=== PATIENT | male | born 1980 | race Caucasian/White ===

== ENCOUNTER 2019-11-15 13:58 | Emergency (ER) | payer BC ==
[2019-11-15] MEDS ORDERED: ROCURONIUM 50 MG/5 ML VIAL IV ONE (13:59)
[2019-11-15] MEDS ORDERED: ETOMIDATE 20 MG/10 ML VIAL IV ONE (13:59)
[2019-11-15] MEDS ORDERED: NA CHLORIDE 0.9% 2,000 ML ONE (14:03)
[2019-11-15] MEDS ORDERED: RSI MEDICATION KIT IV ONE ×2 (14:04→14:09)
[2019-11-15 14:21] LABS: Absolute Lymphocytes (CBC) 3.8 K/uL (0.7-4.9); Basophils % 0.6 % (0-1.3); Hematocrit 46.2 % (39.6-49.0); Lymphocytes % 41.3 % (15.3-44.8); MPV 8.3 fL (7.6-11.3); RBC Red Blood Cell Count 5.12 M/uL (4.33-5.43)
[2019-11-15 14:29] LABS: Protime INR 0.92
[2019-11-15] MEDS ORDERED: CEFAZOLIN/SWI 1gm 1 GM/10 ML SYR ONE (14:38)
[2019-11-15] MEDS ORDERED: TETANUS & DIPHTHERIA TOX,ADULT 0.5 ML VIAL ONE (14:38)
[2019-11-15 14:39] LABS: Potassium 3.7 mmol/L (3.5-5.1)
[2019-11-15] MEDS ORDERED: MIDAZOLAM HCL 2 MG/2 ML INJ ONE (14:41)
[2019-11-15] MEDS ORDERED: VECURONIUM 10 MG/VIAL IV ONE (14:42)
[2019-11-15] MEDS ORDERED: WATER FOR INJ,STERILE 10 ML ONE ×2 (14:42→15:01)
[2019-11-15] MEDS ORDERED: propofoL 1,000 MG/100 ML VIAL IV ONE (14:50)
[2019-11-15] MEDS ORDERED: CEFAZOLIN SODIUM 1 GM/VIAL ONE (15:01)
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
[2019-11-15 15:22] VITALS: TEMP 97.8
--- NOTE | 2019-11-15 15:27 | P.BOP ---
Preoperative diagnosis: RIGHT traumatic hemopneumothroax Postoperative diagnosis: RIGHT traumatic hemopneumothroax Primary procedure: [place] of a 20Fr Thal RIGHT thoracostomy tube Estimated blood loss: 30cc Specimen: none Findings: 30cc of dark blood returned with air Anesthesia: Local Complications: None Drain(s): Other (CHEST tube) Transferred to: Other ([facility]) Condition: Serious
[2019-11-15 15:41] VITALS: BP 163/102; O2SAT 95
[2019-11-15] MEDS ORDERED: KETAMINE HCL 500 MG/5 ML VIAL ONE (19:29)
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
== END 2019-11-15 15:14 | disposition short-term general hospital (02) ==
LOC: ER 13:58
PROC: 0W9930Z Drainage of Right Pleural Cavity with Drainage Device, Percutaneous Approach (ICD-10-PCS; principal; 2019-11-15)
PROC: 0BH17EZ Insertion of Endotracheal Airway into Trachea, Via Natural or Artificial Opening (ICD-10-PCS; 2019-11-15)
PROC: 5A1935Z Respiratory Ventilation, Less than 24 Consecutive Hours (ICD-10-PCS; 2019-11-15)
PROC: 06HM33Z Insertion of Infusion Device into Right Femoral Vein, Percutaneous Approach (ICD-10-PCS; 2019-11-15)
PROC: 30233K1 Transfusion of Nonautologous Frozen Plasma into Peripheral Vein, Percutaneous Approach (ICD-10-PCS; 2019-11-15)
PROC: 30233N1 Transfusion of Nonautologous Red Blood Cells into Peripheral Vein, Percutaneous Approach (ICD-10-PCS; 2019-11-15)
DX: S27.2XXA Traumatic hemopneumothorax, initial encounter (principal); S22.5XXA Flail chest, initial encounter for closed fracture; S01.01XA Laceration without foreign body of scalp, initial encounter; V29.40XA Motorcycle driver injured in collision with unspecified motor vehicles in traffic accident, initial encounter; Z23 Encounter for immunization; I10 Essential (primary) hypertension
CPT/HCPCS: 32551; 31500 ×2; 94002 ×2; 36556; 85025; 80048; 36415; 86900; 86850; 85610; 86901; 70450; 72125; 71260; 74177; 71045; 90471; 90714; 51702; 96375; 96374; 99291; 36430; Q9967; J2704; J2250; J0690 ×2; P9016; J7030

== ENCOUNTER 2020-03-27 16:05 | Emergency (ER) | payer OTHER, SELFPAY ==
--- OUTSIDE RECORDS SUMMARY | 2020-03-27 16:17 | XMS REPORT | Continuity of Care Document ---
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 grapefruit and grapefruit juice". Do not crush Coumadin Notes: Nurse to No Longer TI RR ensure Active 2020 documentation of patient education per anticoagulation policy. Avoid large intake of vitamin-K containing foods diet. WASTE: F/P - P Waste Black; E - P Waste Black (Same As: Coumadin) Hazardous Drug Group 3:Reproductive risk Hazardous Drug -- Refer to safe handling procedure PPE Matrix Lisinopril Notes: (Same as: Inactive [facility] Prinivil, 2019 Zestril) gabapentin 50 Notes: Same as No Longer H [facility] MG/ML Oral Neurontin Active 2019 Solution Silver Nitrate Notes: WASTE: No Longer H [facility] F/P - Black; E - Active 2019 [facility] Trash [facility] Diclofenac Sodium Notes: Same as: No Longer 12/13 [facility] 0.01 MG/MG Topical Voltaren Gel Active 2020 Gel [Voltaren] Methylphenidate Notes: (Same No Longer H [facility] as:Ritalin) Active 2020 Clonidine Notes: (Same As: No Longer [facility] Hydrochloride 0.1 Catapres) Active 2020 MG Oral Tablet Clonidine Notes: (Same As: No Longer [facility] Hydrochloride 0.2 Catapres) Active 2020 MG Oral Tablet Trazodone Notes: (Same As: No Longer [facility] Hydrochloride 50 Desyrel) Active 2020 MG Oral Tablet Acetaminophen Notes: Do not No Longer [facility] exceed 4 gm/day. Active 2020 (Same as: Tylenol) Melatonin 3 MG Notes: (Same as: No Longer [facility] Extended Release Melatonin) Active 2020 Tablet Clonidine Notes: (Same As: No Longer [facility] Hydrochloride 0.2 Catapres) Active 2020 MG Oral Tablet Acetaminophen Notes: Do not No Longer [facility] exceed 4 gm/day. Active 2020 (Same as: Tylenol) Keflex Notes: Take on No Longer [facility] empty stomach. Active 2020 (Same As: Keflex) Sulfamethoxazole 1 tab, Route: Inactive [facility] 800 MG / PO, Drug Form: 2019 Trimethoprim 160 TAB, Dosing MG Oral Tablet Weight 90.909, [Bactrim] kg, [id number], Start date: 12/24/19 10:00:00 PORT TRAFFIC MANAGER, Duration: 7 day, Stop date: 12/30/19 22:00:00 PORT TRAFFIC MANAGER Methocarbamol Notes: (Same No Longer [facility] as:Robaxin) Active 2020 Oxycodone Notes: (Same as: No Longer [facility] Hydrochloride 5 MG Roxicodone) Active 2019 Oral Tablet sennosides, GROUP HOME 2 tab, Route: Inactive H [facility] 8.6 MG Oral Tablet PO, Drug Form: 2020 TAB, Dosing Weight 90.909, kg, Bedtime, Start date: 12/22/19 21:00:00 PORT TRAFFIC MANAGER, Duration: 30 day, Stop date: 01/20/20 21:00:00 CDT Warfarin Notes: Nurse to No Longer TI RR ensure Active 2019 documentation of patient education per anticoagulation policy. Avoid large intake of vitamin-K containing foods diet. (Same As: Coumadin) WASTE: F/P - P Waste Black; E - P Waste Black Hazardous Drug Group 3:Reproductive risk Hazardous Drug -- Refer to safe handling procedure PPE Matrix Methocarbamol Notes: (Same No Longer [facility] as:Robaxin) Active 2020 Docusate Sodium Notes: (Same as: No Longer 12/22 [facility] 100 MG Oral Colace) (Do Not Active 2020 Capsule [Colace] Crush) Bacitracin 1 appl, Route: No Longer [facility] TOP, Q12H, Drug Active 2020 form: OINT, Start date: 12/20/19 21:00:00 PORT TRAFFIC MANAGER, Duration: 30 day, Stop date: 01/19/20 9:00:00 CDT, 0 Warfarin Notes: Nurse to No Longer TI RR ensure Active 2020 documentation of patient education per anticoagulation policy. Avoid large intake of vitamin-K containing foods diet. WASTE: F/P - P Waste Black; E - P Waste Black (Same As: Coumadin) Hazardous Drug Group 3:Reproductive risk Hazardous Drug -- Refer to safe handling procedure PPE Matrix Amlodipine Notes: (Same as: No Longer [facility] Norvasc) Active 2020 POLYETHYLENE Notes: Dissolve No Longer H [facility] GLYCOL 3350 in 8 oz of water Active 2020 or juice. (Same as: Miralax) remove patch Notes: Remove No Longer [facility] patch 12 hours Active 2019 after application each day. gabapentin 50 Notes: (Same as: No Longer [facility] MG/ML Oral Neurontin) Active 2020 Solution atorvastatin Notes: (Same as: No Longer [facility] Lipitor) Active 2019 Bacitracin 0.5 Notes: (Same As: Inactive [facility] UNT/MG / Polymyxin Polysporin) 2020 B 10 UNT/MG Topical Ointment Clonidine Notes: (Same As: No Longer [facility] Hydrochloride 0.2 Catapres) Active 2020 MG Oral Tablet Docusate Sodium 50 Notes: (Same as No Longer [facility] MG / sennosides, Senokot-S) Active 2020 GROUP HOME 8.6 MG Oral Equiv. to Tablet Viktoria-Colace. Famotidine 20 MG Notes: (Same as: No Longer 8/ [facility] Oral Tablet Pepcid) Active 2020 [Pepcid] Lidocaine 1 patch, Route: Inactive TI RR Hydrochloride 0.05 TOP, Q24H, Drug 2020 MG/MG Transdermal form: FILM, Patch [Lidoderm] Start date: 12/19/19 21:00:00 PORT TRAFFIC MANAGER, Duration: 30 day, Stop date: 01/17/20 21:00:00 PORT TRAFFIC MANAGER Methocarbamol Notes: (Same No Longer [facility] as:Robaxin) Active 2020 lidocaine topical Notes: Apply No Longer [facility] only once for Active 2019 up to 12 hours in a 24-hour period (12 hours on and 12 hours off). (Same as: Aspercreme Lidocaine Patch) "Remove old patch before application of new patch" Oxycodone Notes: (Same as: No Longer [facility] Hydrochloride 5 MG Roxicodone) Active 2020 Oral Tablet Albuterol 0.833 Notes: (Same as: No Longer 12/20 [facility] MG/ML / Duoneb) Active 2020 Ipratropium [place] 0.167 MG/ML Inhalant Solution [DuoNeb] Simethicone Notes: (Same as: No Longer H [facility] Mylicon) Active 2020 tramadol Notes: Not to No Longer [facility] hydrochloride 50 exceed Active 2020 MG Oral Tablet 400mg/day. (Same As: Ultram) Acetaminophen Notes: Do not No Longer [facility] exceed 4 gm/day. Active 2020 (Same as: Tylenol) Milk of Magnesia Notes: (Same as: No Longer [facility] Milk of Active 2020 Magnesia, MOM) Bisacodyl Notes: (Same As: No Longer [facility] Dulcolax, Active 2020 Bisco-Lax) warfarin 5 mg oral 5 mg = 1 tab, On Hold [place] tablet PO, Daily, INR 2020 Medical goal 2-3, # 30 Center tab, 0 Refill(s) Acetaminophen 500 1,000 mg = 2 On Hold H [place] MG Oral Tablet tab, PO, Q6H, 0 2020 M edical Refill(s) Center Albuterol 0.833 3 mL, NEB, RTID, On Hold [place] MG/ML / PRN Respiratory 2020 Medical Ipratropium Pathway, 0 Center [place] 0.167 Refill(s) MG/ML Inhalant Solution [DuoNeb] Albuterol 0.83 NEB, RQ4H, PRN On Hold [facility] MG/ML Inhalant Wheezing, 0 2019 Medic al Solution Refill(s) [place] amLODIPine 10 mg 10 mg = 1 tab, On Hold [facility] oral tablet PO, Daily, 0 2019 Medical Refill(s) [place] atorvastatin 80 mg 80 mg = 1 tab, On Hold [facility] oral tablet NG, Bedtime, 0 2019 Medic al Refill(s) [place] Bacitracin 0.5 1 appl, TOP, [place] UNT/MG / Polymyxin TID, 0 Refill(s) 2019 Medical B 10 UNT/MG [place] Topical Ointment Clonidine 0.2 mg = 1 tab, On Hold Riky as Hydrochloride 0.2 GT, Q4H, 0 2019 Med ical MG Oral Tablet Refill(s) [place] dextromethorphan-g 10 mL, PO, Q4H, On Hold 12/19 [facility] uaiFENesin 20 0 Refill(s) 2019 Medica l mg-200 mg/10 mL [place] oral liquid Docusate Sodium 50 2 tab, PO, BID, On Hold 12/19 [facility] MG / sennosides, 0 Refill(s) 2019 Med ical GROUP HOME 8.6 MG Oral [place] Tablet Famotidine 20 MG 20 mg = 1 tab, On Hold [facility] Oral Tablet PO, Q12H, 0 2019 Medical [Pepcid] Refill(s) [place] gabapentin 50 900 mg = 18 mL, On Hold [facility] MG/ML Oral GT, Q8H, 0 2019 Medical Solution Refill(s) [place] haloperidol 5 mg 5 mg = 1 tab, On Hold [facility] oral tablet PEG, Q6H, PRN 2019 Medica l Agitation, 0 Center Refill(s) lactobacillus PO, Daily, 0 [place] rhamnosus GG Refill(s) 2019 [facility] Lidocaine 1 patch, TOP, On Hold [place] Hydrochloride 0.05 Q24H, 0 2019 Medic al MG/MG Transdermal Refill(s) Cent er Patch [Lidoderm] methocarbamol 500 500 mg = 1 tab, On Hold [facility] mg oral tablet PO, QID, 0 2019 Medica l Refill(s) Center Nystatin 212260 200,000 unit = 2 On Hold [facility] UNT/ML Oral mL, Swab Mouth, 2019 Medi connor Suspension Q8H, 0 Refill(s) Cent er polyethylene PO, Daily, 0 On Hold [place] as glycol 3350 oral Refill(s) 2019 Medic al powder for Center reconstitution Psyllium PO, TID, 0 On Hold [facility] Refill(s) 2019 Medical Center simethicone 80 mg 80 mg = 1 tab, On Hold [facility] oral tablet, PEG, Q8H, PRN as 2020 Me dical chewable needed for gas, Center 0 Refill(s) tramadol 50 mg = 1 tab, On Hold [facility] hydrochloride 50 PO, Q6H, PRN 2020 Me dical MG Oral Tablet Pain Score 7-10, Center 0 Refill(s) Warfarin Notes: Nurse to Inactive [place] as ensure 2019 Medical documentation of Center patient education per anticoagulation policy. Avoid large intake of vitamin-K containing foods diet. WASTE: F/P - P Waste Black; E - P Waste Black (Same As: Coumadin) Hazardous Drug Group 3:Reproductive risk Hazardous Drug -- Refer to safe handling procedure PPE Matrix Miralax Notes: Dissolve [place] in 8 oz of water 2020 Medical or juice. (Same Center as: Miralax) Warfarin Notes: Nurse to Inactive [place] as ensure 2019 Medical documentation of Center patient education per anticoagulation policy. Avoid large intake of vitamin-K containing foods diet. WASTE: F/P - P Waste Black; E - P Waste Black (Same As: Coumadin) Hazardous Drug Group 3: Reproductive risk Hazardous Drug -- Refer to safe handling procedure PPE Matrix Docusate Sodium 50 Notes: (Same as No Longer [facility] MG / sennosides, Senokot-S) Active 2020 Medi connor GROUP HOME 8.6 MG Oral Equiv. to Center Tablet Viktoria-Colace. Warfarin Notes: Nurse to Inactive [place] as ensure 2019 Medical documentation of Center patient education per anticoagulation policy. Avoid large intake of vitamin-K containing foods diet. WASTE: F/P - P Waste Black; E - P Waste Black (Same As: Coumadin) Hazardous Drug Group 3: Reproductive risk Hazardous Drug -- Refer to safe handling procedure PPE Matrix Ketorolac 4 days. Give No Longer [place] Tromethamine 10 MG with food. (Same Active 2019 Medical Oral Tablet as:Toradol) Center Mucinex 600 mg, Route: Inactive [place] PO, Drug form: 2019 Medical ERTAB, Q12H, Center Dosing Weight 112.005, kg, Start date: 12/16/19 21:00:00 PORT TRAFFIC MANAGER, Duration: 30 day, Stop date: 01/15/20 9:00:00 PORT TRAFFIC MANAGER Mucinex DM Notes: (Same as: Inactive [place] Guaifenex DM) 2019 [facility] "Do Not Crush" Center Warfarin Notes: Nurse to Inactive [place] as ensure 2019 Medical documentation of Center patient education per anticoagulation policy. Avoid large intake of vitamin-K containing foods diet. WASTE: F/P - P Waste Black; E - P Waste Black (Same As: Coumadin) Hazardous Drug Group 3: Reproductive risk Hazardous Drug -- Refer to safe handling procedure PPE Matrix Robitussin-DM Notes: No Longer [place] (dextromethorpha Active 2019 [facility] n-guaifenesin Center 10-100mg/5ml 10 ml oral SOLN ud) (Same as: Robitussin DM) ketOROLAC 30 mg/mL 4 days No Longer 12/16 [facility] injectable MEDICATION WASTE Active 2019 Medi connor solution Product Center Size: 30 mg Product Wasted: ___ mg Albuterol 0.833 Notes: (Same as: No Longer 12/16 [place] MG/ML / Duoneb) Active 2019 [facility] Ipratropium Center [place] 0.167 MG/ML Inhalant Solution [DuoNeb] Warfarin Notes: Nurse to Inactive [place] as ensure 2019 Medical documentation of Center patient education per anticoagulation policy. Avoid large intake of vitamin-K containing foods diet. WASTE: F/P - P Waste Black; E - P Waste Black (Same As: Coumadin) Robaxin Notes: (Same No Longer [place] as:Robaxin) Active 2020 [facility] Center Warfarin Notes: Nurse to Inactive [place] as ensure 2020 Medical documentation of Center patient education per anticoagulation policy. Avoid large intake of vitamin-K containing foods diet. WASTE: F/P - P Waste Black; E - P Waste Black (Same As: Coumadin) Famotidine 20 MG Notes: (Same as: No Longer [place] Oral Tablet Pepcid) Active 2019 Medical [Pepcid] Center Warfarin Notes: Nurse to Inactive [place] as ensure 2019 Medical documentation of Center patient education per anticoagulation policy. Avoid large intake of vitamin-K containing foods diet. WASTE: F/P - P Waste Black; E - P Waste Black (Same As: Coumadin) Tums Notes: (Same As: No Longer [place] Tums) Calcium Active 2019 Medical Carbonate 500 mg Center = 200 mg elemental calcium Dose = mg calcium carbonate ( mg elemental calcium) Warfarin Notes: Nurse to Inactive [place] as ensure 2019 Medical documentation of Center patient education per anticoagulation policy. Avoid large intake of vitamin-K containing foods diet. WASTE: F/P - P Waste Black; E - P Waste Black (Same As: Coumadin) Warfarin Notes: Nurse to Inactive [place] as ensure 2019 Medical documentation of Center patient education per anticoagulation policy. Avoid large intake of vitamin-K containing foods diet. WASTE: F/P - P Waste Black; E - P Waste Black (Same As: Coumadin) Haldol Notes: (Same as: No Longer [place] Haldol) Active 2019 [facility] Haldol 5 mg, Route: IM, Inactive [place] as Q6H, Dosing 2019 Medical Weight 112.005, Center kg, PRN Ag[place], Start date: 12/11/19 10:46:00 PORT TRAFFIC MANAGER, Duration: 30 day, Stop date: 01/10/20 10:45:00 PORT TRAFFIC MANAGER Oxycodone Notes: (Same as: No Longer [place] Hydrochloride 5 MG Roxicodone) Active 2019 M edical Oral Tablet Center tramadol Notes: Not to No Longer [place] hydrochloride 50 exceed Active 2019 Medical MG Oral Tablet 400mg/day. (Same Center As: [facility]) Cefazolin Notes: (Same as Inactive [place] Ancef) [address] [place] [address] Center sugammadex Notes: (Same as: No Longer [place] Bridion) Active [facility] SEROquel Notes: (Same as: No Longer Kate booth SEROquel) Active [address] [place] [address] hydromorphone Route: IV, Drug Inactive [facility] (ANES) form: INJ, ONCE, 2019 Medical Stop date: [place] 12/09/19 18:47:00 PORT TRAFFIC MANAGER calcium chloride Route: IV, Drug Inactive [facility] (ANES) form: INJ, ONCE, 2019 Medical Stop date: [place] 12/09/19 18:47:00 PORT TRAFFIC MANAGER ondansetron (ANES) Route: IV, Drug Inactive 11/13 [facility] form: INJ, ONCE, 2019 Medical Stop date: [place] 12/09/19 18:32:00 PORT TRAFFIC MANAGER sugammadex ([facility]) Route: IV, Drug Inactive 12/10 [facility] form: SOLN, 2019 Medical ONCE, Stop date: [place] 12/09/19 18:32:00 PORT TRAFFIC MANAGER Hydralazine Notes: (Same as: Inactive [facility] Apresoline) Push 2020 Medical over 5 minutes Center Metoprolol Notes: (Same as: Inactive [facility] Lopressor) Push [facility] Medical over 2 minutes Center Oxycodone Notes: (Same as: Inactive Kate booth 'Roxicodone) [address] [place] [address] Center Fentanyl Notes: (Same as: Inactive [place] xakaur Sublimaze) [facility] Medical Preservative Center free. Hydromorphone Notes: Same as Inactive [facility] Dilaudid [address] [place] [address] Center Flumazenil Notes: (Same as: Inactive [facility] Romazicon) [facility] Naloxone Notes: Same as Inactive [place] Narcan [address] [place] [address] Center Ondansetron Notes: (Same as: Inactive [facility] Zofran) [facility] Medical MEDICATION WASTE Center Product Size: 4 mg Product Wasted: ___ mg Promethazine Notes: Do not Inactive Kate booth give IV push. 2020 Medical (Same as: Center Phenergan) phenylephrine Route: IV, Drug Inactive [facility] [place] (ANES) form: INJ, ONCE, 2019 Medical Stop date: [place] 12/09/19 17:41:00 PORT TRAFFIC MANAGER rocuronium (ANES) Route: IV, Drug Inactive 12/09 [facility] form: INJ, ONCE, 2019 Medical Stop date: [place] 12/09/19 17:36:00 PORT TRAFFIC MANAGER Fiberall Notes: (Same as: No Longer [place] Metamucil) Mix Active [address] [place] [address] in 8 oz liquid Center with meal. Valproic Acid 50 Notes: (Same as: No Longer 11/13 [place] MG/ML Oral Depekene) Active [address] [place] [address] Solution [place] hydromorphone Route: IV, Drug Inactive [facility] (ANES) form: INJ, ONCE, 2019 Medical Stop date: [place] 12/09/19 14:58:00 PORT TRAFFIC MANAGER phenylephrine Route: IV, Drug Inactive [facility] (ANES) form: INJ, ONCE, 2019 Medical Stop date: [place] 12/09/19 13:36:00 PORT TRAFFIC MANAGER midazolam (ANES) Route: IV, Drug Inactive [facility] form: SOLN, 2019 Medical ONCE, Stop date: [place] 12/09/19 13:26:00 PORT TRAFFIC MANAGER rocuronium (ANES) Route: IV, Drug Inactive 12/09 [facility] form: INJ, ONCE, 2019 Medical Stop date: [place] 12/09/19 13:26:00 PORT TRAFFIC MANAGER fentaNYL (ANES) Route: IV, Drug Inactive [facility] form: INJ, ONCE, 2019 Medical Stop date: [place] 12/09/19 13:26:00 PORT TRAFFIC MANAGER ceFAZolin (ANES) Route: IV, Drug Inactive [facility] form: INJ, ONCE, 2019 Medical Stop date: [place] 12/09/19 13:21:00 PORT TRAFFIC MANAGER Lactated Ringers Route: IV, Total Inactive 12/09 [facility] Injection IV Volume: 1,000, 2019 Medi connor (ANES) 1000 mL Start date: Cente r 12/09/19 12:25:00 PORT TRAFFIC MANAGER, Stop date: 12/09/19 13:25:00 PORT TRAFFIC MANAGER SEROquel Notes: (Same as: No Longer [place] SEROquel) Active [address] [place] [address] Seroquel 50 mg, Route: Inactive [place] PO, Q12H, Dosing 2019 Medical Weight 112.005, Center kg, Start date: 12/08/19 9:00:00 PORT TRAFFIC MANAGER, Duration: 30 day, Stop date: 01/06/20 21:00:00 PORT TRAFFIC MANAGER Amlodipine Notes: (Same as: No Longer [place] Norvasc) Active 2019 Medical Center Seroquel Notes: (Same as: In[place] SEROquel) 2020 Medical Center Seroquel Notes: (Same as: No Longer [place] SEROquel) Active 2020 Medical Center Furosemide 20 MG Notes: (Same as: No Longer 11/13 [facility] Oral Tablet Lasix) Active 2019 Medical [Lasix] Center Versed Notes: (Same as: Inactive [place] as Versed) 2020 Medical MEDICATION WASTE Center Product Size: 2 mg Product Wasted: ___ mg Haldol Notes: (Same as: Inactive [place] as Haldol) 2020 Medical Center Furosemide 20 MG 20 mg, 1 tab, Inactive [facility] Oral Tablet Route: IV, Q8H, [address] [facility] connor [Lasix] Dosing Weight Center 112.005, kg, Start date: 12/07/19 10:00:00 PORT TRAFFIC MANAGER, Duration: 1 day, Stop date: 12/08/19 8:00:00 PORT TRAFFIC MANAGER Amlodipine 5 mg, Route: PO, Inactive [facility] Drug form: TAB, 2019 Medical Daily, Dosing Center Weight 112.005, kg, Start date: 12/07/19 9:00:00 PORT TRAFFIC MANAGER, Duration: 30 day, Stop date: 01/05/20 9:00:00 PORT TRAFFIC MANAGER Labetalol 10 mg, 2 mL, Inactive [facility] Route: IVP, Drug 2019 Medical form: INJ, Center Q15Min, Dosing Weight 112.005, kg, PRN Hypertension, Start date: 12/07/19 3:24:00 PORT TRAFFIC MANAGER, Duration: 3 doses or times, Stop date: Limited # of times, 0 Seroquel Notes: (Same as: No Longer [place] SEROquel) Active 2019 Medical Center Enoxaparin 1 mg/kg, Route: Inactive [facility] exas SUB-Q, Q12H, 2019 Medical Dosing Weight Center 100, kg, Start date: 12/05/19 9:00:00 PORT TRAFFIC MANAGER, Duration: 30 day, Stop date: 01/03/20 21:00:00 PORT TRAFFIC MANAGER Enoxaparin Route: SUB-Q, Inactive [place] as Q12H, Dosing 2019 Medical Weight 112.005, Center kg, Priority: STAT, Start date: 12/05/19 8:37:00 PORT TRAFFIC MANAGER, Duration: 30 day, Stop date: 01/03/20 21:00:00 PORT TRAFFIC MANAGER Iohexol 100 mL, Route: Inactive [place] IVP, Drug Form: 2019 Medical SOLN, Dosing Center Weight 112.005, kg, ONCALL, STAT, Start date: 12/04/19 10:32:00 PORT TRAFFIC MANAGER, Duration: 1 doses or times, Dose = 2.2ml/kg, Max dose = 100ml -- "To be infused by Radiology Staff ONLY" Iohexol Notes: (Same No Longer [place] as:Omnipaque Active [address] [place] [address]). WASTE: Center F/P - Black; E - Municipal Trash Bin Seroquel Notes: (Same as: No Longer [place] SEROquel) Active [facility] Versed Notes: (Same as: Inactive [place] as Versed) [facility] Medical MEDICATION WASTE Center Product Size: 2 mg Product Wasted: ___ mg Sodium Chloride 250 mL, Rate: To No Longer 12/04 [place] 0.9% (titrate) 250 prime line and Active 2019 Medical mL flush remaining Center blood products., Dosing Weight 112.005, kg, Route: IV, Total Volume: 250, Priority: Routine, Start Date: 12/04/19 4:20:00 PORT TRAFFIC MANAGER, Duration: 1 day, Stop date: 12/05/19 4:19:00 PORT TRAFFIC MANAGER, Replace Every: 24 hr, 0 Sodium Chloride 250 mL, Rate: To No Longer 12/04 [place] 0.9% (titrate) 250 prime line and Active 2019 Medical mL flush remaining Center blood products., Dosing Weight 112.005, kg, Route: IV, Total Volume: 250, Priority: Routine, Start Date: 12/04/19 3:46:00 PORT TRAFFIC MANAGER, Duration: 1 day, Stop date: 12/05/19 3:45:00 PORT TRAFFIC MANAGER, Replace Every: 24 hr, 0 Isolyte S PH-7.4 Route: IV, ONCE, Inactive 12/03 [place] (Bolus) IV Dosing Weight 2019 [facility] 112.005 kg, Center Start date: 12/03/19 7:47:00 PORT TRAFFIC MANAGER, Stop date: 12/03/19 7:47:00 PORT TRAFFIC MANAGER Vancomycin 2000 mg: infuse No Longer [facility] over 2.5 hours Active 2019 Medical For adult Center patients only: Round to nearest 250 mg per Medical Staff approval MEDICATION WASTE Product Size: 1000 mg Product Wasted: ___ mg Isolyte S PH 7.4 Notes: (Same as: No Longer 11/13 [place] 1,000 mL Isolyte S PH7.4, Active 2019 Medica l Normosol-R PH Center 7.4, Plasma-Lyte A ) cefepime Notes: (Same As: No Longer [place] Maxipime) Active 2019 Medical MEDICATION WASTE Center Product Size: 1000 mg Product Wasted: ___ mg Vancomycin 2000 mg: infuse Inactive [place] over 2.5 hours 2019 [facility] Center Versed 2 mg, Route: Inactive [place] IVP, ONCE, 2019 Medical Dosing Weight [place] 112.005, kg, Start date: 12/01/19 13:17:00 PORT TRAFFIC MANAGER, Stop date: 12/01/19 13:17:00 PORT TRAFFIC MANAGER Labetalol 10 mg, 2 mL, No Longer Александр dietrich Route: IVP, Drug Active 2019 Medical form: INJ, Center Q15Min, Dosing Weight 112.005, kg, PRN Hypertension, Start date: 12/01/19 12:14:00 PORT TRAFFIC MANAGER, Duration: 3 doses or times, Stop date: Limited # of times, 0 Labetalol 10 mg, Route: Inactive Александр dietrich IVP, Drug form: 2019 Medical INJ, [id number], Center Dosing Weight 112.005, kg, PRN Hypertension, Start date: 12/01/19 12:12:00 PORT TRAFFIC MANAGER, Duration: 30 day, Stop date: 12/31/19 12:11:00 PORT TRAFFIC MANAGER Lovenox Notes: Nurse to No Longer [place] as ensure Active 2019 Medical documentation of Center patient education per anticoagulation policy. (Same as: Lovenox) Labetalol 10 mg, 2 mL, Inactive [place] Route: IVP, Drug 2020 Medical form: INJ, Center Q15Min, Dosing Weight 112.005, kg, PRN Hypertension, Start date: 12/01/19 9:32:00 PORT TRAFFIC MANAGER, Duration: 3 doses or times, Stop date: Limited # of times, 0 Phenergan Notes: Do not No Longer [place] as give IV push. Active 2020 Medical (Same as: [place] Phenergan) Tramadol Notes: Not to [place] Longer [place] exceed Active 2020 Medical 400mg/day. (Same Center As: [facility]) Reglan Notes: (Same as: No Longer [place] Reglan) Active 2020 Medical Center Hydralazine Notes: (Same as: Inactive [place] Apresoline) Push 2020 Medical over 5 minutes Center Zofran Notes: (Same as: No Longer [place] Zofran) Active 2019 Medical MEDICATION WASTE Center Product Size: 4 mg Product Wasted: ___ mg Zofran Notes: (Same as: Inactive [place] as Zofran) 2020 Medical MEDICATION WASTE Center Product Size: 4 mg Product Wasted: ___ mg Simethicone Notes: (Same as: No Longer [facility] Mylicbrianna) Active 2020 [facility] Simethicone Notes: (Same as: Inactive [facility] Mylicon) 2020 Medical [place] lactobacillus 1 tab, Route: No Longer [place] acidophilus PO, Drug Form: Active 2020 Medic al TAB, Dosing Center Weight 112.005, kg, Daily, Start date: 11/30/19 9:00:00 PORT TRAFFIC MANAGER, Duration: 30 day, Stop date: 12/29/19 9:00:00 PORT TRAFFIC MANAGER Ondansetron 2 Notes: (Same as: Inactive [place] MG/ML Injectable Zofran) 2019 edical Solution [Zofran] MEDICATION WASTE Center Product Size: 4 mg Product Wasted: ___ mg Nystatin Notes: (Same No Longer [place] as:Mycostatin) Active 2019 [facility]. [place] metoprolol (ANES) Route: IV, Drug Inactive 11/29 [facility] form: INJ, ONCE, 2019 Medical Stop date: [place] 11/29/19 15:22:00 PORT TRAFFIC MANAGER neostigmine (ANES) Route: IV, Drug Inactive 11/12 [facility] form: INJ, ONCE, 2019 Medical Stop date: [place] 11/29/19 15:22:00 PORT TRAFFIC MANAGER glycopyrrolate Route: IV, Drug Inactive [place] (ANES) form: INJ, ONCE, 2019 Medical Stop date: [place] 11/29/19 15:22:00 PORT TRAFFIC MANAGER ceFAZolin ([facility]) Route: IV, Drug Inactive [facility] form: INJ, ONCE, 2019 Medical Stop date: [place] 11/29/19 14:02:00 PORT TRAFFIC MANAGER ketAMINE (ANES) Route: IV, Drug Inactive [facility] form: INJ, ONCE, 2019 Medical Stop date: [place] 11/29/19 12:56:00 PORT TRAFFIC MANAGER rocuronium (ANES) Route: IV, Drug Inactive 11/29 [facility] form: INJ, ONCE, 2019 Medical Stop date: [place] 11/29/19 12:30:00 PORT TRAFFIC MANAGER nafcillin (ANES) Route: IV, Drug Inactive [facility] form: INJ, ONCE, 2019 Medical Stop date: [place] 11/29/19 12:25:00 PORT TRAFFIC MANAGER propofol (ANES) Route: IV, Drug Inactive [facility] form: INJ, ONCE, 2019 Medical Stop date: [place] 11/29/19 12:15:00 PORT TRAFFIC MANAGER fentaNYL (ANES) Route: IV, Drug Inactive [facility] form: INJ, ONCE, 2019 Medical Stop date: [place] 11/29/19 11:59:00 PORT TRAFFIC MANAGER Isolyte S PH 7.4 Route: IV, Total Inactive 11/29 [place] (ANES) 1000 mL Volume: 1,000, 2019 Me dical Start date: [place] 11/29/19 10:58:00 PORT TRAFFIC MANAGER, Stop date: 11/29/19 11:58:00 PORT TRAFFIC MANAGER propofol (ANES) 10 Route: IV, Drug Inactive 11/12 [place] mg form: INJ, Start 2019 Medical date: 11/29/19 Center 10:58:00 PORT TRAFFIC MANAGER, Stop date: 11/29/19 11:58:00 PORT TRAFFIC MANAGER lactobacillus Notes: Same as No Longer [facility] rhamnosus GG Culturelle Active [address] [place] [address] Lipitor Notes: Same as [facility] Long[facility] Lipitor Active [address] [place] [address] Clonidine Notes: (Same As: No Longer [place] Catapres) [address] Famotidine 20 MG Notes: (Same as: No Longer 11/12 [facility] Oral Tablet Pepcid) [address] Naproxen Notes: (Same as: No Longer [place] Naprosyn) Take [address] with food. Center Docusate Sodium 50 Notes: (Same as No Longer [place] MG / sennosides, Senokot-S) Active [address] [place] [address] [facility] 8.6 MG Oral Equiv. to Center Tablet Viktoria-Colace. propofol 10 mg/mL Notes: If No Longer [place] (Titrate.) IV Diprivan - [address] [place] [address] 1,000 mg change bottle & Center tubing every 12 hr Per state nursing law propofol can only be given by a nurse if patient is intubated or being intubated (unless the nurse is a MATERIALS AND CORROSION ENGINEER). Same as: Diprivan Tylenol Notes: Max No Longer [place] acetaminophen [facility] Medical 4000 mg/day (4 Center gm/day). (Same as: Tylenol Extra Strength) Tramadol Notes: Not to No Longer [facility] exceed Active [facility] Medical 400mg/day. (Same Center As: Ultram) Nafcillin 2 gm, Route: No Longer Rikya s IVPB, Drug form: Active 2019 Medical PDR/INJ, ABXQ4H, Center Dosing Weight 112.005, kg, Start date: 11/27/19 17:00:00 PORT TRAFFIC MANAGER, Duration: 6 day, Stop date: 12/03/19 13:00:00 PORT TRAFFIC MANAGER, 0 Versed Notes: Same as: Inactive Александр s Versed ( 2019 [facility] Preservative Center Free) MEDICATION WASTE Product Size: 5 mg Product Wasted: ___ mg Lasix Notes: (Same as: Inactive [place] as Lasix) [address] [place] [address] Seroquel Notes: (Same as: Inactive [place] SEROquel) [address] [place] [address] gabapentin Notes: (Same as: Inactive [place] Neurontin) [address] [place] [address] Water 1000 MG/ML 457.25 mL, Rate: Inactive 11/27 [place] Injectable 999 ml/hr, 2020 Medical Solution Infuse over: 0.5 Center hr, Route: IV, Dosing Weight 112.005 kg, Total Volume: 500, Start date: 11/27/19 7:31:00 PORT TRAFFIC MANAGER, Duration: 2 hr, Stop date: 11/27/19 9:30:00 PORT TRAFFIC MANAGER, For IMU and ICU use only. See Order Comments!!, 2.35, m2, 0 Sodium Chloride 4 gm, 4 tab, Inactive [place] 1000 MG Oral Route: GT, Drug [facility] Med ical Tablet form: TAB, Center Q6H-02, Dosing Weight 112.005, kg, Priority: NOW, Start date: 11/27/19 7:30:00 PORT TRAFFIC MANAGER, Duration: 30 day, Stop date: 12/27/19 2:00:00 PORT TRAFFIC MANAGER, 0 Vancomycin 2000 mg: infuse No Longer [place] over 2.[address] [place] [address] Lasix Notes: (Same as: Inactive [place] as Lasix) [facility] Medical MEDICATION WASTE Center Product Size: 40 mg Product Wasted: ___ mg Zosyn Notes: (Same as: [place] Longer [place] Zosyn) Dosing Active [facility] Medical based on Center Piperacillin component MEDICATION WASTE Product Size: 3375 mg Product Wasted: ___ mg Vancomycin 2000 mg: infuse Inactive [place] over 2.[address] [place] [address] Lasix Notes: (Same as: Inactive [place] as Lasix) [address] [place] [address] Valproic Acid 50 Notes: (Same As: No Longer 11/12 [place] MG/ML Oral Depakene) Active [facility] Medical Solution Center Gentamicin Sulfate Notes: (Same as: No Longer [place] (GROUP HOME) 0.001 MG/MG Garamycin) Active 2020 Med ical Topical Ointment Center Unasyn Notes: Dosing No Longer [place] based on Active 2019 Medical Ampicillin Center component (Same as: Unasyn) gabapentin 300 MG Notes: (Same as: Inactive 11/12 [place] Oral Capsule Neurontin) 2019 [facility] Lasix Notes: (Same as: Inactive [place] as Lasix) 2019 Medical MEDICATION WASTE Center Product Size: 40 mg Product Wasted: ___ mg Prevacid Notes: Take 1 [place] Longer [place] hour before or 2 2019 Medical hours after [place] meal; Expires in 14 days. Shake well before use. (Same as:Prevacid) Compounded Product - formulation not commercially available heparin additive Notes: Total No Longer [place] 25,000 unit [14 Concentration = 2019 Medical unit/kg/hr] + 50 unit/ ml Center Premix Diluent Total volume = Sodium Chloride 500 ml Send Med 0.45% 500 mL Request 2 hours prior to next bag Lidocaine Notes: No Longer administered via 2019 [facility] nebulization Center during bronchoscopies Acetylcysteine 200 400 mg, 2 mL, No Longer 11/24 [place] MG/ML Inhalant Route: NEB, Drug 2019 Medical Solution Form: SOLN, [place] Dosing Weight 112.005, kg, RQ4H, Start date: 11/24/19 11:00:00 PORT TRAFFIC MANAGER, Duration: 30 day, Stop date: 12/24/19 7:00:00 PORT TRAFFIC MANAGER, 0 Furosemide 20 MG 20 mg, Route: No Longer [place] Oral Tablet [place], Drug form: 2019 Medic al [Lasix] TAB, Daily, Center Dosing Weight 112.005, kg, Start date: 11/24/19 9:00:00 PORT TRAFFIC MANAGER, Duration: 30 day, Stop date: 12/23/19 9:00:00 PORT TRAFFIC MANAGER Lasix 40 mg, Route: Inactive [place] IVP, Drug form: 2019 Medical INJ, ONCE, Center Dosing Weight 112.005, kg, Start date: 11/23/19 16:41:00 PORT TRAFFIC MANAGER, Stop date: 11/23/19 16:41:00 PORT TRAFFIC MANAGER Unasyn Notes: Dosing No Longer [place] based on 2019 [facility] Ampicillin Center component (Same as: Unasyn) Furosemide 20 MG Notes: (Same as: Inactive 11/23 [place] Oral Tablet Lasix) March 2020 Medical [Lasix] cause GI upset. Center Give with food or milk. Protonix Notes: For IV [place] Longer [place] push Active [address] [place], [place] [address]ute Center with 10 ml 0.9% sodium chloride and push over 2 minutes. (Same as: Protonix) Protonix 40 mg, Route: Inactive [place] IVP, BID, Dosing 2019 Medical Weight 112.005, Center kg, Priority: NOW, Start date: 11/23/19 6:53:00 PORT TRAFFIC MANAGER, Duration: 30 day, Stop date: 12/22/19 17:00:00 PORT TRAFFIC MANAGER Labetalol 10 mg, 2 mL, [place] Longer [place] Route: IV, Drug Active 2019 Medical form: INJ, Q1H, Center Dosing Weight 112.005, kg, PRN Other -See Comment, Start date: 11/23/19 4:42:00 PORT TRAFFIC MANAGER, Duration: 30 day, Stop date: 12/23/19 4:41:00 PORT TRAFFIC MANAGER, 0 Seroquel Notes: (Same as: No Longer [facility] exas SEROquel) [address] gabapentin Notes: (Same as: No Longer [place] Neurontin) Active [address] [place] [address] Buspirone Notes: (Same As: No Longer [facility] BuSpar) [address] Buspirone Notes: (Same As: No Longer [facility] BuSpar) [address] Bromocriptine Notes: (Same As: No Longer [facility] Parlodel) [address] Captopril Notes: Give on No Longer [place] empty stomach. 1 Active [facility] Medical hour before Center meal. (Same As: Capoten) docusate Notes: (Same as: No Longer [place] Colace) Active [address] [place] [address] senna Notes: (Same as: [place] Long[place] Senokot) [address] docusate Notes: (Same as: Inactive [place] Colace) [address] [place] [address] senna Notes: (Same as: Inactive [place] as Senokot) [address] [place] [address] Labetalol 200 mg, Route: Inactive [place] as PO, Drug form: 2019 Medical TAB, Q12H, Center Dosing Weight 112.005, kg, Start date: 11/19/19 21:00:00 PORT TRAFFIC MANAGER, Duration: 30 day, Stop date: 12/19/19 9:00:00 PORT TRAFFIC MANAGER heparin additive Notes: Total No Longer [place] 25,000 unit [14 Concentration = Active [facility] Medical unit/kg/hr] + 50 unit/ ml Center Premix Diluent Total volume = Sodium Chloride 500 ml Send Med 0.45% 500 mL Request 2 hours prior to next bag Iohexol 65 mL, Route: Inactive [place] IVP, Drug Form: [address] [place] [address] SOLN, Dosing Center Weight 112.005, kg, ONCALL, STAT, Start date: 11/19/19 18:59:00 PORT TRAFFIC MANAGER, Duration: 1 doses or times, Dose = 2.2ml/kg, Max dose = 100ml -- "To be infused by Radiology Staff ONLY" Labetalol Notes: With Inactive [place] food. (Same [facility] Medical as:Trandate, [place] Normodyne) Clonidine Notes: (Same As: No Longer [place] Catapres) Active [address] [place] [address] Seroquel Notes: (Same as: No Longer [facility] [place] SEROquel) Active [address] [place] [address] Nicardipine 40 mg, 200 mL, No Longer [place] Rate: Titrate, Active [address] [place] [address] Start Dose: 5 Center mg/hr, Titration: Titrate to goal, Goal(s): SBP <180, Max Dose: 15 mg/hr, Route: IV, Dosing Weight 112.005 kg, Total Volume: 200, Start date: 11/19/19 15:00:00 PORT TRAFFIC MANAGER, Duration: 30 day, Stop date: 12/19/19 14:5... Albuterol 0.83 Notes: SEE RT No Longer H [place] MG/ML Inhalant DOCUMENTATION Active [facility] Med ical Solution (Same as: [place] Proventil) magnesium citrate Notes: (Same as: Inactive [place] 58.2 MG/ML Oral Citrate of [facility] Medic al Solution Magnesia) Center Concentration: 1.745 gm / 30 mL Sodium Chloride 3% Notes: SEE RT No Longer 11/19 [place] inhalation DOCUMENTATION Active [facility] Medical solution (Same as: [place] Hypertonic Saline 3%, Inhalation) Aspirin Notes: Do not No Longer [place] crush or chew. Active 2020 Medical (Same As: [place] Ecotrin) heparin Notes: porcine No Longer [facility] heparin Active [address] [place] [address] Aspirin 81 MG Notes: Do not No Longer [place] Enteric Coated crush or chew. Active 2020 Me dical Tablet (Same As: [place] [facility] Nicardipine Notes: Same as: No Longer [place] Cardene Active [facility] Medical Concentration: Center (0.1 mg/ 1 ml) Iohexol Notes: (Same No Longer [place] as:Omnipaque [address] 300). WASTE: Center F/P - Black; E - Municipal Trash Bin Midazolam Notes: (Same as: No Longer [place] Versed) Active [facility] Medical MEDICATION WASTE Center Product Size: 2 mg Product Wasted: ___ mg Fentanyl 1,000 microgram, No Longer [place] 20 mL, Rate: Active 2019 Medical Titrate, Start Center Dose: 50 microgram/hr, Titration: 25 microgram/hour every 15 minutes, Goal(s): 0, Max Dose: 300 microgram/hr, Route: IV, Dosing Weight 100 kg, Total Volume: 20, Start date: 11/17/19 11:46:00 PORT TRAFFIC MANAGER, Duration:... Hydralazine Notes: (Same as: No Longer [facility] Apresoline) Push Active [facility] Medical over 5 minutes Center Potassium Chloride Notes: (Same as: No Longer [facility] KCL) Infuse no 2019 Medical faster than 10 Center mEq/hr if given peripherally. sodium phosphate Notes: Infuse No Longer [facility] over 4 hour. Do Active 2020 Medical not infuse Center phosphorous concurrently in the same line as TPN or IVF that contains calcium. For double lumen central lines, phosphorous may be infused in a separate lumen from TPN. potassium Notes: (Same as: No Longer [place] phosphate K Phosphate.) Active 2020 Medical Do not infuse Center phosphorous concurrently in the same line as TPN or IVF that contains calcium. For double lumen central lines, phosphorous may be infused in a separate lumen from TPN. 1 mMol phoshate has 1.47 mEq potassium Infuse over 4 hours potassium Notes: (Same as: No Longer [place] phosphate-sodium Phos-NaK) Each Active 2019 Medical phosphate 250 1.5 [address] pkt has [address] mg-280 mg-160 mg 250mg oral powder for phosphorous. Mix reconstitution w/2.5oz water and stir. Magnesium Sulfate Notes: WASTE: No Longer [place] F/P - Sink; E - Active [facility] [place] Bin Magnesium Oxide Notes: (Same as: No Longer 11/17 [place] Mag-Ox 400) Active 2019 [facility] Magnesium oxide Center [id number] elemental magnesium Dose=____mg magnesium oxide (___mg elemental magnesium) Calcium Gluconate Notes: WASTE: No Longer [place] F/P - Sink; E - Active 2019 [facility] Bin Calcium Carbonate Notes: (Same As: No Longer [place] 500 MG Chewable Tums) Calcium Active 2019 Mi dical Tablet Carbonate 500 mg Center = 200 mg elemental calcium Dose = mg calcium carbonate ( mg elemental calcium) Ancef Notes: (Same as Inactive [place] Ancef) 2020 [facility] NS 1,000 mL 1,000 mL, Rate: No Longer [place] 100 ml/hr, 2019 Medical Infuse over: 10 Center hr, Route: IV, Dosing Weight 100 kg, Total Volume: 1,000, Start date: 11/16/19 21:56:00 PORT TRAFFIC MANAGER, Duration: 30 day, Stop date: 12/16/19 21:55:00 PORT TRAFFIC MANAGER, 2.22, m2, 0 Levetiracetam 500 Notes: (Same No Longer [facility] MG Oral Tablet as:Keppra) Active 2019 Medica l [Keppra] [place] hydromorphone Route: IV, Drug Inactive [place] (ANES) + sodium form: INJ, ONCE, 2019 Medical chloride (ANES) 9 Stop date: [address] ter mL 11/16/19 19:22:00 PORT TRAFFIC MANAGER propofol (ANES) Route: IV, Drug Inactive [place] form: INJ, ONCE, 2019 Medical Stop date: Center 11/16/19 19:12:00 PORT TRAFFIC MANAGER rocuronium (ANES) Route: IV, Drug Inactive 11/17 [facility] form: INJ, ONCE2019 Medical Stop date: [place] 11/16/19 19:12:00 PORT TRAFFIC MANAGER dexamethasone Route: IV, Drug Inactive H [place] (ANES) form: INJ, ONCE2019 Medical Stop date: [place] 11/16/19 19:07:00 PORT TRAFFIC MANAGER fentaNYL (ANES) Route: IV, Drug Inactive [place] form: INJ, ONCE, 2019 Medical Stop date: [place] 11/16/19 18:57:00 PORT TRAFFIC MANAGER ceFAZolin (ANES) Route: IV, Drug Inactive [place] form: INJ, ONCE, 2019 Medical Stop date: [place] 11/16/19 18:46:00 PORT TRAFFIC MANAGER protamine (ANES) Route: IV, Drug Inactive [place] form: INJ, ONCE, 2019 Medical Stop date: [place] 11/16/19 18:46:00 PORT TRAFFIC MANAGER niCARdipine (ANES) Route: IV, Drug Inactive [place] 2500 microgram form: INJ, Start 2019 Medical date: 11/16/19 [place] 18:39:00 PORT TRAFFIC MANAGER, Stop date: 11/16/19 19:39:00 PORT TRAFFIC MANAGER Isolyte S PH 7.4 Route: IV, Total Inactive 11/17 [place] (ANES) 1000 mL Volume: 1,000, 2020 Me dical Start date: [place] 11/16/19 18:16:00 PORT TRAFFIC MANAGER, Stop date: 11/16/19 19:16:00 PORT TRAFFIC MANAGER Sodium Chloride Route: IV, Drug Inactive [place] 0.9% IV (ANES) 90 form: INJ, 2019 mL + levETIRAcetam date: 11/16/19 [place] (ANES) 1000 mg 18:14:00 PORT TRAFFIC MANAGER, Stop date: 11/16/19 19:14:00 PORT TRAFFIC MANAGER propofol (ANES) 10 Route: IV, Drug Inactive [place] mg form: INJ, Start 2019 Medical date: 11/16/19 [place] 18:06:00 PORT TRAFFIC MANAGER, Stop date: 11/16/19 19:06:00 PORT TRAFFIC MANAGER protamine 50 mg, 5 mL, Inactive [place] Route: IVP, Drug 2019 Medical form: INJ, ONCE, [place] Dosing Weight 100, kg, Start date: 11/16/19 17:36:00 PORT TRAFFIC MANAGER, Stop date: 11/16/19 17:36:00 PORT TRAFFIC MANAGER, 0 protamine 100 mg, Route: Inactive Riky as IVP, Drug form: 2019 Medical INJ, ONCE, Center Dosing Weight 100, kg, Start date: 11/16/19 17:32:00 PORT TRAFFIC MANAGER, Stop date: 11/16/19 17:32:00 PORT TRAFFIC MANAGER sodium chloride 240 mEq, 60 mL, Inactive [place] 23.4% (BOLUS) 60 ml/hr, Infuse 2019 edical Over: 60 Center minutes, Route: IV, 60, Drug form: INJ, ONCE, Dosing Weight 100 kg, Start date: 11/16/19 17:17:00 PORT TRAFFIC MANAGER, Stop date: 11/16/19 17:17:00 PORT TRAFFIC MANAGER, 0 Mannitol Notes: (Same as: No Longer [place] Osmitrol) Infuse Active 2019 Medical through 5 micron Center or smaller filter WASTE: F/P - Sink; E - Municipal Trash Bin Mannitol Notes: (Same as: Inactive [place] Osmitrol) Infuse 2019 Medical through 5 micron Center or smaller filter WASTE: F/P - Sink; E - Municipal Trash Bin Docusate Sodium 50 Notes: (Same as No Longer [place] MG / sennosides, Senokot-S) Active [address] [facility] connor [facility] 8.6 MG Oral Equiv. to Center Tablet Viktoria-Colace. Bacitracin 0.5 Notes: (Same As: No Longer [place] UNT/MG / Polymyxin Polysporin) Active 2019 edical B 10 UNT/MG [place] Topical Ointment Aspirin 325 MG Notes: Take with Inactive [place] Oral Tablet food. 2019 [facility] Insulin regular Notes: (Same as: No Longer 11/16 [place] Humulin R) Roll Active 2019 [facility] in palms of [place] hands gently; Do not shake vigorously. WASTE: F/P - Black; E - Municipal Trash Bin Stable for 31 days at room temperature Expires in days from Da te Dextrose 50% 12.5 gm, 25 mL, No Longer H [place] Syringe (D50W) Route: IVP, Drug Active 2019 Medical Form: INJ, Center Dosing Weight 100, kg, PRN, PRN Abnormal Lab Result, Start date: 11/16/19 8:08:00 PORT TRAFFIC MANAGER, Duration: 30 day, Stop date: 01/15/20 8:07:00 PORT TRAFFIC MANAGER, For FSBG 40 mg/dL - 60 mg/dL, 0 remove patch Notes: Remove No Longer [facility] patch 12 hours Active [address] [place] [address] after [place] application each day. Calcium Gluconate Notes: WASTE: Inactive [place] F/P - Sink; E - [address] [place] [address] Trash Center Bin Enoxaparin Notes: (Same as: Inactive [facility] Lovenox) [address] [place] [address] heparin additive Notes: Total Inactive [facility] 25,000 unit [14 Concentration = 2019 Medical unit/kg/hr] + 50 unit/ ml Center Premix Diluent Total volume = Sodium Chloride 500 ml Send Med 0.45% 500 mL Request 2 hours prior to next bag Iohexol 100 mL, Route: Inactive [facility] IVP, Drug Form: 2019 Medical SOLN, Dosing Center Weight 100, kg, ONCALL, STAT, Start date: 11/16/19 0:50:00 PORT TRAFFIC MANAGER, Duration: 1 doses or times, Dose = 2.2ml/kg, Max dose = 100ml -- "To be infused by Radiology Staff ONLY" Aspirin 300 MG Notes: Inactive [facility] Rectal Suppository Refrigerate. [address] [place] [address] esmolol Notes: (Same as: Inactive [place]y as [place] IV) [address] [place] [address] ocular lubricant Notes: (Same as: No Longer [facility] Lacri-Lube, Active [address] [place] [address] [facility] Naturale, Artificial Tears, and Tears Again ) Isolyte S PH-7.4 Notes: (Same as: No Longer [facility] (Bolus) IV Isolyte S PH7.4, Active [address] [place] [address] Normosol-R PH Center 7.4, Plasma-Lyte A ) Enoxaparin Notes: (Same as: No Longer [place] Lovenox) Active [address] [place] [address] Isolyte S PH-7.4 Notes: (Same as: Inactive 11/16 [facility] (Bolus) IV Isolyte S PH7.4, 2020 Medi con[place] Normosol-R PH Center 7.4, Plasma-Lyte A ) Ketamine Notes: Total No Longer [place] Concentration = Active 2019 Medical 1mg/ml Total Center Volume = 100ml Infusion Rate= Begin Infusion at an initial rate of 0.1mg/kg/hr to a Maximum Rate of 0.25mg/kg/hr Please place a Med Request 2 hours before the next dose is needed. Isolyte S PH-7.4 Notes: (Same as: Inactive 11/16 [place] (Bolus) IV Isolyte S PH7.4, 2019 Medi connor Normosol-R PH Center 7.4, Plasma-Lyte A ) Famotidine Notes: (Same as: No Longer [place] Pepcid) Can be Active 2019 Medical dilute in 5-10cc Center NS IVP: Slow IV push over at least 2 minutes. chlorhexidine Notes: (Same As: No Longer [place] gluconate 1.2 Peridex) Active 2019 Medical MG/ML Mouthwash Center Naproxen Notes: (Same as: No Longer [place] Naprosyn) Take Active 2019 Medical with food. Center Lidocaine Notes: Apply [facility] Longer [facility] Hydrochloride 0.05 only once for up Active 2019 Medical MG/MG Transdermal to 12 hours in a Center Patch [Lidoderm] 24-hour period (12 hours on and 12 hours off). (Same as: Lidoderm) "Remove old patch before application of new patch" Tramadol Notes: Not to [place] Longer [place] exceed Active 2019 Medical 400mg/day. (Same Center As: Ultram) Oxycodone Notes: (Same as: No Longer [place] Hydrochloride 5 MG Roxicodone) Active 2019 M edical Oral Tablet Center Isolyte S PH 7.4 Notes: (Same as: No Longer [place] 1,000 mL Isolyte S PH7.4, Active 2019 Medica l Normosol-R PH Center 7.4, Plasma-Lyte A ) Albuterol 0.83 Notes: SEE RT No Longer H [place] MG/ML Inhalant DOCUMENTATION Active 2019 Med ical Solution (Same as: Center Proventil) chlorhexidine Notes: (Same As: No Longer [place] gluconate 1.2 Peridex) Active 2019 Medical MG/ML Mouthwash Center Acetaminophen 100.4 F, No Longer [place]y as Priority: NOW, 2019 Medical Start date: Center 11/15/19 18:45:00 PORT TRAFFIC MANAGER, Duration: 30 day, Stop date: 12/15/19 18:00:00 PORT TRAFFIC MANAGER, 0 gabapentin Notes: (Same as: No Longer [place] Neurontin) Active 2019 [facility] propofol 10 mg/mL Notes: If No Longer [place] (Titrate.) IV Diprivan - 2019 Medical 1,000 mg change bottle & Center tubing every 12 hr Per state nursing law propofol can only be given by a nurse if patient is intubated or being intubated (unless the nurse is a MATERIALS AND CORROSION ENGINEER). Same as: Diprivan Fentanyl 1,000 microgram, No Longer [place] 20 mL, Rate: Active 2019 Medical Titrate, Start Center Dose: 50 microgram/hr, Titration: 25 microgram/hour every 15 minutes, Goal(s): RASS -1, Max Dose: 300 microgram/hr, Route: IV, Dosing Weight 100 kg, Total Volume: 20, Start date: 11/15/19 16:16:00 PORT TRAFFIC MANAGER, Dura... Versed Notes: (Same as: Inactive Riky as Versed) 2019 Medical MEDICATION WASTE Center Product Size: 2 mg Product Wasted: ___ mg Fentanyl Notes: (Same as: Inactive [place] Sublimaze) 2019 Medical Preservative Center free. Saline Flush 0.9% Notes: Same as: No Longer [place] BD Posiflush Active [address] [place] [address] Sterile Center Allergies, Adverse Reactions, Alerts Substance Category Reaction Severity Reaction Status Date Comments S ource type Reported Ritalin Assertion Drug Active [facility] Immunizations No Data Provided for This Section Results Order Name Results Value Reference Date Interpretation Comments Sade rce Range HEMATOLOGY Sed Rate 89 0 - 15 02/11 [facility] /[address] [place] [address] HEMATOLOGY PT 23.3 12.0 - 02/11 [facility] 14.7 [facility] HEMATOLOGY INR 2.03 0.85 - 02/11 [facility] 1.17 [facility] IMMUNOLOGY C-REACTIVE 26.8 <=2.9 mg/L 02/11 [facility] PROTEIN [facility] CHEM PANEL Glucose Lvl 96 70 - 99 02/11 [facility] CHEM PANEL BUN 10 7 - 22 02/11 [facility]2019 [facility] CHEM PANEL Creatinine 0.70 0.50 - 04 [facility] Lvl 1.40 [facility] CHEM PANEL Sodium Lvl 136 135 - 145 02/11 [facility]2019 [facility] CHEM PANEL Potassium Lvl 4.4 3.5 - 5.1 02/11 [place] [facility] CHEM PANEL Chloride Lvl 105 95 - 109 02/11 [facility] CHEM PANEL CO2 23 24 - 32 02/11 [facility]2019 [facility] CHEM PANEL Calcium Lvl 9.0 8.5 - 10.5 02/11 [facility] as [facility] CHEM PANEL AGAP 12.4 10.0 - 02/11 [place] 20.0 [facility] CHEM PANEL eGFR 117 02/11 [facility] Comment: The Medical eGFR is Center calculated using the CKD-EPI formula. In most young, healthy individuals the eGFR will be >90 mL/min/1.73m2 . The eGFR declines with age. An eGFR of 60-89 may be normal in some populations, particularly the elderly, for whom the CKD-EPI formula has not been extensively validated. Use of the eGFR is not recommended in the following populations:< br/>
Parris viduals with unstable creatinine concentration s, including patients and those with serious co-morbid conditions.<b r/>
Patie nts with extremes in muscle mass or diet.

The data above are obtained from the National Kidney Disease Education Program (NKDEP) which additionally recommends that when the eGFR is used in patients with extremes of body mass index for purposes of drug dosing, the eGFR should be multiplied by the estimated BMI. HEMATOLOGY Segs 58.6 45.0 - 02/11 [facility] 75.0 [facility] HEMATOLOGY Lymphocytes 31.9 20.0 - 02/11 [place] 40.0 [facility] HEMATOLOGY Monocytes 6.8 2.0 - 12.0 02/11 [facility]2019 [facility] HEMATOLOGY Eosinophils 2.2 0.0 - 4.0 02/11 [place]2020 [facility] HEMATOLOGY Basophils 0.5 0.0 - 1.0 04/ [address] HEMATOLOGY Neutrophils # 2.5 1.5 - 8.1 04/ [facility] [address] HEMATOLOGY Lymphocytes # 1.4 1.0 - 5.5 04/ [address] HEMATOLOGY Monocytes # 0.3 0.0 - 0.8 04/ [place] HEMATOLOGY Eosinophils # 0.1 0.0 - 0.5 04/ [address] HEMATOLOGY WBC 4.3 3.7 - 10.4 02/[address] HEMATOLOGY RBC 3.96 4.70 - 02/11 [facility] 6.10 /2020 [facility] HEMATOLOGY Hgb 11.0 14.0 - 02/11 [facility] 18.0 /2020 [facility] HEMATOLOGY Hct 33.1 42.0 - 02/11 [facility] 54.0 /[address] [place] [address] HEMATOLOGY MCV 83.6 80.0 - 02/11 [facility] 94.0 /2020 [facility] HEMATOLOGY MCH 27.9 27.0 - 02/11 [facility] 31.0 /2020 [facility] HEMATOLOGY MCHC 33.4 32.0 - 02/11 [facility] 36.0 /2020 [facility] HEMATOLOGY RDW 15.1 11.5 - 02/11 [facility] 14.5 /2020 [facility] HEMATOLOGY Platelet 302 133 - [address] HEMATOLOGY MPV 6.9 7.4 - 10.4 02/[address] HEMATOLOGY PT 27.3 12.0 - 02/10 [facility] 14.7 2020 [facility] HEMATOLOGY INR 2.48 0.85 - 02/10 [facility] 1.17 /2020 [facility] HEMATOLOGY PT 28.5 12.0 - 02/09 [facility] 14.7 2020 [facility] HEMATOLOGY INR 2.62 0.85 - 02/09 [facility] 1.17 2020 [facility] TOXICOLOGY Vanco Lvl 17.0 02/[address] Culture: No 02/08 [facility] Anaerobic Anaerobes [address] After 5 Days Gram Stain Few Wbc'S; 02/08 [facility] Report No Organisms Seen /2019 [facility] Culture: No Growth 02/08 [facility] Wound/Abscess /[facility] Medical w/Gram Stain Center Culture: No 02/08 [facility] Anaerobic Anaerobes /2020 [facility] Isolated Center After 5 Days Gram Stain Few Wbc'S; 02/08 [facility] Report No Organisms [facility]en [facility] Culture: Rare Pseudomonas aeruginosa 02/08 [facility] Wound/Abscess Refer To Culture # [facility] w/Gram Stain [id number] [phone] [id number] collected 02/06/20 [facility] Results Culture: No 02/08 [facility] Anaerobic Anaerobes /2019 [facility] Isolated Center After 5 Days Gram Stain Few Wbc'S; 02/08 [facility] Report No Organisms Seen [facility] Culture: Rare Pseudomonas aeruginosa 02/08 [facility] Wound/Abscess Refer To Culture # [facility] w/Gram Stain [phone] [id number] collected 02/06/20 [facility] Results BLOOD BANK ABO/Rh A POS 02/08 [facility] RESULTS [facility] BLOOD BANK Antibody Scrn Negative 02/08 [facility] as RESULTS (02/09/20 3:25 AM) [facility] CHEM PANEL Glucose Lvl 96 70 - 99 02/07 2019 [facility] CHEM PANEL BUN 11 7 - 22 02/[address] CHEM PANEL Creatinine 0.76 0.50 - 02/07 [facility] Lvl 1.40 [facility] CHEM PANEL Sodium Lvl 134 135 - 145 02/[address] CHEM PANEL Potassium Lvl 3.7 3.5 - 5.1 02/07 [place] [facility] CHEM PANEL Chloride Lvl 99 95 - 109 02/07 [facility] CHEM PANEL CO2 28 24 - 32 02/[address] CHEM PANEL Calcium Lvl 9.4 8.5 - 10.5 02/07 [facility] /2019 [facility] CHEM PANEL AGAP 10.7 10.0 - 02/07 [place] 20.0 [facility] CHEM PANEL eGFR 113 02/07 Result Comment: The Medical eGFR is Center calculated using the CKD-EPI formula. In most young, healthy individuals the eGFR will be >90 mL/min/1.73m2 . The eGFR declines with age. An eGFR of 60-89 may be normal in some populations, particularly the elderly, for whom the CKD-EPI formula has not been extensively validated. Use of the eGFR is not recommended in the following populations:< br/>
Parris viduals with unstable creatinine concentration s, including patients and those with serious co-morbid conditions.<b r/>
Patie nts with extremes in muscle mass or diet.

The data above are obtained from the National Kidney Disease Education Program (NKDEP) which additionally recommends that when the eGFR is used in patients with extremes of body mass index for purposes of drug dosing, the eGFR should be multiplied by the estimated BMI. HEMATOLOGY Segs 58.1 45.0 - 02/07 [place] 75.0 [facility] HEMATOLOGY Lymphocytes 31.2 20.0 - 02/07 [place] 40.0 [facility] HEMATOLOGY Monocytes 6.8 2.0 - 12.0 02/[address] HEMATOLOGY Eosinophils 3.1 0.0 - 4.0 02/[address] HEMATOLOGY Basophils 0.8 0.0 - 1.0 02/[address] HEMATOLOGY Neutrophils # 2.3 1.5 - 8.1 02/[address] HEMATOLOGY Lymphocytes # 1.2 1.0 - 5.5 02/[address] HEMATOLOGY Monocytes # 0.3 0.0 - 0.8 02/[address] HEMATOLOGY Eosinophils # 0.1 0.0 - 0.5 02/[address] HEMATOLOGY WBC 4.0 3.7 - 10.4 02/[address] HEMATOLOGY RBC 4.27 4.70 - 02/07 [place] 6.10 [facility] HEMATOLOGY Hgb 11.9 14.0 - 02/07 [facility] 18.0 [facility] HEMATOLOGY Hct 34.8 42.0 - 02/07 [place] 54.0 [facility] HEMATOLOGY MCV 81.5 80.0 - 02/07 [facility] 94.0 [facility] HEMATOLOGY MCH 28.0 27.0 - 02/07 [facility] 31.0 2019 [facility] HEMATOLOGY MCHC 34.3 32.0 - 02/07 [facility] 36.0 2019 [facility] HEMATOLOGY RDW 14.9 11.5 - 02/07 [facility] 14.5 [facility] HEMATOLOGY Platelet 291 133 - 450 02/[address] HEMATOLOGY MPV 6.8 7.4 - 10.4 02/[address] TOXICOLOGY Vanco Tr 16.1 02/06 [facility]2019 [facility] TOXICOLOGY Vanco Tr TND 1130 02/06 [facility]2019 [facility] CHEM PANEL Glucose Lvl 97 70 - 99 02/[address] CHEM PANEL BUN 12 7 - 22 02/[address] CHEM PANEL Creatinine 0.76 0.50 - 02/06 [place] Lvl 1.40 [facility] CHEM PANEL Sodium Lvl 132 135 - 145 02/[address] CHEM PANEL Potassium Lvl 4.0 3.5 - 5.1 02/06 [place] [facility] CHEM PANEL Chloride Lvl 97 95 - 109 02/06 [facility] CHEM PANEL CO2 25 24 - 32 02/[address] CHEM PANEL Calcium Lvl 9.3 8.5 - 10.5 02/06 [facility] as [facility] CHEM PANEL AGAP 14.0 10.0 - 02/06 [facility] 20.0 [facility] CHEM PANEL eGFR 113 02/06 Result Comment: The Medical eGFR is Center calculated using the CKD-EPI formula. In most young, healthy individuals the eGFR will be >90 mL/min/1.73m2 . The eGFR declines with age. An eGFR of 60-89 may be normal in some populations, particularly the elderly, for whom the CKD-EPI formula has not been extensively validated. Use of the eGFR is not recommended in the following populations:< br/>
Parris viduals with unstable creatinine concentration s, including patients and those with serious co-morbid conditions.<b r/>
Patie nts with extremes in muscle mass or diet.

The data above are obtained from the National Kidney Disease Education Program (NKDEP) which additionally recommends that when the eGFR is used in patients with extremes of body mass index for purposes of drug dosing, the eGFR should be multiplied by the estimated BMI. HEMATOLOGY Segs 70.6 45.0 - 02/06 [place] 75.0 [facility] HEMATOLOGY Lymphocytes 21.3 20.0 - 02/06 [place] 40.0 [facility] HEMATOLOGY Monocytes 4.9 2.0 - 12.0 02/06 [facility]2019 [facility] HEMATOLOGY Eosinophils 2.7 0.0 - 4.0 02/[address] HEMATOLOGY Basophils 0.5 0.0 - 1.0 02/[address] HEMATOLOGY Neutrophils # 3.3 1.5 - 8.1 02/[address] HEMATOLOGY Lymphocytes # 1.0 1.0 - 5.5 02/[address] HEMATOLOGY Monocytes # 0.2 0.0 - 0.8 02/[address] HEMATOLOGY Eosinophils # 0.1 0.0 - 0.5 02/[address] HEMATOLOGY WBC 4.6 3.7 - 10.4 02/[address] HEMATOLOGY RBC 4.83 4.70 - 02/06 [facility] 6.10 2019 [facility] HEMATOLOGY Hgb 13.3 14.0 - 02/06 [facility] 18.[address] HEMATOLOGY Hct 39.8 42.0 - 02/06 [facility] 54.[address] HEMATOLOGY MCV 82.4 80.0 - 02/06 [facility] 94.0 2019 [facility] HEMATOLOGY MCH 27.6 27.0 - 02/06 [facility] 31.[address] HEMATOLOGY MCHC 33.5 32.0 - 02/06 [facility] 36.0 2019 [facility] HEMATOLOGY RDW 14.9 11.5 - 02/06 [facility] 14.5 2019 [facility] HEMATOLOGY Platelet 328 133 - 450 02/[address] HEMATOLOGY MPV 6.8 7.4 - 10.4 02/[address] GENTAMICIN: Gram Stain Few Wbc'S; No Squamous Epithelial Cells; 02/05 [facility] SUSC:PT:ISO Report No Organisms Seen /2019 Mi dical LATE:ORDQN: Center JERRICA GENTAMICIN: Culture: Few 02/05 [facility] SUSC:PT:ISO Wound/Abscess Pseudomona /2019 Med ical LATE:ORDQN: w/Gram Stain s Center JERRICA aeruginosa GENTAMICIN: Pseudomonas Pseudomona 02/05 [facility] SUSC:PT:ISO aeruginosa s /2019 Medical LATE:ORDQN: aeruginosa Center JERRICA Culture: No 02/05 [facility] Anaerobic Anaerobes /2019 [facility] Center After 5 Days Gram Stain Many Wbc'S; No Squamous Epithelial Cells; [facility] Report No Organisms Seen /2019 Medica l Center Culture: Few Pseudomonas aeruginosa 02/05 [facility] Wound/Abscess Refer To Culture # /2019 Medical w/Gram Stain [id number] collected 02/06/20 [facility] Results Culture: No 02/05 [facility] Anaerobic Anaerobes /[address] [facility] After 5 Days CHEM PANEL Total Protein 7.9 6.4 - 8.4 02/[address] CHEM PANEL Albumin Lvl 2.8 3.5 - 5.0 02/05 [facility] [address] CHEM PANEL Globulin 5.1 2.7 - 4.2 02/[address] CHEM PANEL A/G Ratio 0.5 0.7 - 1.6 02/[address] CHEM PANEL ALT 19 0 - 65 02/[address] CHEM PANEL AST 16 0 - 37 02/[address] CHEM PANEL Alk Phos 101 39 - 136 02/[address] CHEM PANEL Bili Total 0.1 0.2 - 1.3 02/[address] CHEM PANEL Bili Direct <0.1 0.0 - 0.3 02/05 [facility] [address] CHEM PANEL Bili Indirect Unable to 0.0 - 1.0 02/05 [facility] Calculate [address] HEMATOLOGY PTT 66.5 22.9 - 02/05 [facility] 35.8 /2019 [facility] IMMUNOLOGY CDC HIV 4th Negative Negative 02/05 [place] *NA* /2019 Medical (02/06/20 5:57 AM) Center IMMUNOLOGY C-REACTIVE 54.8 <=2.9 mg/L 02/05 [place] PROTEIN /2020 [facility] BLOOD BANK ABO/Rh A POS 02/04 [facility] RESULTS /2019 [facility] BLOOD BANK Antibody Scrn Negative 02/04 [facility] RESULTS (02/05/20 2:35 PM) /2019 [facility] CHEM PANEL Total Protein 9.2 6.4 - 8.4 02/[place] [address] CHEM PANEL Albumin Lvl 3.1 3.5 - 5.0 02/04 [place] [address] CHEM PANEL ALANINE 25 0 - 65 02/04 [facility] AMINOTRANSFER /[address] [place] [address] CHEM PANEL ASPARTATE 10 0 - 37 02/04 [facility] TRANSAMINASE /[address] [place] [address] CHEM PANEL Alk Phos 112 39 - 136 02/[address] CHEM PANEL Bili Total 0.1 0.2 - 1.3 02/[address] CHEM PANEL B/C Ratio 19 6 - 25 02/[address] CHEM PANEL Globulin 6.1 2.7 - 4.2 02/[address] CHEM PANEL A/G Ratio 0.5 0.7 - 1.6 02/[address] CHEM PANEL Lactic Acid 1.1 0.5 - 2.2 02/04 [facility] Lvl /[address] [place] [address] HEMATOLOGY PTT 53.9 22.9 - 02/04 [place] 35.8 /2019 [facility] HEMATOLOGY Sed Rate 68 0 - 15 02/[address] HEMATOLOGY Basophils # 0.1 0.0 - 0.2 02/04 [place] /[address] [place] [address] IMMUNOLOGY C-REACTIVE 65.0 <=2.9 mg/L 02/04 [facility] PROTEIN /2019 [facility] MOLECULAR S. aureus Not Detected Not 02/04 [place] DI[place]IC (02/05/20 2:35 PM) [facility] Not 02/04 [facility] DIAGNOSTIC epidermidis *ABN* Detected /2019 [facility] (02/05/20 2:35 PM) [place] MOLECULAR S. Not Detected Not 02/04 [facility] DIAGNOSTIC lugdunensis (02/05/20 2:35 PM) Detected /2019 [facility] MOLECULAR S. anginosus Not Detected Not 02/04 [place] DIAGNOSTIC grp (02/05/20 2:35 PM) Detected /2019 [facility] MOLECULAR S. agalactiae Not Detected Not 02/04 [place] DIAGNOSTIC (02/05/20 2:35 PM) Detected /2019 [facility] Center MOLECULAR S. pneumoniae Not Detected Not 02/04 [place] DIAGNOSTIC (02/05/20 2:35 PM) Detected /2019 [facility] Center MOLECULAR S. pyogenes Not Detected Not 02/04 [place] DIAGNOSTIC (02/05/20 2:35 PM) Detected /2019 Mi dical Center MOLECULAR E. faecalis Not Detected Not 02/04 [place] DIAGNOSTIC (02/05/20 2:35 PM) Detected /2019 [facility] Center MOLECULAR E. faecium Not Detected Not 02/04 [facility] DIAGNOSTIC (02/05/20 2:35 PM) [facility] Staphylococcu Detected Not 02/04 [facility] DIAGNOSTIC s spp. *ABN* Detected /2019 Medical (02/05/20 2:35 PM) Center MOLECULAR Streptococcus Not Detected Not 02/04 [place] DIAGNOSTIC spp. (02/05/20 2:35 PM) [facility] Listeria spp. Not Detected Not 02/04 [facility] DIAGNOSTIC (02/05/20 2:35 PM) Detected /2019 [facility] MOLECULAR mecA Detected Not 02/04 [facility] DIAGNOSTIC Methicillin *ABN* Detected /2019 [facility] Resistance (02/05/20 2:35 PM) [address] MOLECULAR Doe Not Detected Not 02/04 [facility] DIAGNOSTIC Vancomycin (02/05/20 2:35 PM) Detected /2019 [facility] [place] MOLECULAR vanB Not Detected Not 02/04 [facility] DIAGNOSTIC Vancomycin (02/05/20 2:35 PM) Detected /2019 [facility] [place] HEMATOLOGY PT 24.5 12.0 - 01/09 [facility] 14.7 /2019 HEMATOLOGY INR 2.17 0.85 - 01/09 [facility] 1.17 HEMATOLOGY PT 22.7 12.0 - 01/07 [facility] 14.7 /2019 HEMATOLOGY INR 1.97 0.85 - 01/07 [facility] 1.17 CARDIAC Troponin-I <0.02 0.00 - 01/05 [facility] ENZYMES 0.40 /2019 CHEM PANEL ALT 33 0 - 65 01/05 [facility] /2020 CHEM PANEL Albumin Lvl 2.9 3.5 - 5.0 01/05 [facility] /2020 CHEM PANEL Alk Phos 159 39 - 136 01/05 [facility] /2020 CHEM PANEL Glucose Lvl 77 70 - 99 02 [facility] /2020 CHEM PANEL BUN 10 7 - 22 01/05 [facility] /2020 CHEM PANEL Creatinine 0.79 0.50 - 02 [facility] Lvl 1.40 /2019 CHEM PANEL Sodium Lvl 137 135 - 145 02 [facility] /2020 CHEM PANEL Potassium Lvl 4.2 3.5 - 5.1 01/05 [facility] /2019 CHEM PANEL Chloride Lvl 102 95 - 109 01/05 [facility] /2020 CHEM PANEL CO2 23 24 - 32 02 [facility] /2020 CHEM PANEL Calcium Lvl 9.6 8.5 - 10.5 02/24 [facility] /2020 CHEM PANEL Bili Total 0.3 0.2 - 1.3 02/24 [facility] /2020 CHEM PANEL Total Protein 7.6 6.4 - 8.4 02/24 [facility] RR /2019 CHEM PANEL AST 23 0 - 37 02/24 [facility] /2020 CHEM PANEL AGAP 16.2 10.0 - 02/ [facility] 20.0 /2020 CHEM PANEL B/C Ratio 13 6 - 25 02/24 [facility] /2020 CHEM PANEL Globulin 4.7 2.7 - 4.2 02/24 [facility] /2020 CHEM PANEL A/G Ratio 0.6 0.7 - 1.6 02/24 [facility] /2020 CHEM PANEL eGFR 112 01/05 Result [facility] /2019 Comment: The eGFR is calculated using the CKD-EPI formula. In most young, healthy individuals the eGFR will be >90 mL/min/1.73m2 . The eGFR declines with age. An eGFR of 60-89 may be normal in some populations, particularly the elderly, for whom the CKD-EPI formula has not been extensively validated. Use of the eGFR is not recommended in the following populations:< br/>
Parris viduals with unstable creatinine concentration s, including patients and those with serious co-morbid conditions.<b r/>
Patie nts with extremes in muscle mass or diet.

The data above are obtained from the National Kidney Disease Education Program (NKDEP) which additionally recommends that when the eGFR is used in patients with extremes of body mass index for purposes of drug dosing, the eGFR should be multiplied by the estimated BMI. HEMATOLOGY Segs 45.7 45.0 - 01/05 Result [facility] 75.0 2020 Comment: rechecked HEMATOLOGY Lymphocytes 36.2 20.0 - 02 [facility] 40.0 /2020 HEMATOLOGY Monocytes 8.7 2.0 - 12.0 02/24 [facility] /2020 HEMATOLOGY Eosinophils 8.4 0.0 - 4.0 02/24 [facility] /2020 HEMATOLOGY Basophils 1.0 0.0 - 1.0 02/24 [facility] /2020 HEMATOLOGY Neutrophils # 2.0 1.5 - 8.1 02/24 [facility] RR HEMATOLOGY Lymphocytes # 1.6 1.0 - 5.5 02/ [facility] /2019 HEMATOLOGY Monocytes # 0.4 0.0 - 0.8 02/ [facility] /2020 HEMATOLOGY Eosinophils # 0.4 0.0 - 0.5 / TI RR /2019 HEMATOLOGY WBC 4.3 3.7 - 10.4 02/ [facility] /2020 HEMATOLOGY RBC 4.08 4.70 - 01/05 [facility] 6.10 /2019 HEMATOLOGY Hgb 12.1 14.0 - 01/05 [facility] 18.0 /2019 HEMATOLOGY Hct 35.4 42.0 - 02 [facility] 54.0 /2019 HEMATOLOGY MCV 86.7 80.0 - 01/05 [facility] 94.0 /2019 HEMATOLOGY MCH 29.6 27.0 - 01/05 [facility] 31.0 /2019 HEMATOLOGY MCHC 34.2 32.0 - 01/05 [facility] 36.0 /2019 HEMATOLOGY RDW 15.6 11.5 - 01/05 [facility] 14.5 /2019 HEMATOLOGY Platelet 225 133 - 450 01/05 [facility] /2019 HEMATOLOGY MPV 7.7 7.4 - 10.4 01/05 [facility] /2020 HEMATOLOGY PT 25.2 12.0 - 01/05 [facility] 14.7 /2019 HEMATOLOGY INR 2.24 0.85 - 01/05 [facility] 1.17 CHEM PANEL Glucose Lvl 90 70 - 99 01/04 [facility] /2020 CHEM PANEL BUN 10 7 - 22 01/04 [facility] /2020 CHEM PANEL Creatinine 0.82 0.50 - 01/04 [facility] Lvl 1.40 CHEM PANEL Sodium Lvl 136 135 - 145 01/04 [facility] /2020 CHEM PANEL Potassium Lvl 3.8 3.5 - 5.1 01/04 [facility] CHEM PANEL Chloride Lvl 100 95 - 109 01/04 [facility] /2020 CHEM PANEL CO2 26 24 - 32 01/04 [facility] /2020 CHEM PANEL Calcium Lvl 9.4 8.5 - 10.5 01/04 [facility] /2019 CHEM PANEL AGAP 13.8 10.0 - 01/04 [facility] 20.0 /2019 CHEM PANEL eGFR 110 02 Result [facility] /2020 Comment: The eGFR is calculated using the CKD-EPI formula. In most young, healthy individuals the eGFR will be >90 mL/min/1.73m2 . The eGFR declines with age. An eGFR of 60-89 may be normal in some populations, particularly the elderly, for whom the CKD-EPI formula has not been extensively validated. Use of the eGFR is not recommended in the following populations:< br/>
Parris viduals with unstable creatinine concentration s, including patients and those with serious co-morbid conditions.<b r/>
Patie nts with extremes in muscle mass or diet.

The data above are obtained from the National Kidney Disease Education Program (NKDEP) which additionally recommends that when the eGFR is used in patients with extremes of body mass index for purposes of drug dosing, the eGFR should be multiplied by the estimated BMI. HEMATOLOGY Segs 62.0 45.0 - 01/04 [facility] 75.0 HEMATOLOGY Lymphocytes 24.9 20.0 - 01/04 [facility] 40.0 HEMATOLOGY Monocytes 7.1 2.0 - 12.0 01/04 [facility] /2019 HEMATOLOGY Eosinophils 5.1 0.0 - 4.0 01/04 [facility] /2019 HEMATOLOGY Basophils 0.9 0.0 - 1.0 01/04 [facility] /2019 HEMATOLOGY Neutrophils # 3.5 1.5 - 8.1 01/04 [facility] HEMATOLOGY Lymphocytes # 1.4 1.0 - 5.5 01/04 [facility] HEMATOLOGY Monocytes # 0.4 0.0 - 0.8 01/04 [facility] /2019 HEMATOLOGY Eosinophils # 0.3 0.0 - 0.5 01/04 MH [facility] HEMATOLOGY Basophils # 0.1 0.0 - 0.2 01/04 [facility] /2020 HEMATOLOGY WBC 5.6 3.7 - 10.4 01/04 [facility] /2020 HEMATOLOGY RBC 4.60 4.70 - 01/04 [facility] 6.10 HEMATOLOGY Hgb 13.4 14.0 - 01/04 [facility] 18.0 HEMATOLOGY Hct 40.8 42.0 - 01/04 [facility] 54.0 HEMATOLOGY MCV 88.8 80.0 - 01/04 [facility] 94.0 HEMATOLOGY MCH 29.2 27.0 - 01/04 [facility] 31.0 HEMATOLOGY MCHC 32.9 32.0 - 02/23 [facility] 36.0 /2020 HEMATOLOGY RDW 16.3 11.5 - 01/04 [facility] 14.5 /2020 HEMATOLOGY Platelet 252 133 - 450 01/04 [facility] /2020 HEMATOLOGY MPV 8.3 7.4 - 10.4 01/04 [facility] /2020 CHEM PANEL ALT 28 0 - 65 12/29 [facility] /2020 CHEM PANEL Albumin Lvl 2.9 3.5 - 5.0 12/29 [facility] /2020 CHEM PANEL Alk Phos 204 39 - 136 12/29 [facility] /2020 CHEM PANEL Glucose Lvl 81 70 - 99 12/29 [facility] /2020 CHEM PANEL BUN 12 7 - 22 12/29 [facility] /2020 CHEM PANEL Creatinine 0.77 0.50 - 12/29 [facility] Lvl 1.40 /2019 CHEM PANEL Sodium Lvl 138 135 - 145 12/29 [facility] /2020 CHEM PANEL Potassium Lvl 4.1 3.5 - 5.1 12/29 [facility] CHEM PANEL Chloride Lvl 104 95 - 109 12/29 [facility] /2020 CHEM PANEL CO2 24 24 - 32 12/29 [facility] /2020 CHEM PANEL Calcium Lvl 9.9 8.5 - 10.5 12/29 [facility] /2020 CHEM PANEL Bili Total 0.4 0.2 - 1.3 12/29 [facility] /2020 CHEM PANEL Total Protein 7.6 6.4 - 8.4 12/29 [facility] /2019 CHEM PANEL AST 19 0 - 37 12/29 [facility] /2020 CHEM PANEL AGAP 14.1 10.0 - 12/29 [facility] 20.0 /2020 CHEM PANEL B/C Ratio 16 6 - 25 12/29 [facility] /2020 CHEM PANEL Globulin 4.7 2.7 - 4.2 12/29 [facility] /2020 CHEM PANEL A/G Ratio 0.6 0.7 - 1.6 12/29 [facility] /2020 CHEM PANEL eGFR 113 12/29 Result [facility] /2019 Comment: The eGFR is calculated using the CKD-EPI formula. In most young, healthy individuals the eGFR will be >90 mL/min/1.73m2 . The eGFR declines with age. An eGFR of 60-89 may be normal in some populations, particularly the elderly, for whom the CKD-EPI formula has not been extensively validated. Use of the eGFR is not recommended in the following populations:< br/>
Parris viduals with unstable creatinine concentration s, including patients and those with serious co-morbid conditions.<b r/>
Patie nts with extremes in muscle mass or diet.

The data above are obtained from the National Kidney Disease Education Program (NKDEP) which additionally recommends that when the eGFR is used in patients with extremes of body mass index for purposes of drug dosing, the eGFR should be multiplied by the estimated BMI. HEMATOLOGY Segs 50.7 45.0 - 12/29 [facility] 75.0 HEMATOLOGY Lymphocytes 34.1 20.0 - 12/29 [facility] 40.0 HEMATOLOGY Monocytes 7.3 2.0 - 12.0 12/29 [facility] /2019 HEMATOLOGY Eosinophils 7.0 0.0 - 4.0 12/29 [facility] /2019 HEMATOLOGY Basophils 0.9 0.0 - 1.0 12/29 [facility] /2019 HEMATOLOGY Neutrophils # 1.9 1.5 - 8.1 12/29 [facility] HEMATOLOGY Lymphocytes # 1.3 1.0 - 5.5 12/29 [facility] RR HEMATOLOGY Monocytes # 0.3 0.0 - 0.8 12/29 [facility] /2019 HEMATOLOGY Eosinophils # 0.3 0.0 - 0.5 12/29 [facility] RR /2019 HEMATOLOGY WBC 3.8 3.7 - 10.4 12/29 [facility] /2019 HEMATOLOGY RBC 4.15 4.70 - 12/29 [facility] 6.10 HEMATOLOGY Hgb 12.2 14.0 - 12/29 [facility] 18.0 HEMATOLOGY Hct 36.9 42.0 - 12/29 [facility] 54.0 HEMATOLOGY MCV 88.9 80.0 - 12/29 [facility] 94.0 HEMATOLOGY MCH 29.4 27.0 - 12/29 [facility] 31.0 HEMATOLOGY MCHC 33.0 32.0 - 12/29 [facility] 36.0 HEMATOLOGY RDW 16.7 11.5 - 12/29 [facility] 14.5 HEMATOLOGY Platelet 259 133 - 450 12/29 [facility] /2019 HEMATOLOGY MPV 7.6 7.4 - 10.4 12/29 [facility] URINE AND UA Color Yellow Yellow 12/26 [facility] STOOL *NA* /2019 (12/26/19 5:33 AM) URINE AND UA Turbidity Clear Clear 12/26 [facility] STOOL (12/26/19 5:33 AM) URINE AND UA Spec Grav 1.015 <=1.030 12/26 [facility] STOOL /2019 URINE AND UA pH 5.5 5.0 - 8.0 12/26 [facility] STOOL /2019 URINE AND UA Protein Negative Negative 12/26 [facility] STOOL mg/dL mg/dL /2019 URINE AND UA Glucose Negative Negative 12/26 [facility] STOOL mg/dL mg/dL /2019 URINE AND UA Ketones Negative Negative 12/26 [facility] STOOL mg/dL mg/dL URINE AND UA Bili Negative Negative 12/26 [facility] STOOL *NA* /2019 (12/26/19 5:33 AM) URINE AND UA Blood Negative Negative 12/26 [facility] STOOL (12/26/19 5:33 AM) URINE AND UA 0.2 0.1 - 1.0 12/26 [facility] STOOL Urobilinogen /2019 URINE AND UA Nitrite Negative Negative 12/26 [facility] STOOL (12/26/19 5:33 AM) URINE AND UA Leuk Est Negative Negative 12/26 [facility] STOOL (12/26/19 5:33 AM) URINE AND UA Sq Epi None Seen Few 12/26 [facility] STOOL (12/26/19 5:33 AM) URINE AND UA Bacteria Rare 12/26 [facility] STOOL CHEM PANEL ALT 27 0 - 65 12/22 [facility] CHEM PANEL Albumin Lvl 2.2 3.5 - 5.0 12/22 [facility] /2020 CHEM PANEL Alk Phos 235 39 - 136 12/22 [facility] /2019 CHEM PANEL Bili Total 0.3 0.2 - 1.3 12/22 [facility] /2019 CHEM PANEL Total Protein 7.3 6.4 - 8.4 12/22 [facility] CHEM PANEL AST 24 0 - 37 12/22 [facility] /2019 CHEM PANEL B/C Ratio 18 6 - 25 12/22 [facility] /2020 CHEM PANEL Globulin 5.1 2.7 - 4.2 12/22 [facility] /2020 CHEM PANEL A/G Ratio 0.4 0.7 - 1.6 12/22 [facility] /2019 HEMATOLOGY Basophils # 0.1 0.0 - 0.2 12/22 [facility] CHEM PANEL Magnesium Lvl 2.2 1.8 - 2.4 12/20 [facility] CHEM PANEL Phosphorus 4.4 2.5 - 4.5 12/20 [facility] /2019 HEMATOLOGY Basophils # 0.1 0.0 - 0.2 12/20 [facility] CHEM PANEL Glucose Lvl 110 70 - 99 12/[address] CHEM PANEL BUN 15 7 - 22 12/[address] CHEM PANEL Creatinine 0.88 0.50 - 12/19 [facility] Lvl 1.40 [facility] CHEM PANEL Sodium Lvl 133 135 - 145 12/[address] CHEM PANEL Potassium Lvl 4.6 3.5 - 5.1 12/19 [place] [facility] CHEM PANEL Chloride Lvl 101 95 - 109 12/19 [facility] CHEM PANEL CO2 26 24 - 32 12/[address] CHEM PANEL Calcium Lvl 8.6 8.5 - 10.5 12/19 [facility] as /2019 [facility] CHEM PANEL AGAP 10.6 10.0 - 12/19 [facility] 20.0 [facility] CHEM PANEL eGFR 107 12/19 [facility] Comment: The Medical eGFR is Center calculated using the CKD-EPI formula. In most young, healthy individuals the eGFR will be >90 mL/min/1.73m2 . The eGFR declines with age. An eGFR of 60-89 may be normal in some populations, particularly the elderly, for whom the CKD-EPI formula has not been extensively validated. Use of the eGFR is not recommended in the following populations:< br/>
Parris viduals with unstable creatinine concentration s, including patients and those with serious co-morbid conditions.<b r/>
Patie nts with extremes in muscle mass or diet.

The data above are obtained from the National Kidney Disease Education Program (NKDEP) which additionally recommends that when the eGFR is used in patients with extremes of body mass index for purposes of drug dosing, the eGFR should be multiplied by the estimated BMI. HEMATOLOGY PT 28.5 12.0 - 02/ [facility] 14.7 [facility] HEMATOLOGY INR 2.62 0.85 - 02 [facility] 1.17 [facility] CHEM PANEL Glucose Lvl 104 70 - [address] CHEM PANEL BUN 15 7 - [address] CHEM PANEL Creatinine 0.90 0.50 - 02 [facility] Lvl 1.40 [facility] CHEM PANEL Sodium Lvl 135 135 - [address] CHEM PANEL Potassium Lvl 4.8 3.5 - 5.1 02 [place] [facility] CHEM PANEL Chloride Lvl 103 95 - 109 02 [facility] 2019 [facility] CHEM PANEL CO2 26 24 - 32 12/[address] CHEM PANEL Calcium Lvl 8.5 8.5 - 10.5 12/18 [facility] as [facility] CHEM PANEL AGAP 10.8 10.0 - 12/18 [facility] 20.0 [facility] CHEM PANEL eGFR 106 12/18 Result [facility] Comment: The Medical eGFR is Center calculated using the CKD-EPI formula. In most young, healthy individuals the eGFR will be >90 mL/min/1.73m2 . The eGFR declines with age. An eGFR of 60-89 may be normal in some populations, particularly the elderly, for whom the CKD-EPI formula has not been extensively validated. Use of the eGFR is not recommended in the following populations:< br/>
Parris viduals with unstable creatinine concentration s, including patients and those with serious co-morbid conditions.<b r/>
Patie nts with extremes in muscle mass or diet.

The data above are obtained from the National Kidney Disease Education Program (NKDEP) which additionally recommends that when the eGFR is used in patients with extremes of body mass index for purposes of drug dosing, the eGFR should be multiplied by the estimated BMI. HEMATOLOGY Segs 60.1 45.0 - 02/ [place] 75.0 2020 [facility] HEMATOLOGY Lymphocytes 25.5 20.0 - 02 [facility] 40.0 [facility] HEMATOLOGY Monocytes 10.3 2.0 - 12.0 12/[address] HEMATOLOGY Eosinophils 3.3 0.0 - 4.0 02/[address] HEMATOLOGY Basophils 0.8 0.0 - 1.0 02/[address] HEMATOLOGY Neutrophils # 4.0 1.5 - 8.1 02/ [address] HEMATOLOGY Lymphocytes # 1.7 1.0 - 5.5 02/ [address] HEMATOLOGY Monocytes # 0.7 0.0 - 0.8 02/ [address] HEMATOLOGY Eosinophils # 0.2 0.0 - 0.5 02/ [address] HEMATOLOGY Basophils # 0.1 0.0 - 0.2 02/ [address] HEMATOLOGY PT 25.8 12.0 - 02/ [facility] 14.[address] HEMATOLOGY INR 2.31 0.85 - 02/ [facility] 1.17 /[address] [place] [address] HEMATOLOGY WBC 6.6 3.7 - 10.4 02/ [address] HEMATOLOGY RBC 3.36 4.70 - 02/06 [facility] 6.10 /2020 [facility] HEMATOLOGY Hgb 10.2 14.0 - 02/06 [facility] 18.[address] HEMATOLOGY Hct 30.8 42.0 - 02/06 [facility] 54.0 /2020 [facility] HEMATOLOGY MCV 91.5 80.0 - 02/06 [facility] 94.0 /[address] [place] [address] HEMATOLOGY MCH 30.3 27.0 - 02/06 [facility] 31.0 /2020 [facility] HEMATOLOGY MCHC 33.1 32.0 - 02/06 [facility] 36.0 /2020 [facility] HEMATOLOGY RDW 18.1 11.5 - 02/06 [facility] 14.[address] HEMATOLOGY Platelet 456 133 - 450 02/ [address] HEMATOLOGY MPV 7.2 7.4 - 10.4 02/[address] CHEM PANEL Glucose Lvl 137 70 - 99 02/[address] CHEM PANEL BUN 21 7 - 22 02/[address] CHEM PANEL Creatinine 0.83 0.50 - 02/05 [facility] Lvl 1.40 /[address] [place] [address] CHEM PANEL Sodium Lvl 132 135 - 145 02/[address] CHEM PANEL Potassium Lvl 4.2 3.5 - 5.1 12/17 [place] [facility] CHEM PANEL Chloride Lvl 100 95 - 109 12/[place] [facility] CHEM PANEL CO2 25 24 - 32 12/17 [facility]2019 [facility] CHEM PANEL Calcium Lvl 8.5 8.5 - 10.5 12/17 [place] [facility] CHEM PANEL AGAP 11.2 10.0 - 02 [place] 20.0 [facility] CHEM PANEL eGFR 110 12/17 [facility] Comment: The Medical eGFR is Center calculated using the CKD-EPI formula. In most young, healthy individuals the eGFR will be >90 mL/min/1.73m2 . The eGFR declines with age. An eGFR of 60-89 may be normal in some populations, particularly the elderly, for whom the CKD-EPI formula has not been extensively validated. Use of the eGFR is not recommended in the following populations:< br/>
Parris viduals with unstable creatinine concentration s, including patients and those with serious co-morbid conditions.<b r/>
Patie nts with extremes in muscle mass or diet.

The data above are obtained from the National Kidney Disease Education Program (NKDEP) which additionally recommends that when the eGFR is used in patients with extremes of body mass index for purposes of drug dosing, the eGFR should be multiplied by the estimated BMI. HEMATOLOGY WBC 7.0 3.7 - 10.4 12/17 [facility] HEMATOLOGY RBC 2.95 4.70 - 0205 [place] 6.10 [facility] HEMATOLOGY Hgb 8.9 14.0 - 12/17 [place] 18.0 [facility] HEMATOLOGY Hct 26.9 42.0 - 02 [place] 54.0 [facility] HEMATOLOGY MCV 91.3 80.0 - 12/17 [facility] 94.0 [facility] HEMATOLOGY MCH 30.3 27.0 - 02 [place] 31.0 [facility] HEMATOLOGY MCHC 33.2 32.0 - 02/ [place] 36.0 [facility] HEMATOLOGY RDW 17.5 11.5 - 02 [place] 14.5 [facility] HEMATOLOGY Platelet 429 133 - 450 12/17 [facility]2019 [facility] HEMATOLOGY MPV 7.2 7.4 - 10.4 02/[address] HEMATOLOGY PT 26.9 12.0 - 02/05 [place] 14.7 /2020 [facility] HEMATOLOGY INR 2.43 0.85 - 02/05 [place] 1.17 /2020 [facility] HEMATOLOGY Segs 64.4 45.0 - 02/05 [place] 75.0 /2020 [facility] HEMATOLOGY Lymphocytes 22.1 20.0 - 02/05 [place] 40.0 /2020 [facility] HEMATOLOGY Monocytes 9.2 2.0 - 12.0 02/[address] HEMATOLOGY Eosinophils 3.5 0.0 - 4.0 02/[address] HEMATOLOGY Basophils 0.8 0.0 - 1.0 02/[address] HEMATOLOGY Neutrophils # 4.5 1.5 - 8.1 02/[address] HEMATOLOGY Lymphocytes # 1.5 1.0 - 5.5 02/[address] HEMATOLOGY Monocytes # 0.6 0.0 - 0.8 02/[address] HEMATOLOGY Eosinophils # 0.2 0.0 - 0.5 02/[address] HEMATOLOGY Basophils # 0.1 0.0 - 0.2 02/[address] HEMATOLOGY WBC 5.4 3.7 - 10.4 02/[address] HEMATOLOGY RBC 2.79 4.70 - 02/04 [place] 6.10 /2020 [facility] HEMATOLOGY Hgb 8.6 14.0 - 02/04 [facility] 18.0 /2020 [facility] HEMATOLOGY Hct 25.3 42.0 - 02/04 [place] 54.0 /2020 [facility] HEMATOLOGY MCV 90.5 80.0 - 02/04 [facility] 94.0 /2020 [facility] HEMATOLOGY MCH 30.7 27.0 - 02/04 [place] 31.0 /2020 [facility] HEMATOLOGY MCHC 34.0 32.0 - 02/04 [place] 36.0 /2020 [facility] HEMATOLOGY RDW 16.6 11.5 - 02/04 [facility] 14.5 /2020 [facility] HEMATOLOGY Platelet 461 133 - 450 02/[address] HEMATOLOGY MPV 7.4 7.4 - 10.4 02/[address] HEMATOLOGY Segs 64.7 45.0 - 02/ [place] 75.0 /2020 [facility] HEMATOLOGY Lymphocytes 22.6 20.0 - 02/ [place] 40.0 /2020 [facility] HEMATOLOGY Monocytes 8.6 2.0 - 12.0 02/ [facility]2020 [facility] HEMATOLOGY Eosinophils 3.5 0.0 - 4.0 02/ [place] [facility] HEMATOLOGY Basophils 0.6 0.0 - 1.0 02/ [address] HEMATOLOGY Neutrophils # 3.5 1.5 - 8.1 [place] [facility] HEMATOLOGY Lymphocytes # 1.2 1.0 - 5.5 02 [facility] [place] /2020 [facility] HEMATOLOGY Monocytes # 0.5 0.0 - 0.8 12/[place] [facility] HEMATOLOGY Eosinophils # 0.2 0.0 - 0.5 12/16 [facility] [place] 2020 [facility] HEMATOLOGY Basophils # 0.1 0.0 - 0.2 12/15 [facility] 2019 [facility] CHEM PANEL Magnesium Lvl 2.1 1.8 - 2.4 12/12 [facility] [place] /2020 [facility] HEMATOLOGY ACT (TEG) 97 86 - 118 12/10 [facility] Rapid 2020 [facility] HEMATOLOGY [place] 0.4 12/10 [facility] Rapid 2020 [facility] HEMATOLOGY R-time Rapid 0.5 0.4 - 0.7 12/10 [facility] [place] /2019 [facility] HEMATOLOGY K-time Rapid 0.8 0.6 - 2.3 12/10 [facility] /2020 [facility] HEMATOLOGY Angle Rapid 83 64 - 80 12/[address] HEMATOLOGY Max Amplitude 83 52 - 71 12/10 [place] /2020 [facility] HEMATOLOGY G-value Rapid 24.9 5.0 - 11.6 12/10 [place] /2019 [facility] HEMATOLOGY Estimated % 0.4 0.0 - 7.5 12/10 [place] /2020 [facility] CHEM PANEL Lactic Acid 0.6 0.5 - 2.2 12/10 [place] L[place] /2020 [facility] BLOOD BANK Antibody Scrn Negative 12/09 [facility] [place] RESULTS (12/09/19 12:57 AM) /2019 [facility] BLOOD BANK ABO/Rh A POS 12/09 [place] RESULTS /2019 [facility] BLOOD BANK RBC product Product available 12/04 [facility] [place] RESULTS (12/04/19 8:49 AM) /2019 [facility] BLOOD BANK FFP product Product available 12/04 [facility] RESULTS (12/04/19 8:49 AM) /2019 [facility] BLOOD BANK RBC product Product available 12/04 [place] RESULTS (12/04/19 4:20 AM) /2019 [facility] BLOOD BANK RBC product Product available 12/04 [facility] RESULTS (12/04/19 3:46 AM) /2019 [facility] HEMATOLOGY PTT 49.9 22.9 - 12/04 [place] 35.8 /2019 [facility] CHEM PANEL Magnesium Lvl 3.3 1.8 - 2.4 12/03 [place] [facility] CHEM PANEL Phosphorus 3.3 2.5 - 4.5 12/[address] PARATHYROID Ca Ion WB 1.02 1.05 - 12/03 [place] PROFILE 1. [facility] PARATHYROID Ca Norm WB 1.07 1.05 - 12/03 [facility] PROFILE . [facility] TOXICOLOGY V[place] Lvl 18.9 12/[address] BLOOD BANK ABO/Rh A POS 12/02 [facility] RESULTS /2019 [facility] BLOOD BANK Antibody Scrn Negative 12/02 [place] RESULTS (12/02/19 3:36 PM) /2019 [facility] HEMATOLOGY ACT (TEG) 105 86 - 118 12/[address] HEMATOLOGY [place] 0.4 12/[address] HEMATOLOGY R-time Rapid 0.6 0.4 - 0.7 12/02 [facility] as /2019 [facility] HEMATOLOGY K-time Rapid 0.8 0.6 - 2.3 12/02 [place] /2020 [facility] HEMATOLOGY Angle Rapid 82 64 - 80 12/[address] HEMATOLOGY Max Amplitude 83 52 - 71 12/[place] [address] HEMATOLOGY G-value Rapid 23.6 5.0 - 11.6 12/02 [place] /2019 [facility] HEMATOLOGY Estimated % 0.1 0.0 - 7.5 12/02 [place] L[place] [facility] /[address] [place] [address] CEFTAZIDIME Gram Stain Gram Stain 12/01 [place] :SUSC:PT:IS Report Performed Medical OLATE:ORDQN By: Center :[facility] [place] [facility] CEFTAZIDIME Culture: BAL >10,000 CFU/mL Pseudomonas aeruginosa 0 12/01 [place] :SUSC:PT:IS Quantitative <10,000 CFU/mL Normal Respiratory Gayatri I sol Medical OLATE:ORDQN w/Gram Stain Center :[facility] CEFTAZIDIME Pseudomonas Pseudomona 12/01 [place] :SUSC:PT:IS aeruginosa s Medical OLATE:ORDQN aeruginosa Center :[facility] URINE AND UA Color Karen Yellow 12/01 [facility] STOOL *ABN* /2019 [facility] (12/01/19 4:56 PM) [place] URINE AND UA Turbidity Slight Clear 12/01 [place] [facility] *ABN* /2019 [facility] (12/01/19 4:56 PM) [place] URINE AND UA Spec Grav 1.029 <=1.030 12/01 [place] [facility] /[address] [place] [address] URINE AND UA pH 6.0 5.0 - 8.0 12/[address] URINE AND UA Protein 100 mg/dL Negative 12/01 [place] [facility] mg/dL [address] [place] [address] URINE AND UA Glucose Negative Negative 12/01 [facility] mg/dL mg/dL [address] [place] [address] URINE AND UA Ketones Trace Negative 12/01 [place] [facility] mg/dL mg/dL [address] [place] [address] URINE AND UA Bili Negative Negative 12/01 [facility] *NA* /2019 [facility] (12/01/19 4:56 PM) [place] URINE AND UA Blood Negative Negative 12/01 [place] [facility] (12/01/19 4:56 PM) [facility] URINE AND UA <1.0 0.1 - 1.0 12/01 [place] [facility] Urobilinogen /[address] [place] [address] URINE AND UA Nitrite Negative Negative 12/01 [place] [facility] (12/01/19 4:56 PM) [facility] URINE AND UA Leuk Est Negative Negative 12/01 [place] [facility] (12/01/19 4:56 PM) [facility] URINE AND UA Sq Epi Occasional Few /LPF 12/01 [facility] STOOL /LPF [address] [place] [address] URINE AND UA WBC 2 0 - 5 12/01 [place] [facility] /[address] [place] [address] URINE AND UA RBC 1 0 - 2 12/01 [place] [facility] /[address] [place] [address] URINE AND UA Mucus Few /LPF None Seen 12/01 [facility] STOOL /LPF /[address] [place] [address] HEMATOLOGY PTT 57.4 22.9 - 12/01 [place] 35.8 /2019 [facility] HEMATOLOGY PTT 81.3 22.9 - 12/01 [facility] 35.8 [facility] MOLECULAR C difficile Negative Negative 12/01 [facility] DIAGNOSTIC DNA (12/01/19 12:39 AM) [facility] Lactic Acid 1.2 0.5 - 2.2 11/29 [place] /2019 [facility] HEMATOLOGY ACT (TEG) 82 86 - 118 11/29 [facility] Rapid 2020 [facility] HEMATOLOGY [place] 0.2 11/29 [facility] Rapid 2020 [facility] HEMATOLOGY R-time Rapid 0.3 0.4 - 0.7 11/29 [facility] as /2019 [facility] HEMATOLOGY K-time Rapid 0.8 0.6 - 2.3 11/29 [facility] as /2019 [facility] HEMATOLOGY Angle Rapid 82 64 - 80 11/[address] HEMATOLOGY Max Amplitude 76 52 - 71 11/29 [place] /[address] [place] [address] HEMATOLOGY G-value Rapid 15.8 5.0 - 11.6 11/29 [place] [facility] HEMATOLOGY Estimated % 0.0 0.0 - 7.5 11/29 [facility] [place] [facility] Culture: No 11/29 [facility] Anaerobic Anaerobes /2019 [facility] Center After 5 Days Gram Stain Few Wbc'S; 11/29 [facility] Report No Organisms [facility]en [facility] Culture: No Growth 11/29 [facility] Aspirate/Body /2019 [facility] BLOOD BANK ABO/Rh A POS 11/29 [facility] RESULTS /2019 [facility] BLOOD BANK Antibody Scrn Negative 11/29 [place] RESULTS (11/29/19 3:49 AM) /2019 [facility] CHEM PANEL Phosphorus 3.3 2.5 - 4.5 11/27 [place] 2019 [facility] CHEM PANEL Magnesium Lvl 2.5 1.8 - 2.4 11/27 [place] [facility] PARATHYROID Ca Ion WB 1.01 1.05 - 11/27 [place] PROFILE 1. [facility] PARATHYROID Ca Norm WB 1.04 1.05 - 11/27 [facility] PROFILE . [facility] URINE AND UA Color Yellow Yellow 11/26 [facility] STOOL *NA* /2019 Medical (11/26/19 10:45 AM) Cente r URINE AND UA Turbidity Marked Clear 11/26 [facility] STOOL *ABN* Medical (11/26/19 10:45 AM) Cente r URINE AND UA Spec Grav 1.027 <=1.030 11/26 [facility] STOOL /[address] [place] [address] URINE AND UA pH 5.0 5.0 - 8.0 11/26 [facility] STOOL /[address] [place] [address] URINE AND UA Protein Negative Negative 11/26 [facility] STOOL mg/dL mg/dL [facility] URINE AND UA Glucose 500 mg/dL Negative 11/26 [facility] STOOL mg/dL [facility] URINE AND UA Ketones Negative Negative 11/26 [facility] STOOL mg/dL mg/dL [facility] URINE AND UA Bili Negative Negative 11/26 [facility] STOOL *NA* [facility] (11/26/19 10:45 AM) Cente r URINE AND UA Blood Negative Negative 11/26 [place] [facility] (11/26/19 10:45 AM) [facility] URINE AND UA <1.0 0.1 - 1.0 11/26 [place] [facility] Urobilinogen /2019 [facility] URINE AND UA Nitrite Negative Negative 11/26 [facility] STOOL (11/26/19 10:45 AM) [facility] URINE AND UA Leuk Est Negative Negative 11/26 [place] [facility] (11/26/19 10:45 AM) [facility] URINE AND UA Sq Epi Occasional Few /LPF 11/26 [facility] STOOL /LPF [address] [place] [address] URINE AND UA RBC 5 0 - 2 11/26 [facility] STOOL [address] [place] [address] URINE AND UA Mucus Few /LPF None Seen 11/26 [facility] STOOL /LPF [address] [place] [address] URINE AND UA Amorph Occasional None Seen 11/[place] [place]helia /HPF /HPF [facility] CHEM PANEL Procalcitonin 0.50 0.00 - 11/26 [place] 0.10 [facility] CHEM PANEL Phosphorus 3.7 2.5 - 4.5 11/[address] PARATHYROID Ca Ion WB 1.07 1.05 - 11/26 [facility] PROFILE 1.[address] [place] [address] PARATHYROID Ca Norm WB 1.11 1.05 - 11/26 [facility] PROFILE 1.25 [facility] HEMATOLOGY RBC Morph Normal Normal 11/24 [facility] (11/24/19 12:15 AM) [facility] HEMATOLOGY Plt Morph Normal Normal 11/24 [facility] (11/24/19 12:15 AM) [facility] SPECIAL Hgb A1C <3.5 % <=5.6 % 11/24 [facility] CHEMISTRY /2019 [facility] AMPICILLIN+ Gram Stain Testing 11/23 [facility] SULBACTAM:S Report Performed Medical USC:PT:ISOL At: Center ATE:ORDQN:M [facility] AMPICILLIN+ Culture: Few Staphylococcus aureus 11/23 [facility] SULBACTAM:S Respiratory Normal Respiratory Gayatri Isolated /2019 Medical USC:PT:ISOL w/Gram Stain Center ATE:ORDQN:M AMPICILLIN+ Staphylococcu Staphyloco 11/23 [facility] SULBACTAM:S s aureus ccus /2019 Medical USC:PT:ISOL aureus Center ATE:ORDQN:M HEMATOLOGY RBC Morph Normal Normal 11/22 [facility] (11/22/19 12:00 AM) [facility] HEMATOLOGY Plt Morph Normal Normal 11/22 [facility] (11/22/19 12:00 AM) [facility] CHEM PANEL Procalcitonin 1.38 0.00 - 11/21 [facility] s Lvl 0.10 [facility] Center Gram Stain Gram Stain 11/20 [facility] Report Performed Medical By: Center [facility] Culture: Normal 11/20 [facility] Respiratory Respirator Medical w/Gram Stain y [facility] Center Isolated IMMUNOLOGY Homocyst Tot 7.7 0.0 - 15.0 11/20 [place] Comment: Medical Center Effective December 01, 2019 Homocyst(e)in e
reference interval will be changing to:
Age Male Female
0 - 6 months 0.0 - 11.5 0.0 - 11.5
7 months - 1 year 0.0 - 10.0 0.0 - 10.0
2 years - 10 years 0.0 - 9.0 0.0 - 9.0
13 years - 15 years 0.0 - 11.0 0.0 - 11.0
18 years - 60 years 0.0 - 14.5 0.0 - 14.5
61 years - 70 years 0.0 - 17.2 0.0 - 17.2
71 years - 80 years 0.0 - 19.2 0.0 - 19.2
>80 years 0.0 - 21.3 0.0 - 21.3 IMMUNOLOGY MMA Qnt 172 0 - 378 11/[address] CHEM PANEL Procalcitonin 2.37 0.00 - 11/20 Result [facility] s Lvl 0.10 Comment: [facility] Result(s) called to [employer] at 11/20/2019 00:37 by ROSA MARIA. Read back OK. CHEM PANEL Lactic Acid 1.1 0.5 - 2.2 11/20 [facility] /2019 [facility] HEMATOLOGY Sed Rate 43 0 - 15 11/[address] HEMATOLOGY AT III Func 88 77 - 140 11/[address] IMMUNOLOGY C-REACTIVE 124.0 <=2.9 mg/L 11/17 [facility] PROTEIN /[address] [place] [address] IMMUNOLOGY DNA Ab (DS) Negative Negative 11/17 [facility] (11/17/19 12:41 PM) /2019 [facility] IMMUNOLOGY C3 Complement 92 88 - 201 11/17 [facility] /[address] [place] [address] IMMUNOLOGY SS-A (Ro) Ab <0.2 <=0.9 AI 11/17 [facility] /[address] [place] [address] IMMUNOLOGY SS-B (La) Ab <0.2 <=0.9 AI 11/17 [facility] s /[address] [place] [address] IMMUNOLOGY C-ANCA Negative Negative 11/17 [facility] (11/17/19 12:41 PM) /2019 [facility] IMMUNOLOGY P-ANCA Negative Negative 11/17 [facility] (11/17/19 12:41 PM) /2019 [facility] IMMUNOLOGY Cryoglob Negative Negative 11/17 [facility] (11/17/19 12:41 PM) /2019 [facility] IMMUNOLOGY SYLVIA Negative Negative 11/17 [facility] (11/17/19 12:41 PM) /2019 [facility] CHEM PANEL B/C Ratio 20 6 - 25 11/[address] CHEM PANEL Globulin 3.0 2.7 - 4.2 11/[address] CHEM PANEL A/G Ratio 0.9 0.7 - 1.6 11/[address] CHEM PANEL Total Protein 5.6 6.4 - 8.4 11/[address] CHEM PANEL Albumin Lvl 2.6 3.5 - 5.0 11/[address] CHEM PANEL ALT 83 0 - 65 11/[address] CHEM PANEL AST 82 0 - 37 11/[address] CHEM PANEL Alk Phos 40 39 - 136 11/[address] CHEM PANEL Bili Total 0.5 0.2 - 1.3 11/[address] CHEM PANEL Total Protein 5.7 6.4 - 8.4 11/[address] CHEM PANEL Albumin Lvl 2.5 3.5 - 5.0 11/[address] CHEM PANEL ALT 88 0 - 65 11/[address] CHEM PANEL AST 84 0 - 37 11/[address] CHEM PANEL Alk Phos 37 39 - 136 11/[address] CHEM PANEL Bili Total 0.5 0.2 - 1.3 11/[address] CHEM PANEL Bili Direct 0.1 0.0 - 0.3 11/[address] CHEM PANEL Bili Indirect 0.4 0.0 - 1.0 11/[address] CHEM PANEL Globulin 3.2 2.7 - 4.2 11/[address] CHEM PANEL A/G Ratio 0.8 0.7 - 1.6 11/[address] HEMATOLOGY Anti-Xa Low 0.00 11/[address] IMMUNOLOGY [facility] HIV 4th Negative Negative [place]16 [place] *NA* /2019 Medical (11/15/19 6:39 PM) Center DRUG SCREEN U Amph Scr Negative Negative 11/15 [place] *[place]* Medical (11/15/19 4:34 PM) Center DRUG SCREEN U Ameena Scr Negative Negative 11/15 [place] *NA* /[facility] Medical (11/15/19 4:34 PM) Center DRUG SCREEN U Benzodiaz Positive Negative 11/15 [place] *ABN* Medical (11/15/19 4:34 PM) Center DRUG SCREEN U Cocaine Scr Negative Negative 11/15 [place] *NA* Medical (11/15/19 4:34 PM) Center DRUG SCREEN U Cannab [place] Negative Negative 11/15 [place] * Medical (11/15/19 4:34 PM) Center DRUG SCREEN U Opiate Scr Negative Negative 11/15 [place] *NA* Medical (11/15/19 4:34 PM) Center DRUG SCREEN U Negative Negative 11/15 [facility] Phencyclidine *NA [facility] Scr (11/15/19 4:34 PM) Center DRUG SCREEN UDS Note See Note 11/15 [facility] (11/15/19 4:34 PM) /2019 [facility] URINE AND UA Color Yellow Yellow 11/15 [facility] STOOL *NA* [facility] (11/15/19 4:34 PM) [place] URINE AND UA Turbidity Slight Clear 11/15 [facility] STOOL *ABN* [facility] (11/15/19 4:34 PM) Center URINE AND UA Spec Grav 1.047 <=1.030 11/15 [facility] STOOL /[address] [place] [address] URINE AND UA pH 5.0 5.0 - 8.0 11/15 [facility] STOOL /2019 [facility] URINE AND UA Protein Negative Negative 11/15 [facility] (11/15/19 4:34 PM) /2019 [facility] URINE AND UA Glucose Negative Negative 11/15 [facility] *NA* [facility] (11/15/19 4:34 PM) Center URINE AND UA Ketones Negative Negative 11/15 [facility] STOOL *NA* [facility] (11/15/19 4:34 PM) Center URINE AND UA Bili Negative Negative 11/15 [facility] STOOL *NA* [facility] (11/15/19 4:34 PM) Center URINE AND UA Blood Moderate Negative 11/15 [facility] STOOL *ABN* [facility] (11/15/19 4:34 PM) Center URINE AND UA <1.0 0.1 - 1.0 11/15 [facility] Urobilinogen /2019 [facility] URINE AND UA Nitrite Negative Negative 11/15 [facility] (11/15/19 4:34 PM) /2019 Medical [place] URINE AND UA Leuk Est Negative Negative 11/15 [facility] (11/15/19 4:34 PM) /2020 [facility] URINE AND UA Sq Epi None Seen Few 11/15 [facility] STOOL (11/15/19 4:34 PM) 2019 [facility] URINE AND UA WBC 6 0 - 5 11/[address] URINE AND UA RBC 8 0 - 2 11/[address] URINE AND UA Bacteria Occasional None Seen 11/15 [place] /HPF /HPF [facility] TOXICOLOGY Ethanol Lvl <3.0 mg/dL 11/15 [place] [facility] TOXICOLOGY Etoh (%) <0.003 % 11/[address] Pathology Reports No Data Provided for This Section Diagnostic Reports Report Value Date Source Shoulder wo contrast EXAM: MR LEFT SHOULDER WITHOUT CONTRAST [facility] MRI DATE: 02/08/2020 9:14 CDT Center INDICATION: - eval infection, s/p ORIF COMPARISON: CT left shoulder 02/08/2020 TECHNIQUE: Axial, oblique co kriss, and oblique sagittal MR images of the shoulder. IV contrast: None. FINDINGS: LONG BICIPITAL TENDON The biceps tendon is intact, and within the bici pital groove. GLENOHUMERAL JOINT Alignment: Posterior s ubluxation of the humeral head with reference to the glenoid. Labrum: Chronic displaced posterior labral tear. Cartilage: Chondral thinning of steamfitter glenoid c artilage. Ligaments: Inferior glenohumeral ligament is thi ckened. Joint fluid: There is a small glenohumeral joint effusion. ROTATOR CUFF AND ASSOCIATED STRUCTURES Rotator cuff: Supraspinatus: Intact. Infraspinatus: Intact. Teres minor: Intact. Subscapularis: Intact. Musculature: Edema of the ro tator cuff and deltoid muscles. No intramuscular fluid collection. Fatty atrophy of the teres minor. Bursa: Heart large fluid dis tention of the subacromial/subdeltoid bursa with synovitis. Focus of susceptibility artifact noted in the bursa. Acromioclavicular joint: Dec reased T1 signal and or edema of the acromion indicates the presence of acute osteomyelitis. Fluid and edema present at the AC joint, suggestive of septic arthritis at this site. There are no significant deg enerative changes of the acromioclavicular joint. A type 2 acromion configuration is noted. There is no anterior or lateral acromial downsloping. OSSEOUS STRUCTURES Susceptibility artifact from scapular fracture fixation hardware. No fracture. Other visualized bone marrow signal is normal without evidence of osteomyelitis. OTHER FINDINGS: Reactive axillary lymph nodes. IMPRESSION: 1. Signal changes consistent with osteomyelitis throughout the acromion. 2. Large effusion with surr ounding soft tissue edema of the subdeltoid bursa, suspicious for septic bursitis. 3. Small glenohumeral joint effusion. 4. Soft tissue swelling abo ut the shoulder is presumed to represent cellulitis. No soft tissue abscess is seen. 5. Rotator cuff and deltoid muscle edema, likel y myositis. 6. Glenohumeral instability with posterior subluxation of the humeral head, chronic posterior labral tear and posterior glenoid cartilage thinning. Findings reported to Dr. Angela lloyd via telephone by Dr. Rhodes at 1537 hours on 02/09/2020. Shoulder wo contrast EXAM: CT RIGHT SHOULDER WITHOUT CONTRAST [facility] CT DATE: 02/08/2020 at 1309 hours Ce nter INDICATION: Shoulder fracture - post-op COMPARISON: CT of 11/25/2019, scapular radiograp hs of 02/05/2020. TECHNIQUE: Volumetric CT of the right shoulder is acquired without contrast. Axial, sagittal and coronal images are provided. 3D reconstructions are created at the acquisition workstation. IV contrast: None. DLP: 292 mGy-cm FINDINGS: Scapula: Multiple new areas of cortical erosive change are present along the lateral aspect of the acromion, extending from the anterior aspect near the acromioclavicular joint to the posterior aspect o misha an approximately 5 cm re gion. No acromioclavicular joint effusion is identified. Humerus: The humerus is pepe edly posteriorly subluxed without overt dislocation. No fracture is identified at the proximal humerus. Disuse osteopenia at the humeral head limits evaluation for small erosions without definite erosions identified. Clavicle: Small amounts of i mmature heterotopic ossification are present at the coracoclavicular interval related to subacute ligamentous injury. Right hemithorax: Multiple h ealing rib fractures are present on the right. Platelike atelectasis is present dependently at the right lung base. Soft tissues: An approximate ly 5.6 x 1.9 x 4.8 cm heterogeneous fluid collection is present at the anterior aspect of the shoulder joint with multiple foci of subcutaneous emphysema, likely communicatin g with the shoulder joint al luis its posterior aspect. This collection extends anteriorly and laterally to the level of the acromion. Linear hyperdensity extending to the skin posteriorly likely represen ts granulation tissue and a surgical access site, without fluid collection identified in this region on this noncontrast examination. Findings suspicious for acut e osteomyelitis of the acromion laterally, with heterogeneous fluid collection extending from the acromion along the anterolateral aspect of the shoulder representing hemorrh age or abscess, and likely c ommunicating with the glenohumeral joint discussed with Dr. Dubon via telephone at 1659 hours 02/08/2020. He reports recent washout of the collection 2 days ago, therefore subcutaneous emphysema is expected in that setting. IMPRESSION: 1. Multiple foci of new ero sive change along the lateral margin of the acromion at the deltoid insertion, highly suspicious for acute osteomyelitis. This area does not abut the scapular hardware or the adjacent fracture sites. 2. Heterogeneous fluid doris ection extending from the acromion inferiorly along the anterolateral aspect of the humeral head measuring 5.6 x 1.9 x 4.8 cm, suspicious for hematoma or abscess. Multiple fo ci of subcutaneous emphysema within the collection are not unexpected given recent intervention. This collection minimally communicates with the shoulder joint along its posterior margin, and septic glenohumeral joint cannot be excluded. 3. Posterior subluxation of the glenohumeral joint consistent with ligamentous and/or tendinous instability. Scapula 2 views DX EXAM: XR RIGHT SCAPULA 2 VIEWS 02/05/2020 [facility] DATE: 02/05/2020 15:10 CDT Center INDICATION: - pain COMPARISON: Radiograph right scapula series on J [id number]. TECHNIQUE: AP and lateral views of the scapula FINDINGS: Scapular hardware comprising of multiple plates and screws is intact without signs of loosening. Interval development of cloudy calcification projecting over the scapular neck and body may rep resent callus versus heterot opic ossification. There is progressive healing of the scapular fracture. Healing multiple right-sided rib fractures are noted. Alignment of the glenohumeral and acromioclavi cular joints is normal. Mild soft tissue swellin g of the shoulder is noted. IMPRESSION: 1. Intact right scapular hardware without signs of loosening 2. Interval development of cloudy calcification projecting over the scapular neck and body may represent callus versus heterotopic ossification 3. Progressive healing of scapular and right-si ded rib fractures [place] SECTION: ER Chest 1view DX EXAM: XR CHEST 1 VIEW 02/05/2020 [facility] edical DATE: 02/05/2020 15:08 CDT Center INDICATION: - pain COMPARISON: Chest x-ray on December 20, 2019. TECHNIQUE: AP chest. FINDINGS: Lines, tubes and hardware: I nterval removal of tracheostomy tube. Extensive right scapula hardware is again seen. Lungs and pleura: Low lung v olumes with mild bibasilar atelectasis. No focal consolidation. No pleural effusions or pneumothorax. Heart and mediastinum: The h eart size is normal for technique. The mediastinal contours are normal. Bones, soft tissues: No acut e abnormality. Multiple healing bilateral rib fractures are again noted. Postsurgical changes of the right scapula are partially visualized. IMPRESSION: 1. No acute radiographic. 2. Interval removal of tracheostomy tube. 3. Healing bilateral rib fr actures. Partially visualized right scapular hardware. [place] SECTION: ER Abdomen RUQ US PROCEDURE INFORMATION: 01/08/2020 [facility] Exam: US Abdomen Limited, Right Upper Quadrant Exam date and time: 01/08/2020 6:26 PM Age: 39 years old Clinical indication: Pain; Additional info: /ruq pain, concern for gb TECHNIQUE: Imaging protocol: Real-time ultrasound of the abdomen with image documentation. Examination was focused on the right upper quadr ant. COMPARISON: ABDOMEN/PELVIS W IV CONTRAST CT 12/04/2019 10:15 AM FINDINGS: The study is somewhat limited seconda ry to patient positioning and inability to fully cooperate with the study. Liver: Normal parenchymal echotexture. N o masses. The main portal vein appears patent and demonstrates hepatopetal flow. Gallbladder: Normal. No gallstones. There is no gallbladder wall thickening. Common bile duct: The common bile duct measures 3 mm. No stones. Pancreas: The visualized pancreas is unremarkabl e. Right kidney: The right kidney measures 11.9 cm. No mass. No hydronephrosis. IMPRESSION: Unremarkable right upper quadrant ultrasound. Art Serna MD On 01/08/2020 20:57:36; VR- [id number] Hip 2/3 views uni w PROCEDURE INFORMATION: 01/01/2020 TI RR pelvis DX Exam: XR Left Hip with Pelvis when Performed Exam date and time: 01/01/2020 3:59 PM Age: 39 years old Clinical indication: /left hip pain TECHNIQUE: Imaging protocol: XR Left hip with pelvis when p erformed. Views: 2 or 3 views. AP 1 view pelvis with 2 vie ws hip COMPARISON: ABDOMEN/PELVIS W IV CONTRAST CT 12/04/2019 10:15 AM FINDINGS: Bones/joints: There is normal alignment of the h ip without fractures or dislocations. The acetabulum is unremarkable. Th e visualized sacroiliac joint and symphysis pubis are unremarkable. Soft tissues: There are no radio-opaque foreign bodies. IMPRESSION: No acute findings. Temo Naqvi MD On 01/01/2020 16:49:40; [id number] Abdomen AP DX PROCEDURE INFORMATION: 12/31/2019 [facility] Exam: XR Abdomen, 1 View Exam date and time: 12/31/2019 1:35 PM Age: 39 years old Clinical indication: /diarrhea TECHNIQUE: Imaging protocol: XR of the abdomen. Views: Frontal supine view of the abdomen. 1 Vie w. COMPARISON: ABDOMEN AP DX 12/20/2019 8:52 AM FINDINGS: Tubes, catheters and devices: Peg tube in place. Lungs: Lung bases are clear. Gastrointestinal tract: Mild to moderate impacti on of the colon with stool. Amount of retained feces improved from 0. No bowel obstruction. Bones/joints: Unremarkable. Soft tissues: No abnormal radiopaque densities. IMPRESSION: Xhac-fy-[id number] stool impaction of colon Temo Naqvi MD On 12/31/2019 16:45:10; [id number] Brain wo contrast CT Radiation Dose CTDIVOL = 41. 56 (mGy): DLP = 743.02 (mGy-cm) 12/31/2019 [facility] PROCEDURE INFORMATION: Exam: CT Head Without Contrast Exam date and time: 12/31/2019 1:34 PM Age: 39 years old Clinical indication: /increased craniectomy robert a TECHNIQUE: Imaging protocol: Computed tomography of the hea d without contrast. CTDI volume: 41.56 mGy Total DLP: 743.02 mGy-cm Radiation optimization: All CT scans at this facility use at least one of these dose optimization techniques: automated exposure control; mA and/or kV adjustment per patient size (includes targeted e xams where dose is matched to clinical indication); or iterative reconstructio n. COMPARISON: BRAIN WO CONTRAST CT 12/22/2019 4:49 PM FINDINGS: Brain: - Mild herniation of brain parenchyma across the craniectomy defect. - CSF-attenuation subdural fluid noted along the inferior margin of the craniectomy, depth ranging up to 1.4 cm, not sig nificantly changed. - Encephalomalacic changes, consistent with old trauma and/or infarct, primarily involve the right temporal lobe and to a lesser extent the right frontal lobe. - No retained radiopaque intracranial foreig n body. No new parenchymal infarct. No new intracranial hemorrhage. No intr acranial mass. No significant effacement of the basal cisterns or foramen magn um. Midline shift: Bbwz-lr-bxocw subfalcine shift of the midline, approximately 0.6 cm, measured at the level of the septum pellucid um, not significantly changed when measured in a similar fashion. Ventricles: Interval resolution previously seen intraventricular hemorrhage. Ex-vacuo dilatation of the right lateral ventric le. No obstructive hydrocephalus. No significant change in size or configuration of the ventricles. Bones/joints: Right pwhwnzp-gdhptywf-ktbeqntk he micraniectomy. No significant abnormality of the calvarium or skull base. No s ignificant change. Soft tissues: No significant scalp edema or flui d collection. Other findings: Please refer to the prior exam r eport for discussion of additional findings that have otherwise not sign ificantly changed. IMPRESSION: 1. Evolution of posttraumatic/postsurgical perkins es as described above. 2. No significant unexpected or detrimental fields ges. Ruddy Yeboah MD On 12/31/2019 16:42:31; VR-SN [id number] Brain wo contrast CT Radiation Dose CTDIVOL = 52. 36 (mGy): DLP = 1003.08 (mGy-cm) 12/22/2019 [facility] PROCEDURE INFORMATION: Exam: CT Head Without Contrast Exam date and time: 12/22/2019 4:49 PM Age: 39 years old Clinical indication: increased craniotomy site s welling TECHNIQUE: Imaging protocol: Computed tomography of the hea d without contrast. CTDI volume: 52.36 mGy Total DLP: 1003.08 mGy-cm Radiation optimization: All CT scans at this facility use at least one of these dose optimization techniques: automated exposure control; mA and/or kV adjustment per patient size (includes targeted e xams where dose is matched to clinical indication); or iterative reconstructio n. COMPARISON: BRAIN CT 12/20/2019 and 11/20/2019 FINDINGS: Brain: No acute parenchymal hemorrhage or large subacute infarction. Redemonstration of encephalo malacia in the right cerebral hemisphere with areas of chronic density indicating prior/chronic pare nchymal hemorrhage, with a small subarachnoid component suspected. No new o r acute subdural or subarachnoid hemorrhage. No mass effect or midli ne shift. Ventricles: Widened, consistent with ex vacuo di latation. Small volume of dependent hemorrhage in the right occipital horn , decreased since 12/20/2019. No acute hydrocephalus. Bones/soft tissues: Right hemicraniectomy withou t swelling of the adjacent scalp. Sinuses: Visualized sinuses are unremarkable. Mastoid air cells: Trace fluid in the ri ght mastoid air cells. No left mastoid effusion. IMPRESSION: No new intracranial abnormality compared to the brain CT performed on 12/20/2019. Naun Jean-Baptiste MD On 12/23/2019 08:30:32; -MS [id number] Brain wo contrast CT Radiation Dose CTDIVOL = 52. 54 (mGy): DLP = 1003.08 (mGy-cm) 12/20/2019 [facility] PROCEDURE INFORMATION: Exam: CT Head Without Contrast Exam date and time: 12/20/2019 2:30 PM Age: 39 years old Clinical indication: /stroke/tbi, follow up stud y TECHNIQUE: Imaging protocol: Computed tomography of the hea d without contrast. CTDI volume: 52.54 mGy Total DLP: 1003.08 mGy-cm Radiation optimization: All CT scans at this facility use at least one of these dose optimization techniques: automated exposure control; mA and/or kV adjustment per patient size (includes targeted e xams where dose is matched to clinical indication); or iterative reconstructio n. 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 There is involvement of the lat eral basal ganglia with progressive ex vacuo change of the right temporal horn, atria and frontal horn of the lateral ventricle. There is minimal intraventricular hem orrhage with blood in the dependent right occipital horn. There is no inte rval acute infarct. Minimal gyriform petechial hemorrhage is present.There a re no extra-axial fluid collections. Sellar and parasellar structures ar e normal. There is no cerebellar tonsillar ectopia.. Ventricles: See Brain Finding. Bones/joints: Similar previous exam patient is s tatus post a right squamosal temporal/frontal/parietal craniectomy. T here is a 5 mm in see lateral shift of the septum pellucidum with extension of dura lat eral to the craniectomy with adequate decompression. Sinuses: Visualized sinuses are unremarkable. No fluid levels. Mastoid air cells: Visualized middle ear cavity, antrum and mastoid air cells are normally aerated. Soft tissues: Unremarkable. IMPRESSION: Encephalomalacia/infarction of the r ight temporal frontal lobe is present. There is involvement of the lat eral basal ganglia with progressive ex vacuo change of the right temporal horn, atria and frontal horn of the lateral ventricle. There is minimal intraventricular hem orrhage with blood in the dependent right occipital horn. There is no inte rval acute infarct. Minimal gyriform petechial hemorrhage is present. Armando Kidd MD On 12/20/2019 15:13:09; WEST[facility]-B [id number] Abdomen AP DX PROCEDURE INFORMATION: 12/20/2019 [facility] Exam: XR Abdomen, 1 View Exam date and time: 12/20/2019 8:52 AM Age: 39 years old Clinical indication: /constipation TECHNIQUE: Imaging protocol: XR of the abdomen. Views: Frontal supine view of the abdomen. 1 Vie w. COMPARISON: CR ABDOMEN AP DX 12/03/2019 7:58 AM FINDINGS: AP image. No gastrostomy tube balloon projects over the g astric air bubble in the left upper quadrant. Normal bowel gas pattern. Moderate colonic fecal material. No abnormal soft tissue mass or calcification. Skeleton normal. IMPRESSION: Moderate colonic fecal material. Michael Almeida MD On 12/20/2019 11:43:42; VR- [id number] Chest 1view DX PROCEDURE INFORMATION: 12/20/2019 [facility] Exam: XR Chest, 1 View Exam date and time: 12/20/2019 8:52 AM Age: 39 years old Clinical indication: /shortness of breath TECHNIQUE: Imaging protocol: XR of the chest Views: 1 view. COMPARISON: CR CHEST 1VIEW DX 12/16/2019 1:31 AM FINDINGS: AP image. Tracheostomy tube in satisfactory position. Slightly enlarged cardiac silhouette. Slightly ectatic aorta. Incompletely inflated lungs. Linear stranding right lung base consistent wit h atelectasis. Pleural thickening right lateral chest wall and lower lateral left hemithorax adjacent to the fractures. Multiple bilateral rib fractures, more numerous on the right. No pneumothorax. Extensive right shoulder hardware. IMPRESSION: See above. Michael Almeida MD On 12/20/2019 11:45:50; VR- [id number] Chest 1view DX EXAM: XR CHEST 1 VIEW 12/16/2019 [facility] edical DATE: 12/16/2019 3:00 AM PORT TRAFFIC MANAGER [facility] INDICATION: - ptx COMPARISON: December 15, 2019 TECHNIQUE: AP chest FINDINGS: Lines and tubes: Tracheostom y tube in place. Hardware along the right scapula appear unchanged in position. Lungs and pleura: Loculated right pleural effusion is unchanged the right infrahilar cavitary lesion appears unchanged compared to the most recent x-ray however gradually improving compared to the x-ray s dated December 09 and . [address] mall left pleural effusion is relatively unchanged. Heart and mediastinum: The h eart size is unchanged. The mediastinal contours are normal. Bones: No acute bony abnormality is identified. IMPRESSION: 1. No significant change com pared to the most recent radiograph. However, the cavitary lesion in the right lung is gradually improving compared to the radiographs dated between December 04 and December 10. Chest 1view DX EXAM: XR CHEST 1 VIEW 12/15/2019 [facility] edical DATE: 12/15/2019 3:00 PORT TRAFFIC MANAGER Center INDICATION: ptx - ptx COMPARISON: 12/14/2019 TECHNIQUE: AP chest IMPRESSION: 1. Tracheostomy appliance is stable in position . 2. Diminished lung volumes laterally with promi nent lung vasculature. 3. Patchy peripherally plac ed airspace opacities are seen in both lungs possibly in the lower lung zone associated please multiple bilaterally fractures suggestive of pulmonary contusions. 4. Trace bilateral pleural effusions. 5. Cardiomediastinal silhouette is normal for t echnique. 6. Osseous structures are s table including multiple bilaterally fractures and internal fixated right scapular fractures. Chest 1view DX EXAM: XR CHEST 1 VIEW 12/14/2019 [facility] edical DATE: 12/14/2019 3:00 PORT TRAFFIC MANAGER Center INDICATION: ptx - ptx COMPARISON: 12/12/2019 TECHNIQUE: AP chest IMPRESSION: Stable tracheos dolores tube. Stable cardiomediastinal silhouette. Again seen is the right infrahilar cavitary lesion. There are patchy opacities in the right lung that could be due to any com bination of hemorrhage, pneu monia and/or atelectasis. There is left lower lobe subsegmental atelectasis. Residual amount of right pleural fluid, likely loculated. Trace amount of left pleural fluid. No obvious residual pneumothora x in this portable radiograph. Plates and screws transfix the right scapula. There are multiple bilateral rib fractures with displacement. CONCLUSION: No significant change compared to [facility] most recent radiograph. Chest 1view DX EXAM: XR CHEST 1 VIEW 12/12/2019 [facility] edical DATE: 12/12/2019 3:00 PORT TRAFFIC MANAGER Center INDICATION: - f/u b/l pleural effusions COMPARISON: 12/11/2019 TECHNIQUE: AP chest IMPRESSION: Stable tracheost prince tube. Stable cardiomediastinal silhouette. Again seen is the right infrahilar cavitary lesion. There are patchy opacities in the right lung that could be due to any comb ination of hemorrhage, pneum onia and/or atelectasis. There is left lower lobe subsegmental atelectasis. Residual bilateral pleural effusions, likely loculated. Plates and screws transfix the right scapu la. There are multiple bilateral rib fractures w ith displacement. CONCLUSION: No significant change compared to [facility] most recent radiograph. Chest 1view DX EXAM: XR CHEST 1 VIEW 12/11/2019 [facility] edical DATE: 12/11/2019 5:37 PORT TRAFFIC MANAGER Center INDICATION: - Tracheostomy collar COMPARISON: Chest x-ray 12/10/2019 TECHNIQUE: AP chest FINDINGS: Lines, tubes and hardware: F ixation hardware is in the right scapula. Tracheostomy tube in place. Overlying electrocardiogram leads. Lungs and pleura: Bilateral pleural effusions, right greater than left, likely loculated. Bilateral patchy airspace opacities, predominantly in the right middle and lower lung. Cavitary lesion in the right infrahilar region is less conspicuous. Heart and mediastinum: Stable prominent cardiome diastinal silhouette. Bones: Bilateral rib fractures again seen IMPRESSION: 1. Persistent bilateral pat kristina airspace opacities, predominantly in the right middle and lower lung, may represent combination of infection, aspiration and/or hemorrhage. 2. Cavitary lesion in the right infrahilar van on is less conspicuous. 3. Stable bilateral pleural effusions (moderate on the right and small on the left), likely loculated. 4. Bilateral rib fractures. Chest 1view DX EXAM: XR CHEST 1 VIEW 12/10/2019 [facility] DATE: 12/10/2019 3:00 PORT TRAFFIC MANAGER Center INDICATION: - Tracheostomy collar. TECHNIQUE: Chest 1 view FINDINGS: Comparison is made to December 09. Cardiomediastinal silhouette is unchanged. There is a tracheostomy tube in place. Plates and screws now transf ix the right scapula. There are multiple bilateral rib fractures with displacement. Bilateral pleural effusions extend from apices to bases laterally, greater on the right. They are probably loculated. Again seen is the right infr ahilar cavitary lesion. There are patchy opacities in the right lung that could be due to any combination of hemorrhage, pneumonia and/or atelectasis. There is left lower lobe subsegmental atelectasis. IMPRESSION: 1. Bilateral rib fractures. Plates and screws no w transfix the right scapula. 2. Loculated bilateral pleur al effusions extending laterally from apices to bases, greater on the right, unchanged. 3. Right infrahilar cavitary lesion. 4. Alveolar opacities in the right lung could be due to an examination of hemorrhage, infection and/or atelectasis. Left lower lobe subsegmental atelectasis. Scapula 2 views DX EXAM: XR RIGHT SCAPULA 2 VIEWS 12/09/2019 [facility] DATE: 12/09/2019 12:45 PORT TRAFFIC MANAGER Center INDICATION: Fracture - POST-OP COMPARISON: Right scapular radiograph dated 2019. TECHNIQUE: AP and lateral views of the scapula FINDINGS: Postsurgical changes related to open reduction and internal fixation of the right scapular fracture with plate and screws which demonstrates satisfactory alignment. The glenohumeral joint remains aligned. A surgical drain is in place. Interval removal of the right-sided chest tube. Interval significant improve ment of subcutaneous emphysema of the right chest wall, shoulder and neck. Partially visualized right-sided pleural effusio n. IMPRESSION: 1. Satisfactory alignment o f plate and screw fixation of the right scapular fracture. 2. Interval significant imp rovement of subcutaneous emphysema of the right chest wall, shoulder and neck. 3. Partially visualized right-sided pleural eff usion. Chest 1view DX EXAM: XR CHEST 1 VIEW 12/09/2019 [facility] edical DATE: 12/09/2019 3:00 PORT TRAFFIC MANAGER Center INDICATION: - Attempting to transition to tracheostomy collar completely and off mechanical ventilation COMPARISON: 12/08/2019 TECHNIQUE: AP chest. IMPRESSION: Well-positioned tracheostomy tube above the cristine. Stable prominent cardiomediastinal silhouette. Stable bilateral pleural effusions, right greater than left. The right pleural effusion appears to be l oculated. Bilateral rib frac tures noted again. Patchy opacities bilaterally with right lower lung predominance may represent any combination of infection, aspiration and/or hemorrhage. Cavitary changes in the right infrahilar region are better seen o n prior CT. CONCLUSION: Stable findings since prior chest radiograph. Chest 1view DX EXAM: XR CHEST 1 VIEW 12/08/2019 [facility] edical DATE: 12/08/2019 3:00 PORT TRAFFIC MANAGER Center INDICATION: - f/u. TECHNIQUE: Chest 1 view FINDINGS: Comparison is made to yesterday. Cardiomediastinal silhouette is unchanged. There is a tracheostomy tube in place. Bilateral rib fractures with displacement. A right pleural effusion obs cures the right base and layers posteriorly with fluid extending laterally, moderately sized. A left pleural effusion extends peripherally from apex to base, small. This has not significantly changed and these pleural effu sions could be loculated. There are patchy alveolar op acities throughout most of the right lung with coalescence in the right middle and lower lobes where there are heterogeneity and lucent changes. This may be due to hemorrhage , aspiration or infection in the right lung with cavitary right infrahilar changes. There is abundant left basilar subsegmental atelectasis. The left upper lobe is clear. IMPRESSION: 1. Bilateral rib fractures. 2. Persistent bilateral pleu ral effusions, moderate on the right and small on the left. They are probably loculated. 3. Patchy alveolar opacities in the right lung with coalescence in the right middle and lower lobes. This could be due to any combination of infection, aspiration and/or hemorrhage. There is are cavitary changes in the right infrahilar region. 4. Abundant left lower lobe subsegmental atelect asis. Chest CTA Chest CTA 12/01/2019 at 11:33 AM 12/07/2019 [facility] Medical HISTORY: 39-year-old man wit h clinical concern for TI fistula. -- According to the electronic medical record, he is status post multiple traumatic injuries and stroke, fever, respiratory failure. Center TECHNIQUE: Continuous 2 mm t hin axial CT images were obtained through the chest following the intravenous administration of contrast with coronal, sagittal and axial MIP reformatted images created at the workstation. IV dose contrast: 200 mL Omnipaque contrast Total exam DLP: 2336 mGy-- cm Comparison is made with the prior chest CT dated 12/04/2019. FINDINGS: Numerous healing bilateral r ib fractures, some of which are segmental on the right. Comminuted fracture of the right scapula with callus formation about the fracture sites. Mild edema in the chest wall. There is a tracheostomy tube in place. Trachea a nd central bronchi are clear. Heart is not enlarged. The a scending aorta and pulmonary trunk do not measure enlarged. No significant pericardial effusion. There is a small to moderate right pleural effusion which has increased since December 04 and is multiloculated. Some of the margins are slightly enhancing caudally, for example on axial image 147. Also, the pleural fluid appears h eterogeneous in some regions. There is a small left pleural effusion. There is abundant segmental/ subsegmental atelectasis in the right middle lobe. There is heterogeneous consolidation in the right lower lobe associated with an infrahilar cavitary lesion containing air-f luid level, for example on a xial image 111. Dependent atelectasis in the bilateral lung bases.. Subcentimeter lymph nodes in the mediastinum. IMPRESSION: 1. A moderate right pleural effusion has increased since December 04. It is heterogeneous and multiloculated with mild peripheral enhancement inferiorly, suggesting superimposed infection. 2. Small left pleural effusion. 3. Cavitary consolidation in the right lower lobe with air-fluid level. This may be due to infection, aspiration and/or hemorrhage in the right lower lobe with superimposed cavitation or laceration related to the recent trauma. 4. Abundant subsegmental ate lectasis in the right middle lobe. Dependent atelectasis in both lung bases. 5. Numerous healing bilateral rib and right scap ular fractures. Neck CTA ADDENDUM: 12/07/2019 [facility] The last paragraph in the body of the report piper carvalho read as follows: Center A tracheostomy tube is in pl ml. The tip of the tube is projected above the cristine, level of the superior endplate of T3. No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 Bones and Soft Tissues: Inte rval decrease in the previously seen bilateral chest wall soft tissue emphysema seen anteriorly and laterally. Again seen are multiple bilateral rib fractures as well as righ t scapular fracture. Sternum cannot be well evaluated due to motion degradation. IMPRESSION: 1. Interval placement of ri ght pleural pigtail catheter with interval almost complete resolution of the right pneumothorax and better inflation of the right lung. Interval development of small right basilar loculated hydropneumothorax. 2. Interval decrease in the amount of the left pneumothorax, currently small compared. 3. Interval decrease in the amount of the anterior chest wall soft tissue emphysema. 4. Other chest CT findings are stable compared to previous study. Chest 1view DX EXAM: XR CHEST 1 VIEW 11/28/2019 [facility] edical DATE: 11/28/2019 8:45 PORT TRAFFIC MANAGER Center INDICATION: - intubated COMPARISON: Same day at 1:35 AM TECHNIQUE: AP chest IMPRESSION: Stable life supp ort lines and tubes. Stable cardiomediastinal silhouette. Evolving bilateral hydro-hem o-pneumothoraces with exvacuo/loculated features in the right basilar region. Other scattered bilateral airspace opacities are again seen. Numerous displaced bilateral rib fr actures and right scapular f racture are reidentified. Right pleural/extrapleural hematomas. CONCLUSION: No significant c hange compared 2 radiograph performed on the same day at 1:35 AM. Chest 1view DX EXAM: XR CHEST 1 VIEW 11/28/2019 [facility] edical DATE: 11/28/2019 3:00 PORT TRAFFIC MANAGER Center INDICATION: - f/u up chest tubes for hemopneumo thorax COMPARISON: Yesterday TECHNIQUE: AP chest IMPRESSION: 1. Stable life support lines and tubes. 2. Stable cardiomediastinal silhouette. 3. Evolving bilateral gsoxx-shfx-mnuyzoxqlpjnvb . 4. Other scattered bilateral airspace opacities are again seen. 5. Numerous displaced bilat eral rib fractures and right scapular fracture are reidentified. 6. Right pleural/extrapleural hematomas. Chest 1view DX EXAM: XR CHEST AP 1 VIEW 11/27/2019 [facility] DATE: 11/27/2019 1714 hours PORT TRAFFIC MANAGER Center INDICATION: - postR chest tube placement COMPARISON: Chest radiographs 11/27/2019 0331 ho urs TECHNIQUE: Chest AP -- 1 View FINDINGS: Feeding tube tip below level of imaging in the u pper abdomen. ET tube tip 7.8 cm above cristine. Right chest tube tip at third intercostal space, unchanged. Interval placement of a seco nd right-sided pigtail chest tube with the distal end coiled in the periphery of the right chest. Stable left-sided chest tube with tip at apex. Cardiac silhouette size is normal. Mild prominence of the central pulmonary vascula ture is identified. Mediastinal and hilar contours are stable. Stable atelectasis/consolidation present in the right mid to lower lung zones. Stable small right-sided pleural effusion/hemoth orax noted. Suspected trace right-sided pneumothorax at the right lung base noted. Stable atelectasis/consolidation in the left low er lung zone noted. Stable small left-sided pleural effusion/hemotho rax noted. No left-sided pneumothorax visible allowing for supine positioning. Unchanged multiple bilateral rib fractures noted . Unchanged right scapular body fracture noted. IMPRESSION: No detrimental change in cardiopulmonary status since the prior exam. Interval placement of a seco nd right-sided pigtail chest tube with the distal end coiled in the periphery of the right chest. Stable atelectasis/consolida tion with small pleural effusions/hemothoraces in the mid to lower lung zones greater on the right. Stable suspected trace right basilar pneumothora x. Unchanged multiple bilateral rib fractures and r ight scapular body fracture. Chest 1view DX EXAM: XR CHEST 1 VIEW 11/27/2019 [facility] DATE: 11/27/2019 3:00 PORT TRAFFIC MANAGER Center INDICATION: - intubated. TECHNIQUE: Chest 1 view FINDINGS: Comparison is made to November 26. Again seen are numerous disp laced bilateral rib fractures, more so on the right. There is a fracture of the right scapula. Life support lines and tubes remain in place. Cardiomediastinal silhouette is not significantl y changed. There is a layering right pl eural effusion which also extends laterally from apex to base and could be partially loculated. There is a tiny amount of residual air in the right pleural space laterally an d at the costophrenic sulcus. Tiny residual left hydropneumothorax. Alveolar opacities in the ri ght lung and left lower lobe. This could be due to pulmonary contusion/hemorrhage with or without superimposed aspiration, pneumonia or atelectasis. The lungs remain low in volume. IMPRESSION: No significant change compared to morning. Chest 1view DX EXAM: XR CHEST 1 VIEW 11/26/2019 [facility] edical DATE: 11/26/2019 3:00 PORT TRAFFIC MANAGER Center INDICATION: - intubated. TECHNIQUE: Chest 1 view FINDINGS: Comparison is made to November 25. Again seen are numerous disp laced bilateral rib fractures, more so on the right. There is a fracture of the right scapula. Cardiomediastinal silhouette is not significantly changed. Life support lines and tubes remain in place. There is a layering right pl eural effusion which also extends laterally from apex to base, slightly increased. There is also a small right pneumothorax. Small left hydropneumothorax has not significant changed. Alveolar opacities throughou t the right lung and left lower lobe could be due to any combination of hemorrhage from the recent trauma with or without superimposed aspiration or pneumonia. The left upper lobe is relatively clear. IMPRESSION: 1. Bilateral rib and right scapular fractures. 2. A layering right pleural effusion has increased. There is also a small right pneumothorax. 3. Small left hydropneumothorax. 4. Asymmetric bilateral airs pace opacities bilaterally throughout the right lung and left lower lobe. Scapula wo contrast EXAM: CT RIGHT SCAPULA WITHOUT CONTRAST 11/12 [facility] CT DATE: 11/24/2019 11:15 PORT TRAFFIC MANAGER Center INDICATION: - Known R scapula fx, advanced imag ing for operative planning. COMPARISON: Scapula radiograph dated 11/16/2019. TECHNIQUE: Volumetric CT of the right scapula is acquired without contrast. Axial, sagittal and coronal images are provided. IV contrast: None. DLP: 1254 mGy-cm FINDINGS: Comminuted displaced fractur e of the body extending to the spine of the scapula noted. The fracture exits the superolateral and superior border of the scapula at 2 points. AO.14B1 Displaced fractures are note d in the posterior right 1st, 2nd, 3rd, 4th, and 5th ribs and anterior right 2nd, lateral right 5th and 6th ribs. Nondisplaced fractures are n oted in the posterior right 6th rib, anterior right 3rd rib and lateral right 4th rib. Soft tissues: Soft tissue sw elling is noted adjacent to the fractures. Right moderate pneumothorax noted with collapse consolidation of the right lung. Right chest tube in situ. Subcutaneous and soft ti ssue emphysema is noted in t he right anterior chest wall. No radiopaque foreign body. No pneumarthrosis. IMPRESSION: 1. Comminuted displaced fra cture of the body extending to the spine of the scapula noted. The fracture exits the superolateral and superior border of the scapula at 2 points. Features are consistent wi th scapular body fracture exiting the body at 2 points : AO.14B1. 2. Displaced fractures are noted in the posterior right 1st, 2nd, 3rd, 4th, and 5th ribs and anterior right 2nd, lateral right 5th and 6th ribs. 3. Nondisplaced fractures a re noted in the posterior right 6th rib, anterior right 3rd rib and lateral right 4th rib. 4. Right moderate pneumotho rax noted with collapse consolidation of the right lung. Right chest tube in situ. Subcutaneous and soft tissue emphysema is noted in the right anterior chest wall Chest wo contrast CT EXAM: CT CHEST WITHOUT CONTRAST 11/25/2019 [facility] DATE: 11/25/2019 9:43 PORT TRAFFIC MANAGER Center INDICATION: - lung opacities TECHNIQUE: Volumetric CT acq uisition of the chest without contrast. Axial, sagittal and coronal reconstructions. Axial MIP reconstructions are created at the acquisition workstation. IV contrast: None. DLP: 814 mGy-cm COMPARISON: 11/18/2019 FINDINGS: Lines and Tubes: Endotrachea l tube is noted with stable above the cristine. Feeding tube is adequate in positioning. Bilateral thoracostomy tubes are noted. Lower Neck: Heterogenous te xture of the visualized portion of the thyroid gland. Anterior lower neck soft tissue emphysema is noted. Heart and Great Vessels: No cardiomegaly. No pericardial effusion. Normal size of the ascending aorta with no aortic atherosclerotic disease. No coronary calcifications. Normal size of the main pulmonary artery. Lymph Nodes: No hilar, media stinal, axillary or internal mammary lymphadenopathy. Lungs: Mild to moderate com pression collapse of the right lung and mild compression collapse of the left lung are noted. Consolidative changes are seen in both lower lobes that may represent combinatio n of atelectasis, contusions , aspiration with or without infection. Patchy groundglass opacities seen anteriorly in both lungs likely represent lung contusions. Pleura: Small bilateral pleu ral fluid likely hemothorax. Moderate right and small left pneumothoraces. Upper abdomen: Unremarkable. Bones and Soft Tissues: Bila teral chest wall soft tissue emphysema seen anteriorly and laterally. Again seen are multiple bilateral rib fractures as well as right scapular fracture. Sternum cannot be well evaluated due to motion degradation. IMPRESSION: 1. Moderate right and small left hemopneumothorax with interval increase compared to the previous study. 2. Moderate right and mild left compression col lapse of the lungs. 3. Patchy groundglass opaci ties seen anteriorly in both lungs likely represent lung contusions. 4. Consolidative changes ar e seen in both lower lobes that may represent combination of atelectasis, contusions, aspiration with or without infection. 5. Multiple bilateral rib fractures and right s capular fractures again seen. 6. Lines and tubes as detailed above. 7. Again seen is lower neck and anterior chest wall soft tissue emphysema with interval decrease compared to previous study. Chest 1view DX EXAM: XR CHEST 1 VIEW 11/25/2019 [facility] edical DATE: 11/25/2019 8:44 [employer] Center INDICATION: - b/l chest tubes COMPARISON: 11/25/2019 at 1:26 AM TECHNIQUE: AP chest IMPRESSION: 1. Endotracheal tube and fe eding tube are stable in position. Again seen are bilateral thoracostomy tubes. 2. Small amount of right ba roseann pneumothorax noted which is better visualized in the current study. 3. Small bilateral pleural effusions. 4. Again seen is right parahilar lobulated mass . 5. Cardiomediastinal silhouette is normal for t echnique. 6. Osseous structures are stable. Chest 1view DX EXAM: XR CHEST 1 VIEW 11/24/2019 [facility] edical DATE: 11/24/2019 16:45 [employer] Center INDICATION: - right CT placed to water seal COMPARISON: Earlier today TECHNIQUE: AP chest. FINDINGS: Well-positioned ET tube abov e the cristine. Other support lines and tubes are stable. Demonstration of subcutaneous emphysema bilaterally. Stable cardiomediastinal silhouette. Redemonstration of right inf rahilar masslike opacity. Lo w lung volumes with bronchovascular crowding. Patchy opacities with bibasilar predominance may represent any combination of contusions, atelectasis, aspiration or pneumonia. Stable osseous structures. No pneumothorax is se en. IMPRESSION: Well-positioned ET tube abov e the cristine. No significant interval change and no pneumothorax identified. Chest 1view DX EXAM: XR CHEST 1 VIEW 11/24/2019 [facility] edical DATE: 11/24/2019 7:25 [employer] Center INDICATION: - b/l chest tubes COMPARISON: 11/23/2019 TECHNIQUE: AP chest. IMPRESSION: Well-positioned ET tube abov e the cristine. Other life support lines and tubes are stable. Demonstration of subcutaneous emphysema bilaterally. Stable cardiomediastinal silhouette. Redemonstration of righ t infrahilar masslike opacit y. Low lung volumes with bronchovascular crowding. Patchy opacities with bibasilar predominance may represent any combination of contusions, atelectasis, aspiration or pneumo ness. Stable osseous structures. No pneumothorax is seen. CONCLUSION: 1. Well-positioned ET tube above the cristine. Other findings as described above. Chest 1view DX EXAM: XR CHEST 1 VIEW 11/24/2019 [facility] edical DATE: 11/25/2019 3:00 [employer] Center INDICATION: - b/l chest tubes COMPARISON: November 24, 2019 TECHNIQUE: AP chest IMPRESSION: 1. Endotracheal tube and fe eding tube are stable in position. Again seen are bilateral thoracostomy tubes. 2. While evaluation is limi jose given semi-erect positioning, no distinct pneumothorax is identified. 3. Small bilateral pleural effusions. 4. Again seen is right parahilar lobulated mass . 5. Cardiomediastinal silhouette is normal for [facility]. 6. Osseous structures are stable. Chest 1 View Employee EXAM: XR CHEST 1 VIEW 11/23/2019 [facility] [address] [employer] DX DATE: 11/23/2019 14:26 [employer] Center INDICATION: - chest tube; crepitus COMPARISON: 11/23/2019 TECHNIQUE: AP chest. IMPRESSION: Tip of ET tube projects 7 cm above the cristine. Other life support lines and tubes are stable. Stable cardiomediastinal silhouette. Redemonstration of small bilateral pleural effusions. No pneumothorax i s seen, given limitation of a semiupright study. Again seen right perihilar lobulated mass. Interval improvement of scattered contusions throughout the left lung associated with pleural reaction. Left r etrocardiac opacities may re present atelectasis, aspiration or pneumonia. Redemonstration of diffuse subcutaneous emphysema, improved from prior. Stable osseous structures. CONCLUSION: 1. Tip of ET tube should be advanced 2 cm. 2. Again noted right perihilar lobulated mass. 3. Interval improvement of scattered contusions throughout the left lung. 4. Left retrocardiac opacit ies may represent atelectasis, aspiration or pneumonia. 5. Diffuse subcutaneous emphysema has improved from prior. Chest 1view DX EXAM: XR CHEST 1 VIEW 11/23/2019 [facility] edical DATE: 11/23/2019 3:00 AM PORT TRAFFIC MANAGER [facility] er INDICATION: - PNA COMPARISON: November 22, 2019 TECHNIQUE: AP chest IMPRESSION: 1. Endotracheal tube and fe eding tube are stable in position. Again seen are bilateral thoracostomy tubes. 2. While evaluation is limi jose given semi-erect positioning, no distinct pneumothorax is identified. 3. Small bilateral pleural effusions. 4. Again seen is right parahilar lobulated mass . 5. Moderate to large amount of chest wall soft tissue emphysema. 6. Cardiomediastinal silhouette is normal for t echnique. 7. Osseous structures are stable. Chest 1view DX EXAM: XR CHEST 1 VIEW 11/22/2019 [facility] edical DATE: 11/22/2019 3:00 AM PORT TRAFFIC MANAGER [facility] er INDICATION: - intubated COMPARISON: November 21, 2019 TECHNIQUE: AP chest IMPRESSION: 1. Endotracheal tube and fe eding tube are stable in position. Again seen is the right thoracostomy tube with interval decrease in the amount of the right pneumothorax. Again seen is left thoracostomy tube. 2. Small bilateral pleural effusions. 3. Again seen is right parahilar lobulated mass . 4. Moderate to large amount of chest wall soft tissue emphysema. 5. Cardiomediastinal silhouette is normal for t echnique. 6. Osseous structures are stable. Chest 1view DX EXAM: XR CHEST 1 VIEW 11/21/2019 [facility] edical DATE: 11/21/2019 3:00 [employer]NA[employer] Center INDICATION: intubated - intubated COMPARISON: 11/20/2019 TECHNIQUE: AP chest. IMPRESSION: Tip of ET tube projects 7 cm above the cristine. Other life support lines and tubes are stable. Stable cardiomediastinal silhouette. Interval increase in volume of small/moderate right pneumothorax seen in the apical and lateral regions. Tiny left apical pneumothorax also noted. Redemonstration of diffuse subcutaneous emphysema and s cattered contusions througho ut the left lung associated with pleural/extrapleural hematomas and right-sided rib fractures. Sable bilateral infrahilar opacities with right lower lung predominance may rep resent any combination of pn eumonia, aspiration, pneumonia and/atelectasis. Stable osseous structures. CONCLUSION: 1. ET tube should be advanced 2 cm. 2. Interval increase in volume of small/moderat e right pneumothorax. 3. Stable tiny left apical pneumothorax. Other findings are stable since prior chest repair. Findings were conveyed to Courtney Finch on 11/21/2019 at 1019 hours. Chest 1view DX EXAM: XR CHEST 1 VIEW 11/20/2019 [facility] DATE: 11/20/2019 14:58 PORT TRAFFIC MANAGER Center INDICATION: - Right CT to waterseal COMPARISON: 11/20/2019 TECHNIQUE: AP chest. IMPRESSION: Tip of ET tube projects 9.3 cm above the cristine. Other life support lines and tubes are stable. Stable cardiomediastinal silhouette. Redemonstration of tiny left apical pneumothorax, unchanged. Stable s mall right pneumothorax is s een at the apex and basilar region. Diffuse subcutaneous emphysema, unchanged. Scattered contusions throughout the left lung and pleural/extrapleural hematoma associated with right rib fractures are not ed again. Stable bilateral infrahilar opacities with right lower lung predominance may represent a combination of hemorrhage, aspiration, pneumonia and/atelectasis. CONCLUSION: 1. Tip of ET tube should be advanced 4 cm. 2. Stable small right pneum othorax and tiny left apical pneumothorax. Other findings as above. Brain wo contrast CT EXAM: CT BRAIN WITHOUT CONTRAST 11/20/2019 [facility] DATE: 11/20/2019 13:16 PORT TRA[employer]IC [employer]NAGER Center INDICATION: -Therapeutic on PTT, status post de compressive craniectomy. COMPARISON: CT brain 11/19/2019 at 1845 hours, 0 11/18/2019 at 1220 hours TECHNIQUE: Axial CT images o f the brain were obtained. Sagittal and coronal reformats. IV contrast: None. DLP: 948.93 mGy-cm FINDINGS: Postoperative changes of rig ht decompressive hemicraniectomy with evolving large right MCA territory infarct with unchanged appearance of the cytotoxic edema. Brain parenchyma continues to herniate thro ugh the right craniectomy de fect. Tiny focus of hyperdense hemorrhage is unchanged within the cytotoxic edema on image 26, series 1. No significant midline shift or herniation. No new parenchymal densit y or hemorrhage identified. The ventricles are unchanged in size and configuration. IMPRESSION: Stable exam. Chest 1view DX EXAM: XR CHEST 1 VIEW 11/20/2019 [facility] edical DATE: 11/20/2019 8:00 PORT TRAFFIC MANAGER Center INDICATION: - PTX. TECHNIQUE: Chest 1 view FINDINGS: Comparison is made to yesterday. Pneumomediastinum and diffus e subcutaneous emphysema. There are bilateral rib fractures. Fracture of the right scapular body. Small right pneumothorax is seen at the apex, at the base and laterally. There are also pleural/extrapleural hematomas on the right subjacent to the rib fractures. There is a tiny left apical pneumothorax. Biapical chest tubes remain in place. Intubated. A Dobbhoff feeding tube is present. There are alveolar opacities predominantly in the bilateral infrahilar regions, greater on the right. This could represent any combination of hemorrhage, aspiration or pneumonia. There are pulmonary contusions scattered in the right lung. IMPRESSION: No significant change since yesterda y afternoon. Brain/Neck CTA EXAM: CT ANGIOGRAM OF THE BRAIN 11/19/2019 [facility] EXAM: CT ANGIOGRAM OF THE NECK C enter DATE: 11/19/2019 INDICATION: ' - new onset [place] pleg[place]' ADDITIONAL INFORMATION: None COMPARISON: CTA head and neck 11/15/2019 TECHNIQUE: -Rapid acquisition spiral im ages of the brain and neck were obtained between the aortic arch and the cranial vertex during intravenous infusion of iodinated contrast for the purposes of CT angiography. 3-D CT angiographic images a re created using maximum intensity projection technique at the acquisition workstation. The source images are also presented for interpretation. FINDINGS: NECK CTA: Extremely suboptimal evaluat ion of the neck. The contrast bolus is so faint within the mid neck, lower neck, and included chest that the study in these regions is nondiagnostic. The previous descending thoracic aortic, brachioceph alic artery, and right common carotid artery origin clot cannot be assessed. There is also an area of den marisabel artifact that obscures the right cervical internal carotid artery higher up (series 13 image 158). The nonobscured areas of the upper cervical internal carotid arteries a re unremarkable with no irregularity, narrowing, or occlusion. There again is extensive emp hysema throughout the neck. An endotracheal tube terminates in the mid trachea. An enteric tube reaches at least the midesophagus. Right-sided chest tube. Multiple right-side d rib fractures, and comminu jose right clavicular fracture, left 1st rib fracture. BRAIN CTA: Improvement in the previous right MCA distal cut off, now with asymmetric attenuation and improved distal right MCA opacification. There are persistent distal areas of narrowing and possible occlusion (series 15a image 42). Suboptimal evaluation of the left MCA, which was small in caliber on the prior exam but may have areas of further decrease in caliber (series 16 a image 66). No saccular aneurysm or AV malformation is ident ified. The major dural venous sinuses are patent. The brain parenchyma is bett er demonstrated on the concurrent noncontrast head CT. IMPRESSION: 1. Suboptimal evaluation of the left MCA, with questionable areas of further decrease in caliber (series 16a image 66) which could represent vasospasm but without definite abrupt cut off. 2. Improvement in the previ ous MCA occlusion, now with new but attenuated flow of the distal M1 segment and new distal MCA opacification. New areas of more distal MCA stenosis and occlusion (series 15 image 42) may represent showering of emboli. 3. Nondiagnostic CTA of the neck, with extremely suboptimal contrast bolus in the included chest, lower neck, and midneck that precludes evaluation of the previous areas of intraluminal clot. Streak ar tifact obscures portions of the right distal cervical internal carotid artery. Previous areas of internal carotid artery irregularity are no longer seen in the nonobscured portions of the distal cervical internal carotid arteries. (All qualitative and quantit ative assessments of carotid bifurcation and proximal internal carotid artery stenosis are made referencing the distal internal carotid artery {NASCET criteria}.) Brain wo contrast CT EXAM: CT BRAIN WITHOUT CONTRAST 11/19/2019 [facility] DATE: 11/19/2019 Center INDICATION: ' - mental status change' ADDITIONAL INFORMATION: New right upper extremit y weakness COMPARISON: Concurrent CTA h ead and neck, previous CTA head and neck 11/15/2019; noncontrast head CTs 11/18/2019 and 11/16/2019 TECHNIQUE: Noncontrast axial CT images were acquired through the brain. 5 mm axial, sagittal, and coronal images were reviewed. IV contrast: None. FINDINGS: The medial boundary of the c ytotoxic edema extends further medially in the perirolandic region to include hand knob region (series 6 image 31). Continued evolution of the large confluent right MCA emilee tory ischemic infarction whi ch again appears to spare the basal ganglia and internal capsule. The cytotoxic edema continues to develop with protrusion of the parenchyma through the large right craniecto my defect. The sulci and the right lateral ventricle remains effaced. There is no midline shift or downward herniation. No parenchymal hematoma. No new parenchymal dens ity abnormality. The ventricles are unchanged in caliber and conf iguration. IMPRESSION: 1. Further extension of the medial boundary of the large right MCA territory ischemic infarct in the perirolandic region to include the hand knob region (series 6 image 31). 2. Continued evolution of t he large right MCA territory ischemic infarction without parenchymal hematoma or herniation. The brain parenchyma continues to protrude to the large right craniectomy defect. Chest 1view DX EXAM: XR CHEST 1 VIEW 11/19/2019 [facility] edical DATE: 11/19/2019 3:00 PM [employer]IC [employer]NAGER Cente r INDICATION: - s/p L chest tube to waterseal. R chest tube to suction COMPARISON: 1215 hours today TECHNIQUE: AP chest FINDINGS: Lines and tubes: Tubes and lines are unchanged i n position. Lungs and pleura: A small ri ght pneumothorax is again demonstrated, not significantly changed from the previous examination. Heart and mediastinum: Unremarkable for acute ab normality. Chest wall: Unremarkable. Bones: No acute bony abnormality is identified. IMPRESSION: Small persistent right pneumothorax , without significant change. Chest 1view DX EXAM: XR CHEST 1 VIEW 11/19/2019 [facility] edical DATE: 11/19/2019 12:04 PORT TRAFFIC MANAGER Center INDICATION: - ETT placement COMPARISON: Chest radiograph on 11/19/2019 0050 hours. TECHNIQUE: AP chest. FINDINGS: Lines, tubes and hardware: E ndotracheal tube tip projects over the midthoracic trachea 5.9 cm above the cristine. Enteric tube tip is outside the [id number]. Bilateral chest tubes are unchanged in position. Lungs and pleura: Significan t interval improvement in bilateral retrocardiac opacities previously obscuring the hemidiaphragm. The costophrenic sulci are sharp without effusion. No pneumothorax is identified on this semiupright radiograph. Heart and mediastinum: The h eart size is normal for technique. The mediastinal contours are normal. Bones, soft tissues: Redemon strated right scapular and bilateral rib fractures. Interval increase in right chest wall subcutaneous emphysema. IMPRESSION: 1. Endotracheal tube tip pr ojects over the midthoracic trachea 5.9 cm above the cristine. 2. Significant interval imp rovement in bilateral retrocardiac opacities previously obscuring the hemidiaphragms may represent resolving layering pleural effusions with or without superimposed infection/atelectasis. 3. No definite pneumothorax on this semiupright view. 4. Interval increase in right chest wall subcut aneous emphysema. Chest 1view DX EXAM: XR CHEST 1 VIEW 11/19/2019 [facility] edical DATE: 11/19/2019 3:00 PORT TRAFFIC MANAGER Center INDICATION: - intubated COMPARISON: Chest radiograph on 11/18/2019 1515 hours. TECHNIQUE: AP chest. FINDINGS: Lines, tubes and hardware: T he endotracheal tube, enteric tube, and right chest tube stable in position. Lungs and pleura: Low lung v olumes are present, with bibasilar subsegmental atelectasis. Mild interval increase in bilateral retrocardiac opacities obscuring the hemidiaphragms. No pneumothorax is identified on this semiupright radiograph. Heart and mediastinum: The h eart size is partially obscured by adjacent opacities but not significantly changed. The mediastinal contours are normal. Bones, soft tissues: Interva l decrease in subcutaneous emphysema seen along the right chest wall and lower neck. IMPRESSION: 1. Previously seen tiny rig ht apical pneumothorax is not definitively identified on this semiupright radiograph. 2. Small bilateral effusions, increased on the right. 3. Mild interval increase i n bilateral lower lobe and right middle lobe opacities obscuring the hemidiaphragms may represent atelectasis, infection, aspiration or hemorrhage. 4. Unchanged cardiomegaly. 5. Interval decrease in sub cutaneous emphysema seen along the right chest wall and lower neck. 6. Right scapular fracture. Bilateral rib fract ures, more so on the right. Chest 1view DX EXAM: XR CHEST 1 VIEW 11/18/2019 [facility] edical DATE: 11/18/2019 14:24 PORT TRAFFIC MANAGER Center INDICATION: - pneumothorax COMPARISON: 11/18/2019 TECHNIQUE: AP chest. IMPRESSION: Stable life support lines, t ubes and cardiomediastinal silhouette. Tiny right apical pneumothorax is less conspicuous. Evaluation for pneumothorax is limited on today's chest radiograph. Redemo nstration of low lung volume s and bibasilar opacities which may represent any combination of atelectasis, aspiration and/or pneumonia. Small left pleural effusion. Stable osseous structures including mu ltiple rib fractures bilaterally. Diffuse subcut aneous emphysema. CONCLUSION: 1. Tiny right apical pneumo thorax is less conspicuous. Evaluation for pneumothorax is limited due to the patient's chest are clear. 2. Small dependent left ple ural effusion is seen. Other findings are unchanged. Chest 1 v for EXAM: XR CHEST 1 VIEW 11/18/2019 [facility] edical Placement DX DATE: 11/18/2019 13:33 PORT TRAFFIC MANAGER Center INDICATION: Line Placement - Chest 1 view for li ne placement COMPARISON: 11/18/2019 TECHNIQUE: AP chest. IMPRESSION: Interval placement of well-p ositioned ET tube above the cristine and right chest tube with its tip projecting over the right apical region. Other life support lines and tubes are stable. Tiny left apical pneumothorax is seen. No def initive pleural effusions. Stable cardiomediastinal silhouette. Diffuse subcutaneous emphysema noted again. Low lung volumes with bronchovascular crowding. Bibasilar opacitie s may represent any combinat ion of atelectasis, aspiration and/or pneumonia. Stable osseous structures including multiple rib fractures bilaterally. CONCLUSION: 1. Well-positioned ET tube above the cristine. 2. Right chest tube with its tip projecting ove r the right apical region. 3. Tiny left apical pneumothorax is seen. 4. Low lung volumes and bib asilar opacities which may represent any combination of atelectasis, aspiration and/or pneumonia. 5. Diffuse subcutaneous emphysema. Brain wo contrast CT EXAM: CT HEAD WITHOUT CONTRAST 11/18/2019 [facility] DATE: 11/18/2019 12:21 PM PORT TRAFFIC MANAGER Cent er INDICATION: 39 years old Mal e patient with history of s/p ischemic stroke, postop. TECHNIQUE: Multiple axial im ages were obtained through the head from vertex to the skull base. Axial bone algorithm reconstruction images are provided. COMPARISON: Prior CT scan of the head dated 03/2020 FINDINGS: Again identified are changes of right-sided deco mpressive hemicraniectomy. Again identified are evolvin g ischemic changes within the right MCA territory infarction. Few scattered foci of increased attenuation outlining the cerebral sulci/kwan matter within the infarcted region is likely secondary to the considerable persistent hypodensity of the adjacent subcortical white matter +/- petechial hemorrhage. No definite focal intraparenchymal hematoma formation is seen. Stable m ass effect over the right lateral ventricle with out midline shift. No definite new parenchymal abnormality or new h emorrhage is identified. Overall ventricles are stable in size and config uration. Basal cisterns are grossly p reserved. There is no evidence of downward herniation at the level of foramen magnum. No interval significant adve rse changes in visualized paranasal sinuses, orbits, mastoid cavities and calvarium. IMPRESSION: 1. Overall no interval signi ficant adverse change from prior CT dated 11/16/2019. 2. Stable changes of decompressive right-sided h emicraniectomy. 3. Evolving right MCA territ ory infarction. Stable few scattered foci of increased attenuation outlining the cerebral sulci/kwan matter within the infarcted region is likely secondary to the considerabl e persistent hypodensity of the adjacent subcortical white matter +/- petechial hemorrhage. No definite focal intraparenchymal hematoma formation is seen. 4. Stable mass effect over t he right lateral ventricle without midline shift or obstructive hydrocephalus. Chest/Abd/Pelvis CTA EXAM: CTA CHEST WITH CONTRAST 11/18/2019 [facility] EXAM: CTA ABDOMEN AND PELVIS WITH CONTRAST Center DATE: 11/18/2019 9:20 PORT TRAFFIC MANAGER INDICATION: Evaluation of th e descending aorta near the diaphragm where there was thrombus/injury in the past on a scan on 11/15/2019 COMPARISON: Computed tomography scan chest abdom en pelvis on 11/15/2019 TECHNIQUE: Volumetric CT of the chest, abdomen and pelvis is acquired in arterial phase following intravenous administration of contrast. Axial, coronal and sagittal reconstructions, along with MIP kimberli nstructions, are created at the acquisition work station. IV contrast: 100 mL of Omnipaque 350 Oral contrast: None. DLP: 2926 mGy-cm FINDINGS: AORTA: The aorta measures: 3.5 cm at the ascending aorta at the level of th e pulmonary artery, 2.5 cm at the mid arch, 2.2 cm at the descending aorta at the level of t he main pulmonary artery, 2.0 cm at the level of the aortic hiatus, 1.8 cm just proximal to the iliac bifurcation. No significant atherosclerot ic plaque. The branching pattern is unremarkable. There is thrombus in the distal thoracic aorta as a similar site as it was seen on 11/15/2019. However the amount of intramu ral luminal filling is less this is probably from a traumatic injury with intimal injury of the aorta. The right subclavian artery is not adequately visualized for comment because of bolus and artifact Venous line right groin pres ent. Nasogastric tube present. Almodovar catheter present. Endotracheal tube in adequate position Lungs and pleura: The lungs have dense infiltrates both lower lobes with some loss of volume. There is a pneumothorax still present on the left with a chest tube in place. Amount of infiltrate is clearl y greater than it was on 02/2020. If there are pleural effusions there are tiny. No pulmonary emboli seen Heart and mediastinum: Heart size is normal mediastinal air is present No lymphadenopathy. Abdomen: Hepatobiliary: Unremarkable. The air in the biliary tree appears to been resolved. Gallbladder: Contrast in the gallbladder from pr ior contrast injections. Spleen: Unremarkable. Pancreas: Unremarkable. Adrenals: Unremarkable. Kidneys: Unremarkable. Bowel and mesentery: Unremarkable. Bones and soft tissues: The amount of subcutaneous and mediastinal air is definitely decreased but still present. Multiple rib fractures bilaterally not changed. IMPRESSION: 1. Definite improvement in the thrombus in the descending thoracic aorta at the diaphragm. This is likely from a traumatic injury to the interim. 2. Right subclavian artery which had thrombus seen in the past cannot be evaluated because of artifact and bolus at this time Chest 1view DX EXAM: XR CHEST 1 VIEW 11/18/2019 [facility] edical DATE: 11/18/2019 6:15 PORT TRAFFIC MANAGER Center INDICATION: - eval for right sided ptx COMPARISON: Chest radiograph on 11/18/2019 0458 hours. TECHNIQUE: AP chest. FINDINGS: Lines, tubes and hardware: Stable life support l jaswinder/tubes. Lungs and pleura: Low lung v olumes result in bibasilar vascular crowding. There are diffuse bilateral alveolar airspace opacities, similar to prior. The costophrenic sulci are sharp without effusion. There is a tiny right apical pneumothorax. Heart and mediastinum: The c ardiomediastinal silhouette is stable. There is a persistent pneumomediastinum. Bones, soft tissues: Stable osseous structures in diffuse subcutaneous emphysema. IMPRESSION: 1. Interval development of a tiny right apical pneumothorax. 2. Persistent pneumomediastinum. 3. Diffuse bilateral alveol ar airspace opacities, similar to prior, favor pulmonary contusions with or without superimposed infection/atelectasis. Critical finding of pneumoth orax was communicated to and acknowledged by Dr. Gatica at 11/18/2019 9:14 PORT TRAFFIC MANAGER by Janelle Morales RES, MD Chest 1view DX EXAM: XR CHEST 1 VIEW 11/18/2019 [facility] edical DATE: 11/18/2019 4:40 PORT TRAFFIC MANAGER Center INDICATION: evaluate chest tube - evaluate chest tube COMPARISON: Chest radiograph 11/17/2019 TECHNIQUE: AP chest. FINDINGS: Lines, tubes and hardware: I nterval removal of a right-sided chest tube. Endotracheal tube and gastric tube remain in position. Lungs and pleura: Low lung v olumes. Diffuse contusions/lacerations are seen in the bilateral lower lungs with or without associated aspiration/pneumonia. There is progression of patchy opacities in the right infrahilar region. Suspected small bilater al pleural effusions. Heart and mediastinum: The c ardiomediastinal silhouette is unchanged. Persistent pneumomediastinum. Bones, soft tissues: Diffuse subcutaneous emphysema involving the chest wall and lower neck again noted. IMPRESSION: 1. Progression of opacities in the right infrahilar region status post right chest tube removal, which may represent contusion/lacerations, infection or hemorrhage. 2. Diffuse subcutaneous emp hysema. Persistent pneumomediastinum. Evaluation for pneumothorax is suboptimal due to superimposing emphysema. Chest 1view DX EXAM: XR CHEST 1 VIEW 11/17/2019 [facility] edical DATE: 11/17/2019 3:00 PORT TRAFFIC MANAGER Center INDICATION: ETT placemement - ETT placement COMPARISON: 11/16/2019 TECHNIQUE: AP chest. IMPRESSION: Gastric tube has been remove d. Interval placement of feeding tube with distal tip below the diaphragm and outside of view of chest graft. Well-positioned ET tube above the cristine. Bilateral chest tubes remain in position. Redemonstration of diffuse s ubcutaneous emphysema. Stable cardiomediastinal silhouette. Persistent pneumomediastinum . Evaluation for pneumothorax is suboptimal due to superimposed emphysema. Diffuse contusions/lacerations are seen in the bilateral lower lungs with or without associated asp iration/pneumonia. There is progression of patchy opacities in the right infrahilar region. Stable osseous structures. CONCLUSION: 1. Life support lines and tubes as described ab ove. 2. Diffuse subcutaneous emp hysema. Persistent pneumomediastinum. Evaluation for pneumothorax is suboptimal due to superimposing emphysema. 3. Progression of opacities in the right infrahilar region. Other findings are unchanged. Abdomen 1 v for EXAM: XR ABDOMEN 1 VIEW 11/16/2019 [facility] Placement DX DATE: 11/16/2019 21:57 PORT TRAFFIC MANAGER Center INDICATION: feeding tube placement - feeding tub e placement ADDITIONAL INFORMATION: None. COMPARISON: None. TECHNIQUE: Limited AP view of the abdomen for tube placement assessment. Number of images: 2 FINDINGS: Transesophageal feeding tube : Tip overlies the gastric antrum on the final image. Transesophageal suction tube: None Other tubes, lines and hardware: None. Extensive subcutaneous emphysema identified in t he body wall. IMPRESSION: 1. Feeding tube tip overlie s the gastric antrum on the final image. Further advancement is recommended. Brain wo contrast CT EXAM: CT BRAIN WITHOUT CONTRAST 11/16/2019 [facility] DATE: 11/16/[address] INDICATION: Right hemicraniectomy, postoperative follow-up COMPARISON: Brain CT of the same date at 1450 ho urs TECHNIQUE: Routine axial images of the brain wer e obtained. IV contrast: None DISCUSSION: There are now postsurgical c hanges, status post decompressive right hemicraniectomy. There is continuing evolution of the large right MCA infarct. No hemorrhagic conversion is identified. A drain remain s in place along the craniec dolores. Midline shift has improved, measuring 3 mm (versus at least 9 mm previously). The right lateral ventricle remains effaced. Accounting for differences in slice selection , the right lateral ventricl e is similar to minimally increased in size. Basal cisterns are now better delineated, compared to previous. IMPRESSION: 1. Uneventful postoperative appearance, status post decompressive right hemicraniectomy 2. Continuing evolution of the large right MCA infarct without hemorrhagic transformation Brain wo contrast CT EXAM: CT BRAIN WITHOUT CONTRAST 11/16/2019 [facility] DATE: 11/16/2019 12:57 PM PORT TRAFFIC MANAGER [facility] er INDICATION: - R MCA stroke. Evaluation for evol ution of stroke COMPARISON: CT brain without and 11/15/2019 at 202 8. TECHNIQUE: Routine axial images of the brain wer e obtained without contrast. IV contrast: None. FINDINGS: Exam is significantly limite d by artifact and portable technique. Continued evolution of the right MCA territory infarct with loss of kwan-white differentiation and increased areas of hypodensity. Invol vement of a majority of the right MCA territory with possible relative sparing of the right basal ganglia. No definite hemorrhagic transformation. Progressive associated edema resulting in increased eff acement of the right lateral ventricle with development of midline shift to the left by 9 mm and subfalcine herniation. Increasing effacement of the basal cisterns. IMPRESSION: Evolving large right MCA ter ritory infarct with worsening edema and midline shift to the left by 9 mm. Leftward subfalcine herniation. Interval effacement of the crural cisterns concerning for impending downward herniation. Reji owens discussed with Dr. Clements in the STICU on 11/16/19 at 1610. Scapula 2 views DX EXAM: XR SCAPULA 2 VIEWS 11/16/2019 [facility] DATE: 11/16/2019 9:16 PORT TRAFFIC MANAGER Center INDICATION: Right scapula fracture. COMPARISON: Chest, abdomen, and pelvis CT 11/15/19 20 TECHNIQUE: AP and lateral views of the scapula Laterality: Right FINDINGS: Increased displac ement of the mildly displaced comminuted fracture of the scapula body extending into the acromion. Medial displacement of the glenoid. Satisfactory alignment of the glenohumeral joint. Multiple right rib fractures and extensive right soft tissue gas noted. IMPRESSION: Increased displ acement of mildly displaced scapula body fracture with medial displacement of the glenoid. Chest 1view DX EXAM: XR CHEST 1 VIEW 11/16/2019 [facility] DATE: 11/16/2019 8:05 PORT TRAFFIC MANAGER Center INDICATION: - please, take the CXR after ET tub e advancement COMPARISON: Same day at 00:55 TECHNIQUE: AP chest IMPRESSION: Interval advance ment of endotracheal tube now 5 cm above the cristine. Other stable life support lines and tubes. Stable cardiomediastinal silhouette. Persistent pneumomediastinum. Diffuse con tusions and lacerations thro ughout the RML and RLL. LLL atelectasis with or without superimposed hemorrhage/contusions. Persistent moderate left greater than right pneumothoraces and possible small hemo thoraces. Biapical pleural c apping. Persistent diffuse lower neck and chest wall subcutaneous emphysema. Multiple skeletal fractures as better characterized on admission CT chest. CONCLUSION: Interval advanc ement of the endotracheal tube now 5 cm above the cristine. Otherwise, no significant change in diffuse posttraumatic thoracic findings as described above in detail. Chest 1view DX EXAM: XR CHEST 1 VIEW 11/16/2019 [facility] edical DATE: 11/16/2019 at 00:55 PORT TRAFFIC MANAGER Cent er INDICATION: - requiring extensive respiratory s upport COMPARISON: Yesterday TECHNIQUE: AP chest IMPRESSION: Stable life supp ort lines and tubes. Consider advancing the endotracheal tube at least 2 cm for beneficial position. Stable cardiomediastinal silhouette. Persistent pneumomediastinum. Diffus e contusions and lacerations throughout the RML and RLL. LLL atelectasis with or without superimposed hemorrhage/contusions. Persistent moderate right greater than left pneumothoraces and small hemothor aces. Biapical pleural cappi ng. Persistent diffuse lower neck and chest wall subcutaneous emphysema. Multiple skeletal fractures as better characterized on admission CT chest. CONCLUSION: 1. No significant change co mpared to findings seen on CTA chest performed 2 hours prior. I refer you to that report for detailed explanation of findings and recommendations. 2. Consider advancing the endotracheal tube 2 c m for beneficial position. Chest CTA EXAM: VIR CT angiogram thorax and abdomen. TAVR protocol 11/15/2019 [facility] INDICATION: 39 years old Mal e with traumatic injury with suspicion of dissection. Center TECHNIQUE: Following the adm inistration of intravenous contrast, 3 mm slices from the thoracic inlet through the kidneys were obtained in arterial phase. Images are reviewed on 3D workstation. COMPARISON: None FINDINGS: Vascular: Nonocclusive throm bus is visualized within the right innominate artery extending to the right subclavian artery. Another nonocclusive thrombus seen within the proximal descending aorta and dis marisabel descending aorta. No roger dence of aneurysm, dissection, or contrast extravasation. Soft tissues: Significant nickerson bcutaneous emphysema, which has progressed from the prior study. Lower Neck: The thyroid demo nstrates a small 7 mm nodule within the right lobe.. No significant lymphadenopathy Airway: ET tube with the tip within the mid trac hea. Lungs: Bilateral chest tubes in place with bilateral pneumothoraces. Extensive right lung laceration and contusion as seen on the prior. Progression of left lobe atelectasis. Mediastinum: Pneumomediastinum, unchanged. Pulmonary Artery: No evidenc e of pulmonary embolism within the central, lobar, or segmental branches. There is also seen within the main pulmonary artery, likely iatrogenic. Liver: The liver demonstrate s air seen within the left-sided portal triads. This is uncertain to be within the biliary tree or portal vein. Given extent of the patient's injuries, and ischemic bowel injury cannot be excluded. Biliary tree: Please see above. Gallbladder: Normal. No CT evidence of gallstone s. Pancreas: Normal. Spleen: Nonspecific subcenti meter hypodensity seen within the superior pole of the spleen. Adrenals: Hyperenhancement o f the bilateral adrenal glands, which may represent hypotension. Kidneys and ureters: Wedge-s haped hypodensity seen within the right kidney, nonspecific, but may represent infarct . Bladder: Normal. Gastrointestinal tract: No e vidence of obstruction or pneumatosis in the partially visualized bowel. NG tube in place. Peritoneum, mesentery and re troperitoneum: No free air, ascites or loculated fluid. Lymph nodes: Normal. Bones: Multiple rib fractures bilaterally. IMPRESSION: 1. Nonocclusive intralumina l thrombus seen within the right anomaly artery, proximal and distal descending aorta without evidence of dissection flap or pseudoaneurysm. This was not seen on the prior CT and may represents aortic injury versus embolic phenomenon. 2. Moderate to large bilate ral pneumothoraces and pulmonary lacerations with bilateral chest tubes in place. Progressing subcutaneous emphysema. 3. Wedge-shaped hypodense l esion seen within the right kidney, which may represent an infarct 4. Portal triad air is visu alized within the left lobe of liver, nonspecific. It is very difficult to ascertain whether the areas within the portal vein or biliary tree. Given the extent of the patient 's injuries, and ischemic bowel injury cannot en tirely be excluded. 5. Please see the body of t he report for the incidental findings or findings are unchanged from the prior CT. I have reviewed these images and agree with the above findings. The findings relayed to Dr. Gatica via telephone at 11/17/2019 @ 11:34am. THIS IS A PRELIMINARY REPO RT BY THE ON-CALL RESIDENT. CHANGES TO THIS PRELIMINARY REPORT MAY OCCUR IN AN ADDITIONAL PRELIMINARY OR FINALIZED VERSION. IMPRESSION: 1. Nonocclusive intralumina l thrombus within the proximal descending aorta and near the aortic hiatus without dissection flap, pseudoaneurysm, or other high- grade injury. This was not definitely seen o n the prior trauma CT and ma y represent minimal aortic injury. Alternatively, the differential includes embolic phenomenon, from an unknown location. 2. Intraluminal thrombus wi thin the right brachiocephalic trunk extending slightly into the common carotid and right subclavian arteries. This may represent a grade 2 injury or be a result of embolic phenomenon. 3. Moderate to large bilate ral pneumothoraces and pulmonary lacerations. Superimposed pulmonary contusions and atelectasis are noted. 4. Right renal laceration m easuring 1.1 cm in depth and not involving the collecting system consistent with a grade III injury. 5. Extensive soft tissue gas throughout the ant erior chest wall and neck. 6. Multiple rib fractures. 7. Pneumomediastinum. Findings of possible vascula r injury and renal injury were communicated to Dr. Kraft by Dr. Myron Winkler via telephone at 11/16/2019 0:39 PORT TRAFFIC MANAGER and again at approximately 4:00 AM IN SECTION: VIR Brain/Neck CTA EXAM: CT ANGIOGRAM OF THE BRAIN 11/15/2019 [facility] EXAM: CT ANGIOGRAM OF THE NECK C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 Impression: Impairments: Stroke/TBI Cognitive communication deficits Neurogenic bladder Neurogenic bowel Pain Activity limitations: Decreased mobility Decreased transfers Decreased endurance Decreased strength Decreased speech Decreased ADLs Decreased independence Decreased functional capacity Participation restrictions: Driving Return to work/school Taking care of the home Recreation and leisure activities [employer] activities Community reintegration Plan: 39/M whopresented as transfer from [facility] with multiple traumatic injuries and stroke. He was initially admitted to the NICU after R decompressive hemicraniectomyon 5but was transferred to STICU on 11/27 f or management of persistent R PTX and high output L chest tube output. Patient underwent tracheostomy, PEG, and R VATS on 11/29 and R scapula ORIF on 12/09. Rehabilitation: -The patient will require oversight and coordination of an interdisciplinary team, 24 hour rehabilitation nursing for management of bowel, bladder, skin integrity, medication management, safety measures and preventing risk factors and complic ations. Patient will require a minimum of 3 hours of therapy a day for 5-7 days a week throughout the hospitalization, including at least the followin.5-2 logan rs of physical therapy and 1.5-2 hours o f occupational therapy in order to improve the patient's impairments in mobility, transfers, and activities of daily living, and cognition, as well as to coni luate need for durable medical equipment at discharge. Social work and case management will be consult to assist with discharge planning and family coping strategies. Physician will manage the following medical issues: R MCA CVA -Continue statin for secondary stroke prophylaxis. -Neurologically stable at this time. TBI 2/2 [facility] - emergent DHC (with bone flap frozen an d stored) by Dr. Manuel on 11/16/19, will need to be reassess when came be re-implanted - helmet whenever out of bed Cognitive communication deficits: -Patient with significant cognitive deficits due to R MCA CV A -COMPUTER FORENSIC SPECIALIST to evaluate and treat cognitive def icits. Neuropsych will follow on performed testing if/when appropriate. -Monitor sleep/wake cycles to ensure opt imal arousal and participation with therapies. Hemiparesis: -The patient with left hemiparesis -This is a significant functional limitation. -Continue aggressive therapies with PT a nd OT to strengthen and optimize function and train for DME as appropriate. R Scapular fracture s/p ORIF (12/09) - activity restrictions: NWB RUE, gentle passive shoulder ROM (forward elevation/external rotation) - patient is to follow up with Dr. Singh two weeks after discharge from acute hospital - continue anticoagulation as stated below Rip fractures - multimodal pain control while monitoring respiratory statu s Bilateral Carotid Artery and Inominate Artery Injury - bilatral carotid grade 1 injuries - currently on warfarin, will consult pharmacy to manage HTN - continue amlodipine and clonidine - will consult [facility] hospitalist group to manage Nutrition: -Patient has been cleared for regular diet while on acute si de. -Dietitian consult in for optimization of diet. Constipation: -Continue docusate, senna, and miralax a s patient currently with regular bowel movements Neurogenic bladder: - At this time patient has been able to void on his own with concerns of retention -Continue timed voids, monitor PVRs, and cath for PVR greate r than 250 mL. Respiratory - placed 11/29 and capping trial started 12/17 - initial plan was to leave cap in place until 12/30 - Duonebs TID and mucinex for secretions Skin: - small areas of excoriation and scabbing, can apply neospor in as needed -Monitor for skin breakdown. Turn at least q2hr. -Thorough skin check pending. Pain: - Nociceptive control with Tylenol, Tramadol, and Oxycodone - Neuropathic control with Gabapentin 900 TID - also with Lidocaine patch - patient also on Robaxin QID, will attempt to wean during h ospital stay Prophylaxis: -DVT: warfarin -GI: famotidine q12hr Advanced Directive: -Full Code Disposition: -Discharge disposition to be determined. We will discuss at interdisciplinary team rounds. -Prognosis is fair to good. ELOS: 2-4 weeks Renaldo Javier MD Physical Medicine and Rehabilitation, PGY-2 [facility] Addendum by Jacqueline Varma MD on 12/20/2019 12:46 PM&R FACULTY ADDENDUM: I performed a history and physical e xamination the patient. I discussed the assessment and plan with the resident/fellow, and agree except the corrections/additions noted below and/or edited above. The patient is stable medically and the re have been no significant changes in status since preadmission screening. The patients current condition allows and supports the medical necessity of acute inpatient rehabilitation. He is noted to have trach, PEG, but over all improving after expereincing major trauma from [facility]. Admission labs an imaging reivewed, larg maría elena unremarkable except moderate stool on KUB (will f/u if having adequate bowel output). The pt notes pain in head/shoulders/arms but meds are helping. Plan: The patient will require 24 hour r ehabilitation nursing for management of bowel, bladder, skin integrity, medication management, safety measures and preventing risk factors and complications. Glenys ent will require a minimum of 3 hours of therapy a day for 5-7 days a week throughout the hospitalization, including at least the following 1-2 hours of Physical Therapy, 1-2 hours of Occupational Thera py and possibly 1 hour of Speech-Languag e Pathology, Neuropsychology, Exercise and Multidisciplinary groups. These disciplines will be needed in order to improve the patients impairments in mobil ity, transfers, activities of daily sd ng, swallowing and cognition, and evaluation of durable medical equipment if needed at discharge. In addition, the patient may also receive Music Therapy and Ther apeutic Recreation for community reinteg ration and community resources as appropriate. Social Work and Case Management will be consulted to assist with discharge planning and family coping strategies. A data assistant will follow for nutritional needs. Prognosis: fair to good Estimated Length of Stay: 4-5 weeks Discharge disposition: to be further est ablished after initial evals and interdisciplinary team discussion, most likely home with family if feasible Jacqueline Varma MD PM&R Attending Physician Addendum by Jacqueline Varma MD on 12/20/2019 12:57 I also reviewed his most recent head aura ging (1 mo ago), which still had a lot of edema and postop changes. Will repeat now for follow up eval, to assess the current status. Extracted from:Title: ORS Progress Note 12/20/2019 [facility] Author: Tariq Wang [facility] Date: 12/18/19 Impression and Plan 39 yo male POD 9 s/p ORIF of Right Scapula fracture. - NWB to Kam MONTIEL for gentle PROM to shou lder for forward elevation and external rotation - Keep dressings c/d/i - Pain and DVT ppx per primary team. - No further procedures planned for ortho. - OK for dispo home. F/U with Francisco in outpatient clinic at 2 weeks post op Extracted from:Title: ORL HNS Consult Note Author: Huy Pang MD Date: 12/08/19 39 year old male who initially presented after a [facility], now s/p trach/peg on 11/29/2019. ENT consultedto evaluate fortrach bleeding. -FFL and tracheoscopy show blood tinged secretions in L main-stem bronchus. However, no evidence of suction trauma or source of bleeding was visualize. -Recommend gentle suctioning via red rubber catheter -Recommend nystatin powder and duoderm to the tracheostoma -Can consider bronchoscopy if bleeding worsens -Will discuss w/ staff -Continue care per ISIDRA Rodriguez MD Otorhinolaryngology Head and Neck Surgery PGY-2 ENT Pager: [phone] 1.Fever(R50.9) 2.Dysphagia(R13.10) 3.Stroke(I63.9) 4.Decreased mobility(R26.89) 5.Acute hypoxemic respiratory failure(J96.01) 6.Carotid artery injury(S15.009A) 7.Bilateral pneumothorax(J93.9) 8.Hemothorax(J94.2) 9.Scapula fracture(S42.109A) 10.Rib fractures(S22.39XA) 11.Innominate artery injury(S25.109A) 12.Acute pain due to trauma(G89.11) Agitation(R45.1) Benign hypertension(I10) Pneumonia due to Pseudomonas(J15.1) Extracted from:Title: [facility] History and Physical Author: Yo Clements MD Date: 11/16/19 39 y/o male presented as transfer from [facility] s/p [facility] with multiple traumatic injuries and stroke 1.Altered mental status(R41.82) - GCS 7T, not opening eyes but will follow commands - Continue to monitor Neurological exam 2.Hypercoagulable state(D68.59) -On heparin gtt and aspirin for stroke and multiple arterial injuries 3.Decreased mobility(R26.89) -PT/OT ordered 4.Scalp laceration(S01.01XA) -Repaired by trauma with absorbable suture and janice 5.Stroke(I63.9) -Neurology following - No TPA intervention due to time frame and trauma -Heparin gtt 6.Acute pain due to trauma(G89.11) -MMPC 7.Aortic thrombus(I74.10) -Vascular following -Heparing gtt, aspirin 8.Acute hypoxemic respiratory failure(J96.01) -On BiLevel for extensive lung laceration and contusions 9.Renal injury(S37.009A) -Grade 3 renal injury -nothing to do 10.Carotid stenosis(I65.29) -bilateral internal carotid artery Grade I injuries -f/u neurovascular consult -on aspirin and heparin gtt 11.Brachiocephalic artery injury(S25.109A),Innominate arter y injury(S25.109A) - Vascular following -Likely to OR for thrombectomy Hemothorax(J94.2) -Bilateral CT to suction Multiple closed fractures of ribs of both sides with routine healing(S22.43XD) -F/u 3D recon -Likely non-operative heparin gtt, aspirin [facility] Trauma and Surgical Critical Care Faculty Addendum I have seen and examined the patient wit h the provider and agree with the assessment and plan. Total critical care time (excluding procedures) = 51 minutes Acute trauma pain multimodal pain regimen, change fentanyl to ketamine drip Acute traumatic encephalopathy, secondary to stroke GCS 7T , stroke following Acute ischemic stroke, right MCA strok e, vascular, and neurovascular following --continue heparin drip and repeat imag ing tomorrow, no surgical interventions planned secondary to severe stroke and low risk of improvement with high risk of worsening clinical condition, spoke with Dr. Jacobson --left hemiparesis, stroke consulted, ASA + heparin drip Blunt cerebrovascular injury (BCVI) grade 1 bilateral ICA continue ASA Acute hypoxic respiratory failure RT following, wean vent as tolerated --BiLevel 28/3 45%, air leak on right, CXR with no PTX, persistent pulmonary contusion Bilateral rib fractures and pneumothorax bilateral chest t ubes placed Acute kidney injury secondary to ATN Cr 2.12 to 1.65 with good urine output Family discussion for goals of care. Poo r prognosis for meaningful recovery from MCA stroke. Plan of Care No Data Provided for This Section Social History Social History Date Source Social History TypeResponse 02/05/2020 [facility] Smoking Status Former smoker; Type: Cigarettes; Exposur e to Tobacco Smoke Unable to obtain; Cigarette Smoking Last 365 Days Unable to obtain; Reg Smoking Cessation Counseling No entered on: 02/05/20 Social History TypeResponse 12/20/2019 [facility] Smoking Status Heavy tobacco smoker; Type: Cigarettes; Exposure to Tobacco Smoke Unable to obtain; Cigarette Smoking Last 365 Days Unable to obtain; Reg Smoking Cessation Counseling No entered on: 12/19/19 Family History No Data Provided for This Section Advance Directives No Data Provided for This Section Functional Status No Data Provided for This Section
--- OUTSIDE RECORDS SUMMARY | 2020-03-27 16:17 | XMS REPORT | Summary of Care ---
:1980 Author Organization [facility] Address [address] [place] [id number] Encounter HQ Encntr_alias(FIN) [id number] Date(s): 02/05/20 - 02/12/[address] Professional Services provided by [facility] [place] [address]- Discharge Disposition: Home or Self Care Attending Physician: Tyler Hwang MD Admitting Physician: Steve Torres MD Vital Signs Most recent to oldest 1 2 3 [Reference Range]: Height 185.42 cm 185.42 cm (02/06/20 12:32 PM) (02/05/20 6:00 PM) Temperature Oral [96.4-99.1 97.9 DegF 97.6 DegF 97.9 DegF DegF] (02/12/20 11:34 AM) (02/12/20 9:09 AM) (02/12/20 4:05 AM) Blood Pressure [90-140/60-90 134/87 mmHg 144/86 mmHg 143 /89 mmHg mmHg] (02/12/20 11:34 AM) *HI* *HI* (02/12/20 9:09 AM) (02/12/20 4:05 AM ) Respiratory Rate [14-20 BRMIN] 17 BRMIN 18 BRMIN 1 8 BRMIN (02/12/20 11:34 AM) (02/12/20 9:09 AM) (02/12/20 4:05 AM) Peripheral Pulse Rate [60-100 84 bpm 65 bpm 61 bpm bpm] (02/12/20 11:34 AM) (02/12/20 9:09 AM) (02/12/20 4:05 AM) Weight 83.63 kg 83.63 kg 83.636 kg (02/06/20 12:32 PM) (02/05/20 6:00 PM) (02/05/20 1: 13 PM) Body Mass Index 24.32 m2 (02/05/20 6:00 PM) Problem List Condition Effective Dates Status Health Status Informant Chronic right arterial ischemic Active stroke, MCA (middle cerebral artery)(Confirmed) Hypertension(Confirmed) Active Allergies, Adverse Reactions, Alerts Substance Reaction Severity Status Ritalin Active Medications acetaminophen 1,000 mg, 2 tab, Route: PO, Drug form: TAB, Q8H, Dosing Weight 83.636, kg, Start date: 02/06/20 0:00:00 CDT, Duration: 30 day, Stop date: 03/06/20 16:00:00 CDT, 0 Notes: Max acetaminophen 4000 mg/day (4 gm/day). (Same as: Tylenol Extra Strength) Start Date: 02/06/20 Stop Date: 02/12/20 Status: Discontinuedalbuterol 0.083% inhalation solution 2.49 mg, 3 mL, Route: NEB, Drug form: SOLN, RQ4H, Dosing Weight 83.636, kg, PRN Wheezing, Start date: 02/05/20 17:40:00 CDT, Duration: 30 day, Stop date: 03/06/20 17:39:00 CDT, Pediatric Dosing, 0 Notes: SEE RT DOCUMENTATION (Same as: Proventil) Start Date: 02/05/20 Stop Date: 02/12/20 Status: DiscontinuedANES acetaminophen 1,000 mg, Route: PO, Drug form: TAB, ONCE, Dosing Weight 83.63, kg, PRN Pain Score 1-3, Start date: 02/09/20 16:47:00 CDT Start Date: 02/09/20 Stop Date: 02/09/20 Status: CompletedANES flumazenil 0.2 mg, 2 mL, Route: IVP, Drug form: INJ, PRN, Dosing Weight 83.63, kg, PRN Benzodiazepine Reversal,Initial dose, Start date: 02/06/20 11:09:00 CDT, Stop date: 02/07/20 0:00:00 CDT, 0 Notes: (Same as: Romazicon) Start Date: 02/06/20 Stop Date: 02/06/20 Status: DiscontinuedANES flumazenil 0.2 mg, Route: IVP, PRN, Dosing Weight 83.63, kg, PRN Benzodiazepine Reversal, Initial dose, Start date: 02/09/20 16:47:00 CDT, Duration: 30 day, Stop date: 03/10/20 16:46:00 CDT Start Date: 02/09/20 Stop Date: 02/09/20 Status: DiscontinuedANES hydrALAZINE 10 mg, 0.5 mL, Route: IVP, Drug form: INJ, Q20Min, Dosing Weight 83.63, kg, PRN Elevated BP, Start date: 02/06/20 11:09:00 CDT, Duration: 2 doses or times, Stop date: 02/07/20 0:00:00 CDT, 0 Notes: (Same as: Apresoline)Push over 5 minutes Start Date: 02/06/20 Stop Date: 02/06/20 Status: DiscontinuedANES hydrALAZINE 10 mg, Route: IVP, Q20Min, Dosing Weight 83.63, kg, PRN Elevated BP, Start date: 02/09/20 16:47:00 CDT, Duration: 2 doses or times, Stop date: Limited # of times Start Date: 02/09/20 Stop Date: 02/09/20 Status: DiscontinuedANES HYDROmorphone 0.5 mg, 0.25 mL, Route: IVP, Drug form: INJ, Q5Min, Dosing Weight 83.63, kg, PRN Pain Score 7-10, Start date: 02/06/20 11:09:00 CDT, Duration: 4 doses or times, Stop date: 02/07/20 0:00:00 CDT, 0 Notes: Same as Dilaudid Start Date: 02/06/20 Stop Date: 02/06/20 Status: CompletedANES HYDROmorphone 0.5 mg, Route: IVP, Q5Min, Dosing Weight 83.63, kg, PRN Pain Score 7-10, Start date: 02/09/20 16:47:00 CDT, Duration: 4 doses or times, Stop date: Limited # of times Start Date: 02/09/20 Stop Date: 02/09/20 Status: CompletedANES labetalol 10 mg, 2 mL, Route: IVP, Drug form: INJ, Q5Min, Dosing Weight 83.63, kg, PRN Elevated BP, Start date: 02/06/20 11:09:00 CDT, Duration: 5 doses or times, Stop date: 02/07/20 0:00:00 CDT, 0 Start Date: 02/06/20 Stop Date: 02/06/20 Status: DiscontinuedANES labetalol 10 mg, Route: IVP, Q5Min, Dosing Weight 83.63, kg, PRN Elevated BP, Start date: 02/09/20 16:47:00 CDT, Duration: 5 doses or times, Stop date: Limited # of times Start Date: 02/09/20 Stop Date: 02/09/20 Status: DiscontinuedANES naloxone 0.4 mg, 1 mL, Route: IVP, Drug form: INJ, Q2MIN, Dosing Weight 83.63, kg, PRN Narcotic Reversal, Start date: 02/06/20 11:09:00 CDT, Duration: 8 doses or times, Stop date: 02/07/20 0:00:00 CDT, 0 Notes: Same as Narcan Start Date: 02/06/20 Stop Date: 02/06/20 Status: DiscontinuedANES naloxone 0.4 mg, Route: IVP, Q2MIN, Dosing Weight 83.63, kg, PRN Narcotic Reversal, Start date: 02/09/20 16:47:00 CDT, Duration: 8 doses or times, Stop date: Limited # of times Start Date: 02/09/20 Stop Date: 02/09/20 Status: DiscontinuedANES ondansetron 4 mg, 2 mL, Route: IVP, Drug form: INJ, ONCE, Dosing Weight 83.63, kg, PRN Nausea & Vomiting, Start date: 02/06/20 11:09:00 CDT, 0 Notes: (Same as: Gerardo) MEDICATION WASTE Product Size: 4 mgProduct Wasted: ___ mg Start Date: 02/06/20 Stop Date: 02/06/20 Status: DiscontinuedANES ondansetron 4 mg, Route: IVP, ONCE, Dosing Weight 83.63, kg, PRN Nausea & Vomiting, Start date: 02/09/20 16:47:00 CDT Start Date: 02/09/20 Stop Date: 02/09/20 Status: DiscontinuedANES oxyCODONE 5 mg immediate release tablet 5 mg, 1 tab, Route: PO, Drug form: TAB, Q4H, Dosing Weight 83.63, kg, PRN Pain Score 4-6, Start date: 02/06/20 11:09:00 CDT, Stop date: 02/07/20 0:00:00 CDT, 0 Notes: (Same as: Roxicodone) Start Date: 02/06/20 Stop Date: 02/06/20 Status: DiscontinuedANES oxyCODONE 5 mg immediate release tablet 10 mg, 2 tab, Route: PO, Drug form: TAB, Q4H, Dosing Weight 83.63, kg, PRN Pain Score 7-10, Start date: 02/06/20 11:09:00 CDT, Stop date: 02/07/20 0:00:00 CDT, 0 Notes: (Same as: Roxicodone) Start Date: 02/06/20 Stop Date: 02/06/20 Status: DiscontinuedANES oxyCODONE 5 mg immediate release tablet 5 mg, Route: PO, Drug form: TAB, Q4H, Dosing Weight 83.63, kg, PRN Pain Score 4- 6, Start date: 02/09/20 16:47:00 CDT, Duration: 30 day, Stop date: 03/10/20 16:46:00 CDT Start Date: 02/09/20 Stop Date: 02/09/20 Status: DiscontinuedANES promethazine 6.25 mg, Route: IVPB, ONCE, Dosing Weight 83.63, kg, PRN Nausea & Vomiting, Start date: 02/09/2016:47:00 CDT Start Date: 02/09/20 Stop Date: 02/09/20 Status: DiscontinuedAquaphor 1 appl, Route: TOP, Q4H, Drug form: OINT, PRN as needed for dry skin, Start date: 02/05/20 17:40:00 CDT, Duration: 30 day, Stop date: 03/06/20 17:39:00 CDT, 0 Start Date: 02/05/20 Stop Date: 02/12/20 Status: DiscontinuedBenadryl Maximum Strength 2% topical cream 1 appl, Route: TOP, QID, Drug form: CRM, PRN as needed for itching, Start date: 02/05/20 17:40:00 CDT, Duration: 30 day, Stop date: 03/06/20 17:39:00 CDT, 0 Start Date: 02/05/20 Stop Date: 02/12/20 Status: Discontinuedbisacodyl 10 mg, 1 supp, Route: PA, Drug form: SUPP, Daily, Dosing Weight 83.636, kg, PRN Constipation, Start date: 02/05/20 17:40:00 CDT, Duration: 30 day, Stop date: 03/06/20 17:39:00 CDT, 0 Notes: (Same As: Dulcolax, Bisco-Lax) Start Date: 02/05/20 Stop Date: 02/12/20 Status: DiscontinuedBlistex topical ointment 1 appl, Route: TOP, Q1H, Drug form: BALM, PRN Dry Lips, Start date: 02/05/20 17:40:00 CDT, Duration:30 day, Stop date: 03/06/20 17:39:00 CDT, 0 Notes: Same as: Blistex Start Date: 02/05/20 Stop Date: 02/12/20 Status: DiscontinuedCalmoseptine topical ointment 1 appl, Route: TOP, 5X Day, Drug form: OINT, PRN Wound Care, Start date: 02/05/20 17:40:00 CDT, Duration: 30 day, Stop date: 03/06/20 17:39:00 CDT, 0 Notes: (Same as: Calmoseptine) Start Date: 02/05/20 Stop Date: 02/12/20 Status: Discontinuedcefepime 1 gm, Route: IVP, Drug form: INJ, ABXQ8H, Dosing Weight 83.63, kg, Start date: 02/06/20 13:00:00 CDT, Duration: 7 day, Stop date: 02/13/20 12:00:00 CDT, ABX Indication: Other (specify in Comments), 0 Notes: MEDICATION WASTE Product Size: 1000 mgProduct Wasted: ___ mg Start Date: 02/06/20 Stop Date: 02/10/20 Status: Discontinuedcefepime (ANES) Route: IV, Drug form: INJ, ONCE, Stop date: 02/06/20 11:59:00 CDT Start Date: 02/06/20 Stop Date: 02/06/20 Status: Completedcefepime + sterile water 10 mL 1 gm, Route: IVP, ABXQ6H, Dosing Weight 83.63, kg, Start date: 02/10/20 20:00:00 CDT, Duration: 7 day, Stop date: 02/17/20 14:00:00 CDT, ABX Indication: Other (specify in Comments), 0 Notes: (Same As: Maxipime) MEDICATION WASTE Product Size: 1000 mgProduct Wasted: ___ mg Start Date: 02/10/20 Stop Date: 02/12/20 Status: DiscontinuedCepacol Sore Throat 15 mg-3.6 mg mucous membrane lozenge 1 lozenge, Route: MUCOUS MEM, Drug Form: FREDDY, Dosing Weight 83.636, kg, Q2H, PRN Sore Throat, Start date: 02/05/20 17:40:00 CDT, Duration: 30 day, Stop date: 03/06/20 17:39:00 CDT, 0 Notes: Cepacol lozengesDispense 1 box = 16 lozenges (Same As: Cepacol Lozenges) Start Date: 02/05/20 Stop Date: 02/12/20 Status: Discontinuedcetirizine 10 mg, 1 tab, Route: PO, Drug form: TAB, Daily, Dosing Weight 83.636, kg, PRN as needed for allergy symptoms, Start date: 02/05/20 17:40:00 CDT, Duration: 30 day, Stop date: 03/06/20 17:39:00 CDT, 0 Notes: (Same As: Zyrtec) Start Date: 02/05/20 Stop Date: 02/12/20 Status: Discontinuedciprofloxacin 750 mg oral tablet 750 mg = 1 tab, PO, Q12H, X 6 week, # 84 tab, 0 Refill(s), Pharmacy: [facility] [id number] Start Date: 02/12/20 Stop Date: 03/25/20 Status: OrderedCompazine 10 mg, 2 mL, Route: IV, Drug form: INJ, Q6H, Dosing Weight 83.636, kg, PRN Nausea & Vomiting, Start date: 02/05/20 17:40:00 CDT, Duration: 30 day, Stop date: 03/06/20 17:39:00 CDT, 0 Notes: (Same as: Compazine) Start Date: 02/05/20 Stop Date: 02/12/20 Status: DiscontinuedCoumadin 7.5 mg, 1 tab, Route: PO, Drug form: TAB, Q5PM, Dosing Weight 83.63, kg, Start date: 02/12/20 17:00:00 CDT, Duration: 1 doses or times, Stop date: 02/12/20 17:00:00 CDT, 0 Notes: Nurse to ensure documentation of patient education per anticoagulation policy.Avoid large intake of vitamin-K containing foods diet.WASTE: F/P - P Waste Black; E - P Waste Black(Same As: Coumadin) Hazardous Drug Group 3:Reproductive risk Hazardous Drug -- Refer to safe handling procedure PPE Ma trix Start Date: 02/12/20 Stop Date: 02/12/20 Status: CanceledCymbalta PO, 0 Refill(s) Start Date: 02/05/20 Stop Date: 02/12/20 Status: Discontinueddexamethasone (ANES) Route: IV, Drug form: INJ, ONCE, Stop date: 02/06/20 11:39:00 CDT Start Date: 02/06/20 Stop Date: 02/06/20 Status: Completeddexamethasone (ANES) Route: IV, Drug form: INJ, ONCE, Stop date: 02/09/20 17:16:00 CDT Start Date: 02/09/20 Stop Date: 02/09/20 Status: CompletedDextrose 50% Syringe (D50W) 12.5 gm, 25 mL, Route: IVP, Drug Form: INJ, Dosing Weight 83.636, kg, PRN, PRN Blood Glucose Results, Start date: 02/05/20 17:40:00 CDT, Duration: 30 day, Stop date: 03/06/20 17:39:00 CDT, 0 Start Date: 02/05/20 Stop Date: 02/12/20 Status: DiscontinuedDextrose 50% Syringe (D50W) 25 gm, 50 mL, Route: IVP, Drug Form: INJ, Dosing Weight 83.636, kg, PRN, PRN Blood Glucose Results, Start date: 02/05/20 17:40:00 CDT, Duration: 30 day, Stop date: 03/06/20 17:39:00 CDT, 0 Start Date: 02/05/20 Stop Date: 02/12/20 Status: DiscontinuedDilaudid 0.5 mg, 0.25 mL, Route: IVP, Drug form: INJ, Q3H, Dosing Weight 83.636, kg, PRN Pain Score 7-10, Start date: 02/05/20 17:40:00 CDT, Duration: 30 day, Stop date: 03/06/20 17:39:00 CDT, 0 Notes: Same as Dilaudid Start Date: 02/05/20 Stop Date: 02/12/20 Status: DiscontinuedDilaudid 1 mg, 0.5 mL, Route: IVP, Drug form: INJ, ONCE, Dosing Weight 83.636, kg, Priority: STAT, Start date: 02/05/20 17:39:00 CDT, Stop date: 02/05/20 17:39:00 CDT, 0 Notes: Same as Dilaudid Start Date: 02/05/20 Stop Date: 02/05/20 Status: Completeddocusate 200 mg, 2 cap, Route: PO, Drug form: CAP, BID, Dosing Weight 83.636, kg, PRN as needed for constipation, Start date: 02/05/20 17:40:00 CDT, Duration: 30 day, Stop date: 03/06/20 17:39:00 CDT, 0 Notes: (Same as: Colace) (Do Not Crush) Start Date: 02/05/20 Stop Date: 02/12/20 Status: DiscontinuedfentaNYL (ANES) Route: IV, Drug form: INJ, ONCE, Stop date: 02/06/20 11:39:00 CDT Start Date: 02/06/20 Stop Date: 02/06/20 Status: CompletedfentaNYL (ANES) Route: IV, Drug form: INJ, ONCE, Stop date: 02/09/20 17:16:00 CDT Start Date: 02/09/20 Stop Date: 02/09/20 Status: CompletedFlexeril 5 mg, 1 tab, Route: PO, Drug form: TAB, ONCE, Dosing Weight 83.63, kg, Start date: 02/09/20 18:25:00CDT, Stop date: 02/09/20 18:25:00 CDT, 0 Start Date: 02/09/20 Stop Date: 02/09/20 Status: CompletedFlonase 0.05 mg/inh nasal spray 2 spray, Route: NASAL, Drug Form: SPRY, Dosing Weight 83.636, kg, Daily, PRN Allergies, Start date: 02/05/20 17:40:00 CDT, Duration: 30 day, Stop date: 03/06/20 17:39:00 CDT, 0 Notes: (Same as: Flonase) Start Date: 02/05/20 Stop Date: 02/12/20 Status: Discontinuedgabapentin 300 mg oral capsule 300 mg, 1 cap, Route: PO, Drug form: CAP, ONCE, Dosing Weight 83.63, kg, Start date: 02/09/20 18:25:00 CDT, Stop date: 02/09/20 18:25:00 CDT, 0 Start Date: 02/09/20 Stop Date: 02/09/20 Status: Completedglucagon 1 mg, Route: IM, Drug form: PDR/INJ, PRN, Dosing Weight 83.636, kg, PRN Blood Glucose Results, Startdate: 02/05/20 17:40:00 CDT, Duration: 30 day, Stop date: 03/06/20 17:39:00 CDT, 0 Start Date: 02/05/20 Stop Date: 02/12/20 Status: Discontinuedglycopyrrolate (ANES) Route: IV, Drug form: INJ, ONCE, Stop date: 02/09/20 17:43:00 CDT Start Date: 02/09/20 Stop Date: 02/09/20 Status: Completedhydromorphone 0.5 mg, 0.25 mL, Route: IV, Drug form: INJ, Q5Min, Dosing Weight 83.63, kg, Start date: 02/09/20 18:30:00 CDT, Duration: 4 doses or times, Stop date: 02/09/20 18:45:00 CDT, 0 Notes: Same as Dilaudid Start Date: 02/09/20 Stop Date: 02/09/20 Status: CompletedIsolyte S PH-7.4 (Bolus) IV 1,000 mL, 1,000 ml/hr, Infuse Over: 1 hr, Route: IV, 1,000, Drug form: SOLN, ONCE, Dosing Weight 83.636 kg, Start date: 02/05/20 14:40:00 CDT, Stop date: 02/05/20 14:40:00 CDT, 0 Notes: (Same as: Isolyte S PH7.4, Normosol-R PH 7.4, Plasma-Lyte A ) Start Date: 02/05/20 Stop Date: 02/05/20 Status: CompletedLactated Ringers Injection IV (ANES) 1000 mL Route: IV, Total Volume: 1,000, Start date: 02/06/20 10:30:00 CDT, Stop date: 02/06/20 11:30:00 CDT Start Date: 02/06/20 Stop Date: 02/06/20 Status: CompletedLactated Ringers Injection IV (ANES) 1000 mL Route: IV, Total Volume: 1,000, Start date: 02/09/20 15:54:00 CDT, Stop date: 02/09/20 16:54:00 CDT Start Date: 02/09/20 Stop Date: 02/09/20 Status: CompletedLactated Ringers Injection IV 1,000 mL 1,000 mL, Rate: 125 ml/hr, Infuse over: 8 hr, Route: IV, Dosing Weight 83.63 kg, Total Volume: 1,000, Start date: 02/06/20 11:09:00 CDT, Duration: 30 day, Stop date: 03/07/20 11:08:00 CDT, 2.08, m2, 0 Start Date: 02/06/20 Stop Date: 02/06/20 Status: Discontinuedlidocaine (ANES) Route: IV, Drug form: INJ, ONCE, Stop date: 02/09/20 17:16:00 CDT Start Date: 02/09/20 Stop Date: 02/09/20 Status: Completedlidocaine (ANES) Route: IV, Drug form: INJ, ONCE, Stop date: 02/06/20 11:39:00 CDT Start Date: 02/06/20 Stop Date: 02/06/20 Status: Completedlidocaine topical patch (5% film) 1 patch, Route: TOP, Daily, Drug form: FILM, Start date: 02/06/20 9:00:00 CDT, Duration: 30 day, Stop date: 03/06/20 9:00:00 CDT, 0 Notes: Apply only once for up to 12 hours in [id number]-[id number] period (12 hours on and 12 hours off).(Same as: Lidoderm)"Remove old patch before application of new patch" Start Date: 02/06/20 Stop Date: 02/12/20 Status: DiscontinuedLovenox 80 mg, Route: SUB-Q, Drug form: INJ, [id number], Dosing Weight 83.63, kg, Start date: 02/06/20 18:00:00 CDT, Duration: 30 day, Stop date: 03/07/20 6:00:00 CDT Start Date: 02/06/20 Stop Date: 02/06/20 Status: CanceledLubricant Eye Drops ophthalmic solution 1 drp, Route: Each Affected Eye, Q1H, Drug form: SOLN, PRN Dry Eyes, Start date: 02/05/20 17:40:00 CDT, Duration: 30 day, Stop date: 03/06/20 17:39:00 CDT, 0 Notes: (Same as: Aquasite) Start Date: 02/05/20 Stop Date: 02/12/20 Status: Discontinuedmelatonin 3 mg, 1 tab, Route: PO, Drug form: TAB, Bedtime, Dosing Weight 83.636, kg, PRN Insomnia, Start date:02/05/20 17:40:00 CDT, Duration: 30 day, Stop date: 03/06/20 17:39:00 CDT, 0 Notes: (Same as: Melatonin) Start Date: 02/05/20 Stop Date: 02/12/20 Status: Discontinuedmidazolam (ANES) Route: IV, Drug form: SOLN, ONCE, Stop date: 02/09/20 17:11:00 CDT Start Date: 02/09/20 Stop Date: 02/09/20 Status: Completedmidazolam (ANES) Route: IV, Drug form: SOLN, ONCE, Stop date: 02/06/20 11:14:00 CDT Start Date: 02/06/20 Stop Date: 02/06/20 Status: Completedmorphine Sulfate 4 mg, 1 mL, Route: IVP, Drug form: SOLN, ONCE, Dosing Weight 83.636, kg, Priority: STAT, Start date:02/05/20 14:12:00 CDT, Stop date: 02/05/20 14:12:00 CDT, 0 Notes: (Same as:MORPhine Sulfate) Start Date: 02/05/20 Stop Date: 02/05/20 Status: Discontinuednaproxen 375 mg, 1 tab, Route: PO, Drug form: TAB, BID, Dosing Weight 83.636, kg, Start date: 02/06/20 9:00:00 CDT, Duration: 30 day, Stop date: 03/06/20 17:00:00 CDT, 0 Notes: (Same as: Naprosyn) Take with food. Start Date: 02/06/20 Stop Date: 02/12/20 Status: DiscontinuedNasal Saline 0.65% solution 2 spray, Route: NASAL, Q2H, Drug form: SOLN, PRN, Start date: 02/05/20 17:40:00 CDT, Duration: 30 day, Stop date: 03/06/20 17:39:00 CDT, 0 Notes: (Same as: [place], Deep Sea Nasal [place]). Start Date: 02/05/20 Stop Date: 02/12/20 Status: Discontinuedneostigmine (ANES) Route: IV, Drug form: INJ, ONCE, Stop date: 02/09/20 17:44:00 CDT Start Date: 02/09/20 Stop Date: 02/09/20 Status: CompletedNorco 10/325 oral tablet 1 tab, PO, Q6H, PRN for pain, X 7 day, # 28 tab, 0 Refill(s), Pharmacy: [facility] [id number] Start Date: 02/12/20 Stop Date: 02/19/20 Status: Orderednortriptyline 25 mg, 1 cap, Route: PO, Drug form: CAP, Bedtime, Dosing Weight 83.636, kg, Start date: 02/05/20 21:00:00 CDT, Duration: 30 day, Stop date: 03/05/20 21:00:00 CDT, 0 Notes: (Same as:Carlos Reyes) Start Date: 02/05/20 Stop Date: 02/12/20 Status: Discontinuednortriptyline 25 mg oral capsule 25 mg = 1 cap, PO, Bedtime, # 30 cap, 1 Refill(s), Pharmacy: [facility] [id number] Start Date: 02/12/20 Stop Date: 04/12/20 Status: Orderedondansetron 4 mg, 2 mL, Route: IVP, Drug form: INJ, ONCE, Dosing Weight 83.636, kg, Priority: STAT, Start date: 02/05/20 14:12:00 CDT, Stop date: 02/05/20 14:12:00 CDT, 0 Notes: (Same as: Gerardo) MEDICATION WASTE Product Size: 4 mgProduct Wasted: ___ mg Start Date: 02/05/20 Stop Date: 02/06/20 Status: Completedondansetron 4 mg, 2 mL, Route: IVP, Drug form: INJ, Q4H, Dosing Weight 83.636, kg, PRN Nausea & Vomiting, Start date: 02/05/20 17:40:00 CDT, Duration: 30 day, Stop date: 03/06/20 17:39:00 CDT, 0 Notes: (Same as: Gerardo) MEDICATION WASTE Product Size: 4 mgProduct Wasted: ___ mg Start Date: 02/05/20 Stop Date: 02/12/20 Status: Discontinuedondansetron (ANES) Route: IV, Drug form: INJ, ONCE, Stop date: 02/06/20 12:09:00 CDT Start Date: 02/06/20 Stop Date: 02/06/20 Status: Completedondansetron (ANES) Route: IV, Drug form: INJ, ONCE, Stop date: 02/09/20 17:43:00 CDT Start Date: 02/09/20 Stop Date: 02/09/20 Status: CompletedoxyCODONE 5 mg oral tablet, immediate release 5 mg, 1 tab, Route: PO, Drug form: TAB, Q4H, Dosing Weight 83.636, kg, PRN Pain Score 4-6, Start date: 02/05/20 17:40:00 CDT, Duration: 30 day, Stop date: 03/06/20 17:39:00 CDT, 0 Notes: (Same as: Roxicodone) Start Date: 02/05/20 Stop Date: 02/08/20 Status: DiscontinuedoxyCODONE 5 mg oral tablet, immediate release 10 mg, 2 tab, Route: PO, Drug form: TAB, Q4H, Dosing Weight 83.636, kg, PRN Pain Score 7-10, Start date: 02/05/20 17:40:00 CDT, Duration: 30 day, Stop date: 03/06/20 17:39:00 CDT, 0 Notes: (Same as: Roxicodone) Start Date: 02/05/20 Stop Date: 02/12/20 Status: Discontinuedpolyethylene glycol 3350 17 gm, 1 pkt, Route: PO, Drug form: PWDR, BID, Dosing Weight 83.636, kg, PRN Constipation, Start date: 02/05/20 17:40:00 CDT, Duration: 30 day, Stop date: 03/06/20 17:39:00 CDT, 0 Notes: Dissolve in 8 oz of water or juice.(Same as: Miralax) Start Date: 02/05/20 Stop Date: 02/12/20 Status: Discontinuedpropofol (ANES) Route: IV, Drug form: INJ, ONCE, Stop date: 02/09/20 17:05:00 CDT Start Date: 02/09/20 Stop Date: 02/09/20 Status: Completedpropofol (ANES) Route: IV, Drug form: INJ, ONCE, Stop date: 02/06/20 11:39:00 CDT Start Date: 02/06/20 Stop Date: 02/06/20 Status: Completedremove patch 1 patch, Route: TOP, Bedtime, Drug form: ERFILM, Start date: 02/06/20 21:00:00 CDT, Duration: 30 day, Stop date: 03/06/20 21:00:00 CDT, 0 Notes: Remove patch 12 hours after application each day. Start Date: 02/06/20 Stop Date: 02/12/20 Status: DiscontinuedRobitussin-DM 10 ml, Route: PO, Drug Form: SYRP, Dosing Weight 83.636, kg, Q8H, PRN as needed for cough, Start date: 02/05/20 17:40:00 CDT, Duration: 30 day, Stop date: 03/06/20 17:39:00 CDT, 0 Notes: (dextromethorphan-guaifenesin 10-100mg/5ml 10 ml oral SOLN ud) (Same as: Robitussin DM) Start Date: 02/05/20 Stop Date: 02/12/20 Status: Discontinuedrocuronium (ANES) Route: IV, Drug form: INJ, ONCE, Stop date: 02/09/20 17:11:00 CDT Start Date: 02/09/20 Stop Date: 02/09/20 Status: Completedrocuronium (ANES) Route: IV, Drug form: INJ, ONCE, Stop date: 02/06/20 11:39:00 CDT Start Date: 02/06/20 Stop Date: 02/06/20 Status: Completedsenna 17.2 mg, 2 tab, Route: PO, Drug Form: TAB, Dosing Weight 83.636, kg, BID, PRN as needed for constipation, Start date: 02/05/20 17:40:00 CDT, Duration: 30 day, Stop date: 03/06/20 17:39:00 CDT, 0 Notes: (Same as: Senokot) Start Date: 02/05/20 Stop Date: 02/12/20 Status: Discontinuedsimethicone 80 mg, 1.2 mL, Route: PO, Drug form: DROP, Q6H, Dosing Weight 83.636, kg, PRN Gas, Start date: 02/05/20 17:40:00 CDT, Duration: 30 day, Stop date: 03/06/20 17:39:00 CDT, 0 Notes: (Same as: Mylicon, Phazyme, Genasyme) Start Date: 02/05/20 Stop Date: 02/12/20 Status: Discontinuedsuccinylcholine (ANES) Route: IV, Drug form: INJ, ONCE, Stop date: 02/09/20 17:16:00 CDT Start Date: 02/09/20 Stop Date: 02/09/20 Status: Completedsugammadex 200 mg, 2 mL, Route: IV, Drug form: SOLN, ONCALL, Priority: NOW, Start date: 02/06/20 11:34:00 CDT, Duration: 1 doses or times, Stop date: 02/06/20 11:39:00 CDT, 0 Notes: (Same as: Bridion) Start Date: 02/06/20 Stop Date: 02/12/20 Status: Discontinuedsugammadex (ANES) Route: IV, Drug form: SOLN, ONCE, Stop date: 02/06/20 12:09:00 CDT Start Date: 02/06/20 Stop Date: 02/06/20 Status: Completedtizanidine 2 mg, 1 tab, Route: PO, Drug form: TAB, TID, Dosing Weight 83.636, kg, PRN Spasm, Start date: 02/05/20 17:40:00 CDT, Duration: 30 day, Stop date: 03/06/20 17:39:00 CDT, 0 Notes: (Same As: Zanaflex) Start Date: 02/05/20 Stop Date: 02/12/20 Status: DiscontinuedTums 500 mg, 1 tab, Route: CHEW, Drug form: CHEWTAB, TID, Dosing Weight 83.636, kg, PRN Indigestion, Start date: 02/05/20 17:40:00 CDT, Duration: 30 day, Stop date: 03/06/20 17:39:00 CDT, 0 Notes: (Same As: Tums)Calcium Carbonate 500 mg = 200 mg elemental calcium Dose = mg calcium carbonate ( mg elemental calcium) Start Date: 02/05/20 Stop Date: 02/12/20 Status: Discontinuedvancomycin 1,000 mg, Route: IVPB, Drug form: INJ, ABXQ8H, Dosing Weight 83.63, kg, Start date: 02/09/20 8:00:00CDT, Duration: 42 day, Stop date: 03/22/20 6:00:00 CDT, ABX Indication: Bacteremia, 0 Notes: TIME CRITICAL MEDICATION(Same As: Vancocin)Infusion rate< 1000 mg: infuse over 1 [id number] - 1500 mg: infuse over 1.5 [id number] - 2000 mg: infuse over 2 hours> 2001 mg: infuse over 2.5 hoursFor adult patients only: Round to nearest 250 mg per Medical Staff approval MEDICATION WASTE Product Size: 1000 mgProduct Wasted: ___ mg Start Date: 02/09/20 Stop Date: 02/12/20 Status: Discontinuedvancomycin 1 gm, Route: IV, Drug form: INJ, ABXQ8H, Dosing Weight 83.63, kg, Start date: 02/06/20 20:00:00 CDT,Duration: 30 day, Stop date: 03/07/20 12:00:00 CDT, ABX Indication: Other (specify in Comments), 0 Notes: TIME CRITICAL MEDICATION(Same As: Vancocin)Infusion rate< 1000 mg: infuse over 1 [id number] - 1500 mg: infuse over 1.5 [id number] - 2000 mg: infuse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
--- OUTSIDE RECORDS SUMMARY | 2020-03-27 16:19 | XMS REPORT | Summary of Care ---
:1980 Author Organization [facility] Address [address] [place] [id number] Encounter HQ Rejintr_norah(FIN) [id number] Date(s): 11/15/19 - 12/19/[address] Professional Services provided by [facility] [place] [address]- Discharge Disposition: [facility] Facility Attending Physician: Ge Potter MD Admitting Physician: Dena Lawson MD Referring Physician: Chapincito Richey MD Vital Signs Most recent to oldest 1 2 3 [Reference Range]: Height 172.72 cm 172.72 cm 172.72 cm (12/07/19 3:25 PM) (12/07/19 12:30 PM) (12/07/19 3: 10 AM) Current Weight 97.037 kg 101.5 kg 112 kg (12/10/19 4:16 AM) (12/05/19 6:37 AM) (11/30/19 5:4 0 AM) Temperature Oral [96.4-99.1 98.2 DegF 97.8 DegF 98.8 DegF DegF] (12/19/19 12:04 PM) (12/19/19 9:03 AM) (12/17/19 7:20 PM) Blood Pressure [90-140/60-90 136/90 mmHg 115/77 mmHg 124 /79 mmHg mmHg] (12/19/19 12:04 PM) (12/19/19 9:03 AM) (12/19/19 4:31 AM) Respiratory Rate [14-20 BRMIN] 18 BRMIN 18 BRMIN 1 8 BRMIN (12/19/19 12:04 PM) (12/19/19 9:03 AM) (12/19/19 4:31 AM) Peripheral Pulse Rate [60-100 81 bpm 56 bpm 73 bpm bpm] (12/19/19 12:04 PM) *LOW* (12/19/19 4:31 A M) (12/19/19 9:03 AM) Weight 112.005 kg 100 kg 100 kg (11/18/19 9:57 AM) (11/15/19 6:16 PM) (11/15/19 3:36 P M) Body Mass Index 33.52 m2 (11/15/19 6:16 PM) Problem List Condition Effective Dates Status Health Status Informant CVA (cerebral vascular Active accident)(Confirmed) Encephalopathy(Confirmed) Active Brachiocephalic artery Active injury(Confirmed) Allergies, Adverse Reactions, Alerts No Known Allergies Medications acetaminophen 1 gm, 31.23 mL, Route: GT, Drug form: LIQ, Q6H, Dosing Weight 100, kg, PRN Pain 1-3/Temp > 100.4 F, Priority: NOW, Start date: 11/15/19 18:45:00 INFORMATICS PHARMACIST, Duration: 30 day, Stop date: 12/15/19 18:00:00 INFORMATICS PHARMACIST, 0 Start Date: 11/15/19 Stop Date: 11/27/19 Status: Discontinuedacetaminophen 500 mg oral tablet 1,000 mg = 2 tab, PO, Q6H, 0 Refill(s) Start Date: 12/19/19 Status: Suspendedacetylcysteine 20% inhalation solution 400 mg, 2 mL, Route: NEB, Drug Form: SOLN, Dosing Weight 112.005, kg, RQ4H, Start date: 11/24/19 11:00:00 INFORMATICS PHARMACIST, Duration: 30 day, Stop date: 12/24/19 7:00:00 INFORMATICS PHARMACIST, 0 Start Date: 11/24/19 Stop Date: 11/27/19 Status: Discontinuedalbuterol 0.083% inhalation solution NEB, RQ4H, PRN Wheezing, 0 Refill(s) Start Date: 12/19/19 Status: Suspendedalbuterol 0.083% inhalation solution 2.49 mg, 3 mL, Route: NEB, Drug form: SOLN, RQ4H, Dosing Weight 100, kg, PRN Wheezing, Start date: 11/15/19 18:46:00 INFORMATICS PHARMACIST, Duration: 30 day, Stop date: 01/14/20 18:45:00 INFORMATICS PHARMACIST, 0 Notes: SEE RT DOCUMENTATION (Same as: Henrytil) Start Date: 11/15/19 Stop Date: 12/19/19 Status: Discontinuedalbuterol 0.083% inhalation solution 2.5 mg, 3.01 mL, Route: NEB, Drug form: SOLN, Q4H, Dosing Weight 112.005, kg, Start date: 11/19/19 12:00:00 INFORMATICS PHARMACIST, Duration: 30 day, Stop date: 12/19/19 8:00:00 INFORMATICS PHARMACIST, 0 Notes: SEE RT DOCUMENTATION (Same as: Proventil) Start Date: 11/19/19 Stop Date: 11/27/19 Status: DiscontinuedamLODIPine 5 mg, Route: PO, Drug form: TAB, Daily, Dosing Weight 112.005, kg, Start date: 12/07/19 9:00:00 INFORMATICS PHARMACIST,Duration: 30 day, Stop date: 01/05/20 9:00:00 INFORMATICS PHARMACIST Start Date: 12/07/19 Stop Date: 12/07/19 Status: CanceledamLODIPine 2.5 mg, 1 tab, Route: PO, Drug form: TAB, Daily, Dosing Weight 112.005, kg, Start date: 12/07/19 9:00:00 INFORMATICS PHARMACIST, Duration: 30 day, Stop date: 01/05/20 9:00:00 INFORMATICS PHARMACIST, 0 Notes: (Same as: Ne) Start Date: 12/07/19 Stop Date: 12/07/19 Status: CanceledamLODIPine 5 mg, 1 tab, Route: PO, Drug form: TAB, Daily, Dosing Weight 112.005, kg, Start date: 12/07/19 9:00:00 INFORMATICS PHARMACIST, Duration: 30 day, Stop date: 01/05/20 9:00:00 INFORMATICS PHARMACIST, 0 Notes: (Same as: Ne) Start Date: 12/07/19 Stop Date: 12/07/19 Status: DiscontinuedamLODIPine 10 mg, 1 tab, Route: PO, Drug form: TAB, Daily, Dosing Weight 112.005, kg, Start date: 12/08/19 9:00:00 INFORMATICS PHARMACIST, Duration: 30 day, Stop date: 01/06/20 9:00:00 INFORMATICS PHARMACIST, 0 Notes: (Same as: Renatac) Start Date: 12/08/19 Stop Date: 12/19/19 Status: DiscontinuedamLODIPine 10 mg oral tablet 10 mg = 1 tab, PO, Daily, 0 Refill(s) Start Date: 12/19/19 Status: SuspendedAncef 2 gm, 20 mL, Route: IVPB, Drug form: SOLN, Q8H, Dosing Weight 100, kg, Start date: 11/17/19 0:00:00 INFORMATICS PHARMACIST, Duration: 1 day, Stop date: 11/17/19 16:00:00 INFORMATICS PHARMACIST, ABX Indication: Surgical Prophylaxis, 0 Notes: (Same as Ancef) Start Date: 11/17/19 Stop Date: 11/17/19 Status: CompletedANES fentaNYL 25 microgram, 0.5 mL, Route: IVP, Drug form: INJ, Q5Min, Dosing Weight 112.005, kg, PRN Pain Score 4-6, Priority: Routine, Start date: 12/09/19 18:06:00 INFORMATICS PHARMACIST, Duration: 4 doses or times, Stop date: 12/10/19 0:00:00 INFORMATICS PHARMACIST, 0 Notes: (Same as: Sublimaze) Preservative free. Start Date: 12/09/19 Stop Date: 12/09/19 Status: DiscontinuedANES flumazenil 0.2 mg, 2 mL, Route: IVP, Drug form: INJ, PRN, Dosing Weight 112.005, kg, PRN Benzodiazepine Reversal, Initial dose, Start date: 12/09/19 18:06:00 INFORMATICS PHARMACIST, Stop date: 12/10/19 0:00:00 INFORMATICS PHARMACIST, 0 Notes: (Same as: Romazicon) Start Date: 12/09/19 Stop Date: 12/09/19 Status: DiscontinuedANES hydrALAZINE 10 mg, 0.5 mL, Route: IVP, Drug form: INJ, Q20Min, Dosing Weight 112.005, kg, PRN Elevated BP, Startdate: 12/09/19 18:06:00 INFORMATICS PHARMACIST, Duration: 2 doses or times, Stop date: 12/10/19 0:00:00 INFORMATICS PHARMACIST, 0 Notes: (Same as: Apresoline)Push over 5 minutes Start Date: 12/09/19 Stop Date: 12/09/19 Status: DiscontinuedANES HYDROmorphone 0.5 mg, 0.25 mL, Route: IVP, Drug form: INJ, Q5Min, Dosing Weight 112.005, kg, PRN Pain Score 7-10, Start date: 12/09/19 18:06:00 INFORMATICS PHARMACIST, Duration: 4 doses or times, Stop date: 12/10/19 0:00:00 INFORMATICS PHARMACIST, 0 Notes: Same as Dilaudid Start Date: 12/09/19 Stop Date: 12/09/19 Status: DiscontinuedANES metoprolol 1 mg, 1 mL, Route: IVP, Drug form: INJ, Q5Min, Dosing Weight 112.005, kg, PRN Other -See Comment, Start date: 12/09/19 18:06:00 INFORMATICS PHARMACIST, Duration: 5 doses or times, Stop date: 12/10/19 0:00:00 INFORMATICS PHARMACIST, 0 Notes: (Same as: Lopressor)Push over 2 minutes Start Date: 12/09/19 Stop Date: 12/09/19 Status: DiscontinuedANES naloxone 0.4 mg, 1 mL, Route: IVP, Drug form: INJ, Q2MIN, Dosing Weight 112.005, kg, PRN Narcotic Reversal, Start date: 12/09/19 18:06:00 INFORMATICS PHARMACIST, Duration: 8 doses or times, Stop date: 12/10/19 0:00:00 INFORMATICS PHARMACIST, 0 Notes: Same as Narcan Start Date: 12/09/19 Stop Date: 12/09/19 Status: DiscontinuedANES ondansetron 4 mg, 2 mL, Route: IVP, Drug form: INJ, ONCE, Dosing Weight 112.005, kg, PRN Nausea & Vomiting, Start date: 12/09/19 18:06:00 INFORMATICS PHARMACIST, 0 Notes: (Same as: Gerardo) MEDICATION WASTE Product Size: 4 mgProduct Wasted: ___ mg Start Date: 12/09/19 Stop Date: 12/09/19 Status: DiscontinuedANES oxyCODONE 5 mg, 5 mL, Route: PEG, Drug form: LIQ, Q4H, Dosing Weight 112.005, kg, PRN Pain Score 4-6, Start date: 12/09/19 18:06:00 INFORMATICS PHARMACIST, Stop date: 12/10/19 0:00:00 INFORMATICS PHARMACIST, 0 Notes: (Same as: 'Roxicodone) Start Date: 12/09/19 Stop Date: 12/09/19 Status: DiscontinuedANES oxyCODONE 10 mg, 10 mL, Route: PEG, Drug form: LIQ, Q4H, Dosing Weight 112.005, kg, PRN Pain Score 7-10, Startdate: 12/09/19 18:06:00 INFORMATICS PHARMACIST, Stop date: 12/10/19 0:00:00 INFORMATICS PHARMACIST, 0 Notes: (Same as: 'Roxicodone) Start Date: 12/09/19 Stop Date: 12/09/19 Status: DiscontinuedANES promethazine 6.25 mg, 0.25 mL, Route: IVPB, Drug form: INJ, ONCE, Dosing Weight 112.005, kg, PRN Nausea & Vomiting, Start date: 12/09/19 18:06:00 INFORMATICS PHARMACIST, 0 Notes: Do not give IV push. (Same as: Phenergan) Start Date: 12/09/19 Stop Date: 12/09/19 Status: Discontinuedaspirin 81 mg, 1 tab, Route: PO, Drug form: ECTAB, Daily, Dosing Weight 112.005, kg, Start date: 11/19/19 9:00:00 INFORMATICS PHARMACIST, Duration: 30 day, Stop date: 12/18/19 9:00:00 INFORMATICS PHARMACIST, 0 Notes: Do not crush or chew.(Same As: Ecotrin) Start Date: 11/19/19 Stop Date: 11/18/19 Status: Canceledaspirin 300 mg rectal suppository 300 mg, 1 supp, Route: VA, Drug form: SUPP, ONCE, Dosing Weight 100, kg, Start date: 11/16/19 0:37:00 INFORMATICS PHARMACIST, Stop date: 11/16/19 0:37:00 INFORMATICS PHARMACIST, 0 Notes: Refrigerate. Start Date: 11/16/19 Stop Date: 11/16/19 Status: Completedaspirin 325 mg tablet 325 mg, 1 tab, Route: PO, Drug form: TAB, Daily, Dosing Weight 100, kg, Start date: 11/16/19 9:00:00CST, Duration: 30 day, Stop date: 12/15/19 9:00:00 INFORMATICS PHARMACIST, 0 Notes: Take with food. Start Date: 11/16/19 Stop Date: 11/16/19 Status: Discontinuedaspirin 81 mg tablet, enteric coated 81 mg, 1 tab, Route: PO, Drug form: ECTAB, Daily, Dosing Weight 112.005, kg, Priority: NOW, Start date: 11/18/19 14:31:00 INFORMATICS PHARMACIST, Duration: 30 day, Stop date: 12/18/19 9:00:00 INFORMATICS PHARMACIST, 0 Notes: Do not crush or chew.(Same As: Ecotrin) Start Date: 11/18/19 Stop Date: 11/24/19 Status: Discontinuedatorvastatin 80 mg oral tablet 80 mg = 1 tab, NG, Bedtime, 0 Refill(s) Start Date: 12/19/19 Status: Suspendedbacitracin-polymyxin B topical ointment 1 appl, Route: TOP, TID, Drug form: OINT, Start date: 11/16/19 9:00:00 INFORMATICS PHARMACIST, Duration: 30 day, Stop date: 01/14/20 17:00:00 INFORMATICS PHARMACIST, 0 Notes: (Same As: Polysporin) Start Date: 11/16/19 Stop Date: 12/19/19 Status: Discontinuedbacitracin-polymyxin B topical ointment 1 appl, TOP, TID, 0 Refill(s) Start Date: 12/19/19 Status: Suspendedbromocriptine 5 mg, 1 cap, Route: PO, Drug form: CAP, BID, Dosing Weight 112.005, kg, Start date: 11/21/19 17:00:00 INFORMATICS PHARMACIST, Duration: 30 day, Stop date: 12/21/19 9:00:00 INFORMATICS PHARMACIST, 0 Notes: (Same As: Parlodel) Start Date: 11/21/19 Stop Date: 11/27/19 Status: DiscontinuedbusPIRone 5 mg, 1 tab, Route: PO, Drug form: TAB, Q8H, Dosing Weight 112.005, kg, Start date: 11/21/19 17:00:00 INFORMATICS PHARMACIST, Duration: 30 day, Stop date: 12/21/19 16:00:00 INFORMATICS PHARMACIST, 0 Notes: (Same As: BuSpar) Start Date: 11/21/19 Stop Date: 11/22/19 Status: DiscontinuedbusPIRone 5 mg, 1 tab, Route: GT, Drug form: TAB, Q8H, Dosing Weight 112.005, kg, PRN, Start date: 11/22/19 14:44:00 INFORMATICS PHARMACIST, Duration: 30 day, Stop date: 12/22/19 14:43:00 INFORMATICS PHARMACIST, shivering, 0 Notes: (Same As: BuSpar) Start Date: 11/22/19 Stop Date: 11/27/19 Status: Discontinuedcalcium carbonate 500 mg (200 mg elemental calcium) oral tablet 500 mg, 1 tab, Route: PO, Drug form: CHEWTAB, PRN, Dosing Weight 100, kg, PRN Abnormal Lab Result, FOR ICU USE ONLY, Start date: 11/17/19 1:19:00 INFORMATICS PHARMACIST, Duration: 30 day, Stop date: 12/17/19 1:18:00 INFORMATICS PHARMACIST,0 Notes: (Same As: Tums)Calcium Carbonate 500 mg = 200 mg elemental calcium Dose = mg calcium carbonate ( mg elemental calcium) Start Date: 11/17/19 Stop Date: 11/27/19 Status: Discontinuedcalcium carbonate 500 mg (200 mg elemental calcium) oral tablet 1,000 mg, 2 tab, Route: PO, Drug form: CHEWTAB, PRN, Dosing Weight 100, kg, PRN Abnormal Lab Result,FOR ICU USE ONLY, Start date: 11/17/19 1:19:00 INFORMATICS PHARMACIST, Duration: 30 day, Stop date: 12/17/19 1:18:00 INFORMATICS PHARMACIST, 0 Notes: (Same As: Tums)Calcium Carbonate 500 mg = 200 mg elemental calcium Dose = mg calcium carbonate ( mg elemental calcium) Start Date: 11/17/19 Stop Date: 11/27/19 Status: Discontinuedcalcium chloride (ANES) Route: IV, Drug form: INJ, ONCE, Stop date: 12/09/19 18:47:00 INFORMATICS PHARMACIST Start Date: 12/09/19 Stop Date: 12/09/19 Status: Completedcalcium gluconate + Sodium Chloride 0.9% IV 50 mL 1,000 mg, 10 mL, Route: IVPB, ONCE, Dosing Weight 100, kg, Start date: 11/16/19 6:07:00 INFORMATICS PHARMACIST, Stop date: 11/16/19 6:07:00 INFORMATICS PHARMACIST, 0 Notes: WASTE: F/P - Sink; E - Municipal Trash Bin Start Date: 11/16/19 Stop Date: 11/16/19 Status: Completedcalcium gluconate + Sodium Chloride 0.9% IV 50 mL 1 gm, 10 mL, Route: IVPB, PRN, Dosing Weight 100, kg, PRN Abnormal Lab Result, Start date: 11/17/19 1:19:00 INFORMATICS PHARMACIST, Duration: 30 day, Stop date: 12/17/19 1:18:00 INFORMATICS PHARMACIST, FOR ICU USE ONLY, 0 Notes: WASTE: F/P - Sink; E - Municipal Trash Bin Start Date: 11/17/19 Stop Date: 11/27/19 Status: Discontinuedcaptopril 25 mg, 1 tab, Route: GT, Drug form: TAB, Q8H, Dosing Weight 112.005, kg, Priority: NOW, Start date: 11/21/19 11:35:00 INFORMATICS PHARMACIST, Duration: 30 day, Stop date: 12/21/19 8:00:00 INFORMATICS PHARMACIST, 0 Notes: Give on empty stomach. 1 hour before meal. (Same As: Capoten) Start Date: 11/21/19 Stop Date: 11/23/19 Status: DiscontinuedCardene 20 mg in NS 200 mL (Titrate.) IV 20 mg 20 mg, 200 mL, Rate: Titrate, Start Dose: 5 mg/hr, Titration: 2.5 mg/hr every 15 minutes, Goal(s): Systolic <180, Max Dose: 15 mg/hr, Route: IV, Dosing Weight 112.005 kg, Total Volume: 200, Start date: 11/18/19 11:11:00 INFORMATICS PHARMACIST, Stop date: 11/19/19 15:30:... Notes: Same as: CardeneConcentration: (0.1 mg/ 1 ml) Start Date: 11/18/19 Stop Date: 11/19/19 Status: CompletedceFAZolin 2 gm, 20 mL, Route: IVP, Drug form: SOLN, ABXQ8H, Dosing Weight 112.005, kg, (for patients weighing 70kg or greater), Start date: 12/10/19 0:00:00 INFORMATICS PHARMACIST, Duration: 3 doses or times, Stop date: 12/10/19 16:00:00 INFORMATICS PHARMACIST, ABX Indication: Surgical Prophylaxis, 0 Notes: (Same as Ancef) Start Date: 12/10/19 Stop Date: 12/10/19 Status: CompletedceFAZolin (ANES) Route: IV, Drug form: INJ, ONCE, Stop date: 12/09/19 13:21:00 INFORMATICS PHARMACIST Start Date: 12/09/19 Stop Date: 12/09/19 Status: CompletedceFAZolin (ANES) Route: IV, Drug form: INJ, ONCE, Stop date: 11/16/19 18:46:00 INFORMATICS PHARMACIST Start Date: 11/16/19 Stop Date: 11/16/19 Status: CompletedceFAZolin (ANES) Route: IV, Drug form: INJ, ONCE, Stop date: 11/29/19 14:02:00 INFORMATICS PHARMACIST Start Date: 11/29/19 Stop Date: 11/29/19 Status: Completedcefepime + sterile water 10 mL 1 gm, Route: IVP, ABXQ6H, Dosing Weight 112.005, kg, (CrCl >/= 60 ml/min), Start date: 12/01/19 17:00:00 INFORMATICS PHARMACIST, Duration: 7 day, Stop date: 12/08/19 11:00:00 INFORMATICS PHARMACIST, ABX Indication: Pneumonia, 0 Notes: (Same As: Maxipime) MEDICATION WASTE Product Size: 1000 mgProduct Wasted: ___ mg Start Date: 12/01/19 Stop Date: 12/08/19 Status: Completedchlorhexidine topical 0.12% liquid 15 mL, Route: Swab Mouth, Q12H, Drug form: LIQ, Start date: 11/15/19 21:00:00 INFORMATICS PHARMACIST, Duration: 30 day,Stop date: 12/15/19 9:00:00 INFORMATICS PHARMACIST, 0 Notes: (Same As: Peridex) Start Date: 11/15/19 Stop Date: 12/09/19 Status: Discontinuedchlorhexidine topical 0.12% liquid 15 mL, Route: Swab Mouth, PRN, Drug form: LIQ, PRN Other -See Comment, Start date: 11/15/19 18:46:00CST, Duration: 30 day, Stop date: 12/15/19 18:45:00 INFORMATICS PHARMACIST, 0 Notes: (Same As: Peridex) Start Date: 11/15/19 Stop Date: 12/15/19 Status: CompletedcloNIDine 0.2 mg, 1 tab, Route: GT, Drug form: TAB, Q4H, Dosing Weight 112.005, kg, Start date: 11/28/19 12:00:00 INFORMATICS PHARMACIST, Duration: 30 day, Stop date: 12/28/19 8:00:00 INFORMATICS PHARMACIST, 0 Notes: (Same As: Catapres) Start Date: 11/28/19 Stop Date: 12/19/19 Status: DiscontinuedcloNIDine 0.3 mg, 1 tab, Route: GT, Drug form: TAB, Q8H, Dosing Weight 112.005, kg, Start date: 11/19/19 16:00:00 INFORMATICS PHARMACIST, Duration: 30 day, Stop date: 12/19/19 8:00:00 INFORMATICS PHARMACIST, 0 Notes: (Same As: Catapres) Start Date: 11/19/19 Stop Date: 11/28/19 Status: DiscontinuedcloNIDine 0.2 mg oral tablet 0.2 mg = 1 tab, GT, Q4H, 0 Refill(s) Start Date: 12/19/19 Status: Suspendeddexamethasone (ANES) Route: IV, Drug form: INJ, ONCE, Stop date: 11/16/19 19:07:00 INFORMATICS PHARMACIST Start Date: 11/16/19 Stop Date: 11/16/19 Status: Completeddextromethorphan-guaiFENesin 20 mg-200 mg/10 mL oral liquid 10 mL, PO, Q4H, 0 Refill(s) Start Date: 12/19/19 Status: SuspendedDextrose 50% Syringe (D50W) 12.5 gm, 25 mL, Route: IVP, Drug Form: INJ, Dosing Weight 100, kg, PRN, PRN Abnormal Lab Result, Start date: 11/16/19 8:08:00 INFORMATICS PHARMACIST, Duration: 30 day, Stop date: 01/15/20 8:07:00 INFORMATICS PHARMACIST, For FSBG 40 mg/dL -60 mg/dL, 0 Start Date: 11/16/19 Stop Date: 12/11/19 Status: DiscontinuedDextrose 50% Syringe (D50W) 25 gm, 50 mL, Route: IVP, Drug Form: INJ, Dosing Weight 100, kg, PRN, PRN Abnormal Lab Result, Startdate: 11/16/19 8:08:00 INFORMATICS PHARMACIST, Duration: 30 day, Stop date: 01/15/20 8:07:00 INFORMATICS PHARMACIST, For FSBG < 40 mg/dL, 0 Start Date: 11/16/19 Stop Date: 12/11/19 Status: Discontinueddocusate 100 mg, 10 mL, Route: GT, Drug form: LIQ, Q12H, Start date: 11/20/19 21:00:00 INFORMATICS PHARMACIST, Duration: 30 day,Stop date: 12/20/19 9:00:00 INFORMATICS PHARMACIST, 0 Notes: (Same as: Colace) Start Date: 11/20/19 Stop Date: 11/20/19 Status: Deleteddocusate 100 mg, 10 mL, Route: GT, Drug form: LIQ, Q12H, Start date: 11/20/19 23:59:00 INFORMATICS PHARMACIST, Duration: 30 day,Stop date: 12/20/19 21:00:00 INFORMATICS PHARMACIST, 0 Notes: (Same as: Colace) Start Date: 11/20/19 Stop Date: 11/27/19 Status: Discontinueddocusate-senna 50 mg-8.6 mg oral tablet 2 tab, Route: PO, Drug Form: TAB, Dosing Weight 100, kg, Q12H, Start date: 11/16/19 9:00:00 INFORMATICS PHARMACIST, Duration: 30 day, Stop date: 12/15/19 21:00:00 INFORMATICS PHARMACIST, 0 Notes: (Same as Senkamot-S) Equiv. to Viktoria-Colace. Start Date: 11/16/19 Stop Date: 11/20/19 Status: Discontinueddocusate-senna 50 mg-8.6 mg oral tablet 2 tab, PO, BID, 0 Refill(s) Start Date: 12/19/19 Status: Suspendeddocusate-senna 50 mg-8.6 mg oral tablet 2 tab, Route: PO, Drug Form: TAB, Dosing Weight 112.005, kg, BID, Start date: 12/18/19 17:00:00 INFORMATICS PHARMACIST,Duration: 30 day, Stop date: 01/17/20 9:00:00 INFORMATICS PHARMACIST, 0 Notes: (Same as Senokot-S) Equiv. to Viktoria-Colace. Start Date: 12/18/19 Stop Date: 12/19/19 Status: Discontinueddocusate-senna 50 mg-8.6 mg oral tablet 2 tab, Route: PO, Drug Form: TAB, Dosing Weight 112.005, kg, Q12H, Start date: 11/27/19 21:00:00 INFORMATICS PHARMACIST, Duration: 30 day, Stop date: 12/27/19 9:00:00 INFORMATICS PHARMACIST, 0 Notes: (Same as Sid-S) Equiv. to Viktoria-Colace. Start Date: 11/27/19 Stop Date: 11/29/19 Status: DiscontinuedDuoNeb inhalation solution 3 ml, Route: NEB, Drug Form: SOLN, Dosing Weight 112.005, kg, RTID, PRN Respiratory Pathway, Start date: 12/16/19 10:01:00 INFORMATICS PHARMACIST, Duration: 4 day, Stop date: 12/20/19 10:00:00 INFORMATICS PHARMACIST, 0 Notes: (Same as: Duoneb) Start Date: 12/16/19 Stop Date: 12/19/19 Status: DiscontinuedDuoNeb inhalation solution 3 mL, NEB, RTID, PRN Respiratory Pathway, 0 Refill(s) Start Date: 12/19/19 Status: Suspendedenoxaparin Route: SUB-Q, Q12H, Dosing Weight 112.005, kg, Priority: STAT, Start date: 12/05/19 8:37:00 INFORMATICS PHARMACIST, Duration: 30 day, Stop date: 01/03/20 21:00:00 INFORMATICS PHARMACIST Start Date: 12/05/19 Stop Date: 12/05/19 Status: Discontinuedenoxaparin 1 mg/kg, Route: SUB-Q, Q12H, Dosing Weight 100, kg, Start date: 12/05/19 9:00:00 INFORMATICS PHARMACIST, Duration: 30 day, Stop date: 01/03/20 21:00:00 INFORMATICS PHARMACIST Start Date: 12/05/19 Stop Date: 12/05/19 Status: Canceledenoxaparin 100 mg, 1 mL, Route: SUB-Q, Drug form: INJ, [id number], Dosing Weight 100, kg, Start date: 12/05/19 9:00:00 INFORMATICS PHARMACIST, Duration: 30 day, Stop date: 01/08/20 21:00:00 INFORMATICS PHARMACIST, 0 Notes: Nurse to ensure documentation of patient education per anticoagulation policy.(Same as: Lovenox) Start Date: 12/05/19 Stop Date: 12/17/19 Status: Discontinuedenoxaparin 40 mg, 0.4 mL, Route: SUB-Q, Drug form: INJ, ONCE, Dosing Weight 100, kg, Start date: 11/15/19 22:11:00 INFORMATICS PHARMACIST, Stop date: 11/15/19 22:11:00 INFORMATICS PHARMACIST, 0 Notes: (Same as: Lovenox) Start Date: 11/15/19 Stop Date: 11/16/19 Status: Completedenoxaparin 40 mg, 0.4 mL, Route: SUB-Q, Drug form: INJ, Q12H, Dosing Weight 100, kg, Start date: 11/16/19 4:00:00 INFORMATICS PHARMACIST, Duration: 30 day, Stop date: 12/15/19 21:00:00 INFORMATICS PHARMACIST, 0 Notes: (Same as: Lovenox) Start Date: 11/16/19 Stop Date: 11/16/19 Status: Canceledesmolol 2500 mg in NS 250 mL (Titrate.) IV 2,500 mg 2,500 mg, 250 mL, Rate: Titrate, Start Dose: 50 microgram/kg/min, Titration: 50 microgram/kg/min every 15 minutes, Goal(s): Maintain HR between 60 - 100, Max Dose: 300 microgram/kg/min, Route: IV, Dosing Weight 100 kg, Total Volume: 250, Start date: 0... Notes: (Same as: Traven IV) Start Date: 11/16/19 Stop Date: 11/16/19 Status: Discontinuedfamotidine 20 mg, 2 mL, Route: IVP, Drug form: INJ, Q12H, Dosing Weight 100, kg, Start date: 11/15/19 21:00:00 INFORMATICS PHARMACIST, Duration: 30 day, Stop date: 12/15/19 9:00:00 INFORMATICS PHARMACIST, 0 Notes: (Same as: Pepcid)Can be dilute in 5-10cc NS IVP: Slow IV push over at least 2 minutes. Start Date: 11/15/19 Stop Date: 11/23/19 Status: Discontinuedfamotidine 20 mg oral tablet 20 mg, 1 tab, Route: PO, Drug form: TAB, Q12H, Dosing Weight 112.005, kg, Start date: 11/27/19 21:00:00 INFORMATICS PHARMACIST, Duration: 30 day, Stop date: 12/27/19 9:00:00 INFORMATICS PHARMACIST, 0 Notes: (Same as: Pepcid) Start Date: 11/27/19 Stop Date: 12/09/19 Status: DiscontinuedfentaNYL 100 microgram, 2 mL, Route: IVP, Drug form: INJ, ONCE, Dosing Weight 100, kg, Priority: STAT, Start date: 11/15/19 16:15:00 INFORMATICS PHARMACIST, Stop date: 11/15/19 16:15:00 INFORMATICS PHARMACIST, 0 Notes: (Same as: Sublimaze) Preservative free. Start Date: 11/15/19 Stop Date: 11/15/19 Status: CompletedfentaNYL (ANES) Route: IV, Drug form: INJ, ONCE, Stop date: 12/09/19 13:26:00 INFORMATICS PHARMACIST Start Date: 12/09/19 Stop Date: 12/09/19 Status: CompletedfentaNYL (ANES) Route: IV, Drug form: INJ, ONCE, Stop date: 11/29/19 11:59:00 INFORMATICS PHARMACIST Start Date: 11/29/19 Stop Date: 11/29/19 Status: CompletedfentaNYL (ANES) Route: IV, Drug form: INJ, ONCE, Stop date: 11/16/19 18:57:00 INFORMATICS PHARMACIST Start Date: 11/16/19 Stop Date: 11/16/19 Status: CompletedfentaNYL 1000 microgram in 20 mL NS (Titrate.) IV 1,000 microgram 1,000 microgram, 20 mL, Rate: Titrate, Start Dose: 50 microgram/hr, Titration: 25 microgram/hour every 15 minutes, Goal(s): RASS -1, Max Dose: 300 microgram/hr, Route: IV, Dosing Weight 100 kg, Total Volume: 20, Start date: 11/15/19 16:16:00 INFORMATICS PHARMACIST, Dura... Start Date: 11/15/19 Stop Date: 11/16/19 Status: DiscontinuedfentaNYL 1000 microgram in 20 mL NS (Titrate.) IV 1,000 microgram 1,000 microgram, 20 mL, Rate: Titrate, Start Dose: 50 microgram/hr, Titration: 25 microgram/hour every 15 minutes, Goal(s): 0, Max Dose: 300 microgram/hr, Route: IV, Dosing Weight 100 kg, Total Volume:20, Start date: 11/17/19 11:46:00 INFORMATICS PHARMACIST, Duration:... Start Date: 11/17/19 Stop Date: 11/29/19 Status: DiscontinuedFiberall 3.4 gm, 1 pkt, Route: PO, Drug Form: PDR/REC, Dosing Weight 112.005, kg, TID, Start date: 12/09/19 17:00:00 INFORMATICS PHARMACIST, Duration: 30 day, Stop date: 01/08/20 13:00:00 INFORMATICS PHARMACIST, 0 Notes: (Same as: Metamucil) Mix in 8 oz liquid with meal. Start Date: 12/09/19 Stop Date: 12/19/19 Status: Discontinuedgabapentin 300 mg, 1 cap, Route: PO, Drug form: CAP, ONCE, Dosing Weight 112.005, kg, Start date: 11/27/19 9:24:00 INFORMATICS PHARMACIST, Stop date: 11/27/19 9:24:00 INFORMATICS PHARMACIST, 0 Notes: (Same as: Neurontin) Start Date: 11/27/19 Stop Date: 11/27/19 Status: Completedgabapentin 900 mg, 18 mL, Route: GT, Drug form: SOLN, Q8H, Dosing Weight 100, kg, Start date: 11/22/19 16:00:00CST, Duration: 30 day, Stop date: 01/21/20 8:00:00 CDT, 0 Notes: (Same as: Neurontin) Start Date: 11/22/19 Stop Date: 12/19/19 Status: Discontinuedgabapentin 400 mg, 8 mL, Route: GT, Drug form: SOLN, Q8H, Dosing Weight 100, kg, Priority: NOW, Start date: 11/15/19 18:45:00 INFORMATICS PHARMACIST, Duration: 30 day, Stop date: 12/15/19 16:00:00 INFORMATICS PHARMACIST, 0 Notes: (Same as: Neurontin) Start Date: 11/15/19 Stop Date: 11/22/19 Status: Discontinuedgabapentin 250 mg/5 mL oral solution 900 mg = 18 mL, GT, Q8H, 0 Refill(s) Start Date: 12/19/19 Status: Suspendedgabapentin 300 mg oral capsule 300 mg, 1 cap, Route: GT, Drug form: CAP, ONCE, Dosing Weight 112.005, kg, Priority: STAT, Start date: 11/25/19 9:39:00 INFORMATICS PHARMACIST, Stop date: 11/25/19 9:39:00 INFORMATICS PHARMACIST, 0 Notes: (Same as: Neurontin) Start Date: 11/25/19 Stop Date: 11/25/19 Status: Completedgentamicin topical 0.1% ointment 1 appl, Route: TOP, PRN, Drug form: OINT, PRN Wound Care, Start date: 11/25/19 16:21:00 INFORMATICS PHARMACIST, Duration: 30 day, Stop date: 12/25/19 16:20:00 INFORMATICS PHARMACIST, 0 Notes: (Same as: Garamycin) Start Date: 11/25/19 Stop Date: 12/19/19 Status: Discontinuedglycopyrrolate (ANES) Route: IV, Drug form: INJ, ONCE, Stop date: 11/29/19 15:22:00 INFORMATICS PHARMACIST Start Date: 11/29/19 Stop Date: 11/29/19 Status: CompletedHaldol 5 mg, Route: IM, Q6H, Dosing Weight 112.005, kg, PRN Agitation, Start date: 12/11/19 10:46:00 INFORMATICS PHARMACIST, Duration: 30 day, Stop date: 01/10/20 10:45:00 INFORMATICS PHARMACIST Start Date: 12/11/19 Stop Date: 12/11/19 Status: DiscontinuedHaldol 5 mg, 1 tab, Route: PEG, Drug form: TAB, Q6H, Dosing Weight 112.005, kg, PRN Agitation, Start date: 12/11/19 10:55:00 INFORMATICS PHARMACIST, Duration: 30 day, Stop date: 01/10/20 10:54:00 INFORMATICS PHARMACIST, 0 Notes: (Same as: Haldol) Start Date: 12/11/19 Stop Date: 12/19/19 Status: DiscontinuedHaldol 5 mg, 1 mL, Route: IV, Drug form: INJ, ONCE, Dosing Weight 112.005, kg, Start date: 12/07/19 12:03:00 INFORMATICS PHARMACIST, Stop date: 12/07/19 12:03:00 INFORMATICS PHARMACIST, 0 Notes: (Same as: Haldol) Start Date: 12/07/19 Stop Date: 12/07/19 Status: Completedhaloperidol 5 mg oral tablet 5 mg = 1 tab, PEG, Q6H, PRN Agitation, 0 Refill(s) Start Date: 12/19/19 Status: Suspendedheparin 5,000 unit, 1 mL, Route: SUB-Q, Drug form: INJ, Q8H, Dosing Weight 112.005, kg, Start date: 200:00:00 INFORMATICS PHARMACIST, Duration: 30 day, Stop date: 12/18/19 16:00:00 INFORMATICS PHARMACIST, 0 Notes: porcine heparin Start Date: 11/19/19 Stop Date: 11/20/19 Status: Discontinuedheparin additive 25,000 unit [14 unit/kg/hr] + Premix Diluent Sodium Chloride 0.45% 500 mL 500 mL, Rate: 24.04 ml/hr, Infuse over: 20.8 hr, Route: IV, Dosing Weight 85.84 kg, Total Volume: 500 mL, Start date: 11/19/19 19:51:00 INFORMATICS PHARMACIST, Duration: 30 day, Stop date: 12/19/19 19:50:00 INFORMATICS PHARMACIST, 2.05, m2, 0 Notes: Total Concentration = 50 unit/ ml Total volume = 500 mlSend Med Request 2 hours prior to next bag Start Date: 11/19/19 Stop Date: 11/24/19 Status: Discontinuedheparin additive 25,000 unit [14 unit/kg/hr] + Premix Diluent Sodium Chloride 0.45% 500 mL 500 mL, Rate: 22.69 ml/hr, Infuse over: 22 hr, Route: IV, Dosing Weight 81.04 kg, Total Volume: 500 mL, Start date: 11/16/19 1:35:00 INFORMATICS PHARMACIST, Duration: 30 day, Stop date: 12/16/19 1:34:00 INFORMATICS PHARMACIST, 1.99, m2, 0 Notes: Total Concentration = 50 unit/ ml Total volume = 500 mlSend Med Request 2 hours prior to next bag Start Date: 11/16/19 Stop Date: 11/16/19 Status: Discontinuedheparin additive 25,000 unit [14 unit/kg/hr] + Premix Diluent Sodium Chloride 0.45% 500 mL 500 mL, Rate: 24.04 ml/hr, Infuse over: 20.8 hr, Route: IV, Dosing Weight 85.84 kg, Total Volume: 500 mL, Start date: 11/24/19 16:29:00 INFORMATICS PHARMACIST, Duration: 30 day, Stop date: 12/24/19 16:28:00 INFORMATICS PHARMACIST, 2.05, m2, 0 Notes: Total Concentration = 50 unit/ ml Total volume = 500 mlSend Med Request 2 hours prior to next bag Start Date: 11/24/19 Stop Date: 12/01/19 Status: DiscontinuedhydrALAZINE 10 mg, 0.5 mL, Route: IV, Drug form: INJ, ONCE, Dosing Weight 112.005, kg, Start date: 12/01/19 4:42:00 INFORMATICS PHARMACIST, Stop date: 12/01/19 4:42:00 INFORMATICS PHARMACIST, 0 Notes: (Same as: Apresoline)Push over 5 minutes Start Date: 12/01/19 Stop Date: 12/01/19 Status: CompletedhydrALAZINE 20 mg, 1 mL, Route: IVP, Drug form: INJ, Q4H, Dosing Weight 100, kg, PRN Hypertension, Start date: 11/17/19 11:29:00 INFORMATICS PHARMACIST, Duration: 30 day, Stop date: 12/17/19 11:28:00 INFORMATICS PHARMACIST, 0 Notes: (Same as: Apresoline)Push over 5 minutes Start Date: 11/17/19 Stop Date: 11/27/19 Status: Discontinuedhydromorphone (ANES) Route: IV, Drug form: INJ, ONCE, Stop date: 12/09/19 14:58:00 INFORMATICS PHARMACIST Start Date: 12/09/19 Stop Date: 12/09/19 Status: Completedhydromorphone (ANES) Route: IV, Drug form: INJ, ONCE, Stop date: 12/09/19 18:47:00 INFORMATICS PHARMACIST Start Date: 12/09/19 Stop Date: 12/09/19 Status: Completedhydromorphone (ANES) + sodium chloride (ANES) 9 mL Route: IV, Drug form: INJ, ONCE, Stop date: 11/16/19 19:22:00 INFORMATICS PHARMACIST Start Date: 11/16/19 Stop Date: 11/16/19 Status: CompletedInsulin regular 5 unit, 0.05 mL, Route: SUB-Q, Drug form: SOLN, PRN, Dosing Weight 100, kg, PRN Abnormal Lab Result,Start date: 11/16/19 8:08:00 INFORMATICS PHARMACIST, Duration: 30 day, Stop date: 01/15/20 8:07:00 INFORMATICS PHARMACIST, For [facility] 150 mg/dL - 174 mg/dL, 0 Notes: (Same as: Humulin R) Roll in palms of hands gently; Do not shake vigorously. WASTE:F/P - Black; E - Municipal Trash BinStable for 31 days at room temperature Expires in days from Date Start Date: 11/16/19 Stop Date: 12/11/19 Status: DiscontinuedInsulin regular 8 unit, 0.08 mL, Route: SUB-Q, Drug form: SOLN, PRN, Dosing Weight 100, kg, PRN Abnormal Lab Result,Start date: 11/16/19 8:08:00 INFORMATICS PHARMACIST, Duration: 30 day, Stop date: 01/15/20 8:07:00 INFORMATICS PHARMACIST, For [facility]SB[facility] 175 mg/dL - 199 mg/dL, 0 Notes: (Same as: Humulin R) Roll in palms of hands gently; Do not shake vigorously. WASTE:F/P - Black; E - Municipal Trash BinStable for 31 days at room temperature Expires in days from Date Start Date: 11/16/19 Stop Date: 12/11/19 Status: DiscontinuedInsulin regular 12 unit, 0.12 mL, Route: SUB-Q, Drug form: SOLN, PRN, Dosing Weight 100, kg, PRN Abnormal Lab Result, Start date: 11/16/19 8:08:00 INFORMATICS PHARMACIST, Duration: 30 day, Stop date: 01/15/20 8:07:00 INFORMATICS PHARMACIST, For FSB[facility] >=200 mg/dL, 0 Notes: (Same as: Humulin R) Roll in palms of hands gently; Do not shake vigorously. WASTE:F/P - Black; E - Municipal Trash BinStable for 31 days at room temperature Expires in days from Date Start Date: 11/16/19 Stop Date: 12/11/19 Status: DiscontinuedIsolyte S PH 7.4 (ANES) 1000 mL Route: IV, Total Volume: 1,000, Start date: 11/16/19 18:16:00 INFORMATICS PHARMACIST, Stop date: 11/16/19 19:16:00 INFORMATICS PHARMACIST Start Date: 11/16/19 Stop Date: 11/16/19 Status: CompletedIsolyte S PH 7.4 (ANES) 1000 mL Route: IV, Total Volume: 1,000, Start date: 11/29/19 10:58:00 INFORMATICS PHARMACIST, Stop date: 11/29/19 11:58:00 INFORMATICS PHARMACIST Start Date: 11/29/19 Stop Date: 11/29/19 Status: CompletedIsolyte S PH 7.4 (ANES) 1000 mL Route: IV, Total Volume: 1,000, Start date: 11/16/19 18:16:00 INFORMATICS PHARMACIST, Stop date: 11/16/19 19:16:00 INFORMATICS PHARMACIST Start Date: 11/16/19 Stop Date: 11/16/19 Status: CompletedIsolyte S PH 7.4 1,000 mL 1,000 mL, Rate: 100 ml/hr, Infuse over: 10 hr, Route: IV, Dosing Weight 100 kg, Total Volume: 1,000,Start date: 11/15/19 18:46:00 INFORMATICS PHARMACIST, Duration: 30 day, Stop date: 12/15/19 18:45:00 INFORMATICS PHARMACIST, 2.22, m2, 0 Notes: (Same as: Isolyte S PH7.4, Normosol-R PH 7.4, Plasma-Lyte A ) Start Date: 11/15/19 Stop Date: 11/16/19 Status: DiscontinuedIsolyte S PH 7.4 1,000 mL 1,000 mL, Rate: 100 ml/hr, Infuse over: 10 hr, Route: IV, Dosing Weight 112.005 kg, Total Volume: 1,000, Start date: 12/01/19 21:23:00 INFORMATICS PHARMACIST, Duration: 30 day, Stop date: 12/31/19 21:22:00 INFORMATICS PHARMACIST, 2.35, m2,0 Notes: (Same as: Isolyte S PH7.4, Normosol-R PH 7.4, Plasma-Lyte A ) Start Date: 12/01/19 Stop Date: 12/07/19 Status: DiscontinuedIsolyte S PH-7.4 (Bolus) IV 500 mL, 500 ml/hr, Infuse Over: 1 hr, Route: IV, 500, Drug form: SOLN, ONCE, Dosing Weight 100 kg, Start date: 11/15/19 21:52:00 INFORMATICS PHARMACIST, Stop date: 11/15/19 21:52:00 INFORMATICS PHARMACIST, 0 Notes: (Same as: Isolyte S PH7.4, Normosol-R PH 7.4, Plasma-Lyte A ) Start Date: 11/15/19 Stop Date: 11/15/19 Status: CompletedIsolyte S PH-7.4 (Bolus) IV 500 mL, 500 ml/hr, Infuse Over: 1 hr, Route: IV, 500, Drug form: SOLN, ONCE, Dosing Weight 100 kg, Start date: 11/15/19 22:33:00 INFORMATICS PHARMACIST, Stop date: 11/15/19 22:33:00 INFORMATICS PHARMACIST, 0 Notes: (Same as: Isolyte S PH7.4, Normosol-R PH 7.4, Plasma-Lyte A ) Start Date: 11/15/19 Stop Date: 11/16/19 Status: CompletedIsolyte S PH-7.4 (Bolus) IV 1,000 mL, 1000 ml/hr, Infuse Over: 1 hr, Route: IV, 1,000, Drug form: SOLN, ONCE, Dosing Weight 100 kg, Start date: 11/15/19 21:22:00 INFORMATICS PHARMACIST, Stop date: 11/15/19 21:22:00 INFORMATICS PHARMACIST, 0 Notes: (Same as: Isolyte S PH7.4, Normosol-R PH 7.4, Plasma-Lyte A ) Start Date: 11/15/19 Stop Date: 11/15/19 Status: CompletedIsolyte S PH-7.4 (Bolus) IV Route: IV, ONCE, Dosing Weight 112.005 kg, Start date: 12/03/19 7:47:00 INFORMATICS PHARMACIST, Stop date: 12/03/19 7:47:00 INFORMATICS PHARMACIST Start Date: 12/03/19 Stop Date: 12/03/19 Status: CompletedKeppra 500 mg oral tablet 500 mg, 1 tab, Route: PO, Drug form: TAB, Q12H, Dosing Weight 100, kg, Start date: 11/16/19 21:00:00CST, Duration: 30 day, Stop date: 12/16/19 9:00:00 INFORMATICS PHARMACIST, 0 Notes: (Same as:Keppra) Start Date: 11/16/19 Stop Date: 11/20/19 Status: DiscontinuedketAMINE (ANES) Route: IV, Drug form: INJ, ONCE, Stop date: 11/29/19 12:56:00 INFORMATICS PHARMACIST Start Date: 11/29/19 Stop Date: 11/29/19 Status: CompletedketAMINE 100 mg in NS 100 mL IV 100 mg 100 mg, 100 mL, Rate: Titrate, Start Dose: 0.25 mg/kg/hr, Titration: DO NOT TITRATE, Goal(s): pain score <7, Max Dose: 0.25 mg/kg/hr, Route: IV, Dosing Weight 100 kg, Total Volume: 100 For Analgesia, Start date: 11/15/19 21:51:00 INFORMATICS PHARMACIST, Duration: 30 day... Notes: Total Concentration = 1mg/mlTotal Volume = 100mlInfusion Rate= Begin Infusion at an initial rate of 0.1mg/kg/hr to a Maximum Rate of 0.25mg/kg/hrPlease place a Med Request 2 hours before the next dose is needed. Start Date: 11/15/19 Stop Date: 11/16/19 Status: DiscontinuedketOROLAC 10 mg oral tablet 10 mg, 1 tab, Route: PO, Drug form: TAB, Q6H, Dosing Weight 112.005, kg, PRN Pain Score 1-3, Start date: 12/17/19 10:00:00 INFORMATICS PHARMACIST, Duration: 4 day, Stop date: 12/21/19 9:59:00 INFORMATICS PHARMACIST, 0 Notes: Not for use > 4 days. Give with food. (Same as:Toradol) Start Date: 12/17/19 Stop Date: 12/19/19 Status: DiscontinuedketOROLAC 30 mg/mL injectable solution 30 mg, 1 mL, Route: IVP, Drug form: INJ, Q6H, Dosing Weight 112.005, kg, Start date: 12/16/19 12:00:00 INFORMATICS PHARMACIST, Duration: 1 day, Stop date: 12/17/19 6:00:00 INFORMATICS PHARMACIST, 0 Notes: (Same as:Toradol) IV bolus must be given >15 seconds. Give IM administration slowly and deeply into the muscle.Not for use > 4 days MEDICATION WASTE Product Size: 30 mgProduct Wasted: ___ mg Start Date: 12/16/19 Stop Date: 12/17/19 Status: Completedlabetalol 200 mg, Route: PO, Drug form: TAB, Q12H, Dosing Weight 112.005, kg, Start date: 11/19/19 21:00:00 INFORMATICS PHARMACIST, Duration: 30 day, Stop date: 12/19/19 9:00:00 INFORMATICS PHARMACIST Start Date: 11/19/19 Stop Date: 11/19/19 Status: Canceledlabetalol 100 mg, 1 tab, Route: NG, Drug form: TAB, Q8H, Dosing Weight 112.005, kg, Start date: 11/19/19 16:00:00 INFORMATICS PHARMACIST, Duration: 30 day, Stop date: 12/19/19 8:00:00 INFORMATICS PHARMACIST, 0 Notes: With food. (Same as:Trandate, Normodyne) Start Date: 11/19/19 Stop Date: 11/19/19 Status: Canceledlabetalol 10 mg, 2 mL, Route: IV, Drug form: INJ, Q1H, Dosing Weight 112.005, kg, PRN Other -See Comment, Start date: 11/23/19 4:42:00 INFORMATICS PHARMACIST, Duration: 30 day, Stop date: 12/23/19 4:41:00 INFORMATICS PHARMACIST, 0 Start Date: 11/23/19 Stop Date: 11/27/19 Status: Discontinuedlabetalol 10 mg, 2 mL, Route: IVP, Drug form: INJ, Q15Min, Dosing Weight 112.005, kg, PRN Hypertension, Start date: 12/07/19 3:24:00 INFORMATICS PHARMACIST, Duration: 3 doses or times, Stop date: Limited # of times, 0 Start Date: 12/07/19 Stop Date: 12/07/19 Status: Completedlabetalol 10 mg, 2 mL, Route: IVP, Drug form: INJ, Q15Min, Dosing Weight 112.005, kg, PRN Hypertension, Start date: 12/01/19 9:32:00 INFORMATICS PHARMACIST, Duration: 3 doses or times, Stop date: Limited # of times, 0 Start Date: 12/01/19 Stop Date: 12/01/19 Status: Completedlabetalol 10 mg, Route: IVP, Drug form: INJ, [id number], Dosing Weight 112.005, kg, PRN Hypertension, Start date: 12/01/19 12:12:00 INFORMATICS PHARMACIST, Duration: 30 day, Stop date: 12/31/19 12:11:00 INFORMATICS PHARMACIST Start Date: 12/01/19 Stop Date: 12/01/19 Status: Discontinuedlabetalol 10 mg, Route: IVP, Drug form: INJ, [id number], Dosing Weight 112.005, kg, PRN Hypertension, Start date: 12/01/19 12:12:00 INFORMATICS PHARMACIST, Duration: 30 day, Stop date: 12/31/19 12:11:00 INFORMATICS PHARMACIST Start Date: 12/01/19 Stop Date: 12/01/19 Status: Discontinuedlabetalol 10 mg, 2 mL, Route: IVP, Drug form: INJ, Q15Min, Dosing Weight 112.005, kg, PRN Hypertension, Start date: 12/01/19 12:14:00 INFORMATICS PHARMACIST, Duration: 3 doses or times, Stop date: Limited # of times, 0 Start Date: 12/01/19 Stop Date: 12/06/19 Status: CompletedLactated Ringers Injection IV (ANES) 1000 mL Route: IV, Total Volume: 1,000, Start date: 12/09/19 12:25:00 INFORMATICS PHARMACIST, Stop date: 12/09/19 13:25:00 INFORMATICS PHARMACIST Start Date: 12/09/19 Stop Date: 12/09/19 Status: Completedlactobacillus acidophilus 1 tab, Route: PO, Drug Form: TAB, Dosing Weight 112.005, kg, Daily, Start date: 11/30/19 9:00:00 INFORMATICS PHARMACIST, Duration: 30 day, Stop date: 12/29/19 9:00:00 INFORMATICS PHARMACIST Start Date: 11/30/19 Stop Date: 11/29/19 Status: Discontinuedlactobacillus rhamnosus GG 1 cap, Route: PO, Drug Form: CAP, Daily, NOW, Start date: 11/29/19 9:20:00 INFORMATICS PHARMACIST, Duration: 30 day, Stop date: 12/29/19 9:00:00 INFORMATICS PHARMACIST, 0 Notes: Same as Culturelle Start Date: 11/29/19 Stop Date: 12/19/19 Status: Discontinuedlactobacillus rhamnosus GG PO, Daily, 0 Refill(s) Start Date: 12/19/19 Status: SuspendedLasix 40 mg, 4 mL, Route: IV, Drug form: INJ, ONCE, Dosing Weight 112.005, kg, Start date: 11/27/19 9:26:00 INFORMATICS PHARMACIST, Stop date: 11/27/19 9:26:00 INFORMATICS PHARMACIST, 0 Notes: (Same as: Lasix) Start Date: 11/27/19 Stop Date: 11/27/19 Status: CompletedLasix 40 mg, Route: IVP, Drug form: INJ, ONCE, Dosing Weight 112.005, kg, Start date: 11/23/19 16:41:00 INFORMATICS PHARMACIST, Stop date: 11/23/19 16:41:00 INFORMATICS PHARMACIST Start Date: 11/23/19 Stop Date: 11/23/19 Status: DiscontinuedLasix 40 mg, 4 mL, Route: IVP, Drug form: INJ, ONCE, Dosing Weight 112.005, kg, Start date: 11/25/19 7:42:00 INFORMATICS PHARMACIST, Stop date: 11/25/19 7:42:00 INFORMATICS PHARMACIST, 0 Notes: (Same as: Lasix) MEDICATION WASTE Product Size: 40 mgProduct Wasted: ___ mg Start Date: 11/25/19 Stop Date: 11/25/19 Status: CompletedLasix 40 mg, 4 mL, Route: IVP, Drug form: INJ, ONCE, Dosing Weight 112.005, kg, Priority: NOW, Start date:11/26/19 17:18:00 INFORMATICS PHARMACIST, Stop date: 11/26/19 17:18:00 INFORMATICS PHARMACIST, 0 Notes: (Same as: Lasix) MEDICATION WASTE Product Size: 40 mgProduct Wasted: ___ mg Start Date: 11/26/19 Stop Date: 11/26/19 Status: CompletedLasix 20 mg, 2 mL, Route: IVP, Drug form: INJ, ONCE, Dosing Weight 112.005, kg, Start date: 11/26/19 9:51:00 INFORMATICS PHARMACIST, Stop date: 11/26/19 9:51:00 INFORMATICS PHARMACIST, 0 Notes: (Same as: Lasix) Start Date: 11/26/19 Stop Date: 11/26/19 Status: CompletedLasix 20 mg oral tablet 20 mg, Route: NJ, Drug form: TAB, Daily, Dosing Weight 112.005, kg, Start date: 11/24/19 9:00:00 INFORMATICS PHARMACIST, Duration: 30 day, Stop date: 12/23/19 9:00:00 INFORMATICS PHARMACIST Start Date: 11/24/19 Stop Date: 11/23/19 Status: CanceledLasix 20 mg oral tablet 20 mg, 1 tab, Route: NJ, Drug form: TAB, ONCE, Dosing Weight 112.005, kg, Priority: STAT, Start date: 11/23/19 10:43:00 INFORMATICS PHARMACIST, Stop date: 11/23/19 10:43:00 INFORMATICS PHARMACIST, 0 Notes: (Same as: Lasix) May cause GI upset. Give with food or milk. Start Date: 11/23/19 Stop Date: 11/23/19 Status: CompletedLasix 20 mg oral tablet 20 mg, 1 tab, Route: IV, Q8H, Dosing Weight 112.005, kg, Start date: 12/07/19 10:00:00 INFORMATICS PHARMACIST, Duration: 1 day, Stop date: 12/08/19 8:00:00 INFORMATICS PHARMACIST Start Date: 12/07/19 Stop Date: 12/07/19 Status: CanceledLasix 20 mg oral tablet 20 mg, 2 mL, Route: IV, Drug form: INJ, Q8H, Dosing Weight 112.005, kg, Start date: 12/07/19 16:00:00 INFORMATICS PHARMACIST, Duration: 3 doses or times, Stop date: 12/08/19 8:00:00 INFORMATICS PHARMACIST, 0 Notes: (Same as: Lasix) Start Date: 12/07/19 Stop Date: 12/08/19 Status: Completedlidocaine 4% inhalation solution 5 mL, Route: NEB, Drug Form: SOLN, Dosing Weight 112.005, kg, RQ4H, PRN See Respiratory Notes, Startdate: 11/24/19 13:09:00 INFORMATICS PHARMACIST, Duration: 30 day, Stop date: 12/24/19 13:08:00 INFORMATICS PHARMACIST, 0 Notes: administered via nebulization during bronchoscopies Start Date: 11/24/19 Stop Date: 11/27/19 Status: DiscontinuedLidoderm 5% topical film (patch) 1 patch, TOP, Q24H, 0 Refill(s) Start Date: 12/19/19 Status: SuspendedLidoderm 5% topical film (patch) 1 patch, Route: TOP, Q24H, Drug form: FILM, Start date: 11/15/19 19:00:00 INFORMATICS PHARMACIST, Duration: 30 day, Stop date: 01/13/20 19:00:00 INFORMATICS PHARMACIST, 0 Notes: Apply only once for up to 12 hours in p31-ytgc period (12 hours on and 12 hours off).(Same as: Lidoderm)"Remove old patch before application of new patch" Start Date: 11/15/19 Stop Date: 12/19/19 Status: DiscontinuedLipitor 80 mg, 1 tab, Route: NG, Drug form: TAB, Bedtime, Dosing Weight 112.005, kg, Start date: 11/28/19 21:00:00 INFORMATICS PHARMACIST, Duration: 30 day, Stop date: 12/27/19 21:00:00 INFORMATICS PHARMACIST, 0 Notes: Same as Lipitor Start Date: 11/28/19 Stop Date: 12/19/19 Status: DiscontinuedLovenox 110 mg, 0.73 mL, Route: SUB-Q, Drug form: INJ, [id number], Dosing Weight 112.005, kg, Start date: 12/01/19 10:00:00 INFORMATICS PHARMACIST, Duration: 30 day, Stop date: 12/30/19 22:00:00 INFORMATICS PHARMACIST, 0 Notes: Nurse to ensure documentation of patient education per anticoagulation policy. (Same as: Lovenox) Start Date: 12/01/19 Stop Date: 12/06/19 Status: Discontinuedmagnesium citrate 1.745 g/30 mL oral liquid 300 ml, Route: PO, Drug Form: LIQ, Dosing Weight 112.005, kg, ONCE, Start date: 11/19/19 11:43:00 INFORMATICS PHARMACIST, Stop date: 11/19/19 11:43:00 INFORMATICS PHARMACIST, 0 Notes: (Same as: Citrate of Magnesia)Concentration: 1.745 gm / 30 mL Start Date: 11/19/19 Stop Date: 11/19/19 Status: Completedmagnesium oxide 800 mg, 2 tab, Route: PO, Drug form: TAB, PRN, Dosing Weight 100, kg, PRN Abnormal Lab Result, FOR ICU USE ONLY, Start date: 11/17/19 1:19:00 INFORMATICS PHARMACIST, Duration: 30 day, Stop date: 12/17/19 1:18:00 INFORMATICS PHARMACIST, 0 Notes: (Same as: Mag-Ox 400)Magnesium oxide [id number] elemental magnesiumDose=____mg magnesium oxide (___mg elemental magnesium) Start Date: 11/17/19 Stop Date: 11/27/19 Status: Discontinuedmagnesium sulfate 2 gm, 50 mL, Route: IVPB, Drug form: INJ, PRN, Dosing Weight 100, kg, PRN Abnormal Lab Result, Startdate: 11/17/19 1:19:00 INFORMATICS PHARMACIST, Duration: 30 day, Stop date: 12/17/19 1:18:00 INFORMATICS PHARMACIST, FOR ICU USE ONLY, 0 Notes: WASTE: F/P - Sink; E - Municipal Trash Bin Start Date: 11/17/19 Stop Date: 11/27/19 Status: Discontinuedmannitol 100 gm, 500 mL, Route: IVPB, Drug form: INJ, ONCE, Dosing Weight 100, kg, Start date: 11/16/19 16:41:00 INFORMATICS PHARMACIST, Stop date: 11/16/19 16:41:00 INFORMATICS PHARMACIST, 0 Notes: (Same as: Osmitrol)Infuse through 5 micron or smaller filter WASTE: F/P - Sink; E - Municipal Trash Bin Start Date: 11/16/19 Stop Date: 11/16/19 Status: Completedmannitol 25 gm, 125 mL, Route: IV, Drug form: INJ, Q6H, Dosing Weight 100, kg, Start date: 11/16/19 16:42:00 INFORMATICS PHARMACIST, Duration: 30 day, Stop date: 12/16/19 12:00:00 INFORMATICS PHARMACIST, 0 Notes: (Same as: Osmitrol)Infuse through 5 micron or smaller filter WASTE: F/P - Sink; E - Municipal Trash Bin Start Date: 11/16/19 Stop Date: 11/17/19 Status: Discontinuedmethocarbamol 500 mg oral tablet 500 mg = 1 tab, PO, QID, 0 Refill(s) Start Date: 12/19/19 Status: Suspendedmetoprolol (ANES) Route: IV, Drug form: INJ, ONCE, Stop date: 11/29/19 15:22:00 INFORMATICS PHARMACIST Start Date: 11/29/19 Stop Date: 11/29/19 Status: Completedmidazolam 2 mg, 2 mL, Route: IVP, Drug form: INJ, Q2H, Dosing Weight 100, kg, PRN Sedation, Start date: 11/17/19 14:20:00 INFORMATICS PHARMACIST, Duration: 30 day, Stop date: 12/17/19 14:19:00 INFORMATICS PHARMACIST, 0 Notes: (Same as: Versed) MEDICATION WASTE Product Size: 2 mgProduct Wasted: ___ mg Start Date: 11/17/19 Stop Date: 11/19/19 Status: Discontinuedmidazolam (ANES) Route: IV, Drug form: SOLN, ONCE, Stop date: 12/09/19 13:26:00 INFORMATICS PHARMACIST Start Date: 12/09/19 Stop Date: 12/09/19 Status: Completedmidazolam 50 mg in NS 50 mL (Titrate.) IV 50 mg 50 mg, 50 mL, Rate: Titrate, Start Dose: 1 mg/hr, Titration: Rebolus 1 mg IV and/or Titrate by 1 milligram/hour every 30 minutes, Goal(s): -0, Max Dose: 10 mg/hr, Route: IV, Dosing Weight 100 kg, TotalVolume: 50, Start date: 11/17/19 14:20:00 INFORMATICS PHARMACIST, Du... Notes: (Same as: Versed) Start Date: 11/17/19 Stop Date: 11/17/19 Status: DiscontinuedMiraLax 17 gm, 1 pkt, Route: PO, Drug form: PWDR, Daily, Dosing Weight 112.005, kg, Start date: 12/19/19 9:00:00 INFORMATICS PHARMACIST, Duration: 30 day, Stop date: 01/17/20 9:00:00 INFORMATICS PHARMACIST, 0 Notes: Dissolve in 8 oz of water or juice.(Same as: Miralax) Start Date: 12/19/19 Stop Date: 12/19/19 Status: DiscontinuedMucinex 600 mg, Route: PO, Drug form: ERTAB, Q12H, Dosing Weight 112.005, kg, Start date: 12/16/19 21:00:00 INFORMATICS PHARMACIST, Duration: 30 day, Stop date: 01/15/20 9:00:00 INFORMATICS PHARMACIST Start Date: 12/16/19 Stop Date: 12/16/19 Status: DeletedMucinex DM 1 tab, Route: PO, Drug Form: ERTAB, Dosing Weight 112.005, kg, Q12H, Start date: 12/16/19 21:00:00 INFORMATICS PHARMACIST, Duration: 7 day, Stop date: 12/23/19 9:00:00 INFORMATICS PHARMACIST, 0 Notes: (Same as: Guaifenex DM)"Do Not Crush" Start Date: 12/16/19 Stop Date: 12/16/19 Status: Discontinuednafcillin 2 gm, Route: IVPB, Drug form: PDR/INJ, ABXQ4H, Dosing Weight 112.005, kg, Start date: 11/27/19 17:00:00 INFORMATICS PHARMACIST, Duration: 6 day, Stop date: 12/03/19 13:00:00 INFORMATICS PHARMACIST, 0 Start Date: 11/27/19 Stop Date: 12/02/19 Status: Discontinuednafcillin (ANES) Route: IV, Drug form: INJ, ONCE, Stop date: 11/29/19 12:25:00 INFORMATICS PHARMACIST Start Date: 11/29/19 Stop Date: 11/29/19 Status: Completednaproxen 500 mg, 1 tab, Route: PO, Drug form: TAB, Q12H, Dosing Weight 100, kg, Start date: 11/15/19 21:00:00CST, Duration: 30 day, Stop date: 12/15/19 9:00:00 INFORMATICS PHARMACIST, 0 Notes: (Same as: Naprosyn) Take with food. Start Date: 11/15/19 Stop Date: 11/16/19 Status: Discontinuednaproxen 500 mg, 1 tab, Route: PO, Drug form: TAB, Q12H, Dosing Weight 112.005, kg, Start date: 11/27/19 21:00:00 INFORMATICS PHARMACIST, Duration: 30 day, Stop date: 12/27/19 9:00:00 INFORMATICS PHARMACIST, 0 Notes: (Same as: Naprosyn) Take with food. Start Date: 11/27/19 Stop Date: 12/12/19 Status: Discontinuedneostigmine (ANES) Route: IV, Drug form: INJ, ONCE, Stop date: 11/29/19 15:22:00 INFORMATICS PHARMACIST Start Date: 11/29/19 Stop Date: 11/29/19 Status: CompletedniCARdipine (ANES) 2500 microgram Route: IV, Drug form: INJ, Start date: 11/16/19 18:39:00 INFORMATICS PHARMACIST, Stop date: 11/16/19 19:39:00 INFORMATICS PHARMACIST Start Date: 11/16/19 Stop Date: 11/16/19 Status: CompletedniCARdipine (ANES) 2500 microgram Route: IV, Drug form: INJ, Start date: 11/16/19 18:39:00 INFORMATICS PHARMACIST, Stop date: 11/16/19 19:39:00 INFORMATICS PHARMACIST Start Date: 11/16/19 Stop Date: 11/16/19 Status: CompletedniCARdipine (ANES) 2500 microgram Route: IV, Drug form: INJ, Start date: 11/16/19 18:39:00 INFORMATICS PHARMACIST, Stop date: 11/16/19 19:39:00 INFORMATICS PHARMACIST Start Date: 11/16/19 Stop Date: 11/16/19 Status: CompletedniCARdipine 40 mg in NS 200 mL (Titrate.) IV 40 mg 40 mg, 200 mL, Rate: Titrate, Start Dose: 5 mg/hr, Titration: Titrate to goal, Goal(s): SBP <180,Max Dose: 15 mg/hr, Route: IV, Dosing Weight 112.005 kg, Total Volume: 200, Start date: 11/19/19 15:00:00 INFORMATICS PHARMACIST, Duration: 30 day, Stop date: 12/19/19 14:5... Start Date: 11/19/19 Stop Date: 11/22/19 Status: DiscontinuedNS 1,000 mL 1,000 mL, Rate: 100 ml/hr, Infuse over: 10 hr, Route: IV, Dosing Weight 100 kg, Total Volume: 1,000,Start date: 11/16/19 21:56:00 INFORMATICS PHARMACIST, Duration: 30 day, Stop date: 12/16/19 21:55:00 INFORMATICS PHARMACIST, 2.22, m2, 0 Start Date: 11/16/19 Stop Date: 11/19/19 Status: Discontinuednystatin 200,000 unit, 2 mL, Route: Swab Mouth, Drug form: SUSP, Q8H, Dosing Weight 112.005, kg, Start date: 11/29/19 16:00:00 INFORMATICS PHARMACIST, Duration: 30 day, Stop date: 12/29/19 8:00:00 INFORMATICS PHARMACIST, 0 Notes: (Same as:Mycostatin) Shake well. Start Date: 11/29/19 Stop Date: 12/19/19 Status: Discontinuednystatin 100,000 units/mL oral suspension 200,000 unit = 2 mL, Swab Mouth, Q8H, 0 Refill(s) Start Date: 12/19/19 Status: Suspendedocular lubricant 1 appl, Route: BOTH EYES, Q6H, Drug form: OINT, Start date: 11/16/19 0:00:00 INFORMATICS PHARMACIST, Duration: 30 day, Stop date: 12/15/19 18:00:00 INFORMATICS PHARMACIST, 0 Notes: (Same as: Lacri-Lube, Puralube, Duratears Naturale, Artificial Tears, and Tears Again ) Start Date: 11/16/19 Stop Date: 12/01/19 Status: DiscontinuedOmnipaque 350mg/ml 100 mL, Route: IVP, Drug Form: SOLN, Dosing Weight 100, kg, ONCALL, STAT, Start date: 11/16/19 0:50:00 INFORMATICS PHARMACIST, Duration: 1 doses or times, Dose = 2.2ml/kg, Max dose = 100ml -- "To be infused by RadiologyStaff ONLY" Start Date: 11/16/19 Stop Date: 11/16/19 Status: CompletedOmnipaque 350mg/ml 65 mL, Route: IVP, Drug Form: SOLN, Dosing Weight 112.005, kg, ONCALL, STAT, Start date: 11/19/19 18:59:00 INFORMATICS PHARMACIST, Duration: 1 doses or times, Dose = 2.2ml/kg, Max dose = 100ml -- "To be infused by Radiology Staff ONLY" Start Date: 11/19/19 Stop Date: 11/19/19 Status: CompletedOmnipaque 350mg/ml 150 mL, Route: IVP, Drug Form: SOLN, Dosing Weight 112.005, kg, ONCALL, STAT, Start date: 12/04/19 9:51:00 INFORMATICS PHARMACIST, Duration: 1 doses or times, Stop date: 12/05/19 0:00:00 INFORMATICS PHARMACIST, Dose = 2.2ml/kg, Max dose =150ml -- "To be infused by Radiology Staff ONLY", 0 Notes: (Same as:Omnipaque 350).WASTE: F/P - Black; E - Municipal Trash Bin Start Date: 12/04/19 Stop Date: 12/07/19 Status: CompletedOmnipaque 350mg/ml 100 mL, Route: IVP, Drug Form: SOLN, Dosing Weight 112.005, kg, ONCALL, STAT, Start date: 12/04/19 10:32:00 INFORMATICS PHARMACIST, Duration: 1 doses or times, Dose = 2.2ml/kg, Max dose = 100ml -- "To be infused by Radiology Staff ONLY" Start Date: 12/04/19 Stop Date: 12/04/19 Status: CompletedOmnipaque 350mg/ml 150 mL, Route: IVP, Drug Form: SOLN, Dosing Weight 100, kg, ONCALL, STAT, Start date: 11/17/19 23:40:00 INFORMATICS PHARMACIST, Duration: 1 doses or times, Dose = 2.2ml/kg, Max dose = 150ml -- "To be infused by Radiology Staff ONLY", 0 Notes: (Same as:Omnipaque 300).WASTE: F/P - Black; E - Municipal Trash Bin Start Date: 11/17/19 Stop Date: 11/18/19 Status: Completedondansetron (ANES) Route: IV, Drug form: INJ, ONCE, Stop date: 12/09/19 18:32:00 INFORMATICS PHARMACIST Start Date: 12/09/19 Stop Date: 12/09/19 Status: CompletedoxyCODONE 5 mg immediate release 5 mg, 1 tab, Route: PO, Drug form: TAB, Q4H, Dosing Weight 100, kg, PRN Pain Score 7-10, Start date:11/15/19 18:48:00 INFORMATICS PHARMACIST, Duration: 30 day, Stop date: 12/15/19 18:47:00 INFORMATICS PHARMACIST, 0 Notes: (Same as: Roxicodone) Start Date: 11/15/19 Stop Date: 12/01/19 Status: DiscontinuedoxyCODONE 5 mg oral tablet, immediate release 5 mg, 1 tab, Route: PO, Drug form: TAB, Q8H, Dosing Weight 112.005, kg, PRN Pain Score 7-10, Start date: 12/10/19 21:10:00 INFORMATICS PHARMACIST, Duration: 30 day, Stop date: 01/09/20 21:09:00 INFORMATICS PHARMACIST, 0 Notes: (Same as: Roxicodone) Start Date: 12/10/19 Stop Date: 12/19/19 Status: DiscontinuedPepcid 20 mg oral tablet 20 mg = 1 tab, PO, Q12H, 0 Refill(s) Start Date: 12/19/19 Status: SuspendedPepcid 20 mg oral tablet 20 mg, 1 tab, Route: PO, Drug form: TAB, Q12H, Dosing Weight 112.005, kg, Start date: 12/13/19 21:00:00 INFORMATICS PHARMACIST, Duration: 30 day, Stop date: 01/12/20 9:00:00 INFORMATICS PHARMACIST, 0 Notes: (Same as: Pepcid) Start Date: 12/13/19 Stop Date: 12/19/19 Status: DiscontinuedPhenergan 12.5 mg, 0.5 mL, Route: IVPB, Drug form: INJ, Q4H, Dosing Weight 112.005, kg, PRN Nausea & Vomiting, Start date: 12/01/19 9:32:00 INFORMATICS PHARMACIST, Duration: 30 day, Stop date: 12/31/19 9:31:00 INFORMATICS PHARMACIST, 0 Notes: Do not give IV push. (Same as: Phenergan) Start Date: 12/01/19 Stop Date: 12/03/19 Status: Discontinuedphenylephrine (ANES) Route: IV, Drug form: INJ, ONCE, Stop date: 12/09/19 13:36:00 INFORMATICS PHARMACIST Start Date: 12/09/19 Stop Date: 12/09/19 Status: Completedphenylephrine (ANES) Route: IV, Drug form: INJ, ONCE, Stop date: 12/09/19 17:41:00 INFORMATICS PHARMACIST Start Date: 12/09/19 Stop Date: 12/09/19 Status: Completedpolyethylene glycol 3350 oral powder for reconstitution PO, Daily, 0 Refill(s) Start Date: 12/19/19 Status: Suspendedpotassium chloride 20 mEq, 100 mL, Route: IVPB, Drug form: INJ, PRN, Dosing Weight 100, kg, PRN Abnormal Lab Result, Via central line, Start date: 11/17/19 1:19:00 INFORMATICS PHARMACIST, Duration: 30 day, Stop date: 12/17/19 1:18:00 INFORMATICS PHARMACIST, FOR ICU USE ONLY, 0 Notes: (Same as: KCL) Infuse no faster than 10 mEq/hr if given peripherally. Start Date: 11/17/19 Stop Date: 11/27/19 Status: Discontinuedpotassium chloride 10 mEq, 50 mL, Route: IVPB, Drug form: INJ, PRN, Dosing Weight 100, kg, PRN Abnormal Lab Result, Viaperipheral line, Start date: 11/17/19 1:19:00 INFORMATICS PHARMACIST, Duration: 30 day, Stop date: 12/17/19 1:18:00 INFORMATICS PHARMACIST, FOR ICU USE ONLY, 0 Notes: (Same as: KCL) Infuse over 2 hours. Start Date: 11/17/19 Stop Date: 11/27/19 Status: Discontinuedpotassium chloride 20 mEq, 1 tab, Route: PO, Drug form: ERTAB, PRN, Dosing Weight 100, kg, PRN Abnormal Lab Result, Start date: 11/17/19 1:19:00 INFORMATICS PHARMACIST, Duration: 30 day, Stop date: 12/17/19 1:18:00 INFORMATICS PHARMACIST, FOR ICU USE ONLY, 0 Notes: (Same as: K-Dur 20)"Do Not Crush" Give with food and full glass of waterFor patients unable to swallow tablet, dissolve in one half glass of water. Allow about 2 minutes for the tablets to disintegrate. Stir before giving to prepare slurry and administer.Please exclude Patients with feedingtube less than 14 Samoan (Dobhoff, J-tube etc) and pediatric and patients. Start Date: 11/17/19 Stop Date: 11/27/19 Status: Discontinuedpotassium chloride 20 mEq, 15 mL, Route: NJ, Drug form: LIQ, PRN, Dosing Weight 100, kg, PRN Abnormal Lab Result, Startdate: 11/17/19 1:19:00 INFORMATICS PHARMACIST, Duration: 30 day, Stop date: 12/17/19 1:18:00 INFORMATICS PHARMACIST, FOR ICU USE ONLY, 0 Notes: (Same as: Potassium Chloride) Start Date: 11/17/19 Stop Date: 11/27/19 Status: Discontinuedpotassium phosphate + Sodium Chloride 0.9% IV 250 mL 15 mmol, 5 mL, Route: IVPB, PRN, Dosing Weight 100, kg, PRN Abnormal Lab Result, Start date: 11/17/19 1:19:00 INFORMATICS PHARMACIST, Duration: 30 day, Stop date: 12/17/19 1:18:00 INFORMATICS PHARMACIST, FOR ICU USE ONLY, 0 Notes: (Same as: K Phosphate.)Do not infuse phosphorous concurrently in the same line as TPN or IVF that contains calcium. For double lumen central lines, phosphorous may be infused in a separate lumenfrom TPN. 1 mMol phoshate has 1.47 mEq potassium Infuse over 4 hours Start Date: 11/17/19 Stop Date: 11/27/19 Status: Discontinuedpotassium phosphate + Sodium Chloride 0.9% IV 250 mL 30 mmol, 10 mL, Route: IVPB, PRN, Dosing Weight 100, kg, PRN Abnormal Lab Result, Start date: 11/17/19 1:19:00 INFORMATICS PHARMACIST, Duration: 30 day, Stop date: 12/17/19 1:18:00 INFORMATICS PHARMACIST, FOR ICU USE ONLY, 0 Notes: (Same as: K Phosphate.)Do not infuse phosphorous concurrently in the same line as TPN or IVF that contains calcium. For double lumen central lines, phosphorous may be infused in a separate lumenfrom TPN. 1 mMol phoshate has 1.47 mEq potassium Infuse over 4 hours Start Date: 11/17/19 Stop Date: 11/27/19 Status: Discontinuedpotassium phosphate + Sodium Chloride 0.9% IV 250 mL 45 mmol, 15 mL, Route: IVPB, PRN, Dosing Weight 100, kg, PRN Abnormal Lab Result, Start date: 11/17/19 1:19:00 INFORMATICS PHARMACIST, Duration: 30 day, Stop date: 12/17/19 1:18:00 INFORMATICS PHARMACIST, FOR ICU USE ONLY, 0 Notes: (Same as: K Phosphate.)Do not infuse phosphorous concurrently in the same line as TPN or IVF that contains calcium. For double lumen central lines, phosphorous may be infused in a separate lumenfrom TPN. 1 mMol phoshate has 1.47 mEq potassium Infuse over 4 hours Start Date: 11/17/19 Stop Date: 11/27/19 Status: Discontinuedpotassium phosphate-sodium phosphate 250 mg-280 mg-160 mg oral powder for reconstitution 2 pkt, Route: PO, Drug Form: PDR/REC, Dosing Weight 100, kg, PRN, PRN Abnormal Lab Result, FOR ICU USE ONLY, Start date: 11/17/19 1:19:00 INFORMATICS PHARMACIST, Duration: 30 day, Stop date: 12/17/19 1:18:00 INFORMATICS PHARMACIST, 0 Notes: (Same as: Phos-NaK) Each 1.5 gm pkt has 250mg phosphorous. Mix w/2.5oz water and stir. Start Date: 11/17/19 Stop Date: 11/27/19 Status: DiscontinuedPrevacid 30 mg, 10 mL, Route: GT, Drug form: SUSP, Before Breakfast, Dosing Weight 112.005, kg, Start date: 11/25/19 7:30:00 INFORMATICS PHARMACIST, Duration: 30 day, Stop date: 12/24/19 7:30:00 INFORMATICS PHARMACIST, 0 Notes: Take 1 hour before or 2 hours after meal; Expires in 14 days. Shake well before use. (Same as:Prevacid) Compounded Product - formulation not commercially available Start Date: 11/25/19 Stop Date: 11/27/19 Status: Discontinuedpropofol (ANES) Route: IV, Drug form: INJ, ONCE, Stop date: 11/29/19 12:15:00 INFORMATICS PHARMACIST Start Date: 11/29/19 Stop Date: 11/29/19 Status: Completedpropofol (ANES) Route: IV, Drug form: INJ, ONCE, Stop date: 11/16/19 19:12:00 INFORMATICS PHARMACIST Start Date: 11/16/19 Stop Date: 11/16/19 Status: Completedpropofol (ANES) 10 mg Route: IV, Drug form: INJ, Start date: 11/16/19 18:06:00 INFORMATICS PHARMACIST, Stop date: 11/16/19 19:06:00 INFORMATICS PHARMACIST Start Date: 11/16/19 Stop Date: 11/16/19 Status: Completedpropofol (ANES) 10 mg Route: IV, Drug form: INJ, Start date: 11/29/19 10:58:00 INFORMATICS PHARMACIST, Stop date: 11/29/19 11:58:00 INFORMATICS PHARMACIST Start Date: 11/29/19 Stop Date: 11/29/19 Status: Completedpropofol (ANES) 10 mg Route: IV, Drug form: INJ, Start date: 11/16/19 18:06:00 INFORMATICS PHARMACIST, Stop date: 11/16/19 19:06:00 INFORMATICS PHARMACIST Start Date: 11/16/19 Stop Date: 11/16/19 Status: Completedpropofol 10 mg/mL (Titrate.) IV 1,000 mg 1,000 mg, 100 mL, Rate: Titrate, Start Dose: 5 microgram/kg/min, Titration: 5 microgram/kg/min every15 min, Goal(s): 0, Max Dose: 50 microgram/kg/min, Route: IV, Dosing Weight 112.005 kg, Total Volume: 100, Start date: 11/27/19 19:57:00 INFORMATICS PHARMACIST, Duration... Notes: If Diprivan - change bottle & tubing every 12 hrPer state nursing law propofol can only be given by a nurse if patient is intubated or being intubated (unless the nurse is a SPECIALTY FINISHING UTILITY PERSON). Same as:Diprivan Start Date: 11/27/19 Stop Date: 12/01/19 Status: Discontinuedpropofol 10 mg/mL (Titrate.) IV 1,000 mg 1,000 mg, 100 mL, Rate: Titrate, Start Dose: 5 microgram/kg/min, Titration: 5 microgram/kg/min every15 min, Goal(s): less [id number], Max Dose: 50 microgram/kg/min, Route: IV, Dosing Weight 100 kg, TotalVolume: 100, Start date: 11/15/19 18:16:00 INFORMATICS PHARMACIST, D... Notes: If Diprivan - change bottle & tubing every 12 hrPer state nursing law propofol can only be given by a nurse if patient is intubated or being intubated (unless the nurse is a SPECIALTY FINISHING UTILITY PERSON). Same as:Diprivan Start Date: 11/15/19 Stop Date: 11/23/19 Status: Discontinuedprotamine 100 mg, Route: IVP, Drug form: INJ, ONCE, Dosing Weight 100, kg, Start date: 11/16/19 17:32:00 INFORMATICS PHARMACIST, Stop date: 11/16/19 17:32:00 INFORMATICS PHARMACIST Start Date: 11/16/19 Stop Date: 11/16/19 Status: Discontinuedprotamine 50 mg, 5 mL, Route: IVP, Drug form: INJ, ONCE, Dosing Weight 100, kg, Start date: 11/16/19 17:36:00 INFORMATICS PHARMACIST, Stop date: 11/16/19 17:36:00 INFORMATICS PHARMACIST, 0 Start Date: 11/16/19 Stop Date: 11/16/19 Status: Completedprotamine (ANES) Route: IV, Drug form: INJ, ONCE, Stop date: 11/16/19 18:46:00 INFORMATICS PHARMACIST Start Date: 11/16/19 Stop Date: 11/16/19 Status: CompletedProtonix 40 mg, Route: IVP, Drug form: INJ, Q12H, Dosing Weight 112.005, kg, Patient is NPO, Start date: 11/23/19 9:00:00 INFORMATICS PHARMACIST, Duration: 30 day, Stop date: 12/22/19 21:00:00 INFORMATICS PHARMACIST, 0 Notes: For IV push reconstitute with 10 ml 0.9% sodium chloride and push over 2 minutes. (Same as: Protonix) Start Date: 11/23/19 Stop Date: 11/24/19 Status: DiscontinuedProtonix 40 mg, Route: IVP, BID, Dosing Weight 112.005, kg, Priority: NOW, Start date: 11/23/19 6:53:00 INFORMATICS PHARMACIST, Duration: 30 day, Stop date: 12/22/19 17:00:00 INFORMATICS PHARMACIST Start Date: 11/23/19 Stop Date: 11/23/19 Status: Deletedpsyllium PO, TID, 0 Refill(s) Start Date: 12/19/19 Status: SuspendedReglan 10 mg, 2 mL, Route: IVP, Drug form: INJ, Q6H, Dosing Weight 112.005, kg, Start date: 12/01/19 6:00:00 INFORMATICS PHARMACIST, Duration: 30 day, Stop date: 12/31/19 0:00:00 INFORMATICS PHARMACIST, 0 Notes: (Same as: Reglan) Start Date: 12/01/19 Stop Date: 12/06/19 Status: Discontinuedremove patch 1 patch, Route: TOP, Q24H, Drug form: ERFILM, Start date: 11/16/19 7:00:00 INFORMATICS PHARMACIST, Duration: 30 day, Stop date: 01/14/20 8:00:00 INFORMATICS PHARMACIST, 0 Notes: Remove patch 12 hours after application each day. Start Date: 11/16/19 Stop Date: 12/19/19 Status: DiscontinuedRobaxin 500 mg, 1 tab, Route: PO, Drug form: TAB, QID, Dosing Weight 112.005, kg, Start date: 12/15/19 13:00:00 INFORMATICS PHARMACIST, Duration: 30 day, Stop date: 01/14/20 9:00:00 INFORMATICS PHARMACIST, 0 Notes: (Same as:Robaxin) Start Date: 12/15/19 Stop Date: 12/19/19 Status: DiscontinuedRobitussin-DM 10 mL, Route: PO, Drug Form: SYRP, Q4H, Start date: 12/16/19 16:00:00 INFORMATICS PHARMACIST, Duration: 30 day, Stop date: 01/15/20 12:00:00 INFORMATICS PHARMACIST, 0 Notes: (dextromethorphan-guaifenesin 10-100mg/5ml 10 ml oral SOLN ud) (Same as: Robitussin DM) Start Date: 12/16/19 Stop Date: 12/19/19 Status: Discontinuedrocuronium (ANES) Route: IV, Drug form: INJ, ONCE, Stop date: 12/09/19 13:26:00 INFORMATICS PHARMACIST Start Date: 12/09/19 Stop Date: 12/09/19 Status: Completedrocuronium (ANES) Route: IV, Drug form: INJ, ONCE, Stop date: 11/29/19 12:30:00 INFORMATICS PHARMACIST Start Date: 11/29/19 Stop Date: 11/29/19 Status: Completedrocuronium (ANES) Route: IV, Drug form: INJ, ONCE, Stop date: 11/16/19 19:12:00 INFORMATICS PHARMACIST Start Date: 11/16/19 Stop Date: 11/16/19 Status: Completedrocuronium (ANES) Route: IV, Drug form: INJ, ONCE, Stop date: 12/09/19 17:36:00 INFORMATICS PHARMACIST Start Date: 12/09/19 Stop Date: 12/09/19 Status: CompletedSaline Flush 0.9% 10 mL, Route: IVP, Drug Form: INJ, Dosing Weight 100, kg, PRN, PRN Line Flush, Start date: 11/15/19 16:04:00 INFORMATICS PHARMACIST, Duration: 30 day, Stop date: 12/15/19 16:03:00 INFORMATICS PHARMACIST, 0 Notes: Same as: BD Posiflush Sterile Start Date: 11/15/19 Stop Date: 11/19/19 Status: Discontinuedsenna 17.6 mg, 10 mL, Route: GT, Drug form: SYRP, Q12H, Start date: 11/20/19 21:00:00 INFORMATICS PHARMACIST, Duration: 30 day, Stop date: 12/20/19 9:00:00 INFORMATICS PHARMACIST, 0 Notes: (Same as: Senokot) Start Date: 11/20/19 Stop Date: 11/20/19 Status: Deletedsenna 17.6 mg, 10 mL, Route: GT, Drug form: SYRP, Q12H, Start date: 11/20/19 23:59:00 INFORMATICS PHARMACIST, Duration: 30 day, Stop date: 12/20/19 21:00:00 INFORMATICS PHARMACIST, 0 Notes: (Same as: Senokot) Start Date: 11/20/19 Stop Date: 11/27/19 Status: DiscontinuedSEROquel 100 mg, 1 tab, Route: GT, Drug form: TAB, Q12H, Dosing Weight 112.005, kg, Start date: 12/05/19 9:00:00 INFORMATICS PHARMACIST, Duration: 30 day, Stop date: 01/03/20 21:00:00 INFORMATICS PHARMACIST, 0 Notes: (Same as: SEROquel) Start Date: 12/05/19 Stop Date: 12/07/19 Status: DiscontinuedSEROquel 50 mg, 1 tab, Route: PO, Drug form: TAB, ONCE, Dosing Weight 112.005, kg, Start date: 11/27/19 9:24:00 INFORMATICS PHARMACIST, Stop date: 11/27/19 9:24:00 INFORMATICS PHARMACIST, 0 Notes: (Same as: SEROquel) Start Date: 11/27/19 Stop Date: 11/27/19 Status: CompletedSEROquel 150 mg, 3 tab, Route: GT, Drug form: TAB, Q12H, Dosing Weight 112.005, kg, Start date: 12/04/19 9:00:00 INFORMATICS PHARMACIST, Duration: 30 day, Stop date: 01/02/20 21:00:00 INFORMATICS PHARMACIST, 0 Notes: (Same as: SEROquel) Start Date: 12/04/19 Stop Date: 12/05/19 Status: DiscontinuedSEROquel 50 mg, Route: PO, Q12H, Dosing Weight 112.005, kg, Start date: 12/08/19 9:00:00 INFORMATICS PHARMACIST, Duration: 30 day, Stop date: 01/06/20 21:00:00 INFORMATICS PHARMACIST Start Date: 12/08/19 Stop Date: 12/08/19 Status: DeletedSEROquel 50 mg, 2 tab, Route: NG, Drug form: TAB, Q12H, Start date: 12/08/19 21:00:00 INFORMATICS PHARMACIST, Duration: 30 day, Stop date: 01/07/20 9:00:00 INFORMATICS PHARMACIST, 0 Notes: (Same as: SEROquel) Start Date: 12/08/19 Stop Date: 12/09/19 Status: DiscontinuedSEROquel 150 mg, 3 tab, Route: GT, Drug form: TAB, Q8H, Dosing Weight 112.005, kg, Start date: 11/22/19 18:00:00 INFORMATICS PHARMACIST, Duration: 30 day, Stop date: 12/28/19 8:00:00 INFORMATICS PHARMACIST, 0 Notes: (Same as: SEROquel) Start Date: 11/22/19 Stop Date: 12/04/19 Status: DiscontinuedSEROquel 75 mg, 3 tab, Route: GT, Drug form: TAB, Q8H, Dosing Weight 112.005, kg, Start date: 11/19/19 16:00:00 INFORMATICS PHARMACIST, Duration: 30 day, Stop date: 12/19/19 8:00:00 INFORMATICS PHARMACIST, 0 Notes: (Same as: SEROquel) Start Date: 11/19/19 Stop Date: 11/22/19 Status: DiscontinuedSEROquel 100 mg, 1 tab, Route: GT, Drug form: TAB, Bedtime, Dosing Weight 112.005, kg, Start date: 12/07/19 21:00:00 INFORMATICS PHARMACIST, Duration: 30 day, Stop date: 01/05/20 21:00:00 INFORMATICS PHARMACIST, 0 Notes: (Same as: SEROquel) Start Date: 12/07/19 Stop Date: 12/08/19 Status: DiscontinuedSEROquel 50 mg, 1 tab, Route: PO, Drug form: TAB, After Breakfast, Dosing Weight 112.005, kg, Start date: 12/08/19 8:30:00 INFORMATICS PHARMACIST, Duration: 30 day, Stop date: 01/06/20 8:30:00 INFORMATICS PHARMACIST, 0 Notes: (Same as: SEROquel) Start Date: 12/08/19 Stop Date: 12/08/19 Status: DiscontinuedSEROquel 50 mg, 1 tab, Route: NG, Drug form: TAB, Bedtime, Start date: 12/09/19 21:00:00 INFORMATICS PHARMACIST, Duration: 30 day, Stop date: 01/07/20 21:00:00 INFORMATICS PHARMACIST, 0 Notes: (Same as: SEROquel) Start Date: 12/09/19 Stop Date: 12/10/19 Status: Discontinuedsimethicone 80 mg, 1 tab, Route: PEG, Drug form: CHEWTAB, TID-After Meals, Dosing Weight 112.005, kg, PRN as needed for gas, Start date: 11/30/19 10:36:00 INFORMATICS PHARMACIST, Duration: 30 day, Stop date: 12/30/19 10:35:00 INFORMATICS PHARMACIST, 0 Notes: (Same as: Mylicon) Start Date: 11/30/19 Stop Date: 11/30/19 Status: Discontinuedsimethicone 80 mg, 1 tab, Route: PEG, Drug form: CHEWTAB, Q8H, Dosing Weight 112.005, kg, PRN as needed for gas,Start date: 11/30/19 10:38:00 INFORMATICS PHARMACIST, Duration: 30 day, Stop date: 12/30/19 10:37:00 INFORMATICS PHARMACIST, 0 Notes: (Same as: Mylicon) Start Date: 11/30/19 Stop Date: 12/19/19 Status: Discontinuedsimethicone 80 mg oral tablet, chewable 80 mg = 1 tab, PEG, Q8H, PRN as needed for gas, 0 Refill(s) Start Date: 12/19/19 Status: SuspendedSodium Chloride 0.9% (titrate) 250 mL 250 mL, Rate: To prime line and flush remaining blood products., Dosing Weight 112.005, kg, Route: IV, Total Volume: 250, Priority: Routine, Start Date: 12/04/19 3:46:00 INFORMATICS PHARMACIST, Duration: 1 day, Stop date: 12/05/19 3:45:00 INFORMATICS PHARMACIST, Replace Every: 24 hr, 0 Start Date: 12/04/19 Stop Date: 12/05/19 Status: CompletedSodium Chloride 0.9% (titrate) 250 mL 250 mL, Rate: To prime line and flush remaining blood products., Dosing Weight 112.005, kg, Route: IV, Total Volume: 250, Priority: Routine, Start Date: 12/04/19 4:20:00 INFORMATICS PHARMACIST, Duration: 1 day, Stop date: 12/05/19 4:19:00 INFORMATICS PHARMACIST, Replace Every: 24 hr, 0 Start Date: 12/04/19 Stop Date: 12/05/19 Status: CompletedSodium Chloride 0.9% IV (ANES) 90 mL + levETIRAcetam (ANES) 1000 mg Route: IV, Drug form: INJ, Start date: 11/16/19 18:14:00 INFORMATICS PHARMACIST, Stop date: 11/16/19 19:14:00 INFORMATICS PHARMACIST Start Date: 11/16/19 Stop Date: 11/16/19 Status: CompletedSodium Chloride 0.9% IV (ANES) 90 mL + levETIRAcetam (ANES) 1000 mg Route: IV, Drug form: INJ, Start date: 11/16/19 18:14:00 INFORMATICS PHARMACIST, Stop date: 11/16/19 19:14:00 INFORMATICS PHARMACIST Start Date: 11/16/19 Stop Date: 11/16/19 Status: CompletedSodium Chloride 0.9% IV (ANES) 90 mL + levETIRAcetam (ANES) 1000 mg Route: IV, Drug form: INJ, Start date: 11/16/19 18:14:00 INFORMATICS PHARMACIST, Stop date: 11/16/19 19:14:00 INFORMATICS PHARMACIST Start Date: 11/16/19 Stop Date: 11/16/19 Status: Completedsodium chloride 1 gm oral tablet 4 gm, 4 tab, Route: GT, Drug form: TAB, Q6H-02, Dosing Weight 112.005, kg, Priority: NOW, Start date: 11/27/19 7:30:00 INFORMATICS PHARMACIST, Duration: 30 day, Stop date: 12/27/19 2:00:00 INFORMATICS PHARMACIST, 0 Start Date: 11/27/19 Stop Date: 11/27/19 Status: Discontinuedsodium chloride 23.4% (BOLUS) 240 mEq, 60 mL, 60 ml/hr, Infuse Over: 60 minutes, Route: IV, 60, Drug form: INJ, ONCE, Dosing Weight 100 kg, Start date: 11/16/19 17:17:00 INFORMATICS PHARMACIST, Stop date: 11/16/19 17:17:00 INFORMATICS PHARMACIST, 0 Start Date: 11/16/19 Stop Date: 11/16/19 Status: CompletedSodium Chloride 3% inhalation solution 4 mL, Route: NEB, Drug Form: SOLN, Dosing Weight 112.005, kg, RQ4H, Routine, Start date: 11/19/19 11:00:00 INFORMATICS PHARMACIST, Duration: 30 day, Stop date: 12/19/19 7:00:00 INFORMATICS PHARMACIST, 0 Notes: SEE RT DOCUMENTATION (Same as: Hypertonic Saline 3%, Inhalation) Start Date: 11/19/19 Stop Date: 11/24/19 Status: Discontinuedsodium phosphate + Sodium Chloride 0.9% IV 250 mL 15 mmol, 5 mL, Route: IVPB, PRN, Dosing Weight 100, kg, PRN Abnormal Lab Result, Start date: 11/17/19 1:19:00 INFORMATICS PHARMACIST, Duration: 30 day, Stop date: 12/17/19 1:18:00 INFORMATICS PHARMACIST, FOR ICU USE ONLY, 0 Notes: Infuse over 4 hour. Do not infuse phosphorous concurrently in the same line as TPN or IVF that contains calcium. For double lumen central lines, phosphorous may be infused in a separate lumen from TPN. Start Date: 11/17/19 Stop Date: 11/27/19 Status: Discontinuedsodium phosphate + Sodium Chloride 0.9% IV 250 mL 30 mmol, 10 mL, Route: IVPB, PRN, Dosing Weight 100, kg, PRN Abnormal Lab Result, Start date: 11/17/19 1:19:00 INFORMATICS PHARMACIST, Duration: 30 day, Stop date: 12/17/19 1:18:00 INFORMATICS PHARMACIST, FOR ICU USE ONLY, 0 Notes: Infuse over 4 hour. Do not infuse phosphorous concurrently in the same line as TPN or IVF that contains calcium. For double lumen central lines, phosphorous may be infused in a separate lumen from TPN. Start Date: 11/17/19 Stop Date: 11/27/19 Status: Discontinuedsodium phosphate + Sodium Chloride 0.9% IV 250 mL 45 mmol, 15 mL, Route: IVPB, PRN, Dosing Weight 100, kg, PRN Abnormal Lab Result, Start date: 11/17/19 1:19:00 INFORMATICS PHARMACIST, Duration: 30 day, Stop date: 12/17/19 1:18:00 INFORMATICS PHARMACIST, FOR ICU USE ONLY, 0 Notes: Infuse over 4 hour. Do not infuse phosphorous concurrently in the same line as TPN or IVF that contains calcium. For double lumen central lines, phosphorous may be infused in a separate lumen from TPN. Start Date: 11/17/19 Stop Date: 11/27/19 Status: Discontinuedsterile water INJ 1000 ml 457.25 mL + sodium chloride 23.4% IV 171 mEq 457.25 mL, Rate: 999 ml/hr, Infuse over: 0.5 hr, Route: IV, Dosing Weight 112.005 kg, Total Volume: 500, Start date: 11/27/19 7:31:00 INFORMATICS PHARMACIST, Duration: 2 hr, Stop date: 11/27/19 9:30:00 INFORMATICS PHARMACIST, For IMU and ICU use only. See Order Comments!!, 2.35, m2, 0 Start Date: 11/27/19 Stop Date: 11/27/19 Status: Completedsugammadex 500 mg, 5 mL, Route: IV, Drug form: SOLN, ONCALL, Start date: 12/09/19 23:00:00 INFORMATICS PHARMACIST, Duration: 1 day, Stop date: 12/12/19 10:30:00 INFORMATICS PHARMACIST, 0, OR 2 Satellite Notes: (Same as: Bridion) Start Date: 12/09/19 Stop Date: 12/19/19 Status: Discontinuedsugammadex (ANES) Route: IV, Drug form: SOLN, ONCE, Stop date: 12/09/19 18:32:00 INFORMATICS PHARMACIST Start Date: 12/09/19 Stop Date: 12/09/19 Status: Completedtramadol 50 mg, 1 tab, Route: PO, Drug form: TAB, Q6H, Dosing Weight 100, kg, PRN Pain Score 4-6, Do NOT use for patients with a past medical history of seizures, Start date: 11/15/19 18:48:00 INFORMATICS PHARMACIST, Duration: 30day, Stop date: 12/15/19 18:47:00 INFORMATICS PHARMACIST, 0 Notes: Not to exceed 400mg/day. (Same As: Ultram) Start Date: 11/15/19 Stop Date: 11/27/19 Status: Discontinuedtramadol 100 mg, 2 tab, Route: PO, Drug form: TAB, Q6H, Dosing Weight 112.005, kg, PRN Pain Score 7-10, Startdate: 12/01/19 9:30:00 INFORMATICS PHARMACIST, Duration: 30 day, Stop date: 12/31/19 9:29:00 INFORMATICS PHARMACIST, 0 Notes: Not to exceed 400mg/day. (Same As: Ultram) Start Date: 12/01/19 Stop Date: 12/10/19 Status: Discontinuedtramadol 100 mg, 2 tab, Route: PO, Drug form: TAB, Q6H, Dosing Weight 112.005, kg, Start date: 11/27/19 18:00:00 INFORMATICS PHARMACIST, Duration: 30 day, Stop date: 12/27/19 12:00:00 INFORMATICS PHARMACIST, 0 Notes: Not to exceed 400mg/day. (Same As: Ultram) Start Date: 11/27/19 Stop Date: 12/01/19 Status: Discontinuedtramadol 50 mg oral tablet 50 mg, 1 tab, Route: PO, Drug form: TAB, Q6H, Dosing Weight 112.005, kg, PRN Pain Score 7-10, Start date: 12/10/19 10:34:00 INFORMATICS PHARMACIST, Duration: 30 day, Stop date: 01/09/20 10:33:00 INFORMATICS PHARMACIST, 0 Notes: Not to exceed 400mg/day. (Same As: Ultram) Start Date: 12/10/19 Stop Date: 12/19/19 Status: Discontinuedtramadol 50 mg oral tablet 50 mg = 1 tab, PO, Q6H, PRN Pain Score 7-10, 0 Refill(s) Start Date: 12/19/19 Status: SuspendedTums 500 mg, 1 tab, Route: CHEW, Drug form: CHEWTAB, Daily, Dosing Weight 112.005, kg, PRN as needed for dyspepsia, Start date: 12/12/19 18:12:00 INFORMATICS PHARMACIST, Duration: 30 day, Stop date: 01/11/20 18:11:00 INFORMATICS PHARMACIST, 0 Notes: (Same As: Tums)Calcium Carbonate 500 mg = 200 mg elemental calcium Dose = mg calcium carbonate ( mg elemental calcium) Start Date: 12/12/19 Stop Date: 12/19/19 Status: DiscontinuedTylenol 1,000 mg, 2 tab, Route: PO, Drug form: TAB, Q6H, Dosing Weight 112.005, kg, Start date: 11/27/19 18:00:00 INFORMATICS PHARMACIST, Duration: 30 day, Stop date: 12/27/19 12:00:00 INFORMATICS PHARMACIST, 0 Notes: Max acetaminophen 4000 mg/day (4 gm/day). (Same as: Tylenol Extra Strength) Start Date: 11/27/19 Stop Date: 12/19/19 Status: DiscontinuedUnasyn 3 gm, Route: IVPB, Drug form: PDR/INJ, ABXQ6H, Dosing Weight 112.005, kg, Start date: 11/25/19 12:00:00 INFORMATICS PHARMACIST, Duration: 30 day, Stop date: 12/25/19 6:00:00 INFORMATICS PHARMACIST, 0 Notes: Dosing based on Ampicillin component (Same as: Unasyn) Start Date: 11/25/19 Stop Date: 11/26/19 Status: DiscontinuedUnasyn 3 gm, Route: IVPB, Drug form: PDR/INJ, Q8H, Dosing Weight 112.005, kg, Start date: 11/23/19 16:00:00CST, Duration: 30 day, Stop date: 12/23/19 8:00:00 INFORMATICS PHARMACIST, 0 Notes: Dosing based on Ampicillin component (Same as: Unasyn) Start Date: 11/23/19 Stop Date: 11/25/19 Status: Discontinuedvalproic acid 250 mg/5 mL oral syrup (Depakene) 500 mg, 10 mL, Route: GT, Drug form: SYRP, Q8H, Dosing Weight 112.005, kg, Start date: 12/09/19 16:00:00 INFORMATICS PHARMACIST, Duration: 30 day, Stop date: 01/08/20 8:00:00 INFORMATICS PHARMACIST, 0 Notes: (Same as: Depekene) Start Date: 12/09/19 Stop Date: 12/15/19 Status: Discontinuedvalproic acid 250 mg/5 mL oral syrup (Depakene) 750 mg, 15 mL, Route: GT, Drug form: SYRP, Q8H, Dosing Weight 112.005, kg, Priority: NOW, Start date: 11/26/19 9:47:00 INFORMATICS PHARMACIST, Duration: 30 day, Stop date: 12/26/19 8:00:00 INFORMATICS PHARMACIST, 0 Notes: (Same As: Depakene) Start Date: 11/26/19 Stop Date: 12/09/19 Status: Discontinuedvancomycin 2,000 mg, 500 mL, Route: IV, Drug form: SOLN, ONCE, Dosing Weight 112.005, kg, Start date: 12/01/19 16:22:00 INFORMATICS PHARMACIST, Stop date: 12/01/19 16:22:00 INFORMATICS PHARMACIST, Pediatric Dosing, ABX Indication: Pneumonia, 0 Notes: TIME CRITICAL MEDICATIONSame as: Vancocin Infusion rate< 1000 mg: infuse over 1 [id number] - 1500 mg: infuse over 1.5 [id number] - 2000 mg: infuse over 2 hours> 2001 mg: infuse over 2.5 hours Start Date: 12/01/19 Stop Date: 12/01/19 Status: Completedvancomycin 1.5 gm, 250 mL, Route: IV, Drug form: INJ, ABXQ8H, Dosing Weight 112.005, kg, Start date: 11/26/19 20:00:00 INFORMATICS PHARMACIST, Duration: 7 day, Stop date: 12/03/19 12:00:00 INFORMATICS PHARMACIST, ABX Indication: Pneumonia, 0 Notes: TIME CRITICAL MEDICATIONSame as: Vancocin-NS (premixed)Infusion rate< 1000 mg: infuse over1 [id number] - 1500 mg: infuse over 1.5 [id number] - 2000 mg: infuse over 2 hours> 2001 mg: infuse over 2.5 hours Start Date: 11/26/19 Stop Date: 11/27/19 Status: Discontinuedvancomycin 2 gm, 500 mL, Route: IV, Drug form: SOLN, ONCE, Dosing Weight 112.005, kg, Priority: STAT, Start date: 11/26/19 9:56:00 INFORMATICS PHARMACIST, Stop date: 11/26/19 9:56:00 INFORMATICS PHARMACIST, ABX Indication: Pneumonia, 0 Notes: TIME CRITICAL MEDICATIONSame as: Vancocin Infusion rate< 1000 mg: infuse over 1 [id number] - 1500 mg: infuse over 1.5 [id number] - 2000 mg: infuse over 2 hours> 2001 mg: infuse over 2.5 hours Start Date: 11/26/19 Stop Date: 11/26/19 Status: Completedvancomycin + Sodium Chloride 0.9% IV 250 mL 1.75 gm, Route: IVPB, ABXQ8H, Dosing Weight 112.005, kg, Start date: 12/02/19 0:00:00 INFORMATICS PHARMACIST, Duration:10 day, Stop date: 12/11/19 16:00:00 INFORMATICS PHARMACIST, ABX Indication: Bacteremia, 0 Notes: TIME CRITICAL MEDICATION(Same As: Vancocin)Infusion rate< 1000 mg: infuse over 1 [id number] - 1500 mg: infuse over 1.5 hoursVancomycin FOR IV SET [id number] - 2000 mg: infuse over 2 hours>2001 mg: infuse over 2.5 hoursFor adult patients only: Round to nearest 250 mg per Medical Staff approval MEDICATION WASTE Product Size: 1000 mgProduct Wasted: ___ mg Start Date: 12/02/19 Stop Date: 12/03/19 Status: DiscontinuedVersed 2 mg, Route: IVP, ONCE, Dosing Weight 112.005, kg, Start date: 12/01/19 13:17:00 INFORMATICS PHARMACIST, Stop date: 12/01/19 13:17:00 INFORMATICS PHARMACIST Start Date: 12/01/19 Stop Date: 12/01/19 Status: CompletedVersed 2 mg, 2 mL, Route: IVP, Drug form: INJ, ONCE, Dosing Weight 112.005, kg, PRN Agitation, Start date: 12/04/19 8:52:00 INFORMATICS PHARMACIST, 0 Notes: (Same as: Versed) MEDICATION WASTE Product Size: 2 mgProduct Wasted: ___ mg Start Date: 12/04/19 Stop Date: 12/04/19 Status: CompletedVersed 2 mg, 2 mL, Route: IVP, Drug form: INJ, ONCE, Dosing Weight 100, kg, Priority: STAT, Start date: 11/15/19 16:15:00 INFORMATICS PHARMACIST, Stop date: 11/15/19 16:15:00 INFORMATICS PHARMACIST, 0 Notes: (Same as: Versed) MEDICATION WASTE Product Size: 2 mgProduct Wasted: ___ mg Start Date: 11/15/19 Stop Date: 11/15/19 Status: CompletedVersed 5 mg, 5 mL, Route: IV, Drug form: SOLN, ONCE, Dosing Weight 112.005, kg, Start date: 11/27/19 15:57:00 INFORMATICS PHARMACIST, Stop date: 11/27/19 15:57:00 INFORMATICS PHARMACIST, 0 Notes: Same as: Versed ( Preservative Free) MEDICATION WASTE Product Size: 5 mgProduct Wasted: ___ mg Start Date: 11/27/19 Stop Date: 11/27/19 Status: CompletedVersed 5 mg, 5 mL, Route: IVP, Drug form: INJ, ONCALL, Dosing Weight 112.005, kg, Start date: 12/07/19 13:00:00 INFORMATICS PHARMACIST, Duration: 1 day, Stop date: 12/08/19 12:59:00 INFORMATICS PHARMACIST, 0 Notes: (Same as: Versed) MEDICATION WASTE Product Size: 2 mgProduct Wasted: ___ mg Start Date: 12/07/19 Stop Date: 12/07/19 Status: Completedwarfarin 5 mg, 1 tab, Route: PO, Drug form: TAB, Q5PM, Dosing Weight 112.005, kg, Start date: 12/19/19 17:00:00 INFORMATICS PHARMACIST, Duration: 1 doses or times, Stop date: 12/19/19 17:00:00 INFORMATICS PHARMACIST, 0 Notes: Nurse to ensure documentation of patient education per anticoagulation policy.Avoid large intake of vitamin-K containing foods diet.WASTE: F/P - P Waste Black; E - P Waste Black(Same As: Coumadin) Hazardous Drug Group 3:Reproductive risk Hazardous Drug -- Refer to safe handling procedure PPE Ma trix Start Date: 12/19/19 Stop Date: 12/19/19 Status: Completedwarfarin 5 mg, 1 tab, Route: PO, Drug form: TAB, Q5PM, Dosing Weight 112.005, kg, Start date: 12/16/19 17:00:00 INFORMATICS PHARMACIST, Duration: 1 doses or times, Stop date: 12/16/19 17:00:00 INFORMATICS PHARMACIST, 0 Notes: Nurse to ensure documentation of patient education per anticoagulation policy.Avoid large intake of vitamin-K containing foods diet.WASTE: F/P - P Waste Black; E - P Waste Black(Same As: Coumadin) Hazardous Drug Group 3: Reproductive risk Hazardous Drug -- Refer to safe handling procedure PPE Matrix Start Date: 12/16/19 Stop Date: 12/16/19 Status: Completedwarfarin 7.5 mg, 1 tab, Route: PO, Drug form: TAB, Q5PM, Dosing Weight 112.005, kg, Start date: 12/12/19 17:00:00 INFORMATICS PHARMACIST, Duration: 1 doses or times, Stop date: 12/12/19 17:00:00 INFORMATICS PHARMACIST, 0 Notes: Nurse to ensure documentation of patient education per anticoagulation policy.Avoid large intake of vitamin-K containing foods diet.WASTE: F/P - P Waste Black; E - P Waste Black(Same As: Coumadin) Start Date: 12/12/19 Stop Date: 12/12/19 Status: Completedwarfarin 7.5 mg, 1 tab, Route: PO, Drug form: TAB, Q5PM, Dosing Weight 112.005, kg, Start date: 12/15/19 17:00:00 INFORMATICS PHARMACIST, Duration: 1 doses or times, Stop date: 12/15/19 17:00:00 INFORMATICS PHARMACIST, 0 Notes: Nurse to ensure documentation of patient education per anticoagulation policy.Avoid large intake of vitamin-K containing foods diet.WASTE: F/P - P Waste Black; E - P Waste Black(Same As: Coumadin) Start Date: 12/15/19 Stop Date: 12/15/19 Status: Completedwarfarin 7.5 mg, 1 tab, Route: PO, Drug form: TAB, Q5PM, Dosing Weight 112.005, kg, Start date: 12/14/19 17:00:00 INFORMATICS PHARMACIST, Duration: 1 doses or times, Stop date: 12/14/19 17:00:00 INFORMATICS PHARMACIST, 0 Notes: Nurse to ensure documentation of patient education per anticoagulation policy.Avoid large intake of vitamin-K containing foods diet.WASTE: F/P - P Waste Black; E - P Waste Black(Same As: Coumadin) Start Date: 12/14/19 Stop Date: 12/14/19 Status: Completedwarfarin 7.5 mg, 1 tab, Route: PO, Drug form: TAB, Q5PM, Dosing Weight 112.005, kg, Start date: 12/18/19 17:00:00 INFORMATICS PHARMACIST, Duration: 1 doses or times, Stop date: 12/18/19 17:00:00 INFORMATICS PHARMACIST, 0 Notes: Nurse to ensure documentation of patient education per anticoagulation policy.Avoid large intake of vitamin-K containing foods diet.WASTE: F/P - P Waste Black; E - P Waste Black(Same As: Coumadin) Hazardous Drug Group 3: Reproductive risk Hazardous Drug -- Refer to safe handling procedure PPE Matrix Start Date: 12/18/19 Stop Date: 12/18/19 Status: Completedwarfarin 5 mg, 1 tab, Route: PO, Drug form: TAB, Q5PM, Dosing Weight 112.005, kg, Start date: 12/17/19 17:00:00 INFORMATICS PHARMACIST, Duration: 1 doses or times, Stop date: 12/17/19 17:00:00 INFORMATICS PHARMACIST, 0 Notes: Nurse to ensure documentation of patient education per anticoagulation policy.Avoid large intake of vitamin-K containing foods diet.WASTE: F/P - P Waste Black; E - P Waste Black(Same As: Coumadin) Hazardous Drug Group 3: Reproductive risk Hazardous Drug -- Refer to safe handling procedure PPE Matrix Start Date: 12/17/19 Stop Date: 12/17/19 Status: Completedwarfarin 5 mg, 1 tab, Route: PO, Drug form: TAB, Q5PM, Dosing Weight 112.005, kg, Start date: 12/13/19 17:00:00 INFORMATICS PHARMACIST, Duration: 1 doses or times, Stop date: 12/13/19 17:00:00 INFORMATICS PHARMACIST, 0 Notes: Nurse to ensure documentation of patient education per anticoagulation policy.Avoid large intake of vitamin-K containing foods diet.WASTE: F/P - P Waste Black; E - P Waste Black(Same As: Coumadin) Start Date: 12/13/19 Stop Date: 12/13/19 Status: Completedwarfarin 7.5 mg, 1 tab, Route: PO, Drug form: TAB, Q5PM, Dosing Weight 112.005, kg, Start date: 12/11/19 17:00:00 INFORMATICS PHARMACIST, Duration: 1 doses or times, Stop date: 12/11/19 17:00:00 INFORMATICS PHARMACIST, 0 Notes: Nurse to ensure documentation of patient education per anticoagulation policy.Avoid large intake of vitamin-K containing foods diet.WASTE: F/P - P Waste Black; E - P Waste Black(Same As: Coumadin) Start Date: 12/11/19 Stop Date: 12/11/19 Status: Completedwarfarin 5 mg oral tablet 5 mg = 1 tab, PO, Daily, INR goal 2-3, # 30 tab, 0 Refill(s) Start Date: 12/19/19 Stop Date: 01/16/20 Status: SuspendedZofran 4 mg, 2 mL, Route: IVP, Drug form: INJ, Q4H, Dosing Weight 112.005, kg, Start date: 11/30/19 12:00:00 INFORMATICS PHARMACIST, Duration: 30 day, Stop date: 12/30/19 8:00:00 INFORMATICS PHARMACIST, 0 Notes: (Same as: Zofran) MEDICATION WASTE Product Size: 4 mgProduct Wasted: ___ mg Start Date: 11/30/19 Stop Date: 11/30/19 Status: DiscontinuedZofran 4 mg, 2 mL, Route: IVP, Drug form: INJ, Q4H, Dosing Weight 112.005, kg, PRN as needed for nausea/vomiting, Start date: 11/30/19 16:00:00 INFORMATICS PHARMACIST, Duration: 30 day, Stop date: 12/30/19 15:59:00 INFORMATICS PHARMACIST, 0 Notes: (Same as: Zofran) MEDICATION WASTE Product Size: 4 mgProduct Wasted: ___ mg Start Date: 11/30/19 Stop Date: 12/03/19 Status: DiscontinuedZofran 2 mg/mL injectable solution 4 mg, 2 mL, Route: IV, Drug form: INJ, ONCE, Dosing Weight 112.005, kg, Start date: 11/29/19 22:16:00 INFORMATICS PHARMACIST, Stop date: 11/29/19 22:16:00 INFORMATICS PHARMACIST, 0 Notes: (Same as: Zofran) MEDICATION WASTE Product Size: 4 mgProduct Wasted: ___ mg Start Date: 11/29/19 Stop Date: 11/29/19 Status: CompletedZosyn 3.375 gm, Route: IVPB, Drug form: PDR/INJ, ABXQ6H, Dosing Weight 112.005, kg, Priority: STAT, Start date: 11/26/19 9:56:00 INFORMATICS PHARMACIST, Duration: 7 day, Stop date: 12/03/19 3:56:00 INFORMATICS PHARMACIST, ABX Indication: Pneumonia, 0 Notes: (Same as: Zosyn)Dosing based on Piperacillin component MEDICATION WASTE Product Size: 3375 mgProduct Wasted: ___ mg Start Date: 11/26/19 Stop Date: 11/27/19 Status: Discontinued Results Most recent to oldest 1 2 3 [Reference Range]: CDC HIV 4th GEN Negative [Negative] *NA* (11/15/19 6:39 PM) Procalcitonin Lvl 0.50 ng/mL 1.38 ng/mL 2.37 ng/mL 1 [0.00-0.10 ng/mL] *HI* *HI* *CRIT* (11/26/19 12:32 AM) (11/20/19 11:01 PM) (11/19/19 11: 13 PM) MMA Qnt [0-378 nMol/L] 172 nMol/L *NA* (11/20/19 2:49 AM) Neutrophils # [1.5-8.1 4.0 K/CMM 4.5 K/CMM 3.5 K/CMM K/CMM] (12/18/19 6:28 AM) (12/17/19 5:18 AM) (12/16/19 6:17 A M) Lymphocytes # [1.0-5.5 1.7 K/CMM 1.5 K/CMM 1.2 K/CMM K/CMM] (12/18/19 6:28 AM) (12/17/19 5:18 AM) (12/16/19 6:17 A M) Monocytes # [0.0-0.8 0.7 K/CMM 0.6 K/CMM 0.5 K/CMM K/CMM] (12/18/19 6:28 AM) (12/17/19 5:18 AM) (12/16/19 6:17 A M) Eosinophils # [0.0-0.5 0.2 K/CMM 0.2 K/CMM 0.2 K/CMM K/CMM] (12/18/19 6:28 AM) (12/17/19 5:18 AM) (12/16/19 6:17 A M) Basophils # [0.0-0.2 0.1 K/CMM 0.1 K/CMM 0.1 K/CMM K/CMM] (12/18/19 6:28 AM) (12/17/19 5:18 AM) (12/15/19 5:23 A M) Plt Morph [Normal] Normal Normal (11/24/19 12:15 AM) (11/22/19 12:00 AM) Bili Indirect [0.0-1.0 0.4 mg/dL mg/dL] (11/17/19 4:50 AM) G-value Rapid [5.0-11.6 K 24.9 K d/sc 23.6 K d/sc 15.8 K d/sc d/sc] *HI* *HI* *HI* (12/09/19 8:21 PM) (12/02/19 1:05 AM) (11/29/19 4:2 8 PM) K-time Rapid [0.6-2.3 0.8 minutes 0.8 minutes 0.8 minute s minutes] (12/09/19 8:21 PM) (12/02/19 1:05 AM) (11/29/19 4:2 8 PM) Max Amplitude Rapid 83 mm 83 mm 76 mm [52-71 mm] *HI* *HI* *HI* (12/09/19 8:21 PM) (12/02/19 1:05 AM) (11/29/19 4:2 8 PM) R-time Rapid [0.4-0.7 0.5 minutes 0.6 minutes 0.3 minute s minutes] (12/09/19 8:21 PM) (12/02/19 1:05 AM) *LOW* (11/29/19 4:28 PM ) Angle Rapid [64-80 83 degrees 82 degrees 82 degrees degrees] *HI* *HI* *HI* (12/09/19 8:21 PM) (12/02/19 1:05 AM) (11/29/19 4:2 8 PM) eGFR 107 mL/min/1.73m2 2 106 mL/min/1.73m2 3 110 mL/m in/1.73m2 4 *NA* *NA* *NA* (12/19/19 6:05 AM) (12/18/19 6:28 AM) (12/17/19 5:18 A M) FFP product Product available (12/04/19 8:49 AM) RBC product Product available Product available Product avai lable (12/04/19 8:49 AM) (12/04/19 4:20 AM) (12/04/19 3:4 6 AM) ABO/Rh A POS A POS A POS *Unknown* *Unknown* *Unknown* (12/09/19 12:57 AM) (12/02/19 3:36 PM) (11/29/19 3: 49 AM) Anti-Xa Low Molecular 0.00 IU/mL Heparin *NA* (11/16/19 9:15 PM) UDS Note See Note (11/15/19 4:34 PM) A/G Ratio [0.7-1.6] 0.9 0.8 (11/17/19 4:50 AM) (11/17/19 4:50 AM) Antibody Scrn Negative Negative Negative (12/09/19 12:57 AM) (12/02/19 3:36 PM) (11/29/19 3: 49 AM) Albumin Lvl [3.5-5.0 2.6 g/dL 2.5 g/dL g/dL] *LOW* *LOW* (11/17/19 4:50 AM) (11/17/19 4:50 AM) Alk Phos [39-136 unit/L] 40 unit/L 37 unit/L (11/17/19 4:50 AM) *LOW* (11/17/19 4:50 AM) ALT [0-65 unit/L] 83 unit/L 88 unit/L *HI* *HI* (11/17/19 4:50 AM) (11/17/19 4:50 AM) U Amph Scr [Negative] Negative *NA* (11/15/19 4:34 PM) SYLVIA [Negative] Negative (11/17/19 12:41 PM) AGAP [10.0-20.0 mEq/L] 10.6 mEq/L 10.8 mEq/L 11.2 mEq/ L (12/19/19 6:05 AM) (12/18/19 6:28 AM) (12/17/19 5:18 A M) AST [0-37 unit/L] 82 unit/L 84 unit/L *HI* *HI* (11/17/19 4:50 AM) (11/17/19 4:50 AM) AT III Func [77-140 %] 88 % (11/17/19 12:41 PM) B/C Ratio [6-25] 20 (11/17/19 4:50 AM) U Ameena Scr [Negative] Negative *NA* (11/15/19 4:34 PM) Basophils [0.0-1.0 %] 0.8 % 0.8 % 0.6 % (12/18/19 6:28 AM) (12/17/19 5:18 AM) (12/16/19 6:17 A M) U Benzodiaz Scr Positive [Negative] *ABN* (11/15/19 4:34 PM) Homocyst Tot [0.0-15.0 7.7 uMol/L 5 uMol/L] *NA* (11/20/19 2:49 AM) BUN [7-22 mg/dL] 15 mg/dL 15 mg/dL 21 mg/dL (12/19/19 6:05 AM) (12/18/19 6:28 AM) (12/17/19 5:18 A M) C-ANCA [Negative] Negative (11/17/19 12:41 PM) C3 Complement [88-201 92 mg/dL mg/dL] (11/17/19 12:41 PM) Calcium Lvl [8.5-10.5 8.6 mg/dL 8.5 mg/dL 8.5 mg/dL mg/dL] (12/19/19 6:05 AM) (12/18/19 6:28 AM) (12/17/19 5:18 A M) Chloride Lvl [95-109 101 mEq/L 103 mEq/L 100 mEq/L mEq/L] (12/19/19 6:05 AM) (12/18/19 6:28 AM) (12/17/19 5:18 A M) CO2 [24-32 mEq/L] 26 mEq/L 26 mEq/L 25 mEq/L (12/19/19 6:05 AM) (12/18/19 6:28 AM) (12/17/19 5:18 A M) U Cocaine Scr [Negative] Negative *NA* (11/15/19 4:34 PM) Creatinine Lvl [0.50-1.40 0.88 mg/dL 0.90 mg/dL 0.83 m g/dL mg/dL] (12/19/19 6:05 AM) (12/18/19 6:28 AM) (12/17/19 5:18 A M) CRP [<=2.9 mg/L] 124.0 mg/L *HI* (11/17/19 12:41 PM) Cryoglob [Negative] Negative (11/17/19 12:41 PM) Bili Direct [0.0-0.3 0.1 mg/dL mg/dL] (11/17/19 4:50 AM) DNA Ab (DS) [Negative] Negative (11/17/19 12:41 PM) Eosinophils [0.0-4.0 %] 3.3 % 3.5 % 3.5 % (12/18/19 6:28 AM) (12/17/19 5:18 AM) (12/16/19 6:17 A M) Etoh (%) <0.003 % (11/15/19 3:40 PM) Ethanol Lvl <3.0 mg/dL (11/15/19 3:40 PM) Globulin [2.7-4.2 g/dL] 3.0 g/dL 3.2 g/dL (11/17/19 4:50 AM) (11/17/19 4:50 AM) Glucose Lvl [70-99 mg/dL] 110 mg/dL 104 mg/dL 137 mg /dL *HI* *HI* *HI* (12/19/19 6:05 AM) (12/18/19 6:28 AM) (12/17/19 5:18 A M) Hct [42.0-54.0 %] 30.8 % 26.9 % 25.3 % *LOW* *LOW* *LOW* (12/18/19 6:28 AM) (12/17/19 5:18 AM) (12/16/19 6:17 A M) Hgb [14.0-18.0 g/dL] 10.2 g/dL 8.9 g/dL 8.6 g/dL *LOW* *LOW* *LOW* (12/18/19 6:28 AM) (12/17/19 5:18 AM) (12/16/19 6:17 A M) Hgb A1C [<=5.6 %] <3.5 % (11/23/19 8:30 PM) INR [0.85-1.17] 2.62 2.31 2.43 *HI* *HI* *HI* (12/19/19 6:05 AM) (12/18/19 6:28 AM) (12/17/19 5:18 A M) Potassium Lvl [3.5-5.1 4.6 mEq/L 4.8 mEq/L 4.2 mEq/L mEq/L] (12/19/19 6:05 AM) (12/18/19 6:28 AM) (12/17/19 5:18 A M) SS-B (La) Ab [<=0.9 AI] <0.2 AI (11/17/19 12:41 PM) Lactic Acid Lvl [0.5-2.2 0.6 mMol/L 1.2 mMol/L 1.1 mMo l/L mMol/L] (12/09/19 6:57 PM) (11/29/19 4:28 PM) (11/19/19 11:1 3 PM) Lymphocytes [20.0-40.0 %] 25.5 % 22.1 % 22.6 % (12/18/19 6:28 AM) (12/17/19 5:18 AM) (12/16/19 6:17 A M) MCH [27.0-31.0 pg] 30.3 pg 30.3 pg 30.7 pg (12/18/19 6:28 AM) (12/17/19 5:18 AM) (12/16/19 6:17 A M) MCHC [32.0-36.0 g/dL] 33.1 g/dL 33.2 g/dL 34.0 g/dL (12/18/19 6:28 AM) (12/17/19 5:18 AM) (12/16/19 6:17 A M) MCV [80.0-94.0 fL] 91.5 fL 91.3 fL 90.5 fL (12/18/19 6:28 AM) (12/17/19 5:18 AM) (12/16/19 6:17 A M) Magnesium Lvl [1.8-2.4 2.1 mg/dL 3.3 mg/dL 2.5 mg/dL mg/dL] (12/12/19 8:31 AM) *HI* *HI* (12/03/19 12:20 AM) (11/26/19 11:5 3 PM) Monocytes [2.0-12.0 %] 10.3 % 9.2 % 8.6 % (12/18/19 6:28 AM) (12/17/19 5:18 AM) (12/16/19 6:17 A M) MPV [7.4-10.4 fL] 7.2 fL 7.2 fL 7.4 fL *LOW* *LOW* (12/16/19 6:17 AM) (12/18/19 6:28 AM) (12/17/19 5:18 AM) Sodium Lvl [135-145 133 mEq/L 135 mEq/L 132 mEq/L mEq/L] *LOW* (12/18/19 6:28 AM) *LOW* (12/19/19 6:05 AM) (12/17/19 5:18 AM ) U Opiate Scr [Negative] Negative *NA* (11/15/19 4:34 PM) P-ANCA [Negative] Negative (11/17/19 12:41 PM) U Phencyclidine Scr Negative [Negative] *NA* (11/15/19 4:34 PM) Phosphorus [2.5-4.5 3.3 mg/dL 3.3 mg/dL 3.7 mg/dL mg/dL] (12/03/19 12:20 AM) (11/26/19 11:53 PM) (11/26/19 1 2:32 AM) Platelet [133-450 K/CMM] 456 K/CMM 429 K/CMM 461 K/C MM *HI* (12/17/19 5:18 AM) *HI* (12/18/19 6:28 AM) (12/16/19 6:17 AM ) Segs [45.0-75.0 %] 60.1 % 64.4 % 64.7 % (12/18/19 6:28 AM) (12/17/19 5:18 AM) (12/16/19 6:17 A M) Total Protein [6.4-8.4 5.6 g/dL 5.7 g/dL g/dL] *LOW* *LOW* (11/17/19 4:50 AM) (11/17/19 4:50 AM) PT [12.0-14.7 seconds] 28.5 seconds 25.8 seconds 26.9 seco nds *HI* *HI* *HI* (12/19/19 6:05 AM) (12/18/19 6:28 AM) (12/17/19 5:18 A M) PTT [22.9-35.8 seconds] 49.9 seconds 57.4 seconds 81.3 sec onds *HI* *HI* *HI* (12/04/19 3:12 AM) (12/01/19 8:58 AM) (12/01/19 12: 39 AM) RBC [4.70-6.10 M/CMM] 3.36 M/CMM 2.95 M/CMM 2.79 M/CMM *LOW* *LOW* *LOW* (12/18/19 6:28 AM) (12/17/19 5:18 AM) (12/16/19 6:17 A M) RBC Morph [Normal] Normal Normal (11/24/19 12:15 AM) (11/22/19 12:00 AM) RDW [11.5-14.5 %] 18.1 % 17.5 % 16.6 % *HI* *HI* *HI* (12/18/19 6:28 AM) (12/17/19 5:18 AM) (12/16/19 6:17 A M) SS-A (Ro) Ab [<=0.9 AI] <0.2 AI (11/17/19 12:41 PM) Sed Rate [0-15 mm/hr] 43 mm/hr *HI* (11/17/19 12:41 PM) Bili Total [0.2-1.3 0.5 mg/dL 0.5 mg/dL mg/dL] (11/17/19 4:50 AM) (11/17/19 4:50 AM) U Cannab Scr [Negative] Negative *NA* (11/15/19 4:34 PM) UA Amorph Ophelia [None Seen Occasional /HPF /HPF] *NA* (11/26/19 10:45 AM) UA Bacteria [None Seen Occasional /HPF /HPF] *NA* (11/15/19 4:34 PM) UA Bili [Negative] Negative Negative Negative *NA* *NA* *NA* (12/01/19 4:56 PM) (11/26/19 10:45 AM) (11/15/19 4:3 4 PM) UA Blood [Negative] Negative Negative Moderate (12/01/19 4:56 PM) (11/26/19 10:45 AM) *ABN* (11/15/19 4:34 PM) UA Color [Yellow] Karen Yellow Yellow *ABN* *NA* *NA* (12/01/19 4:56 PM) (11/26/19 10:45 AM) (11/15/19 4:3 4 PM) UA Glucose [Negative Negative mg/dL 500 mg/dL mg/dL] *NA* *ABN* (12/01/19 4:56 PM) (11/26/19 10:45 AM) UA Glucose [Negative] Negative *NA* (11/15/19 4:34 PM) UA Ketones [Negative Trace mg/dL Negative mg/dL mg/dL] *ABN* *NA* (12/01/19 4:56 PM) (11/26/19 10:45 AM) UA Ketones [Negative] Negative *NA* (11/15/19 4:34 PM) UA Leuk Est [Negative] Negative Negative Negative (12/01/19 4:56 PM) (11/26/19 10:45 AM) (11/15/19 4:3 4 PM) UA Mucus [None Seen /LPF] Few /LPF Few /LPF *NA* *NA* (12/01/19 4:56 PM) (11/26/19 10:45 AM) UA Nitrite [Negative] Negative Negative Negative (12/01/19 4:56 PM) (11/26/19 10:45 AM) (11/15/19 4:3 4 PM) UA pH [5.0-8.0] 6.0 5.0 5.0 (12/01/19 4:56 PM) (11/26/19 10:45 AM) (11/15/19 4:3 4 PM) UA Protein [Negative 100 mg/dL Negative mg/dL mg/dL] *ABN* (11/26/19 10:45 AM) (12/01/19 4:56 PM) UA Protein [Negative] Negative (11/15/19 4:34 PM) UA RBC [0-2 /HPF] 1 /HPF 5 /HPF 8 /HPF (12/01/19 4:56 PM) *HI* *HI* (11/26/19 10:45 AM) (11/15/19 4:34 PM) UA Spec Grav [<=1.030] 1.029 1.027 1.047 (12/01/19 4:56 PM) (11/26/19 10:45 AM) *HI* (11/15/19 4:34 PM) UA Sq Epi [Few /LPF] Occasional /LPF Occasional /LPF *NA* *NA* (12/01/19 4:56 PM) (11/26/19 10:45 AM) UA Sq Epi [Few] None Seen (11/15/19 4:34 PM) UA Turbidity [Clear] Slight Marked Slight *ABN* *ABN* *ABN* (12/01/19 4:56 PM) (11/26/19 10:45 AM) (11/15/19 4:3 4 PM) UA Urobilinogen [0.1-1.0 <1.0 mg/dL <1.0 mg/dL <1.0 mg /dL mg/dL] (12/01/19 4:56 PM) (11/26/19 10:45 AM) (11/15/19 4:3 4 PM) UA WBC [0-5 /HPF] 2 /HPF 6 /HPF (12/01/19 4:56 PM) *HI* (11/15/19 4:34 PM) Vanco Lvl 18.9 ug/ml *NA* (12/02/19 5:06 PM) WBC [3.7-10.4 K/CMM] 6.6 K/CMM 7.0 K/CMM 5.4 K/CMM (12/18/19 6:28 AM) (12/17/19 5:18 AM) (12/16/19 6:17 A M) ACT (TEG) Rapid [86-118 97 seconds 105 seconds 82 secon ds seconds] (12/09/19 8:21 PM) (12/02/19 1:05 AM) *LOW* (11/29/19 4:28 PM ) Estimated % Lysis Rapid 0.4 % 0.1 % 0.0 % [0.0-7.5 %] (12/09/19 8:21 PM) (12/02/19 1:05 AM) (11/29/19 4:2 8 PM) Split Point Rapid 0.4 minutes 0.4 minutes 0.2 minutes *NA* *NA* *NA* (12/09/19 8:21 PM) (12/02/19 1:05 AM) (11/29/19 4:2 8 PM) Ca Ion WB [1.05-1.25 1.02 mMol/L 1.01 mMol/L 1.07 mMol/L mMol/L] *LOW* *LOW* (11/26/19 12:32 A M) (12/03/19 12:20 AM) (11/26/19 11:53 PM) Ca Norm WB [1.05-1.25 1.07 mMol/L 1.04 mMol/L 1.11 mMol/ L mMol/L] (12/03/19 12:20 AM) *LOW* (11/26/19 12:3 2 AM) (11/26/19 11:53 PM) C difficile DNA Negative [Negative] (12/01/19 12:39 AM) 1Result Comment: Critical Result(s) called to [employer] at 11/20/2019 00:37 by ROSA MARIA. Read back OK.2Result Comment: The eGFR is calculated using the [...] eGFR should be multiplied by the estimated BMI.4Result Comment: The eGFR is calculated using the [...] eGFR should be multiplied by the estimated BMI.5Result Comment: Effective December 01, 2019 Homocyst(e)ine reference interval will be changing to: Age [...] years 0.0 - 21.3 0.0 - 21.3 Microbiology Reports TEST:Culture: BAL Quantitative w/Gram Stain STATUS:Auth (Verified) BODY SITE: SOURCE:Mini Bronchial Alveolar Lavage COLLECTED DATE/TIME:12/01/19 5:46 PMFINAL REPORT>10,000 CFU/mL Pseudomonas aeruginosa <10,000 CFU/mL Normal Respiratory Gayatri IsolatedSTAIN REPORTGram Stain Performed By: [facility] ORGANISM:Pseudomonas aeruginosaTEST:Culture: Anaerobic STATUS:Auth (Verified) BODY SITE: SOURCE:Aspirate COLLECTED DATE/TIME:11/29/19 12:25 PMFINAL REPORTNo Anaerobes Isolated After 5 DaysTEST:Culture: Aspirate/Body Fluid/Tissue STATUS:Auth (Verified) BODY SITE: SOURCE:Aspirate COLLECTED DATE/TIME:11/29/19 12:25 PMFINAL REPORTNo GrowthSTAIN REPORTFew Wbc'S; No Organisms SeenTEST:Culture: Respiratory w/Gram Stain STATUS:Auth (Verified) BODY SITE: SOURCE:Tracheal Aspirate COLLECTED DATE/TIME:11/23/19 12:33 PMFINAL REPORTFew Staphylococcus aureus Normal Respiratory Gayatri IsolatedSTAIN REPORTTesting Performed At: [facility] ORGANISM:Staphylococcus aureusTEST:Culture: Respiratory w/Gram Stain STATUS:Auth (Verified) BODY SITE: SOURCE:Tracheal Aspirate COLLECTED DATE/TIME:11/20/19 2:50 AMFINAL REPORTNormal Respiratory Gayatri IsolatedSTAIN REPORTGram Stain Performed By: [facility] Immunizations No data available for this section Procedures No data available for this section Social History Social History Type Response Smoking Status Heavy tobacco smoker; Type: Cigarettes; Exposure to Tobacco Smoke Unable to obtain; Cigarette Smoking Last 365 Days Unable to obtain; Reg Smoking Cessation Counseling No entered on: 12/19/19 Assessment and Plan Extracted from: Title: ORS Progress Note Author: Tariq Wang Date: Impression and Plan 39 yo male POD 9 s/p ORIF of Right Scapu la fracture. - NWB to Kam MONTIEL for gentle PROM to shou lder for forward elevation and external rotation - Keep dressings c/d/i - Pain and DVT ppx per primary team. - No further procedures planned for orth o. - OK for dispo home. F/U with Francisco in o utpatient clinic at 2 weeks post op Extracted from: Title: ORL HNS Consult Note Author: Huy Pang MD David e: 12/08/19 39 year old male who initially presented after a [facility], now s/p trach/peg on 11/29/2019. ENT consultedto evaluate fortrach bleeding. -FFL and tracheoscopy show blood tinged secretions in L main-stem bronchus. However, no evidence of suction trauma or source of bleeding was visualize. -Recommend gentle suctioning via red rub dimitris catheter -Recommend nystatin powder and duoderm t o the tracheostoma -Can consider bronchoscopy if bleeding w juan pablo -Will discuss w/ staff -Continue care per ISIDRA Rodriguez MD Otorhinolaryngology Head and Neck Surger y PGY-2 ENT Pager: [phone] 1.Fever(R50.9) 2.Dysphagia(R13.10) 3.Stroke(I63.9) 4.Decreased mobility(R26.89) 5.Acute hypoxemic respiratory failure (J96.01) 6.Carotid artery injury(S15.009A) 7.Bilateral pneumothorax(J93.9) 8.Hemothorax(J94.2) 9.Scapula fracture(S42.109A) 10.Rib fractures(S22.39XA) 11.Innominate artery injury(S25.109 A) 12.Acute pain due to trauma(G89.11) Agitation(R45.1) Benign hypertension(I10) Pneumonia due to Pseudomonas(J15.1) Extracted from: Title: [facility] History and Physical Author: Yo Clements MD Date: 11/16/19 39 y/o male presented as transfer from [facility] s/p [facility] with multiple traumatic injuries and stroke 1.Altered mental status(R41.82) - GCS 7T, not opening eyes but will fo llow commands - Continue to monitor Neurological exam 2.Hypercoagulable state(D68.59) -On heparin gtt and aspirin for stroke and multiple arterial injuries 3.Decreased mobility(R26.89) -PT/OT ordered 4.Scalp laceration(S01.01XA) -Repaired by trauma with absorbable nickerson ture and janice 5.Stroke(I63.9) -Neurology following - No TPA intervention due to time frame and trauma -Heparin gtt 6.Acute pain due to trauma(G89.11) [facility] 7.Aortic thrombus(I74.10) -Vascular following -Heparing gtt, aspirin 8.Acute hypoxemic respiratory failure (J96.01) -On BiLevel for extensive lung lacerat ion and contusions 9.Renal injury(S37.009A) -Grade 3 renal injury -nothing to do 10.Carotid stenosis(I65.29) -bilateral internal carotid artery Gra de I injuries -f/u neurovascular consult -on aspirin and heparin gtt 11.Brachiocephalic artery injury(S2 5.109A),Innominate artery injury(S25.109A) - Vascular following -Likely to OR for thrombectomy Hemothorax(J94.2) -Bilateral CT to suction Multiple closed fractures of ribs of vernon th sides with routine healing(S22.43XD) -F/u 3D recon -Likely non-operative heparin gtt, aspirin [facility] y Addendum I have seen and examined the patient wit h the provider and agree with the assessment and plan. Total critical care time (excluding proc edures) = 51 minutes Acute trauma pain multimodal pain regimen, change fentanyl to ketamine drip Acute traumatic encephalopathy, secondar y to stroke GCS 7T, stroke following Acute ischemic stroke, right MCA stroke, vascular, and neurovascular following --continue heparin drip and repeat im aging tomorrow, no surgical interventions planned secondary to severe stroke and low risk of improvement with high risk of worsening clinical condition, spoke with Dr. Jacobson --left hemiparesis, stroke consulted, ASA + heparin drip Blunt cerebrovascular injury (BCVI) grade 1 bilateral ICA continue ASA Acute hypoxic respiratory failure RT following, wean vent as tolerated --BiLevel 28/3 45%, air leak on right , CXR with no PTX, persistent pulmonary contusion Bilateral rib fractures and pneumothorax bilateral chest tubes placed Acute kidney injury secondary to ATN Cr 2.12 to 1.65 with good urine output Family discussion for goals of care. P oor prognosis for meaningful recovery from MCA stroke.
--- OUTSIDE RECORDS SUMMARY | 2020-03-27 16:20 | XMS REPORT | Summary of Care ---
:1980 Author Organization [facility] Address [address] [place] [id number] Encounter [facility](FIN) [id number] Date(s): 12/19/19 - 01/11/[address] [phone] Encounter Diagnosis Cerebral infarction due to unspecified occlusion or stenosis of right middle cerebral artery (Final) - Discharge Disposition: Home or Self Care Attending Physician: Phoenix Alejandro MD Admitting Physician: Phoenix Alejandro MD Vital Signs Most recent to oldest 1 2 3 [Reference Range]: Height 185.42 cm (12/19/19 8:30 PM) Current Weight 89.818 kg 91.636 kg (01/09/20 7:53 AM) (12/26/19 7:52 AM) Temperature Oral [96.4-99.1 98.1 DegF 97.8 DegF 98.7 DegF DegF] (01/11/20 7:30 AM) (01/06/20 7:30 AM) (12/19/19 8:30 PM) Blood Pressure [90-140/60-90 133/82 mmHg 133/87 mmHg 136 /92 mmHg mmHg] (01/11/20 7:30 AM) (01/10/20 7:40 PM) (01/10/20 12:0 0 PM) Respiratory Rate [14-20 BRMIN] 16 BRMIN 19 BRMIN 1 6 BRMIN (01/11/20 7:30 AM) (01/10/20 7:40 PM) (01/10/20 12:0 0 PM) Peripheral Pulse Rate [60-100 82 bpm 76 bpm 64 bpm bpm] (01/11/20 7:30 AM) (01/10/20 7:40 PM) (01/10/20 12:0 0 PM) Weight 90.909 kg 90.682 kg (12/21/19 8:47 AM) (12/19/19 8:30 PM) Body Mass Index 26.38 m2 (12/19/19 8:30 PM) Problem List Condition Effective Dates Status Health Status Informant CVA (cerebral vascular Active accident)(Confirmed) Encephalopathy(Confirmed) Active Brachiocephalic artery Active injury(Confirmed) Allergies, Adverse Reactions, Alerts No Known Allergies Medications acetaminophen 650 mg, 2 tab, Route: PO, Drug form: TAB, Q6H, Dosing Weight 112.005, kg, Start date: 12/24/19 12:00:00 SLITTER AND REWINDER, Duration: 30 day, Stop date: 01/23/20 6:00:00 CDT, 0 Notes: Do not exceed 4 gm/day. (Same as: Tylenol) Start Date: 12/24/19 Stop Date: 12/25/19 Status: Discontinuedacetaminophen 650 mg, 2 tab, Route: PO, Drug form: TAB, Q4H, Dosing Weight 112.005, kg, PRN Pain Score 1-3, Start date: 12/19/19 20:24:00 SLITTER AND REWINDER, Duration: 30 day, Stop date: 01/18/20 20:23:00 CDT, 0 Notes: Do not exceed 4 gm/day. (Same as: Tylenol) Start Date: 12/19/19 Stop Date: 12/24/19 Status: Discontinuedacetaminophen 500 mg, 1 tab, Route: PO, Drug form: TAB, QID, Dosing Weight 112.005, kg, Start date: 01/07/20 13:00:00 SLITTER AND REWINDER, Duration: 30 day, Stop date: 02/06/20 8:30:00 CDT, 0 Notes: Max acetaminophen 4000 mg/day (4 gm/day). (Same as: Tylenol Extra Strength) Start Date: 01/07/20 Stop Date: 01/11/20 Status: Discontinuedacetaminophen 650 mg, 2 tab, Route: PO, Drug form: TAB, QID, Dosing Weight 112.005, kg, Start date: 12/25/19 8:30:00 SLITTER AND REWINDER, Duration: 30 day, Stop date: 01/23/20 21:00:00 CDT, 0 Notes: Do not exceed 4 gm/day. (Same as: Tylenol) Start Date: 12/25/19 Stop Date: 01/07/20 Status: Discontinuedacetaminophen 500 mg oral tablet 500 mg = 1 tab, PO, QID, 0 Refill(s) Start Date: 01/11/20 Status: OrderedamLODIPine 10 mg, 1 tab, Route: PO, Drug form: TAB, Daily, Dosing Weight 90.682, kg, Start date: 12/20/19 8:30:00 SLITTER AND REWINDER, Duration: 30 day, Stop date: 01/18/20 8:30:00 CDT, 0 Notes: (Same as: Norvasc) Start Date: 12/20/19 Stop Date: 12/31/19 Status: Discontinuedatorvastatin 80 mg, 2 tab, Route: NG, Drug form: TAB, Bedtime, Dosing Weight 90.682, kg, Start date: 12/19/19 21:00:00 SLITTER AND REWINDER, Duration: 30 day, Stop date: 01/17/20 21:00:00 SLITTER AND REWINDER, 0 Notes: (Same as: Lipitor) Start Date: 12/19/19 Stop Date: 01/11/20 Status: Discontinuedatorvastatin 40 mg oral tablet 80 mg = 2 tab, NG, Bedtime, # 60 tab, 3 Refill(s), Pharmacy: [facility] [id number] Start Date: 01/11/20 Stop Date: 05/10/20 Status: Orderedbacitracin topical 1 appl, Route: TOP, Q12H, Drug form: OINT, Start date: 12/20/19 21:00:00 SLITTER AND REWINDER, Duration: 30 day, Stopdate: 01/19/20 9:00:00 CDT, 0 Start Date: 12/20/19 Stop Date: 01/11/20 Status: Discontinuedbacitracin topical 500 units/g ointment 1 appl, TOP, Q12H, X 14 day, # 15 gm, 0 Refill(s), Pharmacy: [facility] [id number] Start Date: 01/11/20 Stop Date: 01/25/20 Status: Orderedbacitracin-polymyxin B topical ointment 1 appl, Route: TOP, TID, Drug form: OINT, Start date: 12/19/19 21:00:00 SLITTER AND REWINDER, Duration: 30 day, Stop date: 01/18/20 13:00:00 CDT, 0 Notes: (Same As: Polysporin) Start Date: 12/19/19 Stop Date: 12/19/19 Status: DiscontinuedBactrim DS 800 mg- 160 mg oral tablet 1 tab, Route: PO, Drug Form: TAB, Dosing Weight 90.909, kg, [id number], Start date: 12/24/19 10:00:00 SLITTER AND REWINDER, Duration: 7 day, Stop date: 12/30/19 22:00:00 SLITTER AND REWINDER Start Date: 12/24/19 Stop Date: 12/24/19 Status: Discontinuedbisacodyl 10 mg, 1 supp, Route: RI, Drug form: SUPP, Bedtime, Dosing Weight 112.005, kg, PRN Constipation, Start date: 12/19/19 20:24:00 SLITTER AND REWINDER, Duration: 30 day, Stop date: 01/18/20 20:23:00 CDT, 0 Notes: (Same As: Dulcolax, Bisco-Lax) Start Date: 12/19/19 Stop Date: 01/11/20 Status: Discontinuedcalcium carbonate 500 mg (200 mg elemental calcium) oral tablet 1,250 mg = 2.5 tab, PO, TID, 0 Refill(s) Start Date: 01/11/20 Status: OrderedCarafate 1 g/10 mL oral suspension 1 gm, 1 tab, Route: PO, Drug form: TAB, BID, Dosing Weight 90.909, kg, Start date: 01/08/20 21:00:00CST, Duration: 30 day, Stop date: 02/07/20 8:30:00 CDT, 0 Notes: May interfere w/enteral feeds - Take 1 hr before or 2 hr after antacids, dairy pdt, meals & minerals - On empty stomach.For patients unable to swallow tablet, dissolve in 10mL - 30mL of water or juice and stir before giving. (Same As: Carafate) Start Date: 01/08/20 Stop Date: 01/09/20 Status: DiscontinuedCitrate of Magnesia 300 mL, Route: PO, Drug Form: LIQ, ONCE, Start date: 01/01/20 19:01:00 SLITTER AND REWINDER, Stop date: 01/01/20 19:01:00 SLITTER AND REWINDER, 0 Notes: (Same as: Citrate of Magnesia)Concentration: 1.745 gm / 30 mL Start Date: 01/01/20 Stop Date: 01/01/20 Status: CompletedcloNIDine 0.1 mg oral tablet 0.1 mg, 1 tab, Route: PO, Drug form: TAB, Q12H, Dosing Weight 90.909, kg, Start date: 01/01/20 21:00:00 SLITTER AND REWINDER, Duration: 1 doses or times, Stop date: 01/02/20 21:00:00 SLITTER AND REWINDER, 0 Notes: (Same As: Catapres) Start Date: 01/01/20 Stop Date: 01/02/20 Status: CompletedcloNIDine 0.1 mg oral tablet 0.1 mg, 1 tab, Route: PO, Drug form: TAB, Q8H, Dosing Weight 90.909, kg, Start date: 12/28/19 8:00:00 SLITTER AND REWINDER, Duration: 30 day, Stop date: 01/27/20 0:00:00 CDT, 0 Notes: (Same As: Catapres) Start Date: 12/28/19 Stop Date: 01/01/20 Status: DiscontinuedcloNIDine 0.2 mg oral tablet 0.2 mg, 2 tab, Route: GT, Drug form: TAB, Q4H, Dosing Weight 90.682, kg, Start date: 12/19/19 21:00:00 SLITTER AND REWINDER, Duration: 30 day, Stop date: 01/18/20 17:00:00 CDT, 0 Notes: (Same As: Catapres) Start Date: 12/19/19 Stop Date: 12/24/19 Status: DiscontinuedcloNIDine 0.2 mg oral tablet 0.2 mg, 2 tab, Route: PO, Drug form: TAB, Q8H-05, Dosing Weight 90.682, kg, Start date: 12/26/19 16:00:00 SLITTER AND REWINDER, Stop date: 01/25/20 5:00:00 CDT, 0 Notes: (Same As: Catapres) Start Date: 12/26/19 Stop Date: 12/28/19 Status: DiscontinuedcloNIDine 0.2 mg oral tablet 0.2 mg, 2 tab, Route: PO, Drug form: TAB, Q6H, Dosing Weight 90.682, kg, Start date: 12/24/19 18:00:00 SLITTER AND REWINDER, Duration: 30 day, Stop date: 01/23/20 12:00:00 CDT, 0 Notes: (Same As: Catapres) Start Date: 12/24/19 Stop Date: 12/26/19 Status: DiscontinuedColace 100 mg oral capsule 100 mg, 1 cap, Route: PO, Drug form: CAP, TID, Dosing Weight 90.909, kg, Start date: 12/22/19 13:00:00 SLITTER AND REWINDER, Duration: 30 day, Stop date: 01/21/20 8:30:00 CDT, 0 Notes: (Same as: Colace) (Do Not Crush) Start Date: 12/22/19 Stop Date: 01/10/20 Status: DiscontinuedCoumadin 7.5 mg, 1 tab, Route: PO, Drug form: TAB, T-Ap-Yy-Sa-Tang, Start date: 01/01/20 17:00:00 SLITTER AND REWINDER, Duration: 30 day, Stop date: 01/29/20 17:00:00 CDT, 0 Notes: Nurse to ensure documentation of patient education per anticoagulation policy.Avoid large intake of vitamin-K containing foods diet.WASTE: F/P - P Waste Black; E - P Waste Black(Same As: Coumadin) Hazardous Drug Group 3:Reproductive risk Hazardous Drug -- Refer to safe handling procedure PPE Ma trix Start Date: 01/01/20 Stop Date: 01/07/20 Status: DiscontinuedCoumadin 5 mg, 1 tab, Route: PO, Drug form: TAB, Q-M-W-F, Start date: 12/31/19 17:00:00 SLITTER AND REWINDER, Duration: 30 day, Stop date: 01/28/20 17:00:00 CDT, 0 Notes: Nurse to ensure documentation of patient education per anticoagulation policy.Avoid large intake of vitamin-K containing foods diet.WASTE: F/P - P Waste Black; E - P Waste Black(Same As: Coumadin) Hazardous Drug Group 3:Reproductive risk Hazardous Drug -- Refer to safe handling procedure PPE Ma trix Start Date: 12/31/19 Stop Date: 01/07/20 Status: DiscontinuedCoumadin 7.5 mg, 1 tab, Route: PO, Drug form: TAB, Q5PM, Start date: 01/07/20 17:00:00 SLITTER AND REWINDER, Duration: 30 day,Stop date: 02/05/20 17:00:00 CDT, 0 Notes: Nurse to ensure documentation of patient education per anticoagulation policy.Avoid large intake of vitamin-K containing foods diet.WASTE: F/P - P Waste Black; E - P Waste Black(Same As: Coumadin) Hazardous Drug Group 3:Reproductive risk Hazardous Drug -- Refer to safe handling procedure PPE Ma trix Start Date: 01/07/20 Stop Date: 01/11/20 Status: DiscontinuedCoumadin 1 mg, 1 tab, Route: PO, Drug form: TAB, Q5PM, Start date: 01/02/20 17:00:00 SLITTER AND REWINDER, Duration: 30 day, Stop date: 01/31/20 17:00:00 CDT, 0 Notes: Nurse to ensure documentation of patient education per anticoagulation policy.Avoid large intake of vitamin-K containing foods diet.(Same As: Coumadin)WASTE: F/P - P Waste Black; E - P Waste Black Hazardous Drug Group 3:Reproductive risk Hazardous Drug -- Refer to safe handling procedure PPE Ma trix Start Date: 01/02/20 Stop Date: 01/05/20 Status: Discontinueddocusate-senna 50 mg-8.6 mg oral tablet 2 tab, Route: PO, Drug Form: TAB, Dosing Weight 90.682, kg, BID, Start date: 12/19/19 21:00:00 SLITTER AND REWINDER, Duration: 30 day, Stop date: 01/18/20 8:30:00 CDT, 0 Notes: (Same as Senokot-S) Equiv. to Viktoria-Colace. Start Date: 12/19/19 Stop Date: 12/22/19 Status: DiscontinuedDuoNeb inhalation solution 3 mL, Route: NEB, Drug Form: SOLN, Dosing Weight 90.682, kg, RTID, PRN as needed for shortness of breath or wheezing, Start date: 12/19/19 20:32:00 SLITTER AND REWINDER, Duration: 30 day, Stop date: 01/18/20 20:31:00 CDT, 0 Notes: (Same as: Duoneb) Start Date: 12/19/19 Stop Date: 01/11/20 Status: DiscontinuedEnemeez Plus 1 appl, Route: RI, Drug Form: MIRTHA, Dosing Weight 90.909, kg, ONCE, Start date: 01/09/20 17:00:00 SLITTER AND REWINDER, Stop date: 01/09/20 17:00:00 SLITTER AND REWINDER, 0 Notes: Same as: (Enemeez Plus)benzocaine-docusate 20 mg-283 mg tube Non Formulary Start Date: 01/09/20 Stop Date: 01/09/20 Status: Completedgabapentin 900 mg, 1.5 tab, Route: PO, Drug form: TAB, Q8H, Dosing Weight 90.682, kg, Start date: 12/31/19 16:00:00 SLITTER AND REWINDER, Duration: 30 day, Stop date: 01/30/20 8:00:00 CDT, 0 Notes: Same as Neurontin Start Date: 12/31/19 Stop Date: 01/05/20 Status: Discontinuedgabapentin 300 mg, 1 cap, Route: PO, Drug form: CAP, Q8H, Dosing Weight 90.682, kg, Start date: 01/07/20 16:00:00 SLITTER AND REWINDER, Duration: 60 day, Stop date: 03/07/20 8:00:00 CDT, 0 Notes: (Same as: Neurontin) Start Date: 01/07/20 Stop Date: 01/11/20 Status: Discontinuedgabapentin 600 mg, 1 tab, Route: PO, Drug form: TAB, Q8H, Dosing Weight 90.682, kg, Start date: 01/05/20 16:00:00 SLITTER AND REWINDER, Duration: 60 day, Stop date: 03/05/20 8:00:00 CDT, 0 Notes: Same as Neurontin Start Date: 01/05/20 Stop Date: 01/07/20 Status: Discontinuedgabapentin 250 mg/5 mL oral solution 900 mg, 3 cap, Route: PO, Drug form: CAP, Q8H, Dosing Weight 90.682, kg, Start date: 12/20/19 0:00:00 SLITTER AND REWINDER, Duration: 30 day, Stop date: 01/18/20 16:00:00 CDT, 0 Notes: (Same as: Neurontin) Start Date: 12/20/19 Stop Date: 12/31/19 Status: Discontinuedgabapentin 300 mg oral capsule 300 mg = 1 cap, PO, Q8H, # 90 cap, 3 Refill(s), Pharmacy: [facility] [id number] Start Date: 01/11/20 Stop Date: 05/10/20 Status: OrderedGI cocktail (aluminum hydroxide/magnesium hydroxide/lidocaine/simethicone) 45 ml, Route: PO, Drug Form: SUSP, Dosing Weight 90.909, kg, ONCE, Routine, Start date: 01/09/20 15:55:00 SLITTER AND REWINDER, Stop date: 01/09/20 15:55:00 SLITTER AND REWINDER Start Date: 01/09/20 Stop Date: 01/09/20 Status: DiscontinuedGI cocktail (aluminum hydroxide/magnesium hydroxide/lidocaine/simethicone) 45 ml, Route: PO, Drug Form: SUSP, Dosing Weight 90.909, kg, ONCE, Routine, Start date: 01/08/20 16:18:00 SLITTER AND REWINDER, Stop date: 01/08/20 16:18:00 SLITTER AND REWINDER, 0 Notes: Dr. Eugene Triple Mix (Gi cocktail) maalox 60ml + Diphenydramine 60 ml + Lidocaine Visc 60 ml = Total 180 ml Start Date: 01/08/20 Stop Date: 01/08/20 Status: CompletedhydrALAZINE 25 mg oral tablet 25 mg, 1 tab, Route: PO, Drug form: TAB, Q6H, Dosing Weight 90.909, kg, PRN Hypertension, Start date: 01/05/20 15:17:00 SLITTER AND REWINDER, Stop date: 01/06/20 0:00:00 SLITTER AND REWINDER, 0 Notes: (Same as: Apresoline) May interfere w/enteral feedings Take With Food. Start Date: 01/05/20 Stop Date: 01/06/20 Status: CompletedhydrALAZINE 25 mg oral tablet 25 mg, 1 tab, Route: PO, Drug form: TAB, ONCE, Dosing Weight 90.909, kg, Start date: 01/05/20 12:21:00 SLITTER AND REWINDER, Stop date: 01/05/20 12:21:00 SLITTER AND REWINDER, 0 Notes: (Same as: Apresoline) May interfere w/enteral feedings Take With Food. Start Date: 01/05/20 Stop Date: 01/05/20 Status: CompletedKeflex 500 mg, 1 cap, Route: PO, Drug form: CAP, ABXQ6H, Dosing Weight 90.909, kg, Start date: 12/24/19 11:00:00 SLITTER AND REWINDER, Duration: 7 day, Stop date: 12/31/19 5:00:00 SLITTER AND REWINDER, 0 Notes: Take on empty stomach. (Same As: Keflex) Start Date: 12/24/19 Stop Date: 12/31/19 Status: Completedketoconazole topical 2% cream 1 appl, Route: TOP, Daily, Drug form: CRM, Start date: 01/03/20 9:00:00 SLITTER AND REWINDER, Duration: 7 day, Stop date: 01/10/20 8:30:00 SLITTER AND REWINDER, 0 Notes: Non-Formulary Drug (Same as: Nizoral Topical) Start Date: 01/03/20 Stop Date: 01/10/20 Status: Completedlidocaine 1% injectable solution 5 mL, Route: NERVE BLOCK, Drug Form: INJ, Dosing Weight 90.909, kg, ONCALL, Start date: 01/02/20 16:00:00 SLITTER AND REWINDER, Duration: 1 doses or times, 0 Notes: Preservative free. (Same as: Xylocaine MPF) Start Date: 01/02/20 Stop Date: 01/05/20 Status: Completedlidocaine 4% topical cream 1 appl, TOP, TID, X 30 day, # 30 gm, 3 Refill(s), Pharmacy: [facility] [id number] Start Date: 01/11/20 Stop Date: 05/10/20 Status: Orderedlidocaine topical 1 patch, Route: TOP, Bedtime, Drug form: FILM, Start date: 12/19/19 21:00:00 SLITTER AND REWINDER, Duration: 30 day, Stop date: 01/17/20 21:00:00 SLITTER AND REWINDER, 0 Notes: Apply only once for up to 12 hours in a 24-hour period (12 hours on and 12 hours off). (Same as: Aspercreme Lidocaine Patch)"Remove old patch before application of new patch" Start Date: 12/19/19 Stop Date: 01/11/20 Status: DiscontinuedLidoderm 5% topical film (patch) 1 patch, Route: TOP, Q24H, Drug form: FILM, Start date: 12/19/19 21:00:00 SLITTER AND REWINDER, Duration: 30 day, Stop date: 01/17/20 21:00:00 SLITTER AND REWINDER Start Date: 12/19/19 Stop Date: 12/19/19 Status: Deletedlisinopril 10 mg, 1 tab, Route: PO, Drug form: TAB, QPM, Dosing Weight 90.909, kg, Start date: 12/31/19 17:00:00 SLITTER AND REWINDER, Duration: 60 day, Stop date: 02/28/20 17:00:00 CDT, 0 Notes: (Same as: Prinivyanet Zestril) Start Date: 12/31/19 Stop Date: 12/31/19 Status: Canceledlisinopril 20 mg, 1 tab, Route: PO, Drug form: TAB, Daily, Dosing Weight 90.909, kg, Start date: 01/06/20 13:21:00 SLITTER AND REWINDER, Duration: 30 day, Stop date: 02/05/20 8:30:00 CDT, 0 Notes: (Same as: Prinivil, Zestril) Start Date: 01/06/20 Stop Date: 01/11/20 Status: Discontinuedlisinopril 20 mg oral tablet 20 mg = 1 tab, PO, Daily, # 30 tab, 3 Refill(s), Pharmacy: [facility] [id number] Start Date: 01/11/20 Stop Date: 05/10/20 Status: Orderedmagnesium citrate 1.745 g/30 mL oral liquid 300 ml, Route: PO, Drug Form: LIQ, Dosing Weight 90.909, kg, ONCE, Start date: 01/01/20 19:00:00 SLITTER AND REWINDER, Stop date: 01/01/20 19:00:00 SLITTER AND REWINDER, 0 Notes: (Same as: Citrate of Magnesia)Concentration: 1.745 gm / 30 mL Start Date: 01/01/20 Stop Date: 01/01/20 Status: Deletedmelatonin 3 mg oral tablet 3 mg = 1 tab, PO, Bedtime, 0 Refill(s) Start Date: 01/11/20 Status: Orderedmelatonin 3 mg oral tablet 3 mg, 1 tab, Route: PO, Drug Form: TAB, Dosing Weight 90.909, kg, Bedtime, Start date: 12/24/19 21:00:00 SLITTER AND REWINDER, Duration: 30 day, Stop date: 01/22/20 21:00:00 CDT, 0 Notes: (Same as: Melatonin) Start Date: 12/24/19 Stop Date: 01/11/20 Status: Discontinuedmethocarbamol 500 mg, 1 tab, Route: PO, Drug form: TAB, QID, Dosing Weight 90.682, kg, Start date: 12/19/19 21:00:00 SLITTER AND REWINDER, Duration: 30 day, Stop date: 01/18/20 17:00:00 CDT, 0 Notes: (Same as:Robaxin) Start Date: 12/19/19 Stop Date: 12/22/19 Status: Discontinuedmethocarbamol 250 mg, 0.5 tab, Route: PO, Drug form: TAB, QID, Dosing Weight 90.682, kg, PRN Muscle Spasms, Start date: 12/23/19 15:33:00 SLITTER AND REWINDER, Stop date: 03/22/20 7:03:00 CDT, 0 Notes: (Same as:Robaxin) Start Date: 12/23/19 Stop Date: 01/11/20 Status: Discontinuedmethocarbamol 250 mg, 0.5 tab, Route: PO, Drug form: TAB, QID, Dosing Weight 90.682, kg, Start date: 12/22/19 13:00:00 SLITTER AND REWINDER, Stop date: 03/22/20 8:30:00 CDT, 0 Notes: (Same as:Robaxin) Start Date: 12/22/19 Stop Date: 12/23/19 Status: Discontinuedmethylphenidate 5 mg, 1 tab, Route: PO, Drug form: TAB, BID-06-24, Dosing Weight 90.909, kg, Start date: 01/04/20 13:00:00 SLITTER AND REWINDER, Duration: 30 day, Stop date: 02/03/20 8:00:00 CDT, 0 Notes: (Same as:Ritalin) Start Date: 01/04/20 Stop Date: 01/06/20 Status: Discontinuedmethylphenidate 5 mg, 1 tab, Route: PO, Drug form: TAB, BID-05-23, Dosing Weight 90.909, kg, Start date: 12/29/19 7:00:00 SLITTER AND REWINDER, Duration: 30 day, Stop date: 01/27/20 12:00:00 CDT, 0 Notes: (Same as:Ritalin) Start Date: 12/29/19 Stop Date: 01/04/20 Status: DiscontinuedMilk of Magnesia 30 mL, Route: PO, Drug Form: SUSP, Dosing Weight 112.005, kg, Daily, PRN Constipation, Start date: 12/19/19 20:24:00 SLITTER AND REWINDER, Duration: 30 day, Stop date: 01/18/20 20:23:00 CDT, 0 Notes: (Same as: Milk of Magnesia, MOM) Start Date: 12/19/19 Stop Date: 01/11/20 Status: DiscontinuedMylanta Gas 80 mg, Route: CHEW, QID-After Meals, Dosing Weight 90.909, kg, Start date: 01/09/20 18:00:00 SLITTER AND REWINDER, Duration: 30 day, Stop date: 02/08/20 13:00:00 CDT Start Date: 01/09/20 Stop Date: 01/09/20 Status: CanceledNIFEdipine 30 mg oral tablet, extended release 30 mg, 1 tab, Route: PO, Drug form: ERTAB, Daily, Dosing Weight 90.909, kg, Start date: 01/01/20 8:30:00 SLITTER AND REWINDER, Duration: 60 day, Stop date: 02/29/20 8:30:00 CDT, 0 Notes: (Same as: Adalat CC, Procardia XL) Give on empty stomach. Take 1 hour before or 2 hours after meal; "Avoid grapefruit and grapefruit juice". Do not crush Start Date: 01/01/20 Stop Date: 01/02/20 Status: DiscontinuedNIFEdipine 60 mg oral tablet, extended release 60 mg, 1 tab, Route: PO, Drug form: ERTAB, Daily, Dosing Weight 90.909, kg, Start date: 01/03/20 8:30:00 SLITTER AND REWINDER, Duration: 60 day, Stop date: 03/02/20 8:30:00 CDT, .., 0 Notes: (Same as: Adalat CC, Procardia XL) Give on empty stomach. Take 1 hour before or 2 hours after meal; "Avoid grapefruit and grapefruit juice". Do not crush Start Date: 01/03/20 Stop Date: 01/05/20 Status: DiscontinuedNIFEdipine 90 mg oral tablet, extended release 90 mg, 1 tab, Route: PO, Drug form: ERTAB, Daily, Dosing Weight 90.909, kg, Start date: 01/06/20 8:30:00 SLITTER AND REWINDER, Duration: 60 day, Stop date: 03/05/20 8:30:00 CDT, 0 Notes: (Same as: Adalat CC,Procardia XL)"Do Not Crush" "Avoid grapefruit and grapefruit juice" Start Date: 01/06/20 Stop Date: 01/11/20 Status: DiscontinuedNIFEdipine 90 mg oral tablet, extended release 90 mg = 1 tab, PO, Daily, # 30 tab, 0 Refill(s), Pharmacy: [facility] [id number] Start Date: 01/11/20 Stop Date: 02/10/20 Status: OrderedoxyCODONE 5 mg oral tablet, immediate release 5 mg, 1 tab, Route: PO, Drug form: TAB, Q6H, Dosing Weight 90.682, kg, PRN Pain Score 7-10, Start date: 12/19/19 20:36:00 SLITTER AND REWINDER, Duration: 30 day, Stop date: 01/18/20 20:35:00 CDT, 0 Notes: (Same as: Roxicodone) Start Date: 12/19/19 Stop Date: 12/23/19 Status: DiscontinuedoxyCODONE 5 mg oral tablet, immediate release 10 mg, 2 tab, Route: PO, Drug form: TAB, Q6H, Dosing Weight 90.682, kg, PRN Pain Score 7-10, Start date: 12/23/19 10:37:00 SLITTER AND REWINDER, Duration: 30 day, Stop date: 01/22/20 10:36:00 CDT, 0 Notes: (Same as: Roxicodone) Start Date: 12/23/19 Stop Date: 01/11/20 Status: Discontinuedpantoprazole 40 mg, 1 tab, Route: PO, Drug form: ECTAB, BID, Dosing Weight 90.909, kg, Start date: 01/09/20 21:00:00 SLITTER AND REWINDER, Duration: 30 day, Stop date: 02/08/20 8:30:00 CDT, 0 Notes: Tablet should not be chewed or crushed.(Same as: Protonix) Start Date: 01/09/20 Stop Date: 01/11/20 Status: Discontinuedpantoprazole 40 mg, 1 tab, Route: PO, Drug form: ECTAB, Before Breakfast, Dosing Weight 90.909, kg, Start date: 01/08/20 7:30:00 SLITTER AND REWINDER, Duration: 30 day, Stop date: 02/06/20 7:30:00 CDT, 0 Notes: Tablet should not be chewed or crushed.(Same as: Protonix) Start Date: 01/08/20 Stop Date: 01/09/20 Status: Discontinuedpantoprazole 40 mg oral enteric coated tablet 40 mg = 1 tab, PO, BID, # 60 tab, 3 Refill(s), Pharmacy: [facility] [id number] Start Date: 01/11/20 Stop Date: 05/10/20 Status: OrderedPepcid 20 mg oral tablet 20 mg, 1 tab, Route: PO, Drug form: TAB, Q12H, Dosing Weight 90.682, kg, Start date: 12/19/19 21:00:00 SLITTER AND REWINDER, Duration: 30 day, Stop date: 01/18/20 9:00:00 CDT, 0 Notes: (Same as: Pepcid) Start Date: 12/19/19 Stop Date: 01/07/20 Status: Discontinuedpolyethylene glycol 3350 17 gm, 1 pkt, Route: PO, Drug form: PWDR, Daily, Dosing Weight 90.682, kg, Start date: 12/20/19 8:30:00 SLITTER AND REWINDER, Duration: 30 day, Stop date: 01/18/20 8:30:00 CDT, 0 Notes: Dissolve in 8 oz of water or juice.(Same as: Miralax) Start Date: 12/20/19 Stop Date: 01/10/20 Status: DiscontinuedPreparation H Cooling Gel 0.25% rectal 1 appl, RI, QID, 0 Refill(s) Start Date: 01/11/20 Status: OrderedPreparation H Cooling Gel 0.25% rectal 1 appl, Route: RI, QID, Drug form: OINT, Start date: 01/10/20 13:00:00 SLITTER AND REWINDER, Duration: 30 day, Stop date: 02/09/20 8:30:00 CDT, 0 Notes: Same as Preparation H oint Start Date: 01/10/20 Stop Date: 01/11/20 Status: Discontinuedremove patch 1 patch, Route: TOP, Daily, Drug form: ERFILM, Start date: 12/20/19 8:30:00 SLITTER AND REWINDER, Duration: 30 day, Stop date: 01/18/20 8:30:00 CDT, 0 Notes: Remove patch 12 hours after application each day. Start Date: 12/20/19 Stop Date: 01/11/20 Status: Discontinuedsenna 8.6 mg oral tablet 34.4 mg = 4 tab, PO, Bedtime, 0 Refill(s) Start Date: 01/11/20 Status: Orderedsenna 8.6 mg oral tablet 2 tab, Route: PO, Drug Form: TAB, Dosing Weight 90.909, kg, Bedtime, Start date: 12/22/19 21:00:00 SLITTER AND REWINDER, Duration: 30 day, Stop date: 01/20/20 21:00:00 CDT Start Date: 12/22/19 Stop Date: 12/22/19 Status: Canceledsenna 8.6 mg oral tablet 34.4 mg, 4 tab, Route: PO, Drug Form: TAB, Dosing Weight 90.909, kg, Bedtime, Start date: 12/22/19 21:00:00 SLITTER AND REWINDER, Duration: 30 day, Stop date: 01/20/20 21:00:00 CDT, 0 Notes: (Same as: Sid) Start Date: 12/22/19 Stop Date: 01/11/20 Status: Discontinuedsilver nitrate topical 1 appl, Route: TOP, ONCE, Drug form: STIC, Start date: 12/29/19 20:40:00 SLITTER AND REWINDER, Stop date: 12/29/19 20:40:00 SLITTER AND REWINDER, 0 Notes: WASTE: F/P - Black; E - [facility] Trash [facility] Start Date: 12/29/19 Stop Date: 12/31/19 Status: Completedsimethicone 80 mg, 1 tab, Route: PEG, Drug form: CHEWTAB, Q8H, Dosing Weight 90.682, kg, PRN Gas, Start date: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
--- OUTSIDE RECORDS SUMMARY | 2020-03-27 16:21 | XMS REPORT ---
:1980 Author Organization [facility] t Address 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, F Attending Clinician Unavailable KADIE Attending Clinician Unavailable KIRILL Attending Clinician Unavailable AIDA Attending Clinician Unavailable Silvano Hwang Attending Clinician SYLVIA Attending Clinician Unavailable TRAUMACLINIC Attending Clinician Unavailable Flavia Attending Clinician MOLLY Attending Clinician Unavailable Ming Potter Attending Clinician Rogelio Torres Admitting Clinician Flavia Admitting Clinician Florentino Lawson Admitting Clinician Problems Condition Condition Condition Status Onset Resolution Last Treating Co mments Source Name Details Category Date Date Treatment Clinician Date Closed Closed Problem Active Univers fracture fracture ity of of of [place] multiple multiple Physic i ribs of ribs of ans right side right side with with routine routine healing, healing, subsequent subsequent encounter encounter Postoperat Postoperat Problem Active U nivers cristina cristina ity of examin[place] examin[place] Physici ans PEG PEG Problem Active Univers (percutane (percutane it y of ous ous [place] endoscopic endoscopic Ph ysici gastrostom gastrostom an s y) y) adjustment adjustment /replaceme /replaceme nt/removal nt/removal Acute Acute Problem Active Univers right MCA right MCA ity of stroke stroke [place] Physici ans Neuralgia Neuralgia Problem Active Uni vers ity of [place] Physici ans Depression Depression Problem Active U nivers screen screen ity of [place] Physici ans Encounter Encounter Problem Active Uni vers for for [place] of screening screening [place] examinatio examinatio Ph ysici n for n for ans other other mental mental health and health and behavioral behavioral disorders disorders Infection Infection Problem Active Uni vers and and ity of inflammato inflammato [place] ry ry Physici reaction reaction ans due to due to internal internal fixation fixation device of device of other other site, site, subsequent subsequent encounter encounter Closed Closed Problem Active Univers displaced displaced ity of fracture fracture [place] of body of of body of Ph ysici right right ans scapula scapula with with routine routine healing healing Shoulder Shoulder Problem Active Unive rs pain, pain, ity of right right [place] Physici ans Other Other Problem Active Univers acute acute ity of osteomyeli osteomyeli [place] tis of tis of Physici right right ans shoulder shoulder region region Surgical Surgical Problem Active Unive rs site site [place] of infection infection [place] Abscess of Abscess of Problem Active U nivers deltoid deltoid ity of region region [place] Physici ans Pseudomona Pseudomona Problem Active U nivers s s ity of aeruginosa aeruginosa [place] infection infection Phys ici ans Allergies, Adverse Reactions, Alerts Allergy Allergy Status Severity Reaction(s) Onset Inactive Treating Comm ents Source Name Type Date Date Clinician Ritalin Allergy Active Univers TABS to drug ity of (finding [place] ) Physici ans Social History Smoking Status Start Date Stop Date Source Never smoked tobacco (finding) U [facility] Medications Ordered Filled Start Stop Current Ordering Indication Dosage Frequency Signature Comments Components Source Medication Medication Date Date Medication? Clinician (SIG) Name Name Acetaminoph Acetaminoph 2019-0 Yes JOANNAH 1 Q6H TAKE 1 Univers en-Codeine en-Codeine 4-15 PARRA TABLET ity of #3 300-30 #3 300-30 00:00: P.A. EVERY 6 [place] MG Oral MG Oral 00 HOURS PRN Phys ici Tablet Tablet pain ans NIFEdipine NIFEdipine 2019-0 Yes 1 QD TAKE 1 Univers ER 90 MG ER 90 MG 3-19 TABLET ity o f Oral Tablet Oral Tablet 00:00: DAILY. [place] Extended Extended 00 Physici Release 24 Release 24 ans Hour Hour Lisinopril Lisinopril 2019-0 Yes 1 QD TAKE 1 Univers 20 MG Oral 20 MG Oral 3-19 TABLET i ty of Tablet Tablet 00:00: DAILY [place] 00 Physici ans Voltaren 1 Voltaren 1 2020-0 Yes U nivers % % 3-19 ity of Transdermal Transdermal 00:00: [place] Gel Gel 00 Physici ans Acetaminoph Acetaminoph 2020-0 Yes TAKE 1 Univers en 500 MG en 500 MG 3-19 TABLET ity of Oral Tablet Oral Tablet 00:00: EVERY 4 TO [place] 00 6 HOURS Physici NEEDED. ans Bacitracin Bacitracin 2020-0 Yes U nivers 500 UNIT/GM 500 UNIT/GM 3-19 i ty of External External 00:00: [place] Ointment Ointment 00 Physici ans Gabapentin Gabapentin 2020-0 Yes MUNACHI 1 Q8H TAKE 1 Univers 300 MG Oral 300 MG Oral 3-19 OKPALA CAPSULE IN ity of Capsule Capsule 00:00: HISTORIAN DRAMATIC ARTS THE AM, [place] 00 AFTERNOON Physici AND 2 ans CAPSULE AT BEDTIME Lidocaine 4 Lidocaine 4 2020-0 Yes Univers % External % External 3-19 ity of Patch Patch 00:00: [place] 00 Physici ans Melatonin 3 Melatonin 3 2020-0 Yes TAKE 1 Univers MG Oral MG Oral 3-19 CAPSULE AT ity of Capsule Capsule 00:00: BEDTIME [place] 00 NEEDED. Physici ans Dicyclomine Dicyclomine 2020-0 Yes Q6H TAKE 1 Univers HCl - 20 MG HCl - 20 MG 3-19 TABLET ity of Oral Tablet Oral Tablet 00:00: EVERY 6 [place] 00 HOURS Physici NEEDED. ans Baclofen 10 Baclofen 10 2020-0 Yes 1 Q8H TAKE 1 Univers MG Oral MG Oral 3-19 TABLET ity of Tablet Tablet 00:00: EVERY 8 [place] 00 HOURS Physici ans NexIUM 24HR NexIUM 24HR 2020-0 Yes 1 QD TAKE 1 Univers 20 MG Oral 20 MG Oral 3-19 TABLET i ty of Tablet Tablet 00:00: DAILY [place] Delayed Delayed 00 Physici Release Release ans Coumadin Coumadin 2020-0 Yes 1 QD TAKE 1 Uni vers 7.5 MG Oral 7.5 MG Oral 3-19 TABLET ity of Tablet Tablet 00:00: DAILY. [place] 00 Physici ans Atorvastati Atorvastati 2020-0 Yes MUNACHI TAKE 1 Univers n Calcium n Calcium 3-19 OKPALA TABLET i ty of 10 MG Oral 10 MG Oral 00:00: HISTORIAN DRAMATIC ARTS DAILY [place] Tablet Tablet 00 DIRECTED Physi ci ans DULoxetine DULoxetine 2020-0 Yes MUNACHI TAKE 1 Univers HCl - 30 MG HCl - 30 MG 3-19 OKPALA CAPSULE BY ity of Oral Oral 00:00: HISTORIAN DRAMATIC ARTS MOUTH [place] Capsule Capsule 00 DAILY Physici Delayed Delayed ans Release Release Particles Particles Vital Signs Vital Name Observation Time Observation Value Comments Source Systolic blood 2020-01-29 135 mm[Hg] Location: [facility] 13:23:00 Position: [place] Physician s Sitting Diastolic blood 2020-01-29 94 mm[Hg] Location: [facility] 13:23:00 Position: [place] Physician s Sitting Body height 2020-01-29 73 [in_us] [facility] 13:23:00 [place] Physician s Heart Rate 2020-01-29 103 /min Location: [facility] 13:23:00 Brachial [place] Physician s Artery; Systolic blood 2020-01-19 129 mm[Hg] Location: [facility] 14:13:00 Position: [place] Physician s Sitting Diastolic blood 2020-01-19 88 mm[Hg] Location: [facility] 14:13:00 Position: [place] Physician s Sitting Body height 2020-01-19 73 [in_us] [facility] 14:13:00 [place] Physician s Weight 2020-01-19 197 [lb_av] [facility] 14:13:00 [place] Physician s Body mass index 2020-01-19 25.99 kg/m2 [place] o (BMI) [Ratio] 14:13:00 [place] Physicok ns Body temperature 2020-01-19 97.1 [degF] Method: [facility] 14:13:00 Tympanic [place] Physician s Heart Rate 2020-01-19 87 /min [facility] 14:13:00 [place] Physician s Procedures Procedure Date / Time Performing Clinician Source Performed Post Op Promis 29 2020-03-19 00:00:00 [facility] Survey Physicians [QL] CBC (INCLUDES 2020-02-26 00:00:00 [facility] DIFF/PLT) Physicians [QL] CMP W/EGFR 2020-02-26 00:00:00 [facility] [place] [facility] [QL] C-REACTIVE PROTEIN 2020-02-26 00:00[facility] [[facility]] SED RATE BY 2020-02-26 00:00:00 [facility] MODIFIED TAM Physicians [U] XRAY SHOULDER MIN 2 2020-02-18 [facility] [id number] [facility] [U] XRAY SHOULDER MIN 2 2020-02-05 00:00:00 Univ [facility] RIGHT [id number] Head/Neck CTA [id number] 2020-02-02 00:00:00 Unive [facility] Physicians [U] XRAY SHOULDER MIN 2 2020-01-22 00:00[facility]00 [facility] [id number] [facility] History of Shoulder [facility] [place] Surgery Right Physicians History of Craniectomy [facility] [place] [facility] Plan of Care Planned Activity Planned Date Details Comments Source Future Scheduled 2020-03-15 [QL] CBC University of Test 00:00:00 (INCLUDES [place] [facility]ician s DIFF/PLT) [code = [QL] CBC (INCLUDES DIFF/PLT)] Future Scheduled 2020-03-15 [QL] CMP W/EGFR Universi ty of Test 00:00:00 [code = [QL] CMP [place] [facility]i cians W/EGFR] Future Scheduled 2020-03-15 [QL] C-REACTIVE Universi ty of Test 00:00:00 PROTEIN [code = [place] Physic ians [QL] C-REACTIVE PROTEIN] Future Scheduled 2020-03-15 [QL] SED RATE BY Univers ity of Test 00:00:00 MODIFIED [place] Physician s REAERGREN [code = [QL] SED RATE BY MODIFIED WESTERGREN] Future Scheduled 2020-03-15 [QL] CBC University of Test 00:00:00 (INCLUDES [place] Physician s DIFF/PLT) [code = [QL] CBC (INCLUDES DIFF/PLT)] Future Scheduled 2020-03-15 [QL] CMP W/EGFR Universi ty of Test 00:00:00 [code = [QL] CMP [place] [facility]i cians W/EGFR] Future Scheduled 2020-03-15 [QL] C-REACTIVE Universi ty of Test 00:00:00 PROTEIN [code = [place] Physic ians [QL] C-REACTIVE PROTEIN] Future Scheduled 2020-03-15 [QL] SED RATE BY Univers ity of Test 00:00:00 MODIFIED [place] Physician s WESTERGREN [code = [QL] SED RATE BY MODIFIED WESTERGREN] Diagnostic Test 2020-01-28 [U] XRAY SHOULDER Univers ity of Pending 00:00:00 MIN 2 S RIGHT [place] Physic ians 102[address] [code = 57691] Future Scheduled CT Head/Neck CTA Before next Univers ity of Test 21375 [code = appointment [place] [id number]] Future Appointment 2020-04-28 RUTHBOBN Universi ty of 13:00:00 Gisele WARD Physician s Future Appointment 2020-04-21 Dawn KHALIL Universit y of 10:00:00 Gisele ROY Physician s Encounters Start End Encounter Admission Attending Care Care Encounter Source Date/Time Date/Time Type Type Clinicians Facility Department ID 2019-11-15 Inpatient E [facility] MARY [id number] [facility] H 16:19:00 2020-03-25 2020-03-25 Orders Doctor SILVINA [id number] 00:00:00 00:00:00 Only Unassigned, VICENTA [id number] [place] [facility] [id number] 2020-03-23 2020-03-23 Ancillary SUMEET James [id number] 13:01:27 15:04:19 Visit Sidney Edwards [id number] Zander Garcia 4.2.7.2.686 Professio [id number] [facility] 178 [facility] 2020-03-23 2020-03-23 Ancillary Compa IABLAZE [id number] 13:02:54 14:02:54 Visit Kaushal Edwards [id number] Radha 4.2.7.2.686 Professio [id number] [facility] 179 [facility] 2020-03-04 2020-03-22 Ancillary Jacob [facility] [id number] 12:58:07 16:58:39 Visit Sidney Edwards [id number] Zander Garcia 4.2.7.2.686 Professio [id number] [facility] 178 [facility] 2020-03-19 2020-03-19 AppointLÓPEZ Rodriguez Infectious [id number] [facility] 10:15:00 10:15:00 t; KITTY ENGLE, Diseases - ity of Dawn TANG [place] Gisele [facility] ans 2020-03-10 2020-03-10 AppointLÓPEZ Salvador [id number] Univers 12:30:00 12:30:00 t; REMI ROY ity o f ANDREW, M.D. [facility] 2020-02-27 2020-02-27 LÓPEZ Mclean Infectious [id number] Univers 10:00:00 10:00:00 t; KITTY ENGLE, Diseases - ity briseyda TANG M.D. [facility] ans 2020-02-25 2020-02-25 LÓPEZ Sanchez Orthoped[facility] 6 [id number] Univers 11:15:00 11:15:00 t; JOANNAH, Trauma mason PARRA, P.ALetitia [place], [place] [facility] 2020-02-05 2020-02-12 Outpatient Jaiden, [facility] [id number] [place] [address] 12:51:27 14:00:00 [place] 02 Kishorkumar 2020-02-09 2020-02-09 LÓPEZ Hoff [facility] [id number] Univers 08:00:00 08:00:00 t; REMI ROY ity o f ANDREW, M.D. [facility] 2020-02-06 2020-02-06 LÓPEZ Hoff [facility] [id number] Univers 08:00:00 08:00:00 t; REMI ROY ity o f ANDREW, M.D. [facility] 2020-02-05 2020-02-05 Inpatient E [facility] MED [id number] [facility] 12:51:00 12:51:00 2020-02-05 2020-02-05 LÓPEZ Sanchez Orthopedics 6 [id number] Univers 11:00:00 11:00:00 t; JOANNAH, Trauma mason PARRA PLetitiaALetitia [place], [place] [facility] 2020-01-29 2020-01-29 LÓPEZ [facility] - [id number] Univers 13:30:00 13:30:00 t; RUTH WARD [place] it [facility] 2020-01-28 2020-01-28 Machelle ROY, [facility] [id number] Univers 11:30:00 11:30:00 t; REMI ROY ity o f ANDREW, M.D. [place] M.D. Physici ans 2020-01-28 2020-01-28 AppointLÓPEZ Gibson [facility] 6 [id number] Univers 11:00:00 11:00:00 t; JOANNAH, Trauma mason PARRA PLetitiaALetitia [place], [place] [facility] P.A. [facility] 2020-01-19 2020-01-19 [facility] TRA[facility]I [facility] General [id number] Univers 13:30:00 13:30:00 t; [facility] ZARI [facility] Physici [facility] 2019-12-19 2020-01-11 Outpatient Flavia, MHTIRR MHTIRR [id number] MH TIRR 20:11:00 13:05:00 [place] 2020-01-05 2020-01-05 [facility] MOLLY [facility] [id number] Univers 15:30:00 15:30:00 t; [facility] Virgilio VASQUEZ M.D. [facility] 2019-12-31 2019-12-31 [facility] LÓPEZ PARRA Orthoped[facility] 6 [id number] Univers 11:30:00 11:30:00 t; JOANNAH, Trauma mason PARRA PLetitiaALetitia [place], [place] Phys[facility] P.A. [facility] 2019-11-15 2019-12-19 [facility] [id number] 15:35:00 18:41:00 Ge Lai 67 2019-12-09 2019-12-09 [facility] KIRILL [facility] [id number] Univers 09:00:00 09:00:00 t; REMI ROY ity o f ANDREW, M.D. [place] M.D. Physici [facility] 2019-11-15 2019-11-15 Outpatient HH MARY [id number] [facility] 15:38:00 15:38:00 Results Test Description Test Time Test Comments Results Result Comments Source [QL] CMP W/EGFR 2020-03-15 12:30:00 Test Item Value Reference Range Interpretation Comme nts GLUCOSE; Normal (test code 116 mg/dl 65-139 N N on-fasting reference = 1547-9) interval UREA NITROGEN (BUN) (test 11 mg/dl 7-25 N code = UREA NITROGEN (BUN)) CREATININE (test code = 0.92 mg/dl 0.60-1.35 N CREATININE) eGFR NON- 103 {ML/MIN/1.7} > OR = 60 N (test code = eGFR NON-) eGFR (test 119 {ML/MIN/1.7} > OR = 60 N code = eGFR ) BUN/CREATININE RATIO (test NOT APPLICABLE 05-03 code = BUN/CREATININE RATIO) SODIUM (test code = SODIUM) 139 mmol/L 135-146 N POTASSIUM (test code = 4.1 mmol/L 3.5-5.3 N POTASSIUM) CHLORIDE (test code = 104 mmol/L 98-110 N CHLORIDE) CARBON DIOXIDE (test code = 25 mmol/L 20-32 N CARBON DIOXIDE) CALCIUM (test code = 9.7 mg/dl 8.6-10.3 N CALCIUM) PROTEIN, TOTAL (test code = 7.3 g/dl 6.1-8.1 N PROTEIN, TOTAL) ALBUMIN (test code = 4.4 g/dl 3.6-5.1 N ALBUMIN) GLOBULIN (test code = 2.9 {G/DL CALC} 1.9-3.7 N GLOBULIN) ALBUMIN/GLOBULIN RATIO 1.5 {CALC} 1.0-2.5 N (test code = ALBUMIN/GLOBULIN RATIO) BILIRUBIN, TOTAL; Normal 0.3 mg/dl 0.2-1.2 N (test code = 92562-4) ALKALINE PHSPHATASE (test 76 u/l 36-130 N code = ALKALINE PHSPHATASE) AST; Normal (test code = 15 u/l 10-40 N 1916-6) ALT; Normal (test code = 23 u/l 9-46 N SPE CIMEN RECEIVED DATE AND 1742-04) TIME: [facility] [place] Physicians[QL] SED RATE BY MODIFIED [id number] 12:30:00 Test Item Value Reference Range Interpretation Comments SED RATE BY MODIFIED 14 mm/h < OR = 15 N SPECIME N RECEIVED DATE TAM (test code AND TI ME: [id number] = SED RATE BY MODIFIED TAM) [facility] Physicians[QL] CBC (INCLUDES DIFF/PLT)2020-03-15 12:30:00 Test Item Value Reference Range Interpretation Comments WHITE BLOOD CELL 4.5 3.8-10.8 N COUNT (test code = {Thousand/u} WHITE BLOOD CELL COUNT) RED BLOOD CELL COUNT 5.54 4.20-5.80 N (test code = RED {Million/uL} BLOOD CELL COUNT) HEMAGLOBIN; Normal 15.3 g/dl 13.2-17.1 N (test code = 95153-9) HEMATOCRIT; Normal 46.3 % 38.5-50.0 N (test code = 4544-3) MCV; Normal (test 83.6 fL 80.0-100.0 N code = 787-2) MCHC; Normal (test 33.0 g/dl 32.0-36.0 N code = 79629-2) RDW; Above High 15.7 % 11.0-15.0 Threshold (test code = 788-0) PLATELET COUNT; 277 140-400 N Normal (test code = {Thousand/u} 777-3) MPV; Normal (test 10.0 fL 7.5-12.5 N code = 86302-0) ABSOLUTE NEUTROPHILS 2538 7472-1556 N (test code = {cells/uL} ABSOLUTE NEUTROPHILS) ABSOLUTE LYMPHOCYTES 3752 034-1725 N (test code = {cells/uL} ABSOLUTE LYMPHOCYTES) ABSOLUTE MONOCYTES 333 {cells/uL} 200-950 N (test code = ABSOLUTE MONOCYTES) ABSOLUTE EOSINOPHILS 99 {cells/uL} 15-500 N (test code = ABSOLUTE EOSINOPHILS) ABSOLUTE BASOPHILS 32 {cells/uL} 0-200 N (test code = ABSOLUTE BASOPHILS) NEUTROPHILS (test 56.4 % N code = NEUTROPHILS) LYMPHOCYTES (test 33.3 % N code = LYMPHOCYTES) MONOCYTES; Normal 7.4 % N (test code = 65508-5) EOSINOPHILS; Normal 2.2 % N (test code = 03381-3) BASOPHILS; Normal 0.7 % N SPECIMEN R ECEIVED (test code = DATE AND TIME: 92683-2) [id number] [facility] Physicians[QL] C-REACTIVE [id number] 12:30:00 Test Item Value Reference Range Interpretation Comments C-REACTIVE PROTEIN 3.6 mg/L <8.0 N SPECIMEN RECEIVED DATE (test code = AND TIME: 7508923 C-REACTIVE PROTEIN) [facility] Physicians[U] XRAY SHOULDER MIN 2 VWS RIGHT [id number] 11:09:00Images acquired, not reported on this accession number.[facility] Physicians[U] XRAY SHOULDER MIN 2 VWS RIGHT [id number] 11:08:00Images acquired, not reported on this accession number.[facility] Physicians [U] XRAY SHOULDER MIN 2 VWS RIGHT [id number] 11:25:00Images acquired, not reported on this accession number.[facility]
--- OUTSIDE RECORDS SUMMARY | 2020-03-27 16:21 | XMS REPORT | Summary of Care ---
:1980 Author Name DOMITILA PALMA Address Unavailable Unavailable , Care Team Providers Name Role Phone DOMITILA PALMA Unavailable Unavailable JADEN WEBSTER MD Unavailable Unavailable [facility] Unavailable Unavailharvinder ROY MD, REMI Unavailable Unavailable Functional Status Name Dates Details Functional status health issues are not documented Status: Name Dates Details Cognitive status health issues are not documented Status: Problems Name Dates Details Closed displaced fracture of body of rig ht scapula with routine healing (V54.11, S42.111D) Status: Active Closed fracture of multiple ribs of righ t side with routine healing, subsequent encounter (V54.19, S22.41XD) Status: Active Postoperative examination (V67.00, Z09) Status: Active PEG (percutaneous endoscopic gastrostomy ) adjustment/replacement/removal (V55.1, Z43.1) Status: Active Medications Name Dates Details Medications not documented Allergies and Adverse Reactions Name Dates Details Ritalin TABS (Allergy) Status: Active Procedures Procedure Dates Details [U] XRAY SHOULDER MIN 2 VWS RIGHT [id number] Date: 22-Jan-2020 Immunization Name Dates Details Immunizations not documented Social History Name Dates Details - Status: Name Dates Details Never smoked tobacco (finding) Vital Signs Date Test Result Details [id number] Systolic blood pressure 129 mm[Hg] Status: Comments: Location: RUE; Position: Sitting Diastolic blood pressure 88 mm[Hg] Status: Comment s: Location: RUE; Position: Sitting Body height 73 in Status: Weight 197 lb Status: Body mass index (BMI) [Ratio] 25.99 kg/m2 Status: Body surface area Derived from formula 2.14 m2 S tatus: Body temperature 97.1 f Status: Comments: Ga thod: Tympanic Heart Rate 87 /min Status: Results Date Description Value Details [id number] [U] XRAY SHOULDER MIN 2 VWS RIGHT [id number] XR SHOULDER MIN 2 VWS RIGHT Images acquired, not reported on this accession number. Plan of Care Name Dates Details Planned Observations [U] XRAY SHOULDER MIN 2 VWS RIGHT [id number] On: 28-Jan-2020 Intent Planned Goals not documented Planned Encounters Appointment; DOMITILA PARRA P.A. On: 28-Jan-2020 1 1:00 Interventions Provided Labs/Procedures/Imaging[U] XRAY SHOULDER MIN 2 VWS RIGHT [id number]; Done: 31 Dec 2019 Instructions Name Dates Details Instructions not documented Encounters Appointment; REMI ROY M.D. On: 09-Dec-2019 9:00 Encounter Diagnosis: Problem not documented Appointment; DOMITILA PARRA P.A. On: 31-Dec-2019 1 1:30 Encounter Diagnosis: Problem not documented
--- OUTSIDE RECORDS SUMMARY | 2020-03-27 16:21 | XMS REPORT | Summary of Care ---
:1980 Author Name Heather Felix R.N. Address [facility] Unavailable , Care Team Providers Name Role Phone MD YOEL Unavailable Unavailable JADEN WEBSTER MD Unavailable Unavailable [facility] [place] Unavailable Unavaila REMI Woodruff MD Unavailable Unavailable Functional Status Name Dates Details [...] Allergies and Adverse Reactions Name Dates Details Allergy history not documented Status: Procedures Procedure Dates Details Procedures not documented Immunization Name Dates Details Immunizations not documented Social History Name Dates Details Tobacco smoking consumption unknown (finding) Vital Signs Date Test Result Details No Known Vitals to report Results Date Description Value Details [id number] [U] XRAY SHOULDER MIN 2 VWS RIGHT [id number] XR SHOULDER MIN 2 VWS RIGHT Images acquired, not reported on this accession number. Plan of Care Name Dates Details Planned Observations Planned Goals not documented Planned Encounters Appointment; MD YOEL On: 19-Jan-2020 13:30 Appointment; DOMITILA PARRA P.A. On: 28-Jan-2020 1 1:00 Instructions Name Dates Details Instructions not documented Encounters Appointment; REMI ROY M.D. On: 09-Dec-2019 9:00 Encounter Diagnosis: Problem not documented Appointment; DOMITILA PARRA P.A. On: 31-Dec-2019 1 1:30 Encounter Diagnosis: Problem not documented Appointment; MD YOEL On: 19-Jan-2020 13:30 Encounter Diagnosis: Problem not documented
--- OUTSIDE RECORDS SUMMARY | 2020-03-27 16:21 | XMS REPORT | Summary of Care ---
:1980 Author Name Heather Felix R.N. Address [facility] Unavailable , Care Team Providers Name Role Phone MD YOEL Unavailable Unavailable DARIN ORDAZ, JADEN Unavailable Unavailable [facility] Unavailable UnavailREMI Montes MD Unavailable Unavailable Functional Status Name Dates [...] (Allergy) Status: Active Procedures Procedure Dates Details Procedures not documented Immunization Name Dates Details Immunizations not documented Social History Name Dates Details - Status: Name Dates Details Never smoked tobacco (finding) Vital Signs Date Test Result Details :13 Systolic blood pressure 129 mm[Hg] Status: Comments: Location: [facility]; Position: Sitting Diastolic blood pressure 88 mm[Hg] Status: Comment s: Location: [facility]; Position: Sitting Body height 73 in Status: Weight 197 lb Status: Body mass index (BMI) [Ratio] 25.99 kg/m2 Status: Body surface area Derived from formula 2.14 m2 S tatus: Body temperature 97.1 f Status: Comments: Me thod: Tympanic Heart Rate 87 /min Status: Results Date Description Value Details [id number] [U] XRAY SHOULDER MIN 2 VWS RIGHT [id number] XR SHOULDER MIN 2 VWS RIGHT Images acquired, not reported on this accession number. Plan of Care Name Dates Details Planned Observations Planned Goals not documented Planned Encounters Appointment; DOMITILA PARRA P.A. On: 28-Jan-2020 1 1:00 Interventions Provided Labs/Procedures/ImagingTobacco Use Screening; Done: 19 Jan 2020 Instructions Name Dates Details Instructions not documented Encounters Appointment; REMI ROY M.D. On: 09-Dec-2019 9:00 Encounter Diagnosis: Problem not documented Appointment; DOMITILA PARRA P.A. On: 31-Dec-2019 1 1:30 Encounter Diagnosis: Problem not documented Appointment; MD YOEL On: 19-Jan-2020 13:30 Encounter Diagnosis: Problem not documented
--- OUTSIDE RECORDS SUMMARY | 2020-03-27 16:21 | XMS REPORT | Summary of Care ---
:1980 Author Name Luli Elliott Address [facility] Unavailable , Care Team Providers Name Role Phone DOMITILA PALMA Unavailable Unavailable JADEN WEBSTER MD Unavailable Unavailable [facility] Unavailable Unavailharvinder ROY MD, REMI Unavailable Unavailable [...] [U] XRAY SHOULDER MIN 2 VWS RIGHT [id number] Date: 22-Jan-2020 Immunization Name Dates Details Immunizations not documented Social History Name Dates Details - Status: Name Dates Details Never smoked tobacco (finding) Vital Signs Date Test Result Details [id number] Systolic blood pressure 129 mm[Hg] Status: Comments: Location: [facility]; Position: Sitting Diastolic blood pressure 88 mm[Hg] Status: Comment s: Location: [facility]; Position: Sitting Body height 73 in Status: Weight 197 lb Status: Body mass index (BMI) [Ratio] 25.99 kg/m2 Status: Body surface area Derived from formula 2.14 m2 S tatus: Body temperature 97.1 f Status: Comments: Ne thod: Tympanic Heart Rate 87 /min Status: Results Date Description Value Details [id number] [U] XRAY SHOULDER MIN 2 VWS RIGHT [id number] XR SHOULDER MIN 2 VWS RIGHT Images acquired, not reported on this accession number. Plan of Care Name Dates Details Planned Observations Planned Goals not documented Planned Encounters Appointment; DOMITILA PARRA P.A. On: 28-Jan-2020 1 1:00 Interventions Provided Labs/Procedures/Imaging[U] XRAY SHOULDER MIN 2 VWS RIGHT [id number]; To Be Done: 28 Jan 2020 Instructions Name Dates Details Instructions not documented Encounters Appointment; REMI ROY M.D. On: 09-Dec-2019 9:00 Encounter Diagnosis: Problem not documented Appointment; DOMITILA PARRA P.A. On: 31-Dec-2019 1 1:30 Encounter Diagnosis: Problem not documented Appointment; MD YOEL On: 19-Jan-2020 13:30 Encounter Diagnosis: Problem not documented Appointment; DOMITILA PARRA P.A. On: 28-Jan-2020 1 1:00 Encounter Diagnosis: Problem not documented
--- OUTSIDE RECORDS SUMMARY | 2020-03-27 16:22 | XMS REPORT | Summary of Care ---
:1980 Author Name RUTH WARD APRN Address Unavailable Unavailable , Care Team Providers Name Role Phone RUTH WARD APRN Unavailable Unavailable JADEN WEBSTER MD Unavailable Unavailable [facility] Unavailable Unavaila [facility], [facility] Unavailable Unavail able REMI ROY MD Unavailable Unavailable Functional Status Name Dates Details Functional status health issues are not documented Status: Name Dates Details Cognitive status health issues are not documented Status: Problems Name Dates Details Closed fracture of multiple ribs of righ t side with routine healing, subsequent encounter (V54.19, S22.41XD) Status: Active Postoperative examination (V67.00, Z09) Status: Active PEG (percutaneous endoscopic gastrostomy ) adjustment/replacement/removal (V55.1, Z43.1) Status: Active Closed displaced fracture of body of rig ht scapula with routine healing (V54.11, S42.111D) Status: Active Medications Name Dates Details Medications [...] /min Status: Results Date Description Value Details :25 [U] XRAY SHOULDER MIN 2 VWS RIGHT [id number] XR SHOULDER MIN 2 VWS RIGHT Images acquired, not reported on this accession number. Plan of Care Name Dates Details Planned Observations Planned Goals not documented Planned Encounters Appointment; RUTH WARD APRN On: 29-Jan-2020 13: 30 Appointment; REMI ROY M.D. On: 25-Feb-2020 11:15 Interventions Provided Plan-- We provided education about stroke and TIA risk reduction -- Continue antithrombotic for stroke prevention -- Discussed with patient about lifestyle changes including a healthy diet similar to Mediterraneandiet, exercising regularly, maintaining a healthy weight, moderating alcohol consumption and smokingcessation Instructions Name Dates Details Instructions not documented Encounters Appointment; REMI ROY M.D. On: 09-Dec-2019 9:00 Encounter Diagnosis: Problem not documented Appointment; DOMITILA PARRA P.A. On: 31-Dec-2019 1 1:30 Encounter Diagnosis: Problem not documented Appointment; MD YOEL On: 19-Jan-2020 13:30 Encounter Diagnosis: Problem not documented Appointment; REMI ROY M.D. On: 28-Jan-2020 11:30 Encounter Diagnosis: Problem not documented Appointment; RUTH WARD APRN On: 29-Jan-2020 13: 30 Encounter Diagnosis: Problem not documented
--- OUTSIDE RECORDS SUMMARY | 2020-03-27 16:22 | XMS REPORT | Summary of Care ---
:1980 Author Name Amalia Lentz M.A. Address Unavailable Unavailable , Care Team Providers Name Role Phone PENGRUTH GARAY APRN Unavailable Unavailable JADEN WEBSTER MD Unavailable Unavailable [facility] Unavailable Unavaila [facility], [facility] Unavailable Unavail able REMI ROY MD Unavailable Unavailable Unavailable Unavailable Unavailable Functional Status Name Dates Details [...] S42.111D) Status: Active Medications Name Dates Details NIFEdipine ER 90 MG Oral Tablet Extended Release 24 Hour TAKE 1 TABLET DAILY. Refills: 0 Start : 29-Jan-2020 Active Lisinopril 20 MG Oral Tablet TAKE 1 TABLET DAILY Quantity: 30 Refills: 3 Start : 29-Jan-2020 Active Atorvastatin Calcium 40 MG Oral Tablet TAKE 2 TABLET DAILY Refills: 0 Start : 29-Jan-2020 Active Voltaren 1 % Transdermal Gel Refills: 0 Start : 29-Jan-2020 Active 100 GM Tube Acetaminophen 500 MG Oral Tablet TAKE 1 TABLET EVERY 4 TO 6 HOURS NEEDED. Refills: 0 Start : 29-Jan-2020 Active Bacitracin 500 UNIT/GM External Ointment Refills: 0 Start : 29-Jan-2020 Active Gabapentin 300 MG Oral Capsule TAKE 1 CAPSULE EVERY 8 HOURS Refills: 0 Start : 29-Jan-2020 Active Lidocaine 4 % External Patch Refills: 0 Start : 29-Jan-2020 Active Melatonin 3 MG Oral Capsule TAKE 1 CAPSULE AT BEDTIME NEEDED. Refills: 0 Start : 29-Jan-2020 Active Dicyclomine HCl - 20 MG Oral Tablet TAKE 1 TABLET EVERY 6 HOURS NEEDED. Refills: 0 Start : 29-Jan-2020 Active Baclofen 10 MG Oral Tablet TAKE 1 TABLET EVERY 8 HOURS Refills: 0 Start : 29-Jan-2020 Active NexIUM 24HR 20 MG Oral Tablet Delayed Release TAKE 1 TABLET DAILY Refills: 0 Start : 29-Jan-2020 Active traMADol HCl - 50 MG Oral Tablet TAKE 1 TABLET EVERY 8 HOURS Refills: 0 Start : 29-Jan-2020 Active Coumadin 7.5 MG Oral Tablet TAKE 1 TABLET DAILY. Refills: 0 Start : 29-Jan-2020 Active Allergies and Adverse Reactions Name Dates Details Ritalin TABS (Allergy) Status: Active Procedures Procedure Dates Details Procedures not documented Immunization Name Dates Details Immunizations not documented Social History Name Dates Details - Status: Name Dates Details Never smoked tobacco (finding) Vital Signs Date Test Result Details [id number] Systolic blood pressure 135 mm[Hg] Status: Comments: [place] [facility] [place]: Sitting Diastolic blood pressure 94 mm[Hg] Status: Comment s: Location: [facility] [place]; Position: Sitting Body height 73 in Status: Heart Rate 103 /min Status: Comments: cation: L Brachial Artery; 6-[id number]:13 Systolic blood pressure 129 mm[Hg] Status: Comments: Location: [facility]; Position: Sitting Diastolic blood pressure 88 mm[Hg] Status: Comment s: Location: [facility]; Position: Sitting Body height 73 in Status: Heart Rate 87 /min Status: Weight 197 lb Status: Body mass index (BMI) [Ratio] 25.99 kg/m2 Status: Body surface area Derived from formula 2.14 m2 S tatus: Body temperature 97.1 f Status: Comments: Sd thod: Tympanic Results Date Description Value Details [id number] [U] XRAY SHOULDER MIN 2 VWS RIGHT [id number] XR SHOULDER MIN 2 VWS RIGHT Images acquired, not reported on this accession number. Plan of Care Name Dates Details Planned Observations Planned Goals not documented Planned Encounters Appointment; REMI ROY M.D. On: 25-Feb-2020 11:15 [...]
--- OUTSIDE RECORDS SUMMARY | 2020-03-27 16:22 | XMS REPORT | Summary of Care ---
:1980 Author Name Cheyenne Lorenz Address Unavailable Unavailable , Care Team Providers Name Role Phone Cheyenne Lorenz Unavailable Unavailable JADEN WEBSTER MD Unavailable Unavailable [facility] Unavailable Unavaila [facility], [facility] Unavailable Unavail able REMI ROY MD [...] blood pressure 129 mm[Hg] Status: Comments: Location: E; Position: Sitting Diastolic blood pressure 88 mm[Hg] [...] [U] XRAY SHOULDER MIN 2 VWS RIGHT [id number] XR SHOULDER MIN 2 VWS RIGHT Images acquired, not reported on this accession number. Plan of Care Name Dates Details Planned Observations Planned Goals not documented Planned Encounters Appointment; RUTH WARD APRN On: 29-Jan-2020 13: 30 Appointment; REMI ROY M.D. On: 25-Feb-2020 11:15 Instructions Name Dates Details Instructions not documented Encounters Appointment; REMI ROY M.D. On: 09-Dec-2019 9:00 Encounter Diagnosis: Problem not documented Appointment; DOMITILA PARRA P.A. On: 31-Dec-2019 1 1:30 Encounter Diagnosis: Problem not documented Appointment; MD YOEL On: 19-Jan-2020 13:30 Encounter Diagnosis: Problem not documented
--- OUTSIDE RECORDS SUMMARY | 2020-03-27 16:23 | XMS REPORT | Summary of Care ---
:1980 Author Name RUTH WARD APRN Address Unavailable Unavailable , Care Team Providers Name Role Phone PENGSUKHDEVJose Maria ROJASNRUTH Unavailable Unavailable JADEN WEBSTER MD Unavailable Unavailable [facility] Unavailable Unavaila [facility], [facility] Unavailable Unavail able REMI ROY MD Unavailable Unavailable Unavailable Unavailable Unavailable Functional Status Name Dates Details Functional status health issues are not documented Status: Name Dates Details Cognitive status health issues are not documented Status: Problems Name Dates Details PEG (percutaneous endoscopic gastrostomy ) adjustment/replacement/removal (V55.1, Z43.1) Status: Active Postoperative examination (V67.00, Z09) Status: Active Closed fracture of multiple ribs of righ t side with routine healing, subsequent encounter (V54.19, S22.41XD) Status: Active Neuralgia (729.2, M79.2) Status: Active Acute right MCA stroke (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 Refills: 0 Start : 29-Jan-2020 Active Lisinopril 20 MG Oral Tablet TAKE 1 TABLET DAILY Quantity: 30 Refills: 3 Start : 29-Jan-2020 Active Atorvastatin Calcium 10 MG Oral Tablet TAKE 1 TABLET DAILY DIRECTED Quantity: 30 Refills: 3 PENGSUKHDEVJose Maria DANE RADHAAMRIK Start : 29-Jan-2020 Active Voltaren 1 % Transdermal Gel Refills: 0 Start : 29-Jan-2020 Active 100 GM Tube Acetaminophen 500 MG Oral Tablet TAKE 1 TABLET EVERY 4 TO 6 HOURS NEEDED. Refills: 0 Start : 29-Jan-2020 Active Bacitracin 500 UNIT/GM External Ointment Refills: 0 Start : 29-Jan-2020 Active Gabapentin 300 MG Oral Capsule TAKE 1 CAPSULE IN THE AM, AFTERNOON AND 2 CAPSULE AT BEDTIME Quantity: 270 Refills: 0 RUTH WARD APRN Start : 29-Jan-2020 Active Lidocaine 4 % [...] DAILY Refills: 0 Start : 29-Jan-2020 Active Coumadin 7.5 MG Oral Tablet TAKE 1 TABLET DAILY. Refills: 0 Start : 29-Jan-2020 Active DULoxetine HCl - 30 MG Oral Capsule Delayed Release Particles TAKE 1 CAPSULE BY MOUTH DAILY Quantity: 30 Refills: 3 RUTH WARD APRN Start : 29-Jan-2020 Active Allergies and Adverse Reactions Name Dates Details Ritalin TABS (Allergy) Status: Active Procedures Procedure Dates Details Procedures not documented Immunization Name Dates Details Immunizations not documented Social History Name Dates Details - Status: Name Dates Details Never smoked tobacco (finding) Vital Signs Date Test Result Details :23 Systolic blood pressure 135 mm[Hg] Status: Comments: Location: [facility] [place]; Position: Sitting Diastolic blood pressure 94 mm[Hg] Status: Comment s: Location: [facility] [place]; Position: Sitting Body height 73 in Status: Heart Rate 103 /min Status: Comments: Lo cation: L Brachial Artery; [id number]-[id number] Systolic blood pressure 129 mm[Hg] Status: Comments: Location: [facility]; Position: Sitting Diastolic blood pressure 88 mm[Hg] Status: Comment s: Location: [facility]; Position: Sitting Body height 73 in Status: Heart Rate 87 /min Status: Weight 197 lb Status: Body mass index (BMI) [Ratio] 25.99 kg/m2 Status: Body surface area Derived from formula 2.14 m2 S tatus: Body temperature 97.1 f Status: Comments: Ms thod: Tympanic Results Date Description Value Details :25 [U] XRAY SHOULDER MIN 2 VWS RIGHT [id number] XR SHOULDER MIN 2 VWS RIGHT Images acquired, not reported on this accession number. Plan of Care Name Dates Details Planned Observations Planned Goals not documented Planned Encounters Occupational Therapy Referral Physical Therapy Referral Sleep Medicine Referral Appointment; REMI ROY M.D. On: 25-Feb-2020 11:15 Interventions Provided Medication ChangesAtorvastatin Calcium 10 MG Oral Tablet - RenewDULoxetine HCl - 30 MG Oral Capsule Delayed Release Particles - StartGabapentin 300 MG Oral Capsule - RenewPlan-- We provided education about stroke and TIA risk reduction -- Continue antithrombotic for stroke prevention -- Discussed with patient about lifestyle changes including a healthy diet similar to Mediterraneandiet, exercising regularly, maintaining a healthy weight, moderating alcohol consumption and smokingcessation Instructions Name Dates Details Instructions not documented Encounters Appointment; REMI ROY M.D. On: 09-Dec-2019 9:00 Encounter Diagnosis: Problem not documented Appointment; DOMITILA PARRA, P.ALetitia On: 31-Dec-2019 1 1:30 Encounter Diagnosis: Problem not documented Appointment; MD YOEL On: 19-Jan-2020 13:30 Encounter Diagnosis: Problem not documented Appointment; REMI ROY M.D. On: 28-Jan-2020 11:30 Encounter Diagnosis: Problem not documented Appointment; RUTH WARD APRN On: 29-Jan-2020 13: 30 Encounter Diagnosis: Problem not documented
--- OUTSIDE RECORDS SUMMARY | 2020-03-27 16:23 | XMS REPORT | Summary of Care ---
:1980 Author Name RUTH WARD APRN Address Unavailable Unavailable , Care Team Providers Name Role Phone SYLVIA ROJASNRUTH Unavailable Unavailable JADEN WEBSTER MD Unavailable Unavailable [facility] Unavailable Unavaila [facility], [facility] Unavailable Unavail able PENGJARROD SORIA PR, RUTH Unavailable Unavailable REMI ROY MD Unavailable Unavailable Unavailable Unavailable [...] TABLET DAILY DIRECTED Quantity: 30 Refills: 3 RUTH WARD APRN Start : 29-Jan-2020 Active Voltaren 1 % [...] Dates Details Ritalin TABS (Allergy) Status: Active Past Medical History Name Dates Details History of No significant past medical history Status: Resolved Procedures Procedure Dates Details History of Shoulder Surgery Right Comple jose History of Craniectomy Completed Immunization Name Dates Details Immunizations not documented Social History Name Dates Details - Status: Name Dates Details Never smoked tobacco (finding) Vital Signs Date Test Result Details :23 Systolic blood pressure 135 mm[Hg] Status: Comments: Location: [facility] [place]; Position: Sitting Diastolic blood pressure 94 mm[Hg] Status: Comment s: Location: [facility] [place]; Position: Sitting Body height 73 in Status: Heart Rate 103 /min Status: Comments: cation: L Brachial Artery; [id number] Systolic blood pressure 129 mm[Hg] Status: Comments: Location: [facility]; Position: Sitting Diastolic blood pressure 88 mm[Hg] Status: Comment s: Location: [facility]; Position: Sitting Body height 73 in Status: Heart Rate 87 /min Status: Weight 197 lb Status: Body mass index (BMI) [Ratio] 25.99 kg/m2 Status: Body surface area Derived from formula 2.14 m2 S tatus: Body temperature 97.1 f Status: Comments: Me thod: Tympanic Results Date Description Value Details :25 [U] XRAY SHOULDER MIN 2 VWS RIGHT [id number] XR SHOULDER MIN 2 VWS RIGHT Images acquired, not reported on this accession number. Plan of Care Name Dates Details Planned Observations Planned Goals not documented Planned Encounters Occupational Therapy Referral Physical Therapy Referral Sleep Medicine Referral Appointment; REMI ROY M.D. On: 25-Feb-2020 11:15 Appointment; RUTH WARD APRN On: 28-Apr-2020 13: 00 Interventions Provided Medication ChangesAtorvastatin Calcium 10 MG [...] healthy weight, moderating alcohol consumption and smokingcessation -- Encourage continued cessation plan -- Initiate antidepressant medication -- Referral to Physical Therapy -- Referral for Occupational Therapy -- Home safety and adaptive equipment discussed Instructions Name Dates Details Instructions not documented [...]
--- OUTSIDE RECORDS SUMMARY | 2020-03-27 16:23 | XMS REPORT | Summary of Care ---
:1980 Author Name RUTH WARD APRN Address Unavailable Unavailable , Care Team Providers Name Role Phone PENGSUKHDEVJose Maria ROJASNRUTH Unavailable Unavailable JADEN WEBSTER MD Unavailable Unavailable [facility] Unavailable Unavaila [facility], [facility] Unavailable Unavail able PENGJARROD SORIA [place], RUTH Unavailable Unavailable REMI ROY MD Unavailable [...] gastrostomy ) adjustment/replacement/removal (V55.1, Z43.1) Status: Active Neuralgia (729.2, M79.2) Status: Active Acute right MCA stroke (434.91, I63.511) Status: Active Medications Name Dates Details NIFEdipine [...] history Status: Resolved Procedures Procedure Dates Details CT Head/Neck CTA 68960 Date: 02-Feb-2020 History of Craniectomy Completed History of Shoulder Surgery Right Comple jose Immunization Name Dates Details Immunizations not documented Social History Name Dates Details - Status: Name Dates Details Never smoked tobacco (finding) Vital Signs Date Test Result Details [id number]-[id number] Systolic blood pressure 135 mm[Hg] Status: Comments: Location: [facility] [place]; Position: Sitting Diastolic blood pressure 94 mm[Hg] Status: Comment s: Location: [facility] [place]; Position: Sitting Body height 73 in Status: Heart Rate 103 /min Status: Comments: Lo cation: L Brachial Artery; [id number]-[id number]:13 Systolic blood pressure 129 mm[Hg] Status: Comments: Location: [facility]; Position: Sitting Diastolic blood pressure 88 mm[Hg] Status: Comment s: Location: [facility]; Position: Sitting Body height 73 in Status: Heart Rate 87 /min Status: Weight 197 lb Status: Body mass index (BMI) [Ratio] 25.99 kg/m2 Status: Body surface area Derived from formula 2.14 m2 S tatus: Body temperature 97.1 f Status: Comments: Me thod: Tympanic Results Date Description Value Details Results not documented Plan of Care Name Dates Details Planned Observations Planned Goals not documented Planned Encounters Appointment; REMI ROY M.D. On: 25-Feb-2020 11:15 Appointment; RUTH WARD APRN On: 28-Apr-2020 13: 00 Interventions Provided Labs/Procedures/ImagingCT Head/Neck CTA 90189; To Be Done: 02 Feb 2020 Instructions Name Dates Details Instructions not [...]
--- OUTSIDE RECORDS SUMMARY | 2020-03-27 16:23 | XMS REPORT | Summary of Care ---
:1980 Author Name Amalia Lentz M.A. Address Unavailable Unavailable , Care Team Providers Name Role Phone Amalia Lentz M.A. Unavailable Unavailable AJDEN WEBSTER MD Unavailable Unavailable [facility] Unavailable Unavaila [facility], [facility] Unavailable Unavail able REMI ROY [...] (finding) Vital Signs Date Test Result Details [id number] Systolic blood pressure 135 mm[Hg] Status: Comments: [place] [facility] [place] Diastolic blood pressure 94 mm[Hg] Status: Comment s: [place] [facility] Position: Sitting Body height 73 in Status: Heart Rate 103 /min Status: Comments: Lo cation: L Brachial Artery; 8-[id number]:13 Systolic blood pressure 129 mm[Hg] Status: Comments: Location: [facility]; Position: Sitting Diastolic blood pressure 88 mm[Hg] Status: Comment s: Location: [facility]; Position: Sitting Body height 73 in Status: Heart Rate 87 /min Status: Weight 197 lb Status: Body mass index (BMI) [Ratio] 25.99 kg/m2 Status: Body surface area Derived from formula 2.14 m2 S tatus: Body temperature 97.1 f Status: Comments: Ak thod: Tympanic Results Date Description Value Details 02-[id number] [U] XRAY SHOULDER MIN 2 VWS RIGHT [id number] XR SHOULDER MIN 2 VWS RIGHT Images [...] 1:30 Encounter Diagnosis: Problem not documented Appointment; TRAUMACLINIC, MD On: 19-Jan-2020 13:30 Encounter Diagnosis: Problem not documented Appointment; REMI ROY M.D. On: 28-Jan-2020 11:30 Encounter Diagnosis: Problem not documented
--- OUTSIDE RECORDS SUMMARY | 2020-03-27 16:24 | XMS REPORT | Summary of Care ---
:1980 Author Name Cheyenne Lorenz Address Unavailable Unavailable , Care Team Providers Name Role Phone PENGSUKHDEVJose Maria DANERUTH Unavailable Unavailable DOMITILA PALMA Unavailable Unavailable JADEN WEBSTER MD Unavailable Unavailable [facility] Unavailable Unavaila [facility], SYSTEM Unavailable Unavail able PENGJARROD VALDOVINOSP [place], RUTH Unavailable Unavailable REMI ROY MD Unavailable [...] gastrostomy ) adjustment/replacement/removal (V55.1, Z43.1) Status: Active Acute right MCA stroke (434.91, I63.511) Status: Active Neuralgia (729.2, M79.2) Status: Active Depression screen (V79.0, Z13.31) Status : Active Encounter for screening examination for other mental health and behavioral disorders (V79.8, Z13.39) Status: Active Medications Name Dates Details NIFEdipine [...] BY MOUTH DAILY Quantity: 30 Refills: 3 SYLVIA ROJASNRUTH Start : 29-Jan-2020 Active Allergies and Adverse Reactions Name Dates Details Ritalin TABS (Allergy) Status: Active Past Medical History Name Dates Details History of No significant past medical history Status: Resolved Procedures Procedure Dates Details CT Head/Neck CTA 21154 Date: 02-Feb-2020 [U] XRAY SHOULDER MIN 2 VWS RIGHT 40183 Date: 05-Feb-2020 History of Craniectomy Completed History of Shoulder Surgery Right Comple jose Immunization Name Dates Details Immunizations not documented Social History Name Dates Details - Status: Name Dates Details Never smoked tobacco (finding) Vital Signs Date Test Result Details [id number] Systolic blood pressure 135 mm[Hg] Status: Comments: Location: LUE; Position: Sitting Diastolic blood pressure 94 mm[Hg] Status: Comment s: Location: LUE; Position: Sitting Body height 73 in Status: Heart Rate 103 /min Status: Comments: Lo cation: L Brachial Artery; 70-Fds-417282:16 Physical Findings 15 Status: Comme nts: PHQ-9 Adult Depression Screening 8-Bct-989976:13 Systolic blood pressure 129 mm[Hg] Status: Comments: Location: RUE; Position: Sitting Diastolic blood pressure 88 mm[Hg] Status: Comment s: Location: [facility]; Position: Sitting Body height 73 [...] Planned Encounters Appointment; DOMITILA PARRA P.A. On: 05-Feb-2020 1 1:00 Appointment; REMI ROY M.D. On: 25-Feb-2020 11:15 Appointment; RUTH WARD APRN On: 28-Apr-2020 13: 00 Interventions Provided Labs/Procedures/Imaging[U] XRAY SHOULDER MIN 2 VWS RIGHT [id number]; To Be Done: 05 Feb 2020 Instructions Name Dates Details Instructions not documented Encounters Appointment; REMI ROY M.D. On: 09-Dec-2019 9:00 Encounter Diagnosis: Problem not documented Appointment; DOMITILA PRARA P.A. On: 31-Dec-2019 1 1:30 Encounter Diagnosis: Problem not documented Appointment; MD YOEL On: 19-Jan-2020 13:30 Encounter Diagnosis: Problem not documented Appointment; REMI ROY M.D. On: 28-Jan-2020 11:30 Encounter Diagnosis: Problem not documented Appointment; RUTH WARD APRN On: 29-Jan-2020 13: 30 Encounter Diagnosis: Problem not documented Appointment; DOMITILA PARRA P.A. On: 05-Feb-2020 1 1:00 Encounter Diagnosis: Problem not documented
--- OUTSIDE RECORDS SUMMARY | 2020-03-27 16:24 | XMS REPORT | Summary of Care ---
:1980 Author Name DOMITILA PALMA Address Unavailable Unavailable , Care Team Providers Name Role Phone PENGSUKHDEVJose Maria DANERUTH Unavailable Unavailable DOMITILA PALMA Unavailable Unavailable JADEN WEBSTER MD Unavailable Unavailable [facility] Unavailable Unavaila [facility], SYSTEM Unavailable Unavail able PENGJARROD SORIA [place], MUNAMRIK Unavailable Unavailable REMI ROY MD Unavailable Unavailable [...] Procedures Procedure Dates Details CT Head/Neck CTA 22101 Date: 02-Feb-2020 [U] XRAY SHOULDER MIN 2 VWS RIGHT 80899 Date: 05-Feb-2020 History of Craniectomy Completed History of Shoulder Surgery Right Comple jose Immunization Name Dates Details Immunizations not documented Social History Name Dates Details - Status: Name Dates Details Never smoked tobacco (finding) Vital Signs Date Test Result Details 30-[id number] Systolic blood pressure 135 mm[Hg] Status: Comments: Location: LUE; Position: Sitting Diastolic blood pressure 94 mm[Hg] Status: Comment s: Location: LUE; Position: Sitting Body height 73 in Status: Heart Rate 103 /min Status: Comments: Lo cation: L Brachial Artery; 21-Kmd-931988:16 Physical Findings 15 Status: Comme nts: PHQ-9 Adult Depression Screening 5-Qnd-071300:13 Systolic blood pressure 129 mm[Hg] Status: Comments: [...] Labs/Procedures/Imaging[U] XRAY SHOULDER MIN 2 VWS RIGHT [id number]; To Be Done: 05 Feb 2020 Instructions [...]
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
--- OUTSIDE RECORDS SUMMARY | 2020-03-27 16:25 | XMS REPORT | Summary of Care ---
:1980 Author Organization [facility] - [facility] Address [address] [place] [address] Care Team Providers Name Role Phone Pcp, Patient Does Not Have A Primary Care Provider +[phone] 0-0000 Reason for Visit Reason Comments Re-evaluation Follow-up Encounter Details Date Type Department Care Team Description 02/18/2020 Ancillary Visit [facility] Lars Reyes MD [address] [facility] [place] [address] Acute right MCA stroke (Primary Dx); Physical Therapy- Jes Hamm, PT [address] [place] [address] Decreased muscle strength; [place] Decreased functional mobilit y and endurance; Professional Office Gait abn [address] [place] [address] Allergies No Known Allergiesdocumented as of this encounter (statuses as of 02/18/2020) Medications Medication Sig Dispensed Refills Start Date [...] as of this encounter (statuses as of 02/18/2020) Active Problems Problem Noted Date Closed fracture of distal end of left tibia 09/26/2016 Left leg pain 09/25/2016 documented as of this encounter (statuses as of 02/18/2020) Social History Tobacco Use Types Packs/Day Years [...] on filedocumented in this encounter Progress Notes Alfred GaetanoJes palacios, PT - 02/18/2020 1:40 PM CDT Re-Evaluation Date: February 18, 2020 Date of initial visit: 02/02/2020 Date of last visit: 02/18/2020 Total number of visits: 3 Brief History- Pt evaluated and had one treatment in clinic. Patient went to the hospital after 2nd visit due to increased pain of his right upper extremity and found to have an infection that requiredsurgical intervention to clean out. Pt was discharged and sent home last week. Patient now here to continue with therapy. Diagnosis: 1. Acute right MCA stroke 2. Decreased muscle strength 3. Decreased functional mobility and endurance 4. Gait abnormality Subjective: Pt reports he is feeling much better than before, he still has pain but not as severe asthe previous times. Objective: Outpatient PT Re-Evaluation Row Name 02/18/20 1600 General Visit Number 3 Chart Reviewed No Pt external referral, no current information in chart Family/Caregiver Present Yes present for evaluation to assist with history General Comments Visit 3 of 8, pt currently waiting on Medicaid. Precautions Precautions WBAT Per new MD orders, pt recently had sx on RUE 2/2 infection Pain Assessment Pain Assessment 0-10 Pain Score 4 Post-Treatment Pain Score 4 Pain Location Arm Pain Orientation Right;Posterior;Proximal Pain Descriptors Aching;Dull Activity Tolerance Endurance Tolerates 10 - 20 [...] Postural Control Deficits on evaluation Head Control Forward head Trunk Control rounded shoulder, elevated LUE due to patient with sling from subluxed shoulder, RUE, depressed and protracted scapula, able to sit upright more today than previous visits due to surgical correction of RUE ,increased thoracic kyphosis Righting Reactions decreased due to not able to perform but aware of deficit Static Sitting Balance Static Sitting-Balance Support Feet supported;No upper extremity supported Static Sitting-Level of Assistance Close supervision Dynamic Sitting Balance Dynamic Sitting-Balance Support Feet supported;No upper extremity supported Static Standing Balance Static Standing-Balance Support Right upper extremity supported in // Bars Static Standing-Level of Assistance Minimum assistance;Moderate assistance Dynamic Standing Balance Dynamic Standing-Balance Support Right upper extremity supported Transfers Transfer Yes Transfer 1 Transfer From 1 Mat Transfer Type 1 To and from Transfer to 1 Wheelchair Technique 1 Squat pivot;Stand pivot Transfer Level of Assistance 1 Minimum assistance;Moderate assistance Trials/Comments 1 RUE Assessment RUE Assessment X left RX at home but patient with increased ability LUE Assessment LUE Assessment X Limited due [...] Tone LLE LLE Tone Hypotonic Slightly hypotonic. Treatment: See Outpatient PT Treatment Flowsheet Assessment: Pt presents with increased ability to perform transfers. Patient using right upper extremity more for transitional movements during transfers. Patient placed right upper extremity on // barduring weight shifting, weight bearing and pre gait activity without difficulty. Patient will benefit from skilled PT intervention. Short Term Goals: To be met in 4 visits: 1. Pt will be able to increase posture while in standing without cues, I'ly. 2. Pt will be able to perform transfers with SBA/Mod Ind. 3. Patient will increase strength by 1/2 grade. 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 Pt will increase strength by 1 grade 2. Pt will be able to perform tasks with CGA Plan of Care There ex, there act, neuromuscular re ed, gait trg, and patient education. Frequency: 1-2x/wee Duration: 8 sessions Jes Simon, PT [place] PT License [id number] [facility] Rehabilitation Services Department (phone) (fax) documented in this encounter Plan of Treatment Date Type Specialty Care Team Description 02/23/2020 Ancillary Visit Physical Therapy Lars Reyes MD [address] [place] [address] Jes Hamm, PT [address] [place] [address] 02/25/2020 Ancillary Visit Physical Therapy Lars Reyes MD [address] [place] [address] Jes Hamm, PT [address] [place] [address] Health Maintenance Due Date Last Done Comments DTaP,Tdap,and Td Vaccines (1 - 1989 Tdap) INFLUENZA VACCINE (#1) 2019 PNEUMOCOCCAL 0-64 YEARS COMBINED Aged Out No longer eligible based on SERIES patient's age to complete this topic documented as of this encounter Goals Goal Patient Goal Associated Recent Patient-Stated? Author Type Problems Progress Patient wants to General Yes Alfred walk and do ADL's Gaetano more independent MERON Andre and wants to [...]
--- OUTSIDE RECORDS SUMMARY | 2020-03-27 16:25 | XMS REPORT | Summary of Care ---
:1980 Author Organization [facility] - [facility] Address [address] [place] [address] Care Team Providers Name Role Phone Pcp, Patient Does Not Have A Primary Care Provider +1-000-00 0-0000 Reason for Visit Reason Comments Re-evaluation Follow-up Encounter Details Date Type Department Care Team Description 02/18/2020 Ancillary Visit [facility] Lars Reyes MD [address] [place] [facility] [place] [address] Acute right MCA stroke (Primary Dx); Physical Therapy- Jes Hamm, PT [address] [place] [address] Decreased muscle strength; [place] Decreased functional mobilit y and endurance; Professional Office Gait abn or[address] [place] [address] Allergies No Known Allergiesdocumented as of this encounter (statuses as of 02/19/2020) Medications Medication Sig Dispensed Refills Start Date [...] as of this encounter (statuses as of 02/19/2020) Active Problems Problem Noted Date Closed fracture of distal end of left tibia 09/26/2016 Left leg pain 09/25/2016 documented as of this encounter (statuses as of 02/19/2020) Social History Tobacco Use Types Packs/Day Years [...] Patient will increase strength by 1/2 grade. 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 Pt will increase strength by 1 grade 2. Pt will be able to perform tasks with CGA 3. Pt will be able to perform in // bars pre gait and progress to gait with min A for LLE mgmt. Plan of Care There ex, there act, neuromuscular re ed, gait trg, and patient education. Frequency: 1-2x/wee Duration: 8 sessions Jes Simon, PT [place] PT License [id number] [facility] Rehabilitation Services Department (phone) (fax) documented in this encounter Plan of Treatment Date Type Specialty Care Team Description 02/23/2020 Ancillary Visit Physical Therapy Lars Reyes MD [address] [place] [address] Jes Hamm, PT [address] [place] [address] 02/25/2020 Ancillary Visit Physical Therapy Lars Reyes MD [address] [place] [address] Jes Hamm, PT [address] [place] [address] Health Maintenance Due Date Last Done Comments [...]
--- OUTSIDE RECORDS SUMMARY | 2020-03-27 16:25 | XMS REPORT | Summary of Care ---
:1980 Author Organization [facility] - [facility] Address [address] [place] [address] Care Team Providers Name Role Phone Pcp, Patient Does Not Have A Primary Care Provider +1-000-00 0-0000 Reason for Visit Reason Comments Follow-up Encounter Details Date Type Department Care Team Description 02/23/2020 Ancillary Visit [facility] Lars Reyes MD [address] [facility] [place] [address] Acute right MCA stroke (Primary Dx); Physical Therapy- Jes Hamm, PT [address] [place] [address] Decreased muscle strength; [place] Decreased functional mobilit y and endurance; Professional Office Gait abn or[address] [place] [address] Allergies No Known Allergiesdocumented as of this encounter (statuses as of 02/23/2020) Medications Medication Sig Dispensed Refills Start Date [...] as of this encounter (statuses as of 02/23/2020) Active Problems Problem Noted Date Closed fracture of distal end of left tibia 09/26/2016 Left leg pain 09/25/2016 documented as of this encounter (statuses as of 02/23/2020) Social History Tobacco Use Types Packs/Day Years [...] encounter Progress Notes Jes Hamm, PT - 02/23/2020 1:40 PM CDT Physical Therapy Treatment Date: February 23, 2020 Subjective: Pt reports he is doing alright. 1. Acute right MCA stroke 2. Decreased muscle strength 3. Decreased functional mobility and endurance 4. Gait abnormality Objective: Outpatient PT Treatment Row Name 02/23/20 1340 General Visit Number 4 Chart Reviewed No Pt external referral, no current information in chart Family/Caregiver Present Yes present for evaluation to assist with history General Comments Visit 4 of 8, pt currently waiting on Medicaid. Activity Tolerance Endurance Tolerates 10 - 20 min exercise with multiple rests Sitting Balance Sits without support for more than 30 sec Pain Assessment Pain Assessment 0-10 Pain Score 0 - No pain Post-Treatment Pain Score 0 - No pain Pain Location Arm Pain Orientation Right;Posterior;Proximal Pain Descriptors Aching;Dull Therapeutic Exercise Enter Number of Therapeutic Exercise Activities: 1 Therapeutic Exercise Activity 1 Sitting exercises= Hip adduction x 10 reps w/ NMES and ankle DF with NMES x 10 reps Balance/Neuromuscular Re-Education Balance/Neuromuscular Re-Education Activity 1 in // Bars, sit to stand x 4 reps, weight bearing and weight shifting x 4 reps with min A Gait Training Gait Training Activity 1 Gait in // bars- cues for weight shifting and stepping with RLE, 10 stepsforward and 8 steps backward with Max A for advancement of LLE. Transfers Transfer Yes Transfer 1 Transfer From 1 Mat Transfer Type 1 To and from Transfer to 1 Wheelchair Technique 1 Squat pivot;Stand pivot Transfer Level of Assistance 1 Minimum assistance;Moderate assistance Assessment: Pt with improved upright posture in // bars, increased response to use of NMES with activities. Patient able to take steps in // bars with therapist supporting LLE throughout cycle. Patient used right upper extremity on // bars with gait. Patient with increased activity today. Progressing slowly towards goals. Plan: Patient to continue with POC focusing on strengthening, gait trg, neuromuscular re ed, and increasing overall mobility. Jes Simon, PT [place] PT License [id number] [facility] Rehabilitation Services Department (phone) (fax) documented in this encounter Plan of Treatment Date Type Specialty Care Team Description 02/26/2020 Ancillary Visit Physical Therapy Jes Hamm, PT [address] [place] [address] 03/01/2020 Ancillary Visit Physical Therapy Lars Reyes MD [address] [place] [address] Jes Hamm, PT [address] [place] [address] Health Maintenance Due Date Last Done Comments [...]
--- OUTSIDE RECORDS SUMMARY | 2020-03-27 16:25 | XMS REPORT | Summary of Care ---
:1980 Author Name Bree Cohen M.A. Address [facility] Unavailable , Care Team Providers Name Role Phone Bree Cohen M.A. Unavailable Unavailable RUTH WARD APRN Unavailable Unavailable JADEN WEBSTER MD Unavailable Unavailable [facility] Unavailable Unavaila [facility], [facility] Unavailable Unavail able [facility]IN MANAG[facility] NURSE [facility]ACTITION[facility] [place] Unavailable Unavailable REMI ROY MD Unavailable Unavailable [...] and behavioral disorders (V79.8, Z13.39) Status: Active Infection and inflammatory reaction due [...] CAPSULE AT BEDTIME Quantity: 270 Refills: 0 SYLVIA ROJASMoshe RUTH Start : 29-Jan-2020 Active Lidocaine 4 % [...] BY MOUTH DAILY Quantity: 30 Refills: 3 PENGSUKHDEVJose Maria ROJASNRUTH Start : 29-Jan-2020 Active Allergies and Adverse Reactions Name Dates Details Ritalin TABS (Allergy) Status: Active Past Medical History Name Dates Details History of No significant past medical history Status: Resolved Procedures Procedure Dates Details CT Head/Neck CTA 31586 Date: 02-Feb-2020 History of Craniectomy Completed History of Shoulder Surgery Right Comple jose Immunization Name Dates Details Immunizations not documented Social History Name Dates Details - Status: Name Dates Details Never smoked tobacco (finding) Vital Signs Date Test Result Details [id number] Systolic blood pressure 135 mm[Hg] Status: Comments: Location: LUE; Position: Sitting Diastolic blood pressure 94 mm[Hg] Status: Comment s: Location: LUE; Position: Sitting Body height 73 in Status: Heart Rate 103 /min Status: Comments: Lo cation: L Brachial Artery; [id number] Physical Findings 15 Status: Comme nts: PHQ-9 Adult Depression Screening [id number] Systolic blood pressure 129 mm[Hg] Status: Comments: [...] thod: Tympanic Results Date Description Value Details [id number] [U] XRAY SHOULDER MIN 2 VWS RIGHT 89411 XR SHOULDER MIN 2 VWS RIGHT Images acquired, not reported on this accession number. Plan of Care Name Dates Details Planned Observations Planned Goals not documented Planned Encounters Appointment; REMI ROY M.D. On: 25-Feb-2020 11:15 Appointment; RUTH WARD APRN On: 28-Apr-2020 13: 00 Instructions Name Dates Details Instructions not documented [...]
--- OUTSIDE RECORDS SUMMARY | 2020-03-27 16:25 | XMS REPORT | Summary of Care ---
:1980 Author Organization [facility] - [facility] Address [address] [place] [address] Care Team Providers Name Role Phone Pcp, Patient Does Not Have A Primary Care Provider +1-000-00 0-0000 Reason for Visit Reason Comments Follow-up (Routine) Status Reason Specialty Diagnoses / Referred By Referred To Procedures Contact Contact New Request Physical Therapy Procedures Ju Rubio, CONSULT/REFERRAL N MERON Andre PHYSICAL THERAPY [address] FOLLOW-UP [address] [place] [phone] [place], [place] Phone: [phone] Encounter Details Date Type Department Care Team Description 02/04/2020 Ancillary Visit [facility] Lars Reyes MD [address] [place] [facility] [place] [address] Acute right MCA stroke (Primary Dx); Physical Therapy- Jes Hamm, PT [address] [place] [address] Decreased muscle strength; [place] Decreased functional mobilit y and endurance; Professional Office [facility]ait [facility]n [facility] [address] [place] [address] [address] [place] [address] Allergies No Known Allergiesdocumented as [...] encounter Progress Notes Jes Hamm, PT - 02/04/2020 1:00 PM CDT Physical Therapy Treatment Date: February 04, 2020 Subjective: " I am alright Jes, I am making it." 1. Acute right MCA stroke 2. Decreased muscle strength 3. Decreased functional mobility and endurance 4. Gait abnormality Objective: Outpatient PT Treatment Row Name 02/04/20 1400 General Visit Number 2 Chart Reviewed Yes Family/Caregiver Present Yes present then went to car to wait for patient General Comments Visit 2 of 12 Activity Tolerance Endurance Tolerates 30 min exercise with multiple rests Sitting Balance Sits without support for more than 30 sec Pain Assessment Pain Assessment 0-10 Pain Score 6 Post-Treatment Pain Score 6 Pain Location Arm Pain Orientation Right;Posterior;Proximal Pain Descriptors Aching Therapeutic Exercise Enter Number of Therapeutic Exercise Activities: 3 Therapeutic Exercise Activity 1 Seated hip adduction w/ ball, abduction w/ TB (L1), hip flexion, LAQs, and ankle DF, AAROM x 10 reps ea Therapeutic Exercise Activity 2 Supine exercises= Glut sets, Bridging, SAQs, quad sets, and ankle DF- AAROM x 10 ea Balance/Neuromuscular Re-Education Balance/Neuromuscular Re-Education Activity 1 In // bars- sit to stand x 2 reps, step forward, step backward x 3 reps, Min A Transfer 1 Transfer From 1 Mat Transfer Type 1 To and from Transfer to 1 Wheelchair Technique 1 Squat pivot;Stand pivot Transfer Level of Assistance 1 Contact guard;Minimum assistance Other Activity Other Activity 1 HEP-Issued HEP to for patient and L1 TB. Assessment: Pt with improved tolerance today with activities. Patient performed two episodes of active movement of LLE without cues. Patient performed knee flexion when moving RLE to place in foot rest and patientperformed hip adduction while sitting in wheelchair. Patient with some of those movements but not aware when performing them. In // bars, patient able to stand upright with cues, able to retract scapulae and increase upright posture with cervical extension and activation of gluts with both verbal and tactile cues. Pt progressing slowly and will continue to benefit from therapy. Plan: Patient to continue with POC focusing on strengthening, neuromuscular re ed, and increasing overall mobility. Jes Simon, PT [place] PT License [id number] [facility] Rehabilitation Services Department (phone) (fax) documented in this encounter Plan of Treatment Date Type Specialty Care Team Description 02/09/2020 Ancillary Visit Physical Therapy Lars Reyes MD [address] [place] [address] Jes Hamm, PT [address] [place] [address] 02/11/2020 Ancillary Visit Physical Therapy Lars Reyes MD [address] [place] [address] Jes Hamm, PT [address] [place] [address] Health Maintenance Due Date Last Done Comments [...]
--- OUTSIDE RECORDS SUMMARY | 2020-03-27 16:26 | XMS REPORT | Summary of Care ---
:1980 Author Organization [facility] Address [address] [place] [address] Care Team Providers Name Role Phone Pcp, Patient Does Not Have A Primary Care Provider [phone] Reason for Visit Reason Comments Follow-up Auth/Cert Status Reason Specialty Diagnoses / Referred By Referred To Procedures Contact Contact Physical Therapy Adc Phys ical Therapy Professional Office [address] [place] [address] Fax: Encounter Details Date Type Department Care Team Description 02/26/2020 Ancillary Visit [facility] Lars Reyes MD [address] [facility] [place] [address] Acute right MCA stroke (Primary Dx); Physical Therapy- Jes Hamm, PT [address] [place] [address] Decreased muscle strength; [place] Decreased functional mobilit y and endurance; Professional Office Gait abn or[address] [place] [address] Allergies No Known Allergiesdocumented as of this encounter (statuses as of 02/26/2020) Medications Medication Sig Dispensed Refills Start Date [...] as of this encounter (statuses as of 02/26/2020) Active Problems Problem Noted Date Closed fracture of distal end of left tibia 09/26/2016 Left leg pain 09/25/2016 documented as of this encounter (statuses as of 02/26/2020) Social History Tobacco Use Types Packs/Day Years [...] encounter Progress Notes Jes Hamm, PT - 02/26/2020 1:00 PM CDT Physical Therapy Treatment Date: February 26, 2020 Subjective: Pt reports he's doing okay. 1. Acute right MCA stroke 2. Decreased muscle strength 3. Decreased functional mobility and endurance 4. Gait abnormality Objective: Outpatient PT Treatment Row Name 02/26/20 1400 General Visit Number 5 Chart Reviewed Yes Pt external referral, no current information in chart Family/Caregiver Present Yes present for evaluation to assist with history General Comments Visit 5 of 8, pt currently waiting on Medicaid. [...] Therapeutic Exercise Activity 1 Sitting exercises= Hip abduction, L1 x 10, Hip adduction x 10 repsw/ NMES and ankle DF with NMES x 10 reps Balance/Neuromuscular Re-Education Balance/Neuromuscular Re-Education Activity 1 in // Bars, sit to stand x 2 reps, weight bearing and weight shifting x 2 reps with min A Gait Training Gait Training Activity 1 Gait in // bars- cues for weight shifting and stepping with RLE x 20' with Mod A with support of LLE, use of NMES on LLE, to assist with forward LLE movement. Transfers Transfer Yes Transfer 1 Transfer From 1 Mat Transfer Type 1 To and from Transfer to 1 Wheelchair Technique 1 Squat pivot;Stand pivot Transfer Level of Assistance 1 Minimum assistance;Moderate assistance Assessment: Pt with increased activity of mm with use of NMES. Patient able to hold the ball with hip adduction exercises today without NMES. Patient with increased ability to perform gait in // bars and with verbal and tactile cues, patient able to perform turning in bars. Plan: Patient to continue with POC focusing on strengthening, gait, neuromuscular re ed, and increasing overall mobility. Jes Simon PT [place] PT License [id number] [facility] Rehabilitation Services Department (phone) (fax) documented in this encounter Plan of Treatment Date Type Specialty Care Team Description 03/01/2020 Ancillary Visit Physical Therapy Lars Reyes MD [address] [place] [address] Jes Hamm, PT [address] [place] [address] 03/04/2020 Ancillary Visit Physical Therapy Jes Hamm, PT [address] [place] [address] Health Maintenance Due Date Last Done Comments DTaP,Tdap,and Td Vaccines (1 - 1989 Tdap) INFLUENZA VACCINE (#1) 2019 PNEUMOCOCCAL 0-64 YEARS COMBINED Aged Out No longer eligible based on SERIES patient's age to complete this topic documented as of this encounter Goals Goal Patient Goal Associated Recent Patient-Stated? Author Type Problems Progress Patient wants to General Yes Alfred walk and do ADL's rehana Salter PT and wants to return to [facility]. documented as of this encounter Results Not on filedocumented in this encounter Visit Diagnoses Diagnosis Acute right MCA stroke - Primary Unspecified cerebral artery occlusion wi th cerebral infarction Decreased muscle strength Muscle weakness (generalized) Decreased functional mobility and endura nce Gait abnormality Abnormality of gait documented in this encounter Insurance Payer Benefit Plan / Subscriber ID Effective Dates Phone Addre ss Type Group [facility] MEDICAID OF xxxxxxxxx 2019-Present [phone] Medicaid [place] [id number] [place] [id number] documented as of this encounter
--- OUTSIDE RECORDS SUMMARY | 2020-03-27 16:26 | XMS REPORT | Summary of Care ---
:1980 Author Name DOMITILA PALMA Address Unavailable Unavailable , Care Team Providers Name Role Phone PENGSUKHDEVJose Maria DANERADHAAMRIK Unavailable Unavailable DOMITILA PALMA Unavailable Unavailable JADEN WEBSTER MD Unavailable Unavailable [facility] Unavailable Unavaila [facility], SYSTEM Unavailable Unavail able OKJARROD VALDOVINOSP [place], MUNACHI Unavailable Unavailable MOLLY ORDAZ [place], PEDRO Unavailable Unavailable KADIE ORDAZ [place], KITTY FARAH Unavailable Unavailable KIRILL ORDAZ, REMI Unavailable Unavailable Unavailable Unavailable Unavailable Functional Status [...] site, subsequent encounter (996.67, T84.69XD) Status: Active Closed displaced fracture of body [...] TABLET DAILY DIRECTED Quantity: 30 Refills: 3 OKPALA RUTH VELA Start : 29-Jan-2020 Active Voltaren 1 % [...] RUTH WARD APRN Start : 29-Jan-2020 Active Acetaminophen-Codeine #3 300-30 MG Oral Tablet TAKE 1 TABLET EVERY 6 HOURS PRN pain Quantity: 28 Refills: 0 DOMITILA PALMA Start : 25-Feb-2020 Active Allergies and Adverse Reactions Name Dates Details Ritalin TABS (Allergy) Status: Active Past Medical History Name Dates Details History of No significant past medical history Status: Resolved Procedures Procedure Dates Details CT Head/Neck CTA 64319 Date: 02-Feb-2020 [U] XRAY SHOULDER MIN 2 VWS RIGHT 65549 Date: 18-Feb-2020 History of Craniectomy Completed History of Shoulder Surgery Right Comple jose Immunization Name Dates Details Immunizations not documented Social History Name Dates Details - Status: Name Dates Details Never smoked tobacco (finding) Vital Signs Date Test Result Details [id number] Systolic blood pressure 135 mm[Hg] Status: Comments: Location: [facility]; Position: Sitting Diastolic blood pressure 94 mm[Hg] Status: Comment s: Location: [facility]; Position: Sitting Body height 73 in Status: Heart Rate 103 /min Status: Comments: Lo cation: L Brachial Artery; 68-[id number]:16 Physical Findings 15 Status: Comme nts: PHQ-9 Adult Depression Screening Results Date Description Value Details [id number] [U] XRAY SHOULDER MIN 2 VWS RIGHT 17126 XR SHOULDER MIN 2 VWS RIGHT Images acquired, not reported on this accession number. Plan of Care Name Dates Details Planned Observations Planned Goals not documented Planned Encounters Appointment; KITTY ENGLE M.D. On: 27-Feb-2020 10: 00 Appointment; REMI ROY M.D. On: 10-Mar-2020 12:30 Appointment; RUTH WARD APRN On: 28-Apr-2020 13: 00 Interventions Provided Medication ChangesAcetaminophen-Codeine #3 300-30 MG Oral Tablet - Start Labs/Procedures/Imaging[U] XRAY SHOULDER MIN 2 VWS RIGHT 62979; To Be Done: 25 Feb 2020 Instructions [...] 8:00 Encounter Diagnosis: Problem not documented Appointment; DOMITILA PARRA P.A. On: 25-Feb-2020 1 1:15 Encounter Diagnosis: Problem not documented
--- OUTSIDE RECORDS SUMMARY | 2020-03-27 16:26 | XMS REPORT | Summary of Care ---
:1980 Author Name Bree Cohen M.A. Address [place] Physicians Unavailable , Care Team Providers Name Role Phone KIRILL Seymour, REMI Unavailable Unavailable SYLVIA VELA, RUTH Unavailable Unavailable JADEN WEBSTER MD Unavailable Unavailable [facility] Unavailable Unavaila [facility], SYSTEM Unavailable Unavail able OKPALJose Maria [employer] CORE LAYER [place], MUNACHI Unavailable Unavailable MOLLY ORDAZ [place], PEDRO Unavailable Unavailable KADIE ORDAZ CT, KITTY FARAH Unavailable Unavailable REMI ROY MD Unavailable Unavailable [...] Procedures Procedure Dates Details CT Head/Neck CTA 27402 Date: 02-Feb-2020 [U] XRAY SHOULDER MIN 2 VWS RIGHT 74029 Date: 18-Feb-2020 History of Craniectomy Completed History of Shoulder Surgery Right Comple jose Immunization Name Dates Details Immunizations not documented Social History Name Dates Details - Status: Name Dates Details Never smoked tobacco (finding) Vital Signs Date Test Result Details [id number] Systolic blood pressure 135 mm[Hg] Status: Comments: Location: [facility]; Position: Sitting Diastolic blood pressure 94 mm[Hg] Status: Comment s: Location: [facility]; Position: Sitting Body height 73 in Status: Heart Rate 103 /min Status: Comments: Lo cation: L Brachial Artery; 59-Pjd-647992:16 Physical Findings 15 Status: Comme nts: PHQ-9 Adult Depression Screening Results Date Description Value Details [id number] [U] XRAY SHOULDER MIN 2 VWS RIGHT 76110 XR SHOULDER MIN 2 VWS RIGHT Images acquired, not reported on this accession number. Plan of Care Name Dates Details Planned Observations Planned Goals not documented Planned Encounters Appointment; KITTY ENGLE M.D. On: 27-Feb-2020 10: 00 Appointment; REMI ROY M.D. On: 10-Mar-2020 12:30 Appointment; RUTH WARD APRN On: 28-Apr-2020 13: 00 Interventions Provided Labs/Procedures/Imaging[U] XRAY SHOULDER MIN 2 VWS RIGHT 51072; To Be Done: 25 Feb 2020 Instructions [...] Diagnosis: Problem not documented Appointment; DOMITILA PARRA PLetitiaALetitia On: 05-Feb-2020 1 1:00 Encounter Diagnosis: Problem not documented Appointment; REMI ROY M.D. On: 06-Feb-2020 8:00 Encounter Diagnosis: Problem not documented Appointment; REMI ROY M.D. On: 09-Feb-2020 8:00 Encounter Diagnosis: Problem not documented Appointment; REMI ROY M.D. On: 25-Feb-2020 11:15 Encounter Diagnosis: Problem not documented
--- OUTSIDE RECORDS SUMMARY | 2020-03-27 16:26 | XMS REPORT | Summary of Care ---
:1980 Author Name Anne Jasso R.N. 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, MUNACHI Start : 29-Jan-2020 Active Voltaren 1 % [...] history Status: Resolved Procedures Procedure Dates Details [QL] CBC (INCLUDES DIFF/PLT) Date: 26-Feb-2020 [QL] CMP W/EGFR Date: 26-Feb-2020 [QL] C-REACTIVE PROTEIN Date: 26-Feb-2020 [QL] SED RATE BY MODIFIED WESTERGREN Date: 26-Feb-2020 CT Head/Neck CTA 17698 Date: 02-Feb-2020 History of Craniectomy Completed History of Shoulder Surgery Right Comple jose Immunization Name Dates Details Immunizations not documented Social History Name Dates Details - Status: Name Dates Details Never smoked tobacco (finding) Vital Signs Date Test Result Details [id number] Systolic blood pressure 135 mm[Hg] Status: Comments: Location: [facility]; Position: Sitting Diastolic blood pressure 94 mm[Hg] Status: Comment s: Location: [facility]; Position: Sitting Body height 73 in Status: Heart Rate 103 /min Status: Comments: Lo cation: L Brachial Artery; 58-[id number]:16 Physical Findings 15 Status: Comme nts: PHQ-9 Adult Depression Screening Results Date Description Value Details [id number]-[id number] [U] XRAY SHOULDER MIN 2 VWS RIGHT 16848 XR SHOULDER MIN 2 VWS RIGHT Images acquired, not reported on this accession number. [id number] [U] XRAY SHOULDER MIN 2 VWS RIGHT 02839 XR SHOULDER MIN 2 VWS RIGHT Images acquired, not reported on this accession number. Plan of Care Name Dates Details Planned Observations [QL] CBC (INCLUDES DIFF/PLT) On: 15-Mar-2020 Intent [QL] CMP W/EGFR On: 15-Mar-2020 Intent [QL] C-REACTIVE PROTEIN On: 15-Mar-2020 Intent [QL] SED RATE BY MODIFIED WESTERGREN On: 15-Mar-2020 Int ent Planned Goals not documented Planned Encounters Appointment; REMI ROY M.D. On: 10-Mar-2020 12:30 Appointment; KITTY ENGLE M.D. On: 19-Mar-2020 10:1 5 Appointment; RUTH WARD APRN On: 28-Apr-2020 13: [...] 1 1:15 Encounter Diagnosis: Problem not documented Appointment; KITTY ENGLE M.D. On: 27-Feb-2020 10: 00 Encounter Diagnosis: Problem not documented
--- OUTSIDE RECORDS SUMMARY | 2020-03-27 16:27 | XMS REPORT | Summary of Care ---
:1980 Author Organization [facility] Address [address] [place] [address] Care Team Providers Name Role Phone Pcp, Patient Does Not Have A Primary Care Provider [phone] Reason for Visit Reason Comments Follow-up Auth/Cert Status Reason Specialty Diagnoses / Referred By Referred To Procedures Contact Contact Physical Therapy Adc Phys ical Therapy Professional Office [address] [place] [address] Fax: Encounter Details Date Type Department Care Team Description 03/01/2020 Ancillary Visit [facility] Lars Reyes MD [address] [facility] [place] [address] Acute right MCA stroke (Primary Dx); Physical Therapy- Jes Hamm, PT [address] [place] [address] Decreased muscle strength; [place] Decreased functional mobilit y and endurance; Professional Office Gait abn or[address] [place] [address] Allergies No Known Allergiesdocumented as of this encounter (statuses as of 03/03/2020) Medications Medication Sig Dispensed Refills Start Date [...] as of this encounter (statuses as of 03/03/2020) Active Problems Problem Noted Date Decreased range of motion of right shoulder 02/26/2020 Decreased range of motion of left shoulder 02/26/2020 Decreased activities of daily living (ADL) 02/26/2020 Acute right MCA stroke 02/26/2020 Closed fracture of distal end of left tibia 09/26/2016 Left leg pain 09/25/2016 documented as of this encounter (statuses as of 03/03/2020) Social History Tobacco Use Types Packs/Day Years [...] encounter Progress Notes Jes Hamm, PT - 03/01/2020 1:40 PM CDT Physical Therapy Treatment Date: March 01, 2020 Subjective: " I am doing alright." 1. Acute right MCA stroke 2. Decreased muscle strength 3. Decreased functional mobility and endurance 4. Gait abnormality Objective: Outpatient PT Treatment Row Name 03/01/20 1400 General Visit Number 7 Chart Reviewed Yes Pt external referral, no current information in chart Family/Caregiver Present Yes present for evaluation to assist with history General Comments Visit 7 of 8, pt currently waiting on Medicaid. [...] and ankle DF with NMES x 10 reps, seated hip flexion x 10, AAROM Balance/Neuromuscular Re-Education Balance/Neuromuscular Re-Education Activity 1 in // Bars, sit to stand x 2 reps, weight bearing and weight shifting x 2 reps with min A Gait Training Gait Training Activity 1 Gait in // bars- cues for weight shifting and stepping with RLE x 30' with Mod A with support of LLE, use of NMES on LLE, to assist with forward LLE movement. Transfers Transfer Yes Transfer 1 Transfer From 1 Mat Transfer Type 1 To and from Transfer to 1 Wheelchair Technique 1 Squat pivot;Stand pivot Transfer Level of Assistance 1 Minimum assistance;Moderate assistance Assessment: Pt tolerated treatment well today. Pt with increased mm activity with use of NMES during gait in // bars. Patient able to maintain upright posture and perform knee extension with cues while in stance on LLE. Patient performed more initiation of movement with gait today as well as able to turn both to the Left and Right side without cues. Patient progressing well. Plan: Patient to continue with POC focusing on strengthening, gait trg, neuromuscular re ed, and increasing overall mobility. Jes Simon PT [place] PT License [id number] [facility] Rehabilitation Services Department (phone) (fax) documented in this encounter Plan of Treatment Date Type Specialty Care Team Description 03/04/2020 Ancillary Visit Physical Therapy Jes Hamm, PT [address] [place] [address] Health Maintenance Due Date Last Done Comments [...] Alfred walk and do ADL's rehana Salter independent MERON Andre and wants to return [...] Type Group [facility] MEDICAID OF xxxxxxxxx 2019-Present [phone] [address] Medicaid [place] [id number] [place] [phone] documented as of this encounter
--- OUTSIDE RECORDS SUMMARY | 2020-03-27 16:27 | XMS REPORT | Summary of Care ---
:1980 Author Organization [facility] Address [address] [place] [address] Care Team Providers Name Role Phone Pcp, Patient Does Not Have A Primary Care Provider [phone] Reason for Visit Reason Comments Follow-up Auth/Cert Status Reason Specialty Diagnoses / Referred By Referred To Procedures Contact Contact Physical Therapy Adc Phys ical Therapy Professional Office [address] [place] [address] Fax: Encounter Details Date Type Department Care Team Description 03/04/2020 Ancillary Visit [facility] Lars Reyes MD [address] [facility] [place] [address] Acute right MCA stroke (Primary Dx); Physical Therapy- Jes Hamm, PT [address] [place] [address] Decreased muscle strength; [place] Decreased functional mobilit y and endurance; Professional Office Gait abn or[address] [place] [address] Allergies No Known Allergiesdocumented as of this encounter (statuses as of 03/09/2020) Medications Medication Sig Dispensed Refills Start Date [...] as of this encounter (statuses as of 03/09/2020) Active Problems Problem Noted Date Decreased range of motion of right shoulder 02/26/2020 Decreased range of motion of left shoulder 02/26/2020 Decreased activities of daily living (ADL) 02/26/2020 Acute right MCA stroke 02/26/2020 Closed fracture of distal end of left tibia 09/26/2016 Left leg pain 09/25/2016 documented as of this encounter (statuses as of 03/09/2020) Social History Tobacco Use Types Packs/Day Years [...] encounter Progress Notes Jes Hamm, PT - 03/04/2020 1:00 PM CDT Physical Therapy Treatment Date: March 04, 2020 Subjective: " I am doing alright Jes." 1. Acute right MCA stroke 2. Decreased muscle strength 3. Decreased functional mobility and endurance 4. Gait abnormality Objective: Outpatient PT Treatment Row Name 03/04/20 1400 General Visit Number 5 Chart Reviewed Yes Pt external referral, no current information in chart Family/Caregiver Present Yes present for evaluation to assist with history General Comments Visit 5 of 8, from previous reassessment dated 02/18/2020 Activity Tolerance Endurance Tolerates 10 - 20 min exercise with multiple rests Sitting Balance Sits without support for more than 30 sec Pain Assessment Pain Assessment 0-10 Pain Score 0 - No pain Post-Treatment Pain Score 0 - No pain Pain Location Arm Pain Orientation Right;Posterior;Proximal Pain Descriptors Aching;Dull Therapeutic Exercise Therapeutic Exercise Activity 1 Sitting exercises= Hip abduction, L1 x 10, Hip adduction x 10 repsw/ NMES and ankle DF with NMES x 10 reps, seated hip flexion x 10, AAROM Balance/Neuromuscular Re-Education Balance/Neuromuscular Re-Education Activity 1 in // Bars, sit to stand x 2 reps, weight bearing and weight shifting x 2 reps with min A Balance/Neuromuscular Re-Education Activity 2 Sit to information security systems instructor // bars x 2 reps with LLE posterior and RLE anterior, Mod A Gait Training Gait Training Activity 1 [...] Minimum assistance;Moderate assistance Assessment: Pt with improved mobility with gait activities today. Patient with good balance in standing. Patientwith audible popping of his L knee and patient reports it feels weird and causes mild pain. Patient progressing with gait but now with R knee pain. PT will monitor closely during therapy. Plan: Patient to continue with POC focusing on strengthening, neuromuscular re ed, and increasing overall mobility. Jes Simon, PT [place] PT License [id number] [facility] Rehabilitation Services Department (phone) (fax) documented in this encounter Plan of Treatment Health Maintenance Due Date Last Done Comments DTaP,Tdap,and Td Vaccines (1 - 1989 Tdap) INFLUENZA VACCINE (#1) 2019 PNEUMOCOCCAL 0-64 YEARS COMBINED Aged Out No longer eligible based on SERIES patient's age to complete this topic documented as of this encounter Goals Goal Patient Goal Associated Recent Patient-Stated? Author Type Problems Progress Patient wants General Yes Alfred to walk and do Gaetano, ADL's more MERON Andre independent. documented as of this encounter Results Not [...] Effective Dates Phone Addre ss Type Group [facility] MEDICAID OF xxxxxxxxx 2019-Present [phone] [address] [place] [id number] [place] [phone] documented as of this encounter
--- OUTSIDE RECORDS SUMMARY | 2020-03-27 16:27 | XMS REPORT | Summary of Care ---
:1980 Author Organization [facility] - Health Address [address] [place] [address] Care Team Providers Name Role Phone Pcp, Patient Does Not Have A Primary Care Provider [phone] Encounter Details Date Type Department Care Team Description 02/02/2020 Orders Only [facility] Doctor Unassigned, No [address] [facility] [place] [address] [address] [place] [address] Allergies No Known Allergiesdocumented as of this encounter (statuses as of 03/05/2020) Medications Medication Sig Dispensed Refills Start Date [...] as of this encounter (statuses as of 03/05/2020) Active Problems Problem Noted Date Decreased range of motion of right shoulder 02/26/2020 Decreased range of motion of left shoulder 02/26/2020 Decreased activities of daily living (ADL) 02/26/2020 Acute right MCA stroke 02/26/2020 Closed fracture of distal end of left tibia 09/26/2016 Left leg pain 09/25/2016 documented as of this encounter (statuses as of 03/05/2020) Social History Tobacco Use Types Packs/Day Years [...] Signs Not on filedocumented in this encounter Plan of Treatment Health [...] General Yes Alfred to walk and do Gaetano ADL's more Jes, PT independent. documented as of this encounter Procedures Procedure Name Priority Date/Time Associated Diagnosis Comme nts OP CLINIC Routine 02/02/2020 12:01 AM CDT NOTES/CONSULTS documented in this encounter Results Not on filedocumented in this encounter Insurance Payer Benefit Plan / Subscriber ID Effective Dates Phone Addre ss Type Group [facility] MEDICAID OF xxxxxxxxx 2019-Present [phone] [address] Medicaid [place] [id number] [place] [phone] documented as of this encounter
--- OUTSIDE RECORDS SUMMARY | 2020-03-27 16:27 | XMS REPORT | Summary of Care ---
:1980 Author Name KITTY ENGLE M.D. Address [place] Physicians Unavailable , Care Team Providers Name Role Phone KITTY ENGLE M.D. 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, MUNACHI Start : 29-Jan-2020 Active Voltaren 1 [...] MODIFIED WESTERGREN Date: 26-Feb-2020 CT Head/Neck CTA 15341 Date: 02-Feb-2020 History of Craniectomy Completed History of Shoulder Surgery Right Comple jose Immunization Name Dates Details Immunizations not documented Social History Name Dates Details - Status: Name Dates Details Never smoked tobacco (finding) Vital Signs Date Test Result Details [id number] Systolic blood pressure 135 mm[Hg] Status: Comments: Location: [facility]; Position: Sitting Diastolic blood pressure 94 mm[Hg] Status: Comment s: Location: [facility]; Position: Sitting Body height 73 in Status: Heart Rate 103 /min Status: Comments: Lo cation: L Brachial Artery; 15-Riw-[id number]:16 Physical Findings 15 Status: Comme nts: PHQ-9 Adult Depression Screening Results Date Description Value Details [id number] [U] XRAY SHOULDER MIN 2 VWS RIGHT 10073 XR SHOULDER MIN 2 VWS RIGHT Images acquired, not reported on this accession number. [id number] [U] XRAY SHOULDER MIN 2 VWS RIGHT 89648 XR SHOULDER MIN 2 VWS RIGHT Images [...]
--- OUTSIDE RECORDS SUMMARY | 2020-03-27 16:27 | XMS REPORT | Summary of Care ---
:1980 Author Organization [facility] Address [address] [place] [address] Care Team Providers Name Role Phone Pcp, Patient Does Not Have A Primary Care Provider +[phone] 0-0000 Reason for Visit Reason Comments Evaluation Treatment (Routine) Status Reason Specialty Diagnoses / Referred By Referred To Procedures Contact Contact Authorized Occupational Procedures Jacob Rubio, Therapy CONSULT/REFERRAL Ju Fermin, OT OCCUPATIONAL [address] INITIAL EVALUATION [address] [place], [place] Phone: [phone] Encounter Details Date Type Department Care Team Description 02/26/2020 Ancillary Visit [facility] Lars Reyes MD [address] [place] [address] Acute right MCA stroke (Primary Dx); Occupational Therapy- Sidney James, OT [address] [place] [address] Decreased range of motion of right shoul mansi; [place] Decreased range of motion of left shoulder; Professional Office Decrease d activities of daily living (ADL) Building [address] [place] [address] [address] [place] [address] Allergies No Known Allergiesdocumented as [...] of 02/26/2020) Active Problems Problem Noted Date Decreased range [...] on filedocumented in this encounter Progress Notes Sidney James, OT - 02/26/2020 1:45 PM CDT Initial Evaluation Date: February 26, 2020 Diagnosis: 1. Acute right MCA stroke 2. Decreased range of motion of right shoulder 3. Decreased range of motion of left shoulder 4. Decreased activities of daily living (ADL) Visit Number: 1 Date of onset: 11/15/19 History of Condition: Pt involved in [facility] and resulted in R scapula fracture, multiple rib fractures,(ANEL?) pneumothorax s/p chest tube placement at that time. Pt also s/p CVA around time of accident and underwent craniectomy. ~3 weeks after accident, s/p R scapular ORIF in which he reports he has hadmultiple procedures after for infection. Knowledge of condition: Good Quality of life: "shitty" Prior therapy: Yes - OT and PT s/p this [facility] Patient Goals: Goals Pt stated he wants to be able to feed himself better ("Be able to eat a hamburger"), and be able toperform toilet hygiene. Past Medical History: Diagnosis Date Esophageal reflux occasional Hypertension Not on medication Left leg pain 09/25/2016 Past Surgical History: Procedure Laterality Date CLOSED REDUCTION Left 10/13/2016 Surgeon: Lars Reyes MD; Location: [facility] OR Location VASECTOMY 2008 Pain assessment: Pain Assessment Pain Assessment: 0-10 Pain Score: 4(during shoulder ROM) Post-Treatment Pain Score: 2(1.5-2/10) Pain Location: Shoulder(ANEL shoulders) General Comments: Pt reports intermittent "shooting, nerve pains down/up his (L UE primarily) UEs. Objective: Outpatient OT Evaluation Row Name 02/26/20 0700 General Visit Number 1 Precautions Precautions WBAT R UE Pain Assessment Pain Assessment 0-10 Pain Score 4 during shoulder ROM Post-Treatment Pain Score 2 1.5-2/10 Pain Location Shoulder ANEL shoulders General Comments Pt reports intermittent "shooting, nerve pains down/up his (L UE primarily) UEs. Prior Function Level of [place] Independent with ADLs and functional transfers;Independent with homemaking with ambulation ADL Assistance Independent Homemaking Assistance Independent Leisure Per chart, make things with his hands, welding, fishing, hunting, camping, anything outdoors. Vision - Basic Assessment Current Vision Wears glasses all the time Hand Function Hand dominance Right RUE Assessment RUE Assessment X RUE AROM (degrees) R Shoulder Flexion 0-170 35 Degrees R Shoulder Extension 0-60 20 Degrees R Shoulder Internal Rotation 0-70 wfl R Shoulder External Rotation 0-90 0 Degrees R Forearm Pronation 0-80-90 WFL R Forearm Supination 0-80-90 WFL R Wrist Flexion 0-80 WFL R Wrist Extension 0-70 WFL R Wrist Ulnar Deviation 0-30 WFL\\ R Wrist Radial Deviation 0-20 WFL LUE Assessment LUE Assessment X LUE Strength LUE Overall Strength Deficits;Other (Comment) 0/5 MMT throughout L UE noted with decreased ROM, lacking L shoulder flexion/abduction of more than 1/2 PROM, L wrist extension lacking ~1/4 PROM Orthosis: Pt reports he has custom resting orthosis at home, but may benefit readjustment. Discussed with patient bringing this next session to monitor fit or adjustments as appropriate. 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 Discussed with patient and regarding approximating L shoulder GHj for ROM to prevent injury. Assessment: Pt presents with overall impaired ADL performance/independence with L side hemiplegia and R side weakness and decreased ROM. Deficits of ANEL UEs make it difficult for patient to perform daily occupations and now required assistance for ADLs. Pt with recent WB status change to WBAT R UE. Also noted with subjective improved pain rating during rest and ROM. Pt demonstrates good potential forimproved functional performance and will benefit from OP OT for improved ADL performance/independence, UE strengthening and ROM. Rehab potential: good Facilitators to goal achievement: Good family support, High motivation, Prior successful rehab and Previous Functional Ability Barriers to goal achievement: Medical complexity Short Term Goals: To be met in 10 visits: 1. Patient will gain 10 - 15 degrees active right shoulder flexion in order to perform ADL tasks. 2. Patient will gain 5 - 10 degrees active right shoulder external rotation in order to perform ADL tasks 3. Patient will gain 8-10 lbs. from 37 lbs. right hand average pipe organ builder strength in order to perform grasping task during ADLs. 4. Patient will will report < 2 out of 10 pain score bilateral UEs during ROM in order to participate in ADL/home exercise program. 5. Patient will demonstrate independence in the following home programs, as appropriate: dexterity exercises, edema management, orthotic management, ROM exercises, scar management and strengthening. Correction Goals: 1. Patient will demonstrate improved right/bilateral UE functional use as evidenced by ability to complete ADLs and or HEP without pain by discharge. Plan of Care Patient agrees with the plan of care Patient to be seen 1-2 times per week for 10 visits Functional motor treatment Modalities Patient/Caregiver education Equipment recommendations Daily living activities Therapeutic exercises Neuromuscular Re-education I have discussed the risks and benefits [...] teaching of verbal information and demonstration on role of OT, UE therex HEP (P/AA/AROM and strengthening), modalities,positioning, possible use of sling. Shows readiness to learn. Verbal instruction teaching provided. Individual is able to read and needs reinforcement of teaching. Janette James OTR, MOT License #[id number] Occupational Therapy [facility] Department of Rehabilitation Services M-W-F at [facility] T-Th at [facility] documented in this encounter Plan of Treatment Date Type Specialty Care Team Description 03/01/2020 Ancillary Visit Physical Therapy Lars Reyes MD [address] [place] [phone] Jes Hamm, PT [address] [place] [address] 03/04/2020 Ancillary Visit Physical Therapy Jes Hamm, PT [address] [place] [address] Health Maintenance Due Date Last Done Comments [...] MERON Andre and wants to return to [facility]. documented as of this encounter Results Not on filedocumented in this encounter Visit Diagnoses Diagnosis Acute right MCA stroke - Primary Unspecified cerebral artery occlusion wi th cerebral infarction Decreased range of motion of right shoul mansi Other affections of shoulder region, not elsewhere classified Decreased range of motion of left should er Decreased activities of daily living (AD L) documented in this encounter Insurance Payer Benefit Plan / Subscriber ID Effective Dates Phone Addre ss Type Group [facility] MEDICAID OF xxxxxxxxx 2019-Present [phone] [address] [place] [id number] [place] [address] documented as of this encounter
--- OUTSIDE RECORDS SUMMARY | 2020-03-27 16:27 | XMS REPORT | Summary of Care ---
:1980 Author Organization [facility] Address [address] [place] [address] Care Team Providers Name Role Phone Pcp, Patient Does Not Have A Primary Care Provider +[id number] 0-0000 Reason for Visit Reason Comments Follow-up Encounter Details Date Type Department Care Team Description 03/04/[address] [facility] Lars Reyes MD [address] [facility] [place] [address] Acute right MCA stroke (Primary Dx); Occupational Therapy- Sidney James, OT [address] [place] [address] Decreased range of motion of right shoul mansi; [place] Decreased range of motion of left shoulder; Professional Office Decrease d activities of daily living (ADL) [address] [place] [phone] Allergies No Known Allergiesdocumented as of this encounter (statuses as of 03/04/2020) Medications Medication Sig Dispensed Refills Start Date [...] as of this encounter (statuses as of 03/04/2020) Active Problems Problem Noted Date Decreased range of motion of right shoulder 02/26/2020 Decreased range of motion of left shoulder 02/26/2020 Decreased activities of daily living (ADL) 02/26/2020 Acute right MCA stroke 02/26/2020 Closed fracture of distal end of left tibia 09/26/2016 Left leg pain 09/25/2016 documented as of this encounter (statuses as of 03/04/2020) Social History Tobacco Use Types Packs/Day Years [...] encounter Progress Notes Sidney James, OT - 03/04/2020 1:45 PM CDT Occupational Therapy Treatment Date: March 04, 2020 Subjective: Pt reported the sling has helped more during transfers. Pain Assessment Pain Assessment: 0-10 Pain Score: (increased during ROM) Pain Location: Arm(ANEL UEs) Pain Orientation: Bilateral Pain Descriptors: Shooting;Radiating Diagnosis: 1. Acute right MCA stroke 2. Decreased range of motion of right shoulder 3. Decreased range of motion of left shoulder 4. Decreased activities of daily living (ADL) Objective: Outpatient OT Treatment Row Name 03/04/20 1300 General Visit Number 2 Pain Assessment Pain Assessment 0-10 Pain Score increased during ROM Pain Location Arm ANEL UEs Pain Orientation Bilateral Pain Descriptors Shooting;Radiating Therapeutic Exercise Enter Number of Therapeutic Exercise Activities: 5 Therapeutic Exercise Activity 1 Passive/Active assist/Active ROM R UE; Sustained stretch R shoulder with manual assist to scapula glide Therapeutic Exercise Activity 2 R shoulder shrugs, scapula retraction and protraction Therapeutic Exercise Acitivity 3 Passive ROM L wrist extension and shoulder with sustained stretch; approximation of GHj provided during shoulder ROM and manual assist to glide scapula Balance/Neuromuscular Re-Education Balance/Neuromuscular Re-Education Activity 1 Weightbearing to L UE. Shoulder GHj approximated andsupport to elbow provided. Balance/Neuromuscular Re-Education Activity 2 ANEL shoulder shrugs, scapula retraction and protraction with tapping to facilitate muscular activation Pt noted with slight winging of L scapula. Assessment: Pt noted with questionable trace activation during scapular protraction, possible serratus anterior activation. Pt was noted with slight winging of L scapula and will benefit from performing protraction and WB with slight forward flexion of shoulder for strengthening of serratus anterior. Pt was notedwith rhomboids and or trapezius muscle activation during scapular retraction that is noted with weakness and inconsistency. Pt is significantly limited with R UE strength and endurance. L UE only with trace to minimal active ROM at L scapular retraction, elevation and protraction, but shows potential for improvement. He will benefit from increased participation with HEP at home. This was discussed with patient regarding importance of performing HEP at home for improved functional outcome. Pt and with question regarding L UE orthosis at end of session regarding fit. L custom resting orthosis appeared to be well fitting except at ulna styloid. Will flare this out next session. Plan: Continue OT POC. ANEL UE therex and neuromuscular re-education. FLORIAN Edwards, MOT License #[id number] Occupational Therapy [facility] Department of Rehabilitation Services M-W- at [facility] T-Th at [facility] documented in this encounter Plan of Treatment [...] and do ADL's Gaetano , more independent Jes, PT and wants to return to [facility]. [...] Effective Dates Phone Addre ss Type Group [facility] MEDICAID OF xxxxxxxxx 2019-Present [phone] [address] Medicaid [place] [id number] [place] [phone] documented as of this encounter
--- OUTSIDE RECORDS SUMMARY | 2020-03-27 16:28 | XMS REPORT | Summary of Care ---
:1980 Author Organization [facility] Address [address] [place] [address] Care Team Providers Name Role Phone Pcp, Patient Does Not Have A Primary Care Provider +[phone] 0-0000 Reason for Visit Reason Comments Follow-up Auth/Cert Status Reason Specialty Diagnoses / Referred By Referred To Procedures Contact Contact Physical Therapy Adc Phys ical Therapy Professional Office [address] [place] [address] Fax: Encounter Details Date Type Department Care Team Description 03/09/2020 Ancillary Visit [facility] Lars Reyes MD [address] [facility] [place] [address] Acute right MCA stroke (Primary Dx); Physical Therapy- Jes Hamm, PT [address] [place] [address] Decreased muscle strength; [place] Decreased functional mobilit y and endurance; Professional Office Gait abn or[address] [place] [address] Allergies No Known Allergiesdocumented as of this encounter (statuses as of 03/11/2020) Medications Medication Sig Dispensed Refills Start Date [...] as of this encounter (statuses as of 03/11/2020) Active Problems Problem Noted Date Decreased range of motion of right shoulder 02/26/2020 Decreased range of motion of left shoulder 02/26/2020 Decreased activities of daily living (ADL) 02/26/2020 Acute right MCA stroke 02/26/2020 Closed fracture of distal end of left tibia 09/26/2016 Left leg pain 09/25/2016 documented as of this encounter (statuses as of 03/11/2020) Social History Tobacco Use Types Packs/Day Years [...] encounter Progress Notes Jes Hamm, PT - 03/09/2020 1:40 PM CDT Physical Therapy Treatment Date: March 09, 2020 Subjective: Pt reports he is doing well, his states he actually can transfer without assistancefrom the bed now. 1. Acute right MCA stroke 2. Decreased muscle strength 3. Decreased functional mobility and endurance 4. Gait abnormality Objective: Outpatient PT Treatment Row Name 03/09/20 1304 General Visit Number 6 General Comments Visit 6 , from previous reassessment dated 02/18/2020 Therapeutic Exercise Enter Number of Therapeutic Exercise [...] weight shifting and stepping with RLE x 45' with Mod A with support of LLE, use of NMES on LLE, to assist with forward LLE movement. Transfer 1 Transfer Level of Assistance 1 Close supervision Assessment: Pt with improved ability to perform transfers from wheelchair to mat and mat to wheelchair. Patient with increased independence for this movement, squat pivot transfer. Patient progressing with mobility and improving slowly. Patient performed gait today with less cues for extension in stance on LLE. Patient with increased control over LLE with stance and initiation of swing. Plan: Patient to continue with POC focusing on strengthening, neuromuscular re ed, and increasing overall mobility. Jes Simon, PT [place] PT License [id number] [facility] Department (phone) (fax) documented in this encounter Plan of Treatment Date Type Specialty Care Team Description 03/12/2020 Ancillary Visit Physical Therapy Delta Hamm, PT [address] [place] [address] 03/12/2020 Ancillary Visit Occupational Therapy Negro James, OT [address] [place] [address] 03/16/2020 Ancillary Visit Occupational Therapy Negro James, OT [address] [place] [address] 03/16/2020 Ancillary Visit Physical Therapy Kaushal Chatman , [address] [address] 03/18/2020 Ancillary Visit Physical Therapy Kaushal Chatman , [address] [address] Health Maintenance Due Date Last Done Comments DTaP,Tdap,and Td Vaccines (1 - 1989 Tdap) INFLUENZA VACCINE (#1) 2019 PNEUMOCOCCAL 0-64 YEARS COMBINED Aged Out No longer eligible based on SERIES patient's age to complete this topic documented as of this encounter Goals Goal Patient Goal Associated Recent Patient-Stated? Author Type Problems Progress Patient wants General Yes Alfred to walk and do TYRA Salter's more MERON Andre independent. documented as of [...] Type Group [facility] MEDICAID OF xxxxxxxxx 2019-Present [phone] [address] [place] [id number] [place] [phone] documented as of this encounter
--- OUTSIDE RECORDS SUMMARY | 2020-03-27 16:28 | XMS REPORT | Summary of Care ---
:1980 Author Organization [facility] Address [address] [place] [address] Care Team Providers Name Role Phone Pcp, Patient Does Not Have A Primary Care Provider [phone] [phone] Reason for Visit Reason Comments Follow-up Auth/Cert Status Reason Specialty Diagnoses / Referred By Referred To Procedures Contact Contact Occupational Therapy Adc Occup Therapy Professional Office [address] [place] [address] Encounter Details Date Type Department Care Team Description 03/12/[address] [facility] Lars Reyes MD [address] [facility] [place] [address] Acute right MCA stroke (Primary Dx); Occupational Therapy- Sidney James, OT [address] [place] [address] Decreased range of motion of right shoul mansi; [place] Decreased range of motion of left shoulder; Professional Office Decrease d activities of daily living (ADL) [address] [place] [address] Allergies No Known Allergiesdocumented as of this encounter (statuses as of 03/13/2020) Medications Medication Sig Dispensed Refills Start Date [...] as of this encounter (statuses as of 03/13/2020) Active Problems Problem Noted Date Decreased range of motion of right shoulder 02/26/2020 Decreased range of motion of left shoulder 02/26/2020 Decreased activities of daily living (ADL) 02/26/2020 Acute right MCA stroke 02/26/2020 Closed fracture of distal end of left tibia 09/26/2016 Left leg pain 09/25/2016 documented as of this encounter (statuses as of 03/13/2020) Social History Tobacco Use Types Packs/Day Years [...] encounter Progress Notes Sidney James, OT - 03/12/2020 2:30 PM CDT Occupational Therapy Treatment Date: March 12, 2020 Subjective: Pt reports the sling and L shoulder brace in conjunction with each other is most beneficial for improved L shoulder GHj pain. Pain Assessment Pain Assessment: 0-10 Pain Score: (increased during ROM and WB, initially.) Pain Location: Arm Pain Orientation: Bilateral(L>R) General Comments: New order for scapular and anterior shoulder strengthening, PROM Diagnosis: 1. Acute right MCA stroke 2. Decreased range of motion of right shoulder 3. Decreased range of motion of left shoulder 4. Decreased activities of daily living (ADL) Objective: Outpatient OT Treatment Row Name 03/12/20 3825 General General Comments New order for scapular and anterior shoulder strengthening, PROM Therapeutic Exercise Therapeutic Exercise Activity 1 Passive/Active assist/Active ROM R UE; Sustained stretch R shoulder with manual assist to scapula glide Therapeutic Exercise Activity 2 R shoulder shrugs, scapula retraction and protraction Therapeutic Exercise Acitivity 3 Passive ROM L wrist extension and shoulder with sustained stretch; approximation of GHj provided during shoulder ROM and manual assist to glide scapula Therapeutic Exercise Activity 4 Active assist R shoulder flexion x 8 reps Therapeutic Exercise Activity 5 R biceps curls and triceps extension x 6 reps with level 5 resistance band Therapeutic Exercise Activity 6 Passive ROM L elbow, forearm and wrist, hand/fingers. Therapeutic Exercise Activity 7 L forearm long flexor sustained stretch Balance/Neuromuscular Re-Education Balance/Neuromuscular Re-Education Activity 1 Weightbearing to L UE. Shoulder GHj approximated andsupport to elbow provided. Balance/Neuromuscular Re-Education Activity 3 WB L UE x 15 minutes with support at elbow and distal UE, in conjunction with R UE reaching activity that includes crossing midline for L UE WB, lateral (ER) and forward reach. Assessment: Pt continues to present with decreased strength and function of ANEL UE, but improvements noted with R UE strength. Pt demonstrates potential for continued improvements and will benefit from OT for improved ANEL UE function and neuromuscular re-education. Plan: Continue OT RASHAD. FLORIAN Edwards, MOT License #[id number] Occupational Therapy [facility] Department of Rehabilitation Services M-W- at [facility] T-Th at [facility] 40 minutes documented in this encounter Plan of Treatment Date Type Specialty Care Team Description 03/16/2020 Ancillary Visit Occupational Therapy Negro James OT [address] [place] [address] 03/16/2020 Ancillary Visit Physical Therapy Kaushal Chatman , [address] [address] 03/18/2020 Ancillary Visit Physical Therapy Kaushal Chatman , [address] [address] Health Maintenance Due Date Last Done Comments DTaP,Tdap,and Td Vaccines (1 - 1989 Tdap) INFLUENZA VACCINE (Season Ended) 2020 PNEUMOCOCCAL 0-64 YEARS COMBINED Aged Out No longer eligible based on SERIES patient's age to complete this topic documented as of this encounter Goals Goal Patient Goal Associated Recent Patient-Stated? Author Type Problems Progress Patient wants General Yes Alfred to walk and do Gaetano, ADL's more Jes, PT independent. documented as of this encounter Results [...] Type Group [facility] MEDICAID OF xxxxxxxxx 2019-Present [phone] [address] Medicaid [place] [id number] [place] [phone] documented as of this encounter
--- OUTSIDE RECORDS SUMMARY | 2020-03-27 16:28 | XMS REPORT | Summary of Care ---
:1980 Author Organization [facility] Address [address] [place] [address] Care Team Providers Name Role Phone Pcp, Patient Does Not Have A Primary Care Provider [phone] Reason for Visit Reason Comments Follow-up Auth/Cert Status Reason Specialty Diagnoses / Referred By Referred To Procedures Contact Contact Physical Therapy Adc Phys ical Therapy Professional Office [address] [place] [address] Fax: Encounter Details Date Type Department Care Team Description 03/12/2020 Ancillary Visit [facility] Lars Reyes MD [address] [facility] [place] [address] Acute right MCA stroke (Primary Dx); Physical Therapy- Jes Hamm, PT [address] [place] [address] Decreased muscle strength; [place] Decreased functional mobilit y and endurance; Professional Office Gait abn or[address] [place] [address] Allergies No Known Allergiesdocumented as of this encounter (statuses as of 03/12/2020) Medications Medication Sig Dispensed Refills Start Date [...] as of this encounter (statuses as of 03/12/2020) Active Problems Problem Noted Date Decreased range of motion of right shoulder 02/26/2020 Decreased range of motion of left shoulder 02/26/2020 Decreased activities of daily living (ADL) 02/26/2020 Acute right MCA stroke 02/26/2020 Closed fracture of distal end of left tibia 09/26/2016 Left leg pain 09/25/2016 documented as of this encounter (statuses as of 03/12/2020) Social History Tobacco Use Types Packs/Day Years [...] encounter Progress Notes Jes Hamm, PT - 03/12/2020 1:40 PM CDT Physical Therapy Treatment Date: March 12, 2020 Subjective: Pt reports he is doing well. Patient reports he feels a little sore in his legs lately. He described feeling sore on his quads and front part of his leg. 1. Acute right MCA stroke 2. Decreased muscle strength 3. Decreased functional mobility and endurance 4. Gait abnormality Objective: Outpatient PT Treatment Row Name 03/12/20 1340 General Visit Number 7 Chart Reviewed Yes Pt external referral, no current information in chart Family/Caregiver Present Yes present for evaluation to assist with history General Comments Visit 7 of 8, from previous reassessment dated 02/18/2020 [...] for weight shifting and stepping with RLE 2x30' with Mod A with support of LLE, use of NMES on LLE, to assist with forward LLE movement. Transfers Transfer No Transfer 1 Transfer From 1 Transfer Type 1 Transfer to 1 Technique 1 Transfer Level of Assistance 1 Assessment: Pt performed gait today with NMES on his quads and hamstrings to activate hamstrings with gait today. Patient with increased ability to activate hip flexion with initial swing but still required Max A to perform forward transition. Patient's L tibiofibular joint is unstable and with increased genu recurvatum in stance. Patient will benefit from a brace of LLE to assist with maintaining LLE in neutral. Plan: Patient to continue with POC focusing on strengthening, neuro muscular re ed, and increasing overallmobility. Jes Simon, PT [place] PT License [id number] [facility] Rehabilitation Services Department (phone) (fax) documented in this encounter Plan of Treatment Date Type Specialty Care Team Description 03/16/2020 Ancillary Visit Occupational Therapy Negro James, OT [address] [place] [address] 03/16/2020 Ancillary Visit Physical Therapy Kaushal Chatman , [address] [address] 03/18/2020 Ancillary Visit Physical Therapy Kaushal Chatman , [address] [address] Health Maintenance Due Date Last Done Comments [...] Type Group TMHP MEDICAID OF xxxxxxxxx 2019-Present [phone] [address] Medicaid [place] [id number] [place] [phone] documented as of this encounter
--- OUTSIDE RECORDS SUMMARY | 2020-03-27 16:28 | XMS REPORT | Summary of Care ---
:1980 Author Organization [facility] Address [address] [place] [address] Care Team Providers Name Role Phone Pcp, Patient Does Not Have A Primary Care Provider [phone] Reason for Visit Reason Comments Follow-up Auth/Cert Status Reason Specialty Diagnoses / Referred By Referred To Procedures Contact Contact Physical Therapy Adc Phys ical Therapy Professional Office [address] [place] [address] Fax: Encounter Details Date Type Department Care Team Description 03/16/2020 Ancillary Visit [facility] Lars Reyes MD [address] [facility] [place] [address] Acute right MCA stroke (Primary Dx); Physical Therapy- Kaushal Chatman, [address] [address] Decreased muscle strength; [place] Decreased functional mobilit y and endurance; Professional Office Gait abn or[address] [place] [address] Allergies No Known Allergiesdocumented as of this encounter (statuses as of 03/16/2020) Medications Medication Sig Dispensed Refills Start Date [...] as of this encounter (statuses as of 03/16/2020) Active Problems Problem Noted Date Decreased range of motion of right shoulder 02/26/2020 Decreased range of motion of left shoulder 02/26/2020 Decreased activities of daily living (ADL) 02/26/2020 Acute right MCA stroke 02/26/2020 Closed fracture of distal end of left tibia 09/26/2016 Left leg pain 09/25/2016 documented as of this encounter (statuses as of 03/16/2020) Social History Tobacco Use Types Packs/Day Years [...] encounter Progress Notes Jes Hamm, PT - 03/16/2020 1:40 PM CDT Re-Evaluation Date: March 16, 2020 Date of initial visit: 02/02/2020 Date of reassessment visit: 03/16/2020 Total number of visits: 10 Diagnosis: 1. Acute right MCA stroke 2. Decreased muscle strength 3. Decreased functional mobility and endurance 4. Gait abnormality Subjective: " I am doing alright Jes. I am sore from the other day, mainly my lower leg on the Left side." Objective: Outpatient PT Re-Evaluation Row Name 03/16/20 1400 Vision - Basic Assessment Current Vision Wears glasses all the time Visual History Brain injury Patient Visual Report Nausea/blurring vision with head movement;Other (Comment) Static Sitting Balance Static Sitting-Balance Support Feet supported;No upper extremity supported Static Sitting-Level of Assistance Distant supervision Dynamic Sitting Balance Dynamic Sitting-Balance Support Feet supported;No upper extremity supported Static Standing Balance Static Standing-Balance Support Left upper extremity supported LUE in sling Static Standing-Level of Assistance Contact guard;Minimum assistance Dynamic Standing Balance Dynamic Standing-Balance Support Left upper extremity supported Transfers Transfer Transfer 1 Transfer Level of Assistance 1 Close supervision;Distant supervision Trials/Comments 1 Pt transferred stand pivot from chair to mat, CGA/Supervision, pt transferred back to chair from mat with Supervision/CGA, squat pivot transfer Strength LLE L Hip Flexion 2/5 L Hip Extension 1/5 L Hip ABduction 1/5 L Hip ADduction 2-/5 L Knee Flexion 1/5 L Knee Extension 1/5 L Ankle Dorsiflexion 1/5 L Ankle Plantar Flexion 1/5 Tone LLE LLE Tone Hypotonic Treatment: See Outpatient PT Treatment Flowsheet Assessment: Pt with improved ability to perform gait in // bars and transfers without assistance. Patient able to engage with gait in the // bars with use of NMES and cues, he was able to initiate somehip flexion after stance is activated on the R side. Patient with a slight hip sway to attempt to advance LLE. Patient requires Mod A to advance LLE. Pt progressing well. Progress made towards previously set goals; Short Term Goals: To be met in 4 visits: 1. Pt will be able to increase posture while in standing without cues, I'ly. (partially met) 2. Pt will be able to perform transfers with SBA/Mod Ind. (partially met, performing with SBA) 3. Patient will increase strength by 1/2 grade. (not met) Tinsmith Apprentice Goals: To be met in 8 visits: 1. Pt will increase strength by 1 grade (not met) 2. Pt will be able to perform tasks with CGA (not met) 3. Pt will be able to perform in // bars pre gait and progress to gait with min A for LLE mgmt. (partially met, able to perform gait in // bars but requires Mod A for forward advancement of LLE). Updated Goals: To be met in 8 visits: 1. Pt will be able to perform transfers with SBA/Mod Ind. 2. Patient will increase strength by 1/2 grade. 3. Pt will be able to perform tasks with CGA 4. Pt will be able to perform in // bars pre gait and progress to gait with min A for LLE mgmt. Plan of Care There ex, Functional activities, neuro muscular re ed, gait trg, and patient education. Frequency: 2x/week Duration: 8 sessions Jes Simon, PT [place] PT License [id number] Pending sale to [facility] Rehabilitation Services Department (phone) (fax) I have reviewed this report and agree with the Physical Therapist's recommendations. MD Signature Date Kaushal Chatman, FIRE SPRINKLER SERVICE TECHNICIAN - 03/16/2020 1:40 PM CDT Physical Therapy Treatment Date: March 16, 2020 Subjective: " I am doing alright." 1. Acute right MCA stroke 2. Decreased muscle strength 3. Decreased functional mobility and endurance 4. Gait abnormality Objective: Outpatient PT Treatment Row Name 03/16/20 1400 General Visit Number 8 Chart Reviewed Yes Pt external referral, no current information in chart Family/Caregiver Present Yes present for evaluation to assist with history General Comments Visit 8 of 8, POC Due today, next POC Due on 8th visit. Activity Tolerance Endurance Tolerates 30 min exercise with multiple rests Sitting Balance Moves/returns trunkal midpoint 1-2 inches in multiple planes Pain Assessment Pain Assessment 0-10 Pain Score 0 - No pain Post-Treatment Pain Score 0 - No pain Pain Location Arm Pain Orientation Right;Posterior;Proximal Pain Descriptors Aching;Dull Pain Type Chronic pain;Deep somatic pain;Surgical pain Pain Radiating Towards MId humerus region Pain Frequency Constant/continuous Pain Onset Ongoing Clinical Progression Gradually improving Effect of Pain on Daily Activities Pt able to use his R arm more and able to perform gait in // bars. Patient's Stated Pain Goal No pain Therapeutic Exercise Enter Number of Therapeutic Exercise [...] with forward LLE movement. Transfer 1 Transfer From 1 Mat Transfer Type 1 To and from Transfer to 1 Wheelchair Technique 1 Squat pivot;Stand pivot OTHER Date Pain First Started 01/26/20 Result of Injury Yes Work-Related Injury No Assessment: Pt with improved ability to perform gait in // bars and transfers without assistance. Patient able to engage with gait in the // bars with use of NMES and cues, he was able to initiate some hip flexionafter stance is activated on the R side. Patient with a slight hip sway to attempt to advance LLE. Patient requires Mod A to advance LLE. See Supervising PT for updated POC. Plan: Patient to continue with POC focusing on strengthening, neuromuscular re ed, and increasing overall mobility. Jes Simon, PT [place] PT License [id number] Pending sale to [facility] Rehabilitation Services Department (phone) (fax) Kaushal Chatman PTA Riky Lic [id number] [facility] Rehab Services [facility] [phone] documented in this encounter Plan of Treatment Date Type Specialty Care Team Description 03/18/2020 Ancillary Visit Physical Therapy Lars Reyes MD [address] [place] [address] Kaushal Chatman PTA [address] [place] [address] 03/23/2020 Ancillary Visit Physical Therapy Faith Levy , PT [address] [place] [address] 03/25/2020 Ancillary Visit Physical Therapy Faith Levy , PT [address] [place] [address] Health Maintenance Due Date Last Done Comments [...] Type Group TMHP MEDICAID OF xxxxxxxxx 2019-Present [phone] [address] Medicaid [place] [id number] [place] [phone] documented as of this encounter
--- OUTSIDE RECORDS SUMMARY | 2020-03-27 16:28 | XMS REPORT | Summary of Care ---
:1980 Author Name Abhay Bruce M.A. Address [facility]available , Care Team Providers Name Role Phone Teo Dickinson, Abhay Unavailable Unavailable SYLVIA VELA, RUTH Unavailable Unavailable AIDA Murray, DOMITILA Unavailable Unavailable DARIN ORDAZ, JADEN Unavailable Unavailable [facility] Unavailable Unavaila [facility], SYSTEM Unavailable Unavail able SYLVIA SORIA [place], MUNACHI Unavailable Unavailable MOLLY ORDAZ [place], [...] DAILY DIRECTED Quantity: 30 Refills: 3 OKPALA CHARITY FUNDRAISER, MUNACHI Start : 29-Jan-2020 Active Voltaren 1 [...] MODIFIED WESTERGREN Date: 26-Feb-2020 CT Head/Neck CTA 23366 Date: 02-Feb-2020 History of Craniectomy Completed History of Shoulder Surgery Right Comple jose Immunization Name Dates Details Immunizations not documented Social History Name Dates Details - Status: Name Dates Details Never smoked tobacco (finding) Vital Signs Date Test Result Details No Known Vitals to report Results Date Description Value Details [id number] [U] XRAY SHOULDER MIN 2 VWS RIGHT [id number] XR SHOULDER MIN 2 VWS RIGHT Images acquired, not reported on this accession number. Plan of Care Name Dates Details Planned Observations CT Head/Neck CTA 84185 Intent Comments: Before nex t appointment Planned Goals not documented Planned Encounters Appointment; [...]
--- OUTSIDE RECORDS SUMMARY | 2020-03-27 16:29 | XMS REPORT | Summary of Care ---
:1980 Author Name KITTY ENGLE M.D. Address [place] [facility] Unavailable , Care Team Providers Name Role Phone KITTY ENGLE M.D. Unavailable Unavailable RUTH WARD APRN Unavailable Unavailable DOMITILA PALMA Unavailable Unavailable DARIN ORDAZ, JADEN Unavailable Unavailable [facility] Unavailable Unavaila [facility], SYSTEM Unavailable Unavail able [employer] DRIVER/CUSTODIAN [place], MUNACHI Unavailable Unavailable MOLLY ORDAZ [place], PEDRO Unavailable Unavailable KADIE ORDAZ [place], KITTY FARAH Unavailable Unavailable KIRILL ORDAZ, REMI [...] DAILY DIRECTED Quantity: 30 Refills: 3 OKPALA MANAGER R D, MUNACHI Start : 29-Jan-2020 Active Voltaren 1 [...] Procedures Procedure Dates Details CT Head/Neck CTA 93644 Date: 02-Feb-2020 History of Craniectomy Completed History of Shoulder Surgery Right Comple jose Immunization Name Dates Details Immunizations not documented Social History Name Dates Details - Status: Name Dates Details Never smoked tobacco (finding) Vital Signs Date Test Result Details No Known Vitals to report Results Date Description Value Details [id number] [U] XRAY SHOULDER MIN 2 VWS RIGHT [id number] XR SHOULDER MIN 2 VWS RIGHT Images acquired, not reported on this accession number. Plan of Care Name Dates Details Planned Observations Planned Goals not documented Planned Encounters Appointment; REMI ROY M.D. On: 21-Apr-2020 10:00 Appointment; RUTH WARD APRN On: 28-Apr-2020 13: [...] 1:15 Encounter Diagnosis: Problem not documented Appointment; REMI ROY M.D. On: 10-Mar-2020 12:30 Encounter Diagnosis: Problem not documented Appointment; KITTY ENGLE M.D. On: 19-Mar-2020 10:1 5 Encounter Diagnosis: Problem not documented
--- OUTSIDE RECORDS SUMMARY | 2020-03-27 16:29 | XMS REPORT | Summary of Care ---
:1980 Author Name KITYT ENGLE M.D. Address [facility] Unavailable , Care Team Providers Name Role Phone PENGSUKHDEVJose Maria JUVENILE DETENTION OFFICER, MUNAMRIK Unavailable Unavailable DOMITILA PALMA Unavailable Unavailable JADEN WEBSTER MD Unavailable Unavailable [facility] Unavailable Unavaila [facility], SYSTEM Unavailable Unavail able OKPALA INSPECTOR FINAL ASSEMBLY MECHANICAL [place], MUNACHI Unavailable Unavailable MOLLY ORDAZ [place], PEDRO Unavailable Unavailable KADIE ORDAZ [place], KITTY [...] Hour TAKE 1 TABLET DAILY. Refills: 0 M.A. Start : 29-Jan-2020 Active Lisinopril 20 MG Oral Tablet TAKE 1 TABLET DAILY Quantity: 30 Refills: 3 M.A. Start : 29-Jan-2020 Active Atorvastatin Calcium 10 MG Oral Tablet TAKE 1 TABLET DAILY DIRECTED Quantity: 30 Refills: 3 OKPALA JUVENILE DETENTION OFFICER, MUNACHI Start : 29-Jan-2020 Active Voltaren 1 % Transdermal Gel Refills: 0 M.A. Start : 29-Jan-2020 Active 100 GM Tube Acetaminophen 500 MG Oral Tablet TAKE 1 TABLET EVERY 4 TO 6 HOURS NEEDED. Refills: 0 M.A. Start : 29-Jan-2020 Active Bacitracin 500 UNIT/GM External Ointment Refills: 0 M.A. Start : 29-Jan-2020 Active Gabapentin 300 MG Oral Capsule TAKE 1 CAPSULE IN THE AM, AFTERNOON AND 2 CAPSULE AT BEDTIME Quantity: 270 Refills: 0 [facility] Start : 29-Jan-2020 Active Lidocaine 4 % External Patch Refills: 0 M.A. Start : 29-Jan-2020 Active Melatonin 3 MG Oral Capsule TAKE 1 CAPSULE AT BEDTIME NEEDED. Refills: 0 M.A. Start : 29-Jan-2020 Active Dicyclomine HCl - 20 MG Oral Tablet TAKE 1 TABLET EVERY 6 HOURS NEEDED. Refills: 0 M.A. Start : 29-Jan-2020 Active Baclofen 10 MG Oral Tablet TAKE 1 TABLET EVERY 8 HOURS Refills: 0 M.A. Start : 29-Jan-2020 Active NexIUM 24HR 20 MG Oral Tablet Delayed Release TAKE 1 TABLET DAILY Refills: 0 M.A. Start : 29-Jan-2020 Active Coumadin 7.5 MG Oral Tablet TAKE 1 TABLET DAILY. Refills: 0 M.A. Start : 29-Jan-2020 Active DULoxetine HCl - 30 MG Oral Capsule Delayed Release Particles TAKE 1 CAPSULE BY MOUTH DAILY Quantity: 30 Refills: 3 [facility] Start : 29-Jan-2020 Active Acetaminophen-Codeine #3 300-30 MG Oral Tablet TAKE 1 TABLET EVERY 6 HOURS PRN pain Quantity: 28 Refills: 0 AIDA Rico.DOMITILA Benavides Start : 25-Feb-2020 Active Allergies and Adverse Reactions Name Dates Details Ritalin TABS (Allergy) Status: Active Past Medical History Name Dates Details History of No significant past medical history Status: Resolved Procedures Procedure Dates Details [QL] C-REACTIVE PROTEIN Date: 26-Feb-2020 CT Head/Neck CTA 12021 Date: 02-Feb-2020 History of Craniectomy Completed History of Shoulder Surgery Right Comple jose Immunization Name Dates Details Immunizations not documented Social History Name Dates Details - Status: Name Dates Details Never smoked tobacco (finding) Vital Signs Date Test Result Details No Known Vitals to report Results Date Description Value Details :09 [U] XRAY SHOULDER MIN 2 VWS RIGHT [id number] XR SHOULDER MIN 2 VWS RIGHT Images acquired, not reported on this accession number. :30 [QL] CMP W/EGFR GLUCOSE 116 mg/dl (Normal) Range: 65-13 9 Comments: Non-fa sting reference interval UREA NITROGEN (BUN) 11 mg/dl (Normal) Range: 7- 25 CREATININE 0.92 mg/dl (Normal) Range: 0.60 -1.35 eGFR NON- 103 {ML/MIN/1.7} (Nor mal) Range: > OR = 60 eGFR 119 {ML/MIN/1.7} (Normal) Range: > OR = 60 BUN/CREATININE RATIO NOT APPLICABLE {CALC} Rang e: 6-22 SODIUM 139 mmol/L (Normal) Range: 135- 146 POTASSIUM 4.1 mmol/L (Normal) Range: 3.5- 5.3 CHLORIDE 104 mmol/L (Normal) Range: 98-1 10 CARBON DIOXIDE 25 mmol/L (Normal) Range: 20-32 CALCIUM 9.7 mg/dl (Normal) Range: 8.6-1 0.3 PROTEIN, TOTAL 7.3 g/dl (Normal) Range: 6.1-8. 1 ALBUMIN 4.4 g/dl (Normal) Range: 3.6-5. 1 GLOBULIN 2.9 {G/DL__CALC} (Normal) Range : 1.9-3.7 ALBUMIN/GLOBULIN RATIO 1.5 {CALC} (Normal) Rang e: 1.0-2.5 BILIRUBIN, TOTAL 0.3 mg/dl (Normal) Range: 0.2- 1.2 ALKALINE PHSPHATASE 76 u/l (Normal) Range: 36-1 30 AST 15 u/l (Normal) Range: 10-40 ALT 23 u/l (Normal) Range: 9-46 Comments: SPECIM EN RECEIVED DATE AND TIME: :30 [QL] SED RATE BY MODIFIED WESTERGREN SED RATE BY MODIFIED WESTERGREN 14 mm/h (Normal ) Range: < OR = 15 Comments: SPECIM EN RECEIVED DATE AND TIME: :30 [QL] CBC (INCLUDES DIFF/PLT) WHITE BLOOD CELL COUNT 4.5 {Thousand/u} (Normal ) Range: 3.8-10.8 RED BLOOD CELL COUNT 5.54 {Million/uL} (Normal) Range: 4.20-5.80 HEMAGLOBIN 15.3 g/dl (Normal) Range: 13.2- 17.1 HEMATOCRIT 46.3 % (Normal) Range: 38.5-50. 0 MCV 83.6 fL (Normal) Range: 80.0-10 0.0 MCH 27.6 pg (Normal) Range: 27.0-33 .0 MCHC 33.0 g/dl (Normal) Range: 32.0- 36.0 RDW 15.7 % (Above high threshold) R peewee: 11.0-15.0 PLATELET COUNT 277 {Thousand/u} (Normal) Range : 140-400 MPV 10.0 fL (Normal) Range: 7.5-12. 5 ABSOLUTE NEUTROPHILS 2538 {cells/uL} (Normal) R peewee: 6082-2864 ABSOLUTE LYMPHOCYTES 1499 {cells/uL} (Normal) R peewee: 850-3900 ABSOLUTE MONOCYTES 333 {cells/uL} (Normal) Rang e: 200-950 ABSOLUTE EOSINOPHILS 99 {cells/uL} (Normal) Ran ge: 15-500 ABSOLUTE BASOPHILS 32 {cells/uL} (Normal) Range : 0-200 NEUTROPHILS 56.4 % (Normal) LYMPHOCYTES 33.3 % (Normal) MONOCYTES 7.4 % (Normal) EOSINOPHILS 2.2 % (Normal) BASOPHILS 0.7 % (Normal) Comments: SPECIM EN RECEIVED DATE AND TIME: [id number] Plan of Care Name Dates Details Planned Observations Planned Goals not documented Planned Encounters Appointment; KITTY ENGLE M.D. On: 19-Mar-2020 10:1 5 Appointment; REMI ROY M.D. On: 21-Apr-2020 10:00 [...]
--- OUTSIDE RECORDS SUMMARY | 2020-03-27 16:29 | XMS REPORT | Summary of Care ---
:1980 Author Name KITTY ENGLE M.D. Address [facility]available , Care Team Providers Name Role Phone PENGSUKHDEVJose Maria COVERING MACHINE TENDER, MUNAMRIK Unavailable Unavailable DOMITILA PALMA Unavailable Unavailable JADEN WEBSTER MD Unavailable Unavailable [facility] Unavailable Unavaila [facility], SYSTEM Unavailable Unavail able [place]PALA BAND TACKER [place], MUNACHI Unavailable Unavailable MOLLY ORDAZ [place], PEDRO Unavailable Unavailable KADIE ORDAZ [place], KITTY FARAH Unavailable Unavailable KIRILL ORDAZ, REMI [...] DAILY DIRECTED Quantity: 30 Refills: 3 OKPALA COVERING MACHINE TENDER, MUNACHI Start : 29-Jan-2020 Active Voltaren 1 [...] CAPSULE AT BEDTIME Quantity: 270 Refills: 0 [facility] Start : 29-Jan-2020 Active Lidocaine 4 % [...] BY MOUTH DAILY Quantity: 30 Refills: 3 [facility] Start : 29-Jan-2020 Active Acetaminophen-Codeine #3 300-30 MG Oral Tablet TAKE 1 TABLET EVERY 6 HOURS PRN pain Quantity: 28 Refills: 0 AIDA Rico.DOMITILA Benavides Start : 25-Feb-2020 Active Allergies and Adverse Reactions Name Dates Details Ritalin TABS (Allergy) Status: Active Past Medical History Name Dates Details History of No significant past medical history Status: Resolved Procedures Procedure Dates Details CT Head/Neck CTA 00023 Date: 02-Feb-2020 History of Craniectomy Completed History of Shoulder Surgery Right Comple jose Immunization Name Dates Details Immunizations not documented Social History Name Dates Details - Status: Name Dates Details Never smoked tobacco (finding) Vital Signs Date Test Result Details No Known Vitals to report Results Date Description Value Details :09 [U] XRAY SHOULDER MIN 2 VWS RIGHT 14727 XR SHOULDER MIN 2 VWS RIGHT Images [...] ABSOLUTE NEUTROPHILS 2538 {cells/uL} (Normal) R peewee: 5685-6591 ABSOLUTE LYMPHOCYTES 1499 {cells/uL} (Normal) R peewee: 850-3900 ABSOLUTE MONOCYTES 333 {cells/uL} (Normal) Rang e: 200-950 ABSOLUTE EOSINOPHILS 99 {cells/uL} (Normal) Ran ge: 15-500 ABSOLUTE BASOPHILS 32 {cells/uL} (Normal) Range : 0-200 NEUTROPHILS 56.4 % (Normal) LYMPHOCYTES 33.3 % (Normal) MONOCYTES 7.4 % (Normal) EOSINOPHILS 2.2 % (Normal) BASOPHILS 0.7 % (Normal) Comments: SPECIM EN RECEIVED DATE AND TIME: 15-Mar-202012:30 [QL] C-REACTIVE PROTEIN Comments: REPORT COMMENT:FASTING:NO C-REACTIVE PROTEIN 3.6 mg/L (Normal) Range: <8. 0 Comments: SPECIM EN RECEIVED DATE AND TIME: Plan of Care Name Dates Details Planned [...]
--- OUTSIDE RECORDS SUMMARY | 2020-03-27 16:29 | XMS REPORT | Summary of Care ---
:1980 Author Organization [facility] Address [address] [place] [address] Care Team Providers Name Role Phone Pcp, Patient Does Not Have A Primary Care Provider [phone] Reason for Visit Reason Comments Follow-up Auth/Cert Status Reason Specialty Diagnoses / Referred By Referred To Procedures Contact Contact Occupational Therapy Adc Occup Therapy Professional Office [address] [place] [address] Encounter Details Date Type Department Care Team Description 03/16/2020 Ancillary Visit [facility] Lars Reyes MD [address] [facility] [place] [address] Acute right MCA stroke (Primary Dx); Occupational Therapy- Sidney James, OT [address] [place] [address] Decreased range of motion of right shoul mansi; [place] Decreased range of motion of left shoulder; Professional Office Decrease d activities of daily living (ADL) [address] [place] [address] Allergies No Known Allergiesdocumented as [...] encounter Progress Notes Sidney James, OT - 03/16/2020 12:45 PM CDT Occupational Therapy Treatment Date: March 16, 2020 Subjective: Pt reports he has more soreness and pain today. Pain Assessment Pain Assessment: 0-10 Pain Score: (4/10) Post-Treatment Pain Score: (7-8/10 ) Pain Location: Shoulder Pain Orientation: Bilateral;Multiple Sites(L hand/fingers during passive ROM) Diagnosis: 1. Acute right MCA stroke 2. Decreased range of motion of right shoulder 3. Decreased range of motion of left shoulder 4. Decreased activities of daily living (ADL) Objective: Outpatient OT Treatment Row Name 03/16/20 1300 General Visit Number 4 Pain Assessment Pain Assessment 0-10 Pain Score 4/10 Post-Treatment Pain Score 7-8/10 Pain Location Shoulder Pain Orientation Bilateral;Multiple Sites L hand/fingers during passive ROM Therapeutic Exercise Therapeutic Exercise Activity 1 Passive/Active assist/Active ROM R UE; Sustained stretch R shoulder with manual assist to scapula glide Therapeutic Exercise Acitivity 3 Passive ROM L [...] 7 L forearm long flexor sustained stretch Therapeutic Activity Therapeutic Activity 1 Reaching activity with active assist as needed; reach, grasping and placingclothespin from metal bars at various heights and distances from body Balance/Neuromuscular Re-Education Balance/Neuromuscular Re-Education Activity 1 Weightbearing to L UE. Shoulder GHj approximated andsupport to elbow provided. Assessment: Pt progressing, improved ability to perform reaching with R UE. He is noted with compensatory pattern of R shoulder internal rotation during R UE reaching activity. Pt provided with passive stretch of R shoulder and resumed reaching activity appeared to yield improved function, therefore he may benefit from passive stretches prior to therex or therapeutic activities. Plan: Continue OT POC. Neuromuscular re-education, UE strengthening/ROM and functional activity, modalities FLORIAN Edwards, MOT License #[id number] Occupational Therapy [facility] Department of Rehabilitation Services M-W-F at [facility] T-Th at [facility] documented in this encounter Plan of Treatment Date Type Specialty Care Team Description 03/18/2020 Ancillary Visit Physical Therapy Lars Reyes MD [address] [place] [phone] Kaushal Chatman, BOOKKEEPING TEACHER [address] [place] [address] 03/23/2020 Ancillary Visit Physical Therapy Faith Levy , PT [address] [place] [address] 03/25/2020 Ancillary Visit Physical Therapy Faith Levy , PT [address] [place] [address] Health Maintenance Due Date Last Done Comments [...] Type Group TMHP MEDICAID OF xxxxxxxxx 2019-Present [phone] [address] Medicaid [place] [id number] [place] [phone] documented as of this encounter
--- OUTSIDE RECORDS SUMMARY | 2020-03-27 16:29 | XMS REPORT | Summary of Care ---
:1980 Author Organization [facility] Address [address] [place] [address] Care Team Providers Name Role Phone Pcp, Patient Does Not Have A Primary Care Provider [phone] Reason for Visit Reason Comments Follow-up Auth/Cert Status Reason Specialty Diagnoses / Referred By Referred To Procedures Contact Contact Occupational Therapy Adc Occup Therapy Professional Office [address] [place] [address] Encounter Details Date Type Department Care Team Description 03/18/2020 Ancillary Visit [facility] Lars Reyes MD [address] [facility] [place] [address] Acute right MCA stroke (Primary Dx); Physical Therapy- Kaushal Chatman, [address] [address] Decreased activities of daily living (AD L); [place] Decreased range of motion of right shoulder; Professional Office Decrease d range of motion of left shoulder [address] [place] [address] Allergies No Known Allergiesdocumented as of this encounter (statuses as of 03/18/2020) Medications Medication Sig Dispensed Refills Start Date [...] as of this encounter (statuses as of 03/18/2020) Active Problems Problem Noted Date Decreased range of motion of right shoulder 02/26/2020 Decreased range of motion of left shoulder 02/26/2020 Decreased activities of daily living (ADL) 02/26/2020 Acute right MCA stroke 02/26/2020 Closed fracture of distal end of left tibia 09/26/2016 Left leg pain 09/25/2016 documented as of this encounter (statuses as of 03/18/2020) Social History Tobacco Use Types Packs/Day Years [...] on filedocumented in this encounter Progress Notes Kaushal Chatman, INTERNET MEDIA PLANNER - 03/18/2020 1:40 PM CDT Physical Therapy Treatment Date: March 18, 2020 Subjective: Feels more sore today due to last therapy session. Rates it at 7-10. Also c/o increased back pain. 1. Acute right MCA stroke 2. Decreased activities of daily living (ADL) 3. Decreased range of motion of right shoulder 4. Decreased range of motion of left shoulder Objective: Outpatient PT Treatment Row Name 03/18/20 1300 General Chart Reviewed Yes Pt external referral, no current information in chart Family/Caregiver Present Yes present for evaluation to assist with history Activity Tolerance Endurance Tolerates 30 min exercise [...] Stated Pain Goal No pain Therapeutic Exercise Therapeutic Exercise Activity 1 Sitting exercises= Hip abduction, L1 x 10, Hip adduction x 10 repsand ankle DF x 10 reps, seated hip flexion x [...] pivot;Stand pivot Transfer Level of Assistance 1 Close supervision;Distant supervision Trials/Comments 1 Pt transferred stand pivot from chair to mat, CGA/Supervision, pt transferred back to chair from mat with Supervision/CGA, squat pivot transfer OTHER Date Pain First Started 01/26/20 Result of Injury Yes Work-Related Injury No HEP: Continue established HEP Assessment: Patient with muscle soreness to back and BLE's today. Decreased exercise due to soreness. Worked on transfers, gait and strength. Educated spouse and patient on transfer strategies for bed and car transfers. Ambulation in // bars continues to improve. Plan: Continue POC with emphasis on strength and functional mobility. Kaushal Chatman PTA [facility] Lic [id number] [facility] Rehab Services [facility] [phone] Jes Simon PT supv documented in this encounter Plan of Treatment Date Type Specialty Care Team Description 03/23/2020 Ancillary Visit Occupational Therapy Negro James, OT [address] [place] [address] 03/23/2020 Ancillary Visit Physical Therapy Faith Levy , PT [address] [place] [address] 03/25/2020 Ancillary Visit Physical Therapy Faith Levy , PT [address] [place] [address] Health Maintenance Due Date Last Done Comments [...] to walk and do Gaetano, ADL's more Jes PT independent. documented as of this encounter Results Not on filedocumented in this encounter Visit Diagnoses Diagnosis Acute right MCA stroke - Primary Unspecified cerebral artery occlusion wi th cerebral infarction Decreased activities of daily living (AD L) Decreased range of motion of right shoul mansi Other affections of shoulder region, not elsewhere classified Decreased range of motion of left should er documented in this encounter Insurance Payer Benefit Plan / Subscriber ID Effective Dates Phone Addre ss Type Group TMHP MEDICAID OF xxxxxxxxx 2019-Present [phone] [address] Medicaid [place] [id number] [place] [phone] documented as of this encounter
--- OUTSIDE RECORDS SUMMARY | 2020-03-27 16:30 | XMS REPORT | Summary of Care ---
:1980 Author Name Brii Umana Address Unavailable Unavailable , Care Team Providers Name Role Phone SYLVIA ROJASN, RUTH Unavailable Unavailable Neil Umanay Unavailable Unavailable DOMITILA PALMA Unavailable Unavailable DARIN ORDAZ, JADEN Unavailable Unavailable [facility] Unavailable Unavaila [facility], SYSTEM Unavailable Unavail able OKJARROD STORE CLERK CHECKER [place], MUNACHI Unavailable Unavailable MOLLY ORDAZ [place], [...] with routine healing (V54.11, S42.111D) Status: Active Shoulder pain, right (719.41, M25.511) S tatus: Active Medications Name Dates Details NIFEdipine ER [...] history Status: Resolved Procedures Procedure Dates Details Post Op Promis 29 Survey Date: 19-Mar-2020 CT Head/Neck CTA 63466 Date: 02-Feb-2020 History of Craniectomy Completed History of Shoulder Surgery Right Comple jose Immunization Name Dates Details Immunizations not documented Social History Name Dates Details - Status: Name Dates Details Never smoked tobacco (finding) Vital Signs Date Test Result Details No Known Vitals to report Results Date Description Value Details [id number] [U] XRAY SHOULDER MIN 2 VWS RIGHT 32296 XR SHOULDER MIN 2 VWS RIGHT Images [...] ABSOLUTE NEUTROPHILS 2538 {cells/uL} (Normal) R peewee: [id number] ABSOLUTE LYMPHOCYTES 1499 {cells/uL} (Normal) R peewee: [...] APRN On: 28-Apr-2020 13: 00 Interventions Provided Labs/Procedures/ImagingPost Op Promis 29 Survey; To Be Done: 19 Mar 2020 Instructions Name Dates Details Instructions not [...]
--- OUTSIDE RECORDS SUMMARY | 2020-03-27 16:30 | XMS REPORT | Summary of Care ---
:1980 Author Organization [facility] Address [address] [place] [address] Care Team Providers Name Role Phone Pcp, Patient Does Not Have A Primary Care Provider [phone] Reason for Visit Reason Comments Follow-up Auth/Cert Status Reason Specialty Diagnoses / Referred By Referred To Procedures Contact Contact Occupational Therapy Adc Occup Therapy Professional Office [address] [place] [address] Encounter Details Date Type Department Care Team Description 03/04/2020 Ancillary Visit [facility] Lars Reyes MD [address] [facility] [place] [address] Acute right MCA stroke (Primary Dx); Occupational Therapy- Sidney James, OT [address] [place] [address] Decreased range of motion of right shoul mansi; [place] Decreased range of motion of left shoulder; Professional Office Decrease d activities of daily living (ADL) [address] [place] [address] Allergies No Known Allergiesdocumented as of this encounter (statuses as of 03/22/2020) Medications Medication Sig Dispensed Refills Start Date [...] as of this encounter (statuses as of 03/22/2020) Active Problems Problem Noted Date Decreased range of motion of right shoulder 02/26/2020 Decreased range of motion of left shoulder 02/26/2020 Decreased activities of daily living (ADL) 02/26/2020 Acute right MCA stroke 02/26/2020 Closed fracture of distal end of left tibia 09/26/2016 Left leg pain 09/25/2016 documented as of this encounter (statuses as of 03/22/2020) Social History Tobacco Use Types Packs/Day Years [...] and neuromuscular re-education. FLORIAN Edwards, MOT License #[id number] Occupational Therapy [facility] Department of Rehabilitation Services M[facility]F at [facility] T-Th at [facility] documented in this encounter Plan of Treatment Date Type Specialty Care Team Description 03/23/2020 Ancillary Visit Occupational Therapy Negro James, OT [address] [place] [address] 03/23/2020 Ancillary Visit Physical Therapy Kaushal Chatman , ASSISTANT PROFESSOR OF ART [address] [place] [address] 03/25/2020 Ancillary Visit Physical Therapy Faith Levy , PT [address] [place] [address] Health Maintenance Due Date Last Done Comments [...] Type Group TMHP MEDICAID OF xxxxxxxxx 2019-Present [phone] [address] Medicaid [place] [id number] [place] [phone] documented as of this encounter
--- OUTSIDE RECORDS SUMMARY | 2020-03-27 16:30 | XMS REPORT | Summary of Care ---
:1980 Author Organization [facility] Address [address] [place] [address] Care Team Providers Name Role Phone Pcp, Patient Does Not Have A Primary Care Provider [phone] Reason for Visit Reason Comments Follow-up Auth/Cert Status Reason Specialty Diagnoses / Referred By Referred To Procedures Contact Contact Occupational Therapy Adc Occup Therapy Professional Office [address] [place] [address] Encounter Details Date Type Department Care Team Description 03/16/2020 Ancillary Visit [facility] Lars Reyes MD [address] [facility] [place] [address] Acute right MCA stroke (Primary Dx); Occupational Therapy- Sidney James, OT [address] [place] [address] Decreased range of motion of right shoul mansi; [place] Decreased range of motion of left shoulder; Professional Office Decrease d activities of daily living (ADL) [address] [place] [address] Allergies No Known Allergiesdocumented as [...] re-education, UE strengthening/ROM and functional activity, modalities Janette James OTR, MOT License #[id number] Occupational Therapy [facility] Department of Rehabilitation Services M-W-F at [facility] T-Th at [facility] documented in this encounter Plan of Treatment Date Type Specialty Care Team Description 03/23/2020 Ancillary Visit Occupational Therapy Negro James, OT [address] [place] [address] 03/23/2020 Ancillary Visit Physical Therapy Kaushal Chatman , NECKTIE CENTRALIZING MACHINE OPERATOR [address] [place] [address] 03/25/2020 Ancillary Visit Physical Therapy Faith Levy , PT [address] [place] [address] Health Maintenance Due Date Last Done Comments [...] Type Group TMHP MEDICAID OF xxxxxxxxx 2019-Present [phone] [address] Medicaid [place] [id number] [place] [phone] documented as of this encounter
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
--- OUTSIDE RECORDS SUMMARY | 2020-03-27 16:30 | XMS REPORT | Summary of Care ---
:1980 Author Organization [facility] Address [address] [place] [address] Care Team Providers Name Role Phone Pcp, Patient Does Not Have A Primary Care Provider [phone] Reason for Visit Reason Comments Follow-up Auth/Cert Status Reason Specialty Diagnoses / Referred By Referred To Procedures Contact Contact Physical Therapy Adc Phys ical Therapy Professional Office [address] [place] [address] Fax: Encounter Details Date Type Department Care Team Description 03/23/2020 Ancillary Visit [place] Lars Reyes MD [address] [place] [address] Acute right MCA stroke (Primary Dx); Physical Therapy- Kaushal Chatman, [address] [address] Decreased activities of daily living (AD L); [place] Decreased range of motion of right shoulder; Professional Office Decrease d functional mobility and endurance; Nancy Decreased muscle strength; [address] [place] [address] Decreased range of motion of left shoulder; Dr. [address] [place] [address] Allergies No Known Allergiesdocumented as of this encounter (statuses as of 03/23/2020) Medications Medication Sig Dispensed Refills Start Date [...] as of this encounter (statuses as of 03/23/2020) Active Problems Problem Noted Date Decreased range of motion of right shoulder 02/26/2020 Decreased range of motion of left shoulder 02/26/2020 Decreased activities of daily living (ADL) 02/26/2020 Acute right MCA stroke 02/26/2020 Closed fracture of distal end of left tibia 09/26/2016 Left leg pain 09/25/2016 documented as of this encounter (statuses as of 03/23/2020) Social History Tobacco Use Types Packs/Day Years [...] in this encounter Progress Notes Kaushal Chatman, MENU PLANNER - 03/23/2020 2:00 PM CDT Physical Therapy Treatment Date: March 23, 2020 Subjective: Patient denies any new c/o. Still sore for 4 days after PT. Patient and spouse report frequent pain to back and BLE's. 1. Acute right MCA stroke 2. Decreased activities of daily living (ADL) 3. Decreased range of motion of right shoulder 4. Decreased functional mobility and endurance 5. Decreased muscle strength 6. Decreased range of motion of left shoulder 7. Gait abnormality Objective: Outpatient PT Treatment Row Name 03/23/20 1300 General Visit Number 10 Chart Reviewed Yes Pt external referral, no current information in chart Family/Caregiver Present Yes present for evaluation to assist with history General Comments Visit 3 of 8 Activity Tolerance Endurance Tolerates 30 min exercise [...] Yes Work-Related Injury No HEP: Continue established HEP. Add SKC stretches and posture. Assessment: Patient with fair exercise tolerance. Reports increased back pain with any standing or gait activities. Educated on posture awareness in sitting and standing. Performed gait and sit to stand with mirror. Patient is able to control posture with verbal and visual cues. Seems fatigued and with increased back pain after treatment. Plan: Continue POC with emphasis on strength and functional mobility. Kaushal Chatman PTA [facility] [id number] [facility] Rehab Services [facility] [phone] Jes Simon PT supv documented in this encounter Plan of Treatment Date Type Specialty Care Team Description 03/25/2020 Ancillary Visit Physical Therapy Lars Reyes MD [address] [place] [address] Faith Levy, PT [address] [place] [address] 03/30/2020 Ancillary Visit Physical Therapy Faith Levy , PT [address] [place] [address] 04/01/2020 Ancillary Visit Physical Therapy Kaushal Chatman , MENU PLANNER [address] [place] [address] Health Maintenance Due Date Last Done Comments [...] of shoulder region, not elsewhere classified Decreased functional mobility and endura nce Decreased muscle strength Muscle weakness (generalized) Decreased range of motion of left should er Gait abnormality Abnormality of gait documented in this encounter Insurance Payer Benefit Plan / Subscriber ID Effective Dates Phone Addre ss Type Group [facility] MEDICAID OF xxxxxxxxx 2019-Present [phone] [address] Medicaid [place] [id number] [place] [phone] documented as of this encounter
--- OUTSIDE RECORDS SUMMARY | 2020-03-27 16:31 | XMS REPORT | Summary of Care ---
:1980 Author Organization [facility] - Health Address [address] [place] [address] Care Team Providers Name Role Phone Pcp, Patient Does Not Have A Primary Care Provider [id number] Encounter Details Date Type Department Care Team Description 03/25/2020 Orders Only [facility] Doctor Unassigned, No [address] [facility] [place] [address] [address] [place] [phone] Allergies No Known Allergiesdocumented as of this encounter (statuses as of 03/25/2020) Medications Medication Sig Dispensed Refills Start Date [...] as of this encounter (statuses as of 03/25/2020) Active Problems Problem Noted Date Decreased range of motion of right shoulder 02/26/2020 Decreased range of motion of left shoulder 02/26/2020 Decreased activities of daily living (ADL) 02/26/2020 Acute right MCA stroke 02/26/2020 Closed fracture of distal end of left tibia 09/26/2016 Left leg pain 09/25/2016 documented as of this encounter (statuses as of 03/25/2020) Social History Tobacco Use Types Packs/Day Years [...] filedocumented in this encounter Plan of Treatment Date Type Specialty Care Team Description 03/25/2020 Ancillary Visit Physical Therapy Lars Reyes MD [address] [place] [phone] Faith Levy, PT [address] [place] [address] 03/30/2020 Ancillary Visit Physical Therapy Faith Levy , PT [address] [place] [address] 04/01/2020 Ancillary Visit Physical Therapy Kaushal Chatman , [address] [place] [address] Health Maintenance Due Date Last Done Comments DTaP,Tdap,and Td Vaccines ( - 1989 Tdap) INFLUENZA VACCINE (Season Ended) [...] Name Priority Date/Time Associated Diagnosis Comme nts PHYSICIAN ORDERS Routine 03/25/2020 12:01 AM CDT documented in this encounter Results Not on filedocumented in this encounter Insurance Payer Benefit Plan / Subscriber ID Effective Dates Phone Addre ss Type Group [employer] MEDICAID OF xxxxxxxxx 2019-Present [phone] Medicaid [place] [id number] [place] [id number] documented as of this encounter
--- OUTSIDE RECORDS SUMMARY | 2020-03-27 16:31 | XMS REPORT | Summary of Care ---
:1980 Author Organization [facility] Address [address] [place] [id number] Care Team Providers Name Role Phone Pcp, Patient Does Not Have A Primary Care Provider [phone] Reason for Visit Reason Comments Follow-up Auth/Cert Status Reason Specialty Diagnoses / Referred By Referred To Procedures Contact Contact Physical Therapy Adc Phys ical Therapy Professional Office [address] [place] [address] Fax: Encounter Details Date Type Department Care Team Description 03/23/2020 Ancillary Visit [facility] Lars Reyes MD [address] [facility] [place] [address] Acute right MCA stroke (Primary Dx); Occupational Therapy- Sidney James, OT [address] [place] [phone] Decreased range of motion of right shoul mansi; [place] Decreased range of motion of left shoulder; Professional Office Decrease d activities of daily living (ADL) Building [address] [place] [address] [address] [place] [address] Allergies No Known Allergiesdocumented as [...] encounter Progress Notes Sidney James, OT - 03/23/2020 1:00 PM CDT Occupational Therapy Treatment Date: March 23, 2020 Subjective: Pt reported he has been more sore/tender and painful in midback and L shoulder region for ~1-2 weeks. Pain Assessment Pain Assessment: 0-10 Diagnosis: 1. Acute right MCA stroke 2. Decreased range of motion of right shoulder 3. Decreased range of motion of left shoulder 4. Decreased activities of daily living (ADL) Objective: Outpatient OT Treatment Row Name 03/23/20 1400 General Visit Number 5 Pain Assessment Pain Assessment 0-10 Therapeutic Exercise Therapeutic Exercise Activity 1 Passive/Active [...] Activity Therapeutic Activity 1 Reaching activity with hook and loop board at various distances from body and heights, pt rolled large dowel with large paddle on wide hook strap side Balance/Neuromuscular Re-Education Balance/Neuromuscular Re-Education Activity 2 ANEL shoulder shrugs, scapula retraction and protraction with tapping to facilitate muscular activation Balance/Neuromuscular Re-Education Activity 3 WB L UE x 15 minutes with support at elbow and distal UE, in conjunction with R UE reaching activity that includes crossing midline for L UE WB, lateral (ER) and forward reach. Assessment: Pt still with significant weakness to R deltoids as seen by impaired active flexion of R shoulder; noted with compensatory movement pattern of abduction at shoulder. He is also noted to use hand/fingers to "walk" using table top to reduce resistance to shoulder/deltoid muscles during active ROM and functional activity. Pt still with tightness at L wrist, tightness into L wrist extension. Pt will benefit from OT for improved ANEL UE function, neuromuscular re- education, ROM, strengthening and monitoring for positioning needs (L shoulder and UE). Plan: Continue OT FLORIAN Menjivar, MOT License #[id number] Occupational Therapy [facility] Department of Rehabilitation Services M-W-F at [facility] T-Th at [facility] documented in this encounter Plan of Treatment Date Type Specialty Care Team Description 03/25/2020 Ancillary Visit Physical Therapy Lars Reyes MD [address] [place] [phone] Faith Levy, PT [address] [place] [address] 03/30/2020 Ancillary Visit Physical Therapy Faith Levy , PT [address] [place] [address] 04/01/2020 Ancillary Visit Physical Therapy Kaushal Chatman , [employer] [address] [place] [address] Health Maintenance Due Date Last Done Comments [...] Type Group [employer] MEDICAID OF xxxxxxxxx 2019-Present [phone] [address] Medicaid [place] [id number] [place] [phone] documented as of this encounter
[2020-03-27 17:59] LABS: Absolute Lymphocytes (CBC) 1.5 K/uL (0.7-4.9); Basophils % 0.6 % (0-1.3); Hematocrit 43.9 % (39.6-49.0); MPV 7.8 fL (7.6-11.3); RBC Red Blood Cell Count 5.29 M/uL (4.33-5.43)
--- NOTE | 2020-03-27 18:05 | RAD REPORT ---
EXAM DESCRIPTION: CT - Stone Protocol - 03/27/2020 5:51 pm CLINICAL HISTORY: HEMATURIA, dysuria, pain COMPARISON: No comparisons TECHNIQUE: Axial 5 mm thick images were obtained without oral or IV contrast. The [id number] span s the entirety of the system including uppermost abdomen and lung bases. All CT scans are performed using dose optimization technique as appropriate and may include automated exposure control or mA/KV adjustment according to patient size. FINDINGS: No hydronephrosis is present and no obstructing ureteral calculi. No suspicious renal mass es. Isodense masses and pyelonephritis are not excluded on a stone protocol CT scan. No significant a drenal finding. Urinary bladder is only partially filled. No gross evidence for bladder wall thickeni ng or edema. Assessment is limited. No prostate enlargement or stranding adjacent to the prostate gla nd. Imaged portions of the liver, spleen and pancreas show no suspicious findings on non-contrast imaging . No gallbladder or biliary tree abnormality identified. No suspicious bowel findings. Appendix is normal. No active GI process. No hernia, mass or bulky lymphadenopathy noted. No free air, free fluid or inflammatory stranding. No significant bony abnormality. IMPRESSION: No hydronephrosis, obstructing calculus or acute finding identifiable. Isodense masses, cystitis and pyelonephritis are not excluded on stone protocol technique. No acute GI process.
[2020-03-27 18:11] LABS: BUN Blood Urea Nitrogen 11 mg/dL (7-18); Bicarbonate 24 mmol/L (21-32); Glucose Level 95 mg/dL (74-106); Potassium 3.9 mmol/L (3.5-5.1); Sodium Level 138 mmol/L (136-145)
[2020-03-27 18:27] LABS: Urine Bacteria <20 /HPF (NONE SEEN); Urine Culture Reflex Order REFLEXED; Urine RBC LOADED /HPF (NONE SEEN)
--- NOTE | 2020-03-27 18:48 | EDPHYS ---
Physician Documentation [facility] Name: Rafael Neumann Age: 39 yrs Sex: Male : 1980 Arrival Date: 03/27/2020 Time: 16:11 Bed 20 Private MD: Krissy Chavez R ED Physician Can Yee HPI: 03/27 17:13 This 39 yrs old Male presents to ER via Wheelchair with complaints of Urinary kb Frequency, blood in urine. 17:13 The patient presents with urinary symptoms, urinary frequency. Onset: The kb symptoms/episode began/occurred last night. Modifying factors: The symptoms are alleviated by nothing, the symptoms are aggravated by nothing. Associated signs and symptoms: Pertinent positives: hematuria, Pertinent negatives: abdominal pain, constipation, diarrhea, dysuria, fever, nausea, vomiting. Severity of symptoms: At their worst the symptoms were moderate, in the emergency department the symptoms are unchanged. The patient has not experienced similar symptoms in the past. The patient has not recently seen a physician. Pt reports he has had urinary frequency, urgency, hematuria, and sometimes difficulty urinating since last night. 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 States he has been having some low back pain but thought it was muscular pain. Historical: - Allergies: 16:28 Ritalin; ca1 16:28 Tape; ca1 - Home Meds: 16:28 Losartan Potassium [Active]; Coumadin 7.5 mg Oral tab .5 tab once daily [Active]; ca1 nortriptyline 25 mg Oral cap nightly [Active]; Senna Lax 8.6 mg oral tab 2 tabs once daily [Active]; Colace 50 mg oral cap 1 cap three times a day [Active]; baclofen 10 mg Oral tab 1 tab 3 times per day [Active]; acetaminophen-codeine 300-30 mg Oral tab 1 tab every 6 hours [Active]; tramadol 50 mg Oral tab 1 tab every 8 hours [Active]; - PMHx: 16:28 Hypertension; CVA; ca1 - PSHx: 16:45 Craniotomy; aa5 - Immunization history:: Adult Immunizations up to date. - Social history:: Smoking status: Patient reports the use of cigarette tobacco products, denies chronic smoking, but will smoke occasionally. ROS: 17:11 Constitutional: Negative for fever, chills, and weight loss, Cardiovascular: Negative kb for chest pain, palpitations, and edema, Respiratory: Negative for shortness of breath, cough, wheezing, and pleuritic chest pain, Abdomen/GI: Negative for abdominal pain, nausea, vomiting, diarrhea, and constipation, Back: Negative for injury and pain, MS/Extremity: Negative for injury and deformity, Skin: Negative for injury, rash, and discoloration, Neuro: Negative for headache, weakness, numbness, tingling, and seizure. 17:11 : Positive for urinary symptoms, urinary frequency, small amounts, hematuria. Exam: 17:11 Constitutional: This is a well developed, well nourished patient who is awake, alert, kb and in no acute distress. Head/Face: Normocephalic, atraumatic. Chest/axilla: Normal chest wall appearance and motion. Nontender with no deformity. No lesions are appreciated. Cardiovascular: Regular rate and rhythm with a normal S1 and S2. No gallops, murmurs, or rubs. Normal PMI, no JVD. No pulse deficits. Respiratory: Lungs have equal breath sounds bilaterally, clear to auscultation and percussion. No rales, rhonchi or wheezes noted. No increased work of breathing, no retractions or nasal flaring. Abdomen/GI: Soft, non-tender, with normal bowel sounds. No distension or tympany. No guarding or rebound. No evidence of tenderness throughout. Skin: Warm, dry with normal turgor. Normal color with no rashes, no lesions, and no evidence of cellulitis. MS/ Extremity: Pulses equal, no cyanosis. Neurovascular intact. Full, normal range of motion. Neuro: Awake and alert, GCS 15, oriented to person, place, time, and situation. Cranial nerves II-XII grossly intact. Motor strength 5/5 in all extremities. Sensory grossly intact. Cerebellar exam normal. Normal gait. 17:11 Back: CVA tenderness, that is mild, is noted on the right. Vital Signs: 16:22 BP 139 / 103; Pulse 106; Resp 18 S; Temp 98.5(O); Pulse Ox 99% on R/A; Weight 90.72 kg ca1 (R); Height 6 ft. 1 in. (185.42 cm) (R); Pain 6/10; 17:06 BP 139 / 105; Pulse 88; Resp 18 S; Pulse Ox 96% on R/A; aa5 18:00 BP 126 / 92; Pulse 86; Resp 16 S; Pulse Ox 98% on R/A; aa5 19:00 BP 134 / 92; Pulse 83; Resp 18 S; Pulse Ox 99% on R/A; aa5 20:00 BP 126 / 78; Pulse 80; Resp 17; Pulse Ox 99% ; rr5 16:22 Body Mass Index 26.39 (90.72 kg, 185.42 cm) ca1 MDM: 16:26 Patient medically screened. kb 17:13 Data reviewed: vital signs, nurses notes. Data interpreted: Pulse oximetry: on room air kb is 99 %. Interpretation: normal. 18:47 Counseling: I had a detailed discussion with the patient and/or guardian regarding: the kb historical points, exam findings, and any diagnostic results supporting the discharge/admit diagnosis, lab results, radiology results, the need for outpatient follow up, a family practitioner, to return to the emergency department if symptoms worsen or persist or if there are any questions or concerns that arise at home. 03/27 16:29 Order name: Basic Metabolic Panel; Complete Time: 18:18 kb 03/27 16:29 Order name: CBC with Diff; Complete Time: 18:05 kb 03/27 16:29 Order name: Urine Microscopic Only; Complete Time: 18:32 kb 03/27 18:06 Order name: Urine Culture iw 03/27 16:29 Order name: IV Saline Lock; Complete Time: 17:09 kb 03/27 16:29 Order name: Labs collected and sent; Complete Time: 17:55 kb 03/27 16:29 Order name: Urine Dipstick-Ancillary (obtain specimen); Complete Time: 18:06 kb 03/27 16:29 Order name: CT Stone Protocol; Complete Time: 18:18 kb 03/27 19:17 Order name: Urine Dipstick--Ancillary (enter results); Complete Time: 19:34 eb Administered Medications: 19:15 Drug: Rocephin 1 grams Route: IV; Rate: calculated rate; Site: right forearm; rr5 20:00 Follow up: Response: No adverse reaction; IV Status: Completed infusion; IV Intake: [id number] Disposition: 03/28 07:11 Co-signature as Attending Physician, Can Yee MD. rn Disposition: 03/27/20 18:47 Discharged to Home. Impression: Urinary tract infection, site not specified. - Condition is Stable. - Discharge Instructions: Urinary Tract Infection, Adult, [id number]. - Prescriptions for Bactrim DS 800- 160 mg Oral Tablet - take 1 tablet by ORAL route every 12 hours for 7 days; 14 tablet. - Medication Reconciliation Form, Thank You Letter, Antibiotic Education, Prescription Opioid Use form. - Follow up: Emergency Department; When: As needed; Reason: Worsening of condition. Follow up: Private Physician; When: 2 - 3 days; Reason: Recheck today's complaints, Continuance of care, Re-evaluation by your physician. Signatures: Dispatcher [employer] EDMS Luli Larson, SERICULTURE TEACHER-C SERICULTURE TEACHER-Ckb Can Yee MD MD rn Kirk, Jillian, RN RN aa5 Jonathan Morillo RN RN rr5 Iris Monet RN RN ca1 Corrections: (The following items were deleted from the chart) 03/27 19:15 16:45 PROTIME (+INR)+COAG.LAB.BRZ ordered. EDRI EDRI 19:15 16:45 PTT, ACTIVATED+COAG.LAB.BRZ ordered. [facility] EDMS 20:07 18:47 03/27/2020 18:47 Discharged to Home. Impression: Urinary tract infection, site rr5 not specified. Condition is Stable. Forms are Medication Reconciliation Form, Thank You Letter, Antibiotic Education, Prescription Opioid Use. Follow up: Emergency Department; When: As needed; Reason: Worsening of condition. Follow up: Private Physician; When: 2 - 3 days; Reason: Recheck today's complaints, Continuance of care, Re-evaluation by your physician. kb
--- NOTE | 2020-03-27 18:48 | ER ---
Nurse's Notes [facility] Name: Rafael Neumann Age: 39 yrs Sex: Male : 1980 Arrival Date: 03/27/2020 Time: 16:11 Bed 20 Private MD: Krissy Chavez R Diagnosis: Urinary tract infection, site not specified Presentation: 03/27 16:22 Chief complaint: Patient states: Urinary frequency since last night. This morning, pain ca1 and trouble urinating. Reports brownish clumpy stuff in urine. Pt takes Coumadin. Reports lower abdominal pain and R lower back pain. Reports has just completed course on Ciprofloxacin. Coronavirus screen: Proceed with normal triage. Patient denies a cough. Patient denies shortness of breath or difficulty breathing. Patient denies measured and/or subjective temperature greater than 100.4F prior to today's visit. Patient denies travel on a cruise ship or to a country the [facility] currently lists as an affected area. Patient denies contact with known and/or suspected case of COVID-19. Ebola Screen: Patient negative for fever greater than or equal to 101.5 degrees Fahrenheit, and additional compatible Ebola Virus Disease symptoms Patient denies exposure to infectious person. Patient denies travel to an Ebola-affected area in the 21 days before illness onset. No symptoms or risks identified at this time. Initial Sepsis Screen: Does the patient meet any 2 criteria? No. Patient's initial sepsis screen is negative. Does the patient have a suspected source of infection? No. Patient's initial sepsis screen is negative. Risk Assessment: Do you want to hurt yourself or someone else? Patient reports no desire to harm self or others. Onset of symptoms was March 27, 2020. 16:22 Method Of Arrival: Wheelchair ca1 16:22 Acuity: LORIE 3 ca1 Historical: - Allergies: 16:28 Ritalin; ca1 16:28 Tape; ca1 - Home Meds: 16:28 Losartan Potassium [Active]; Coumadin 7.5 mg Oral tab .5 tab once daily [Active]; ca1 nortriptyline 25 mg Oral cap nightly [Active]; Senna Lax 8.6 mg oral tab 2 tabs once daily [Active]; Colace 50 mg oral cap 1 cap three times a day [Active]; baclofen 10 mg Oral tab 1 tab 3 times per day [Active]; acetaminophen-codeine 300-30 mg Oral tab 1 tab every 6 hours [Active]; tramadol 50 mg Oral tab 1 tab every 8 hours [Active]; - PMHx: 16:28 Hypertension; CVA; ca1 - PSHx: 16:45 Craniotomy; aa5 - Immunization history:: Adult Immunizations up to date. - Social history:: Smoking status: Patient reports the use of cigarette tobacco products, denies chronic smoking, but will smoke occasionally. Screenin:00 Abuse screen: Denies threats or abuse. Nutritional screening: No deficits noted. aa5 Tuberculosis screening: No symptoms or risk factors identified. Fall Risk Secondary diagnosis (15 points) CVA, IV access (20 points). Total Hernandez Fall Scale indicates Low Risk Score (25-44 pts). Fall prevention measures have been instituted. Side Rails Up X 2 Placed close to Nursing Station. Assessment: 16:45 General: Appears comfortable, Behavior is calm, cooperative, Pt wears helmet to protect aa5 craniotomy. Pain: Complains of pain in right mid back and right low back. Pt also reports chronic pain to shoulders. Pain does not radiate. Pain currently is 6 out of 10 on a pain scale. Quality of pain is described as "sore" Pain began 2-3 days ago. Is continuous. Neuro: Level of Consciousness is awake, alert, obeys commands, Oriented to person, place, time, situation, Left-sided weakness noted. Pt reports he does physical therapy. Pt reports CVA November 2019. . Cardiovascular: Heart tones S1 S2 present Patient's skin is warm and dry. Rhythm is regular. Respiratory: Airway is patent Respiratory effort is even, unlabored, Respiratory pattern is regular, symmetrical. GI: Abdomen is round non-distended, Bowel sounds present X 4 quads. Abd is soft and non tender X 4 quads. : Reports urgency, urinary frequency, since last night. Pt brought urine in urinal from home, urine is cloudy with brownish-like mucous. EENT: No signs and/or symptoms were reported regarding the EENT system. Derm: Skin is pink, warm \\T\\ dry. Musculoskeletal: limited mobility to left arm and left leg. 17:30 Reassessment: Patient is alert, oriented x 3, equal unlabored respirations, skin aa5 warm/dry/pink. CBC and basic collected by photographic laboratory technician, unable to collect PT. SUPERIOR COURT CLERK was notified. Pt to CT via stretcher. . 18:00 Reassessment: Patient is alert, oriented x 3, equal unlabored respirations, skin aa5 warm/dry/pink. Pt back from CT scan via stretcher, pt assisted with urine specimen collection. . 18:00 Reassessment: Urine culture and urine micro sent to lab. Urine is cloudy and aa5 blood-tinged urine was noted to penis after pt finished voiding, SUPERIOR COURT CLERK was notified. . 19:20 Reassessment: Patient appears in no apparent distress at this time. Patient is alert, rr5 oriented x 3, equal unlabored respirations, skin warm/dry/pink. medication given awaiting for observation and awaiting for his ride home. 20:00 Reassessment: Patient appears in no apparent distress at this time. Patient is alert, rr5 oriented x 3, equal unlabored respirations, skin warm/dry/pink. discharge instruction given and explained without complaints made. Vital Signs: 16:22 BP 139 / 103; Pulse 106; Resp 18 S; Temp 98.5(O); Pulse Ox 99% on R/A; Weight 90.72 kg ca1 (R); Height 6 ft. 1 in. (185.42 cm) (R); Pain 6/10; 17:06 BP 139 / 105; Pulse 88; Resp 18 S; Pulse Ox 96% on R/A; aa5 18:00 BP 126 / 92; Pulse 86; Resp 16 S; Pulse Ox 98% on R/A; aa5 19:00 BP 134 / 92; Pulse 83; Resp 18 S; Pulse Ox 99% on R/A; aa5 20:00 BP 126 / 78; Pulse 80; Resp 17; Pulse Ox 99% ; rr5 16:22 Body Mass Index 26.39 (90.72 kg, 185.42 cm) ca1 ED Course: 16:11 Patient arrived in ED. am2 16:11 Krissy Chavez MD is Private Physician. am2 16:23 Luli Larson FNP-C is [facility]. kb 16:23 Can Yee MD is Attending Physician. kb 16:25 Triage completed. ca1 16:25 Jillian Bradley, RN is Primary Nurse. aa5 16:28 Arm band placed on right wrist. ca1 16:45 Patient has correct armband on for positive identification. Bed in low position. Call aa5 light in reach. Side rails up X2. 17:00 Missed attempt(s): 22 gauge in right antecubital area. Bleeding controlled, band aid aa5 applied, catheter tip intact. 17:03 Missed attempt(s): 22 gauge in left antecubital area. Bleeding controlled, band aid aa5 applied, catheter tip intact. 17:05 Inserted saline lock: 20 gauge in right wrist, using aseptic technique. aa5 17:05 3 unsuccessful attempt to collect blood, lab notified and photographic laboratory technician will come draw. aa5 17:52 CT Stone Protocol In Process Unspecified. EDMS 19:00 Report given to GALINDO Castillo. aa5 20:05 No provider procedures requiring assistance completed. IV discontinued, intact, rr5 bleeding controlled, No redness/swelling at site. Pressure dressing applied. Administered Medications: 19:15 Drug: Rocephin 1 grams Route: IV; Rate: calculated rate; Site: right forearm; rr5 20:00 Follow up: Response: No adverse reaction; IV Status: Completed infusion; IV Intake: [id number] Intake: 20:00 IV: 10ml; Total: 10ml. rr5 Outcome: 18:47 Discharge ordered by . kb 20:05 Discharged to home via wheelchair, with family. rr5 20:05 Condition: stable 20:05 Discharge instructions given to patient, Instructed on discharge instructions, follow up and referral plans. medication usage, Demonstrated understanding of instructions, follow-up care, medications, Prescriptions given X 1. 20:07 Patient left the ED. rr5 Addendum: 03/30/2020 07:53 Addendum: Culture Results: Positive urine culture. No further action required. Bacteria h b sensitive to prescribed antibiotic. Signatures: Dispatcher [employer] EDID Luli Larson, DIESEL ENGINE ENGINEER-C DIESEL ENGINE ENGINEER-Jillian Camarena, RN RN aa5 Sariah Stern RN RN Nette Rodriguez am2 Jonathan Morillo, GALINDO RN rr5 Iris Monet RN RN ca1 Corrections: (The following items were deleted from the chart) 03/27 19:04 16:45 General: Appears comfortable, Behavior is calm, cooperative, aa5 aa5 19:16 16:45 General: Appears comfortable, Behavior is calm, cooperative, aa5 aa5
[2020-03-27] MEDS ORDERED: CEFTRIAXONE/SWI 1gm 1 GM/10 ML SYR ONE (19:18)
[2020-03-27 19:27] LABS: Urine Blood 3+ (NEG); Urine Glucose NEGATIVE (NEG); Urine Protein 3+ (NEG); Urine Specific Gravity >1.030 (1.005-1.030); Urine pH 5.5 (5.0-7.0)
[2020-03-27 20:34] VITALS: TEMP 98.5
[2020-03-27 20:55] VITALS: BP 134/92; O2SAT 99
== END 2020-03-27 20:07 | disposition home or self-care (01) ==
LOC: ER 16:05
DX: N39.0 Urinary tract infection, site not specified (principal); F17.210 Nicotine dependence, cigarettes, uncomplicated; I10 Essential (primary) hypertension; Z86.73 Personal history of transient ischemic attack (TIA), and cerebral infarction without residual deficits; Z88.8 Allergy status to other drugs, medicaments and biological substances; Z91.048 Other nonmedicinal substance allergy status
CPT/HCPCS: 96365; 87088; 85025; 87086; 80048; 36415; 87077; 87186; 76377; 74176; 99284; J0696; 81003; 81015

== ENCOUNTER 2021-04-10 15:09 | Emergency (ER) | payer OTHER ==
--- OUTSIDE RECORDS SUMMARY | 2021-04-10 15:18 | XMS REPORT | Continuity of Care Document ---
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 83.636, kg, PRN, PRN Blood Glucose Results, Start date: 02/05/20 17:40:00 CDT, Duration: 30 day, Stop date: 03/06/20 17:39:00 CDT, 0 Glucagon 2019-0 No 1 mg, Memoria 02-04 Route: IM, l 22:40: Drug form: PDR/INJ, PRN, Dosing Weight 83.636, kg, PRN Blood Glucose Results, Start date: 02/05/20 17:40:00 CDT, Duration: 30 day, Stop date: 03/06/20 17:39:00 CDT, 0 Docusate No Notes: Memoria 3- (Same as: l 22:40: Colace) Bennett (Do Not Crush) sennosides, No Notes: Davi sonny [facility] - (Same as: l 22:40: Senokot) POLYETHYLEN No Notes: Davi sonny E GLYCOL - Dissolve l 3350 22:40: in 8 oz of water or juice. (Same as: Miralax) Bisacodyl No Notes: Memori a - (Same As: l 22:40: Dulcolax, Bennett 00 Bisco-Lax) Ondansetron No Notes: Davi sonny - (Same as: l 22:40: Zofran) MEDICATION WASTE Product Size: 4 mg Product Wasted: ___ mg Melatonin No Notes: Memori a - (Same as: l 22:40: Melatonin) Compazine No Notes: Memori a - (Same as: l 22:40: Compazine) Dilaudid No Notes: Memoria - Same as l 22:40: Dilaudid Robitussin No Notes: Memor ia DM 02-04 (dextromet l 22:40: horphan-gu Bennett aifenesin 10-100mg/5 ml 10 ml oral SOLN ud) (Same as: Robitussin DM) Lubricant No Notes: Memori a Eye Drops 02-04 (Same as: l ophthalmic 22:40: Aquasite) He rmann solution 00 Nasal No Notes: Memoria Saline - (Same as: l 0.65% 22:40: [place], Bennett solution Deep Sea Nasal [place]). Benadryl No 1 appl, Memori a Maximum 02-04 Route: l Strength 2% 22:40: TOP, QID, H ermann topical 00 Drug form: cream CRM, PRN as needed for itching, Start date: 02/05/20 17:40:00 CDT, Duration: 30 day, Stop date: 03/06/20 17:39:00 CDT, 0 Tums No Notes: Memoria 3- (Same As: l 22:40: Tums) Bennett 00 Calcium Carbonate 500 mg = 200 mg elemental calcium Dose = mg calcium carbonate ( mg elemental calcium) Benzocaine No Notes: Memor ia 15 MG / - Cepacol l Menthol 3.6 22:40: lozenges He rmann MG Lozenge 00 Dispense 1 [Cepacol box = 16 Sore Throat lozenges Pain Relief (Same As: 15/3.6] Cepacol Lozenges) Fluticasone No Notes: Davi sonny propionate - (Same as: l 0.05 22:40: Flonase) Bennett MG/ACTUAT 00 Metered Dose Nasal [place] [Flonase] Lanolin No Notes: Memoria 0.157 MG/MG 02-04 (Same as: l / Menthol 22:40: Calmosepti He rmann 0.0044 00 ne) MG/MG / Petrolatum 0.24 MG/MG / Zinc Oxide 0.206 MG/MG Topical Ointment [Calmosepti ne] Albuterol No Notes: SEE Me moria 0.83 MG/ML - RT l Inhalant 22:40: DOCUMENTAT Her dale Solution 00 ION (Same as: Proventil) Cetirizine No Notes: Memor ia -26 (Same As: l 22:40: Zyrtec) Evgeny 00 Allantoin No Notes: Memori a 0.01 MG/MG - Same as: l / Camphor 22:40: Blistex Janel nn 0.005 MG/MG 00 / phenol 0.005 MG/MG Topical Ointment [Blistex] Aquaphor 2019-0 No 1 appl, Memori a -26 Route: l 22:40: TOP, Q4H, Bennett 00 Drug form: OINT, PRN as needed for dry skin, Start date: 02/05/20 17:40:00 CDT, Duration: 30 day, Stop date: 03/06/20 17:39:00 CDT, 0 Simethicone No Notes: Davi sonny - (Same as: l 22:40: Mylicon, Bennett 00 Phazyme, Genasyme) Oxycodone No Notes: Memori a Hydrochlori 02-04 (Same as: l de 5 MG 22:40: Roxicodone Herm weston Oral Tablet ) tizanidine No Notes: Memor ia - (Same As: l 22:40: Zanaflex) Bennett 00 Dilaudid No Notes: Memoria - Same as l 22:39: Dilaudid Evgeny Isolyte S No Notes: Memori a PH-7.4 02-04 (Same as: l (Bolus) IV 19:40: Isolyte S He rmann 00 PH7.4, Normosol-R PH 7.4, Plasma-Lyt e A ) Morphine No Notes: Memoria - (Same l 19:12: as:MORPhin Bennett 00 e Sulfate) Ondansetron No Notes: Davi sonny - (Same as: l 19:12: Zofran) Bennett 00 MEDICATION WASTE Product Size: 4 mg Product Wasted: ___ mg NIFEdipine NIFEdipine Yes 1 QD TAKE 1 [facility] ER 90 MG ER 90 MG 3-19 TABLET ity o f Oral Tablet Oral Tablet 00:00: DAILY. [place] [facility] Release 24 Release 24 ans Hour Hour Lisinopril Lisinopril 0 Yes 1 QD TAKE 1 Univers 20 MG Oral 20 MG Oral 3-19 TABLET i ty of Tablet Tablet 00:00: DAILY Physici ans Voltaren 1 Voltaren 1 2019-0 Yes U nivers % GEL % GEL 3-19 ity of 00:00: 00 Physici ans Acetaminoph Acetaminoph Yes TAKE 1 Univers en 500 MG en 500 MG 3-19 TABLET ity of Oral Tablet Oral Tablet 00:00: EVERY 4 TO 00 6 HOURS Physici NEEDED. 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 [place] 00 Physici ans Atorvastati Atorvastati 2020-0 Yes RUTH TAKE 1 Univers n Calcium n Calcium 3-19 OKPALA TABLET i ty of 10 MG Oral 10 MG Oral 00:00: RETAIL HELPER DAILY [place] Tablet Tablet 00 DIRECTED Physi ci ans DULoxetine DULoxetine 2020-0 Yes RUTH TAKE 1 Univers HCl - 30 MG HCl - 30 MG 3-19 OKPALA CAPSULE BY ity of Oral Oral 00:00: RETAIL HELPER MOUTH [place] Capsule Capsule 00 DAILY Physici Delayed Delayed ans Release Release Particles Particles Acetaminoph 2020-0 Yes 500 mg = 1 Memoria en 500 MG 3-01 tab, PO, l Oral Tablet 16:36: QID, 0 Herm weston 00 Refill(s) atorvastati 2020-0 Yes 80 mg = 2 M emoria n 40 mg 3-01 tab, NG, l oral tablet 16:36: Bedtime, # Evgeny 00 60 tab, 3 Refill(s), Pharmacy: [facility] [address] gabapentin 2020-0 Yes 300 mg = 1 M emoria 300 MG Oral 3-01 cap, PO, l Capsule 16:36: Q8H, # 90 Janel nn 00 cap, 3 Refill(s), Pharmacy: [facility] [address] simethicone 2020-0 Yes 80 mg = 1 M emoria 80 mg oral 3-01 tab, PEG, l tablet, 16:36: Q8H, PRN Tyson n chewable 00 Gas, 0 Refill(s) warfarin 2020-0 Yes 7.5 mg = 1 Mem oria 7.5 mg oral 3-01 tab, PO, l tablet 16:36: Q5PM, Evgeny 00 follow up with coumadin clinic YARED, # 30 tab, 0 Refill(s), Pharmacy: [facility] [address] Bacitracin 2019-0 Yes 1 appl, Davi sonny 0.5 UNT/MG 3- TOP, Q12H, l Topical 16:36: X 14 day, Janel nn Ointment 00 # 15 gm, 0 Refill(s), Pharmacy: [facility] [id number] Calcium 2019-0 Yes 1,250 mg = Davi sonny Carbonate - 2.5 tab, l 500 MG 16:36: PO, TID, 0 Janel nn Chewable 00 Refill(s) Tablet Diclofenac 2020-0 Yes 4 gm, TOP, M emoria Sodium 0.01 3- QID, to l MG/MG 16:36: areas of Bennett Topical Gel 00 arm or leg [Voltaren] pain, # 100 gm, 0 Refill(s), Pharmacy: [facility] [address] lisinopril 2019-0 Yes 20 mg = 1 Me moria 20 mg oral 3-01 tab, PO, l tablet 16:36: Daily, # Evgeny 00 30 tab, 3 Refill(s), Pharmacy: [facility] [address] Melatonin 3 2020-0 Yes 3 mg = 1 Me moria MG Extended 3-01 tab, PO, l Release 16:36: Bedtime, 0 Herm weston Tablet 00 Refill(s) NIFEdipine 2020-0 Yes 90 mg = 1 Me moria 90 mg oral 3-01 tab, PO, l tablet, 16:36: Daily, # Tyson n extended 00 30 tab, 0 release Refill(s), Pharmacy: [facility] [address] pantoprazol 2019-0 Yes 40 mg = 1 M emoria e 40 mg 3-01 tab, PO, l oral 16:36: BID, # 60 Bennett enteric 00 tab, 3 coated Refill(s), tablet Pharmacy: [facility] [address] Phenylephri Yes 1 appl, Mem oria ne 0.0025 3-01 DC, QID, 0 l MG/MG / 16:36: Refill(s) Janel nn Witch Anya 00 0.5 MG/MG Rectal Gel [Preparatio n H Cooling Gel] sennosides, Yes 34.4 mg = M emoria CHCF 8.6 MG 3-01 4 tab, PO, l Oral Tablet 16:36: Bedtime, 0 Evgeny 00 Refill(s) Trazodone Yes 25 mg = Memor ia Hydrochlori 3-01 0.5 tab, l de 50 MG 16:36: PO, Evgeny Oral Tablet 00 Bedtime, # 30 tab, 3 Refill(s), Pharmacy: [facility] [address] lidocaine Yes 1 appl, Memor ia 4% topical 3 TOP, TID, l cream 16:36: X 30 day, Bennett 00 # 30 gm, 3 Refill(s), Pharmacy: [facility] [id number] Phenylephri No Notes: Davi sonny ne 0.0025 2-29 Same as l MG/MG / 19:00: Preparatio Herm weston Witch Anya 00 n H oint 0.5 MG/MG Rectal Gel [Preparatio n H Cooling Gel] pantoprazol 2019-0 No Notes: Davi sonny e 2-29 Tablet l 03:00: should not Bennett 00 be chewed or crushed. 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, Duration: 30 day, Stop date: 02/08/20 13:00:00 CDT Enemeez No Notes: Memoria Plus 2-28 Same as: l 23:00: (Enemeez Bennett 00 Plus) benzocaine -docusate 20 mg-283 mg tube Non Formulary Tums No Notes: Memoria - (Same As: l 22:27: Tums) Bennett Calcium Carbonate 500 mg = 200 mg elemental calcium Dose = mg calcium carbonate ( mg elemental calcium) GI cocktail No 45 ml, Advi sonny (aluminum - Route: PO, l hydroxide/m 21:55: Drug Form: Bennett agnesium 00 SUSP, hydroxide/l Dosing idocaine/si Weight methicone) 90.909, kg, ONCE, Routine, Start date: 01/09/20 15:55:00 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, Stop date: 01/09/20 15:55:00 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 Sucralfate No Notes: May M emoria 100 MG/ML - interfere l Oral 03:00: w/enteral Evgeny Suspension 00 feeds - [Carafate] Take 1 hr before or 2 hr after antacids, dairy pdt, meals & minerals - On empty stomach. For patients unable to swallow tablet, dissolve in 10mL - 30mL of water or juice and stir before giving. (Same As: Carafate) GI cocktail No Notes: Dr. Chávez (aluminum 2-27 [place] l hydroxide/m 22:18: Triple Mix Bennett agnesium 00 (Gi hydroxide/l cocktail) idocaine/si maalox methicone) 60ml + Diphenydra mine 60 ml + Lidocaine Visc 60 ml = Total 180 ml Tums No Notes: Memoria 2- (Same As: l 19:00: Tums) Evgeny 00 Calcium Carbonate 500 mg = 200 mg elemental calcium Dose = mg calcium carbonate ( mg elemental calcium) pantoprazol No Notes: Davi sonny e 2-27 Tablet l 13:30: should not Evgeny 00 be chewed or crushed. (Same as: Protonix) Trazodone No Notes: Memori a Hydrochlori - (Same As: l de 50 MG 03:00: Desyrel) Janel nn Oral Tablet 00 Coumadin No Notes: Memoria 2- Nurse to l 23:00: ensure Evgeny 00 documentat ion of patient education per anticoagul ation policy. Avoid large intake of vitamin-K containing foods diet. WASTE: F/P - P Waste Black; E - P Waste Black (Same As: Coumadin) Hazardous Drug Group 3:Reproduc tive risk Hazardous Drug -- Refer to safe handling procedure PPE Matrix gabapentin No Notes: Memor ia 50 MG/ML - (Same as: l Oral 22:00: Neurontin) Bennett Solution 00 Acetaminoph No Notes: Max Memoria en - acetaminop l 19:00: hen 4000 Bennett 00 mg/day (4 gm/day). (Same as: Tylenol Extra Strength) Simethicone No Notes: Davi sonny 2- (Same as: l 18:00: Mylicon) Evgeny 00 Lisinopril No Notes: Memor ia 2-25 (Same as: l 19:21: Prinivil, Bennett Zestril) NIFEdipine No Notes: Memor ia 90 mg oral 2-25 (Same as: l tablet, 14:30: Adalat Evgeny extended 00 CC,Procard release ia XL) "Do Not Crush" "Avoid grapefruit and grapefruit juice" gabapentin No Notes: Memor ia 50 MG/ML 2-24 Same as l Oral 22:00: Neurontin Evgeny Solution 00 Hydralazine No Notes: Davi sonny Hydrochlori 2-24 (Same as: l de 25 MG 21:17: Apresoline Her dale Oral Tablet 00 ) May interfere w/enteral feedings Take With Food. Hydralazine No Notes: Davi sonny Hydrochlori 2-24 (Same as: l de 25 MG 18:21: Apresoline Her dale Oral Tablet 00 ) May interfere w/enteral feedings Take With Food. Methylpheni No Notes: Davi sonny date 2 (Same l 19:00: as:Ritalin Evgeny 00 ) Ketoconazol No Notes: Davi sonny e 20 MG/ML 2-22 Non-Formul l Topical 15:00: branden Drug Tyson n Cream 00 (Same as: Nizoral Topical) NIFEdipine No Notes: Memor ia 60 mg oral 2-22 (Same as: l tablet, 14:30: Adalat CC, Herm weston extended 00 Procardia release XL) Give on empty stomach. Take 1 hour before or 2 hours after meal; "Avoid grapefruit and grapefruit juice". Do not crush Coumadin No Notes: Memoria 2-21 Nurse to l 23:00: ensure documentat ion of patient education per anticoagul ation policy. Avoid large intake of vitamin-K containing foods diet. (Same As: Coumadin) WASTE: F/P - P Waste Black; E - P Waste Black Hazardous Drug Group 3:Reproduc tive risk Hazardous Drug -- Refer to safe handling procedure PPE Matrix Lidocaine No Notes: Memori a Hydrochlori 2-21 Preservati l de 10 MG/ML 22:00: ve free. He rmann Injectable 00 (Same as: Solution Xylocaine MPF) Clonidine No Notes: Memori a Hydrochlori 2-21 (Same As: l de 0.1 MG 03:00: Catapres) Her dale Oral Tablet 00 Citrate of No Notes: Memor ia Magnesia 2-21 (Same as: l 01:01: Citrate of Bennett 00 Magnesia) Concentrat ion: 1.745 gm / 30 mL magnesium No Notes: Memori a citrate 2-21 (Same as: l 58.2 MG/ML 01:00: Citrate of H ermann Oral 00 Magnesia) Solution Concentrat ion: 1.745 gm / 30 mL Coumadin No Notes: Memoria 2-20 Nurse to l 23:00: ensure documentat ion of patient education per anticoagul ation policy. Avoid large intake of vitamin-K containing foods diet. WASTE: F/P - P Waste Black; E - P Waste Black (Same As: Coumadin) Hazardous Drug Group 3:Reproduc tive risk Hazardous Drug -- Refer to safe handling procedure PPE Matrix NIFEdipine No Notes: Memor ia 30 mg oral 2-20 (Same as: l tablet, 14:30: Adalat CC, Herm weston extended 00 Procardia release XL) Give on empty stomach. Take 1 hour before or 2 hours after meal; "Avoid grapefruit and grapefruit juice". Do not crush Coumadin No Notes: Memoria 2-19 Nurse to l 23:00: ensure Evgeny documentat ion of patient education per [facility] policy. Avoid large intake of vitamin-K containing foods diet. WASTE: F/P - P Waste Black; E - P Waste Black (Same As: Coumadin) Hazardous Drug Group 3:Reproduc tive risk Hazardous Drug -- Refer to safe handling procedure PPE Matrix Lisinopril No Notes: Memor ia 2-19 (Same as: l 23:00: PrinivilDarrianBennett Zestril) gabapentin No Notes: Memor ia 50 MG/ML 2-19 Same as l Oral 22:00: Neurontin Bennett Solution 00 Silver No Notes: Memoria Nitrate 18 WASTE: F/P l 02:40: - Black; E Evgeny - Municipal Trash Bin Diclofenac No Notes: Memor ia Sodium 0.01 2-17 Same as: l MG/MG 19:00: Voltaren Evgeny Topical Gel 00 Gel [Voltaren] Methylpheni No Notes: Davi sonny date 2-17 (Same l 13:00: as:Ritalin Evgeny ) Clonidine No Notes: Memori a Hydrochlori 2-16 (Same As: l de 0.1 MG 14:00: Catapres) Her dale Oral Tablet Clonidine No Notes: Memori a Hydrochlori 2-14 (Same As: l de 0.2 MG 22:00: Catapres) Her dale Oral Tablet Trazodone No Notes: Memori a Hydrochlori 2-14 (Same As: l de 50 MG 03:00: Desyrel) Janel nn Oral Tablet Acetaminoph No Notes: Do M emoria en 2-13 not exceed l 14:30: 4 gm/day. Evgeny (Same as: Tylenol) Melatonin 3 No Notes: Davi sonny MG Extended -13 (Same as: l Release 03:00: Melatonin) Herm weston Tablet Clonidine No Notes: Memori a Hydrochlori 2-13 (Same As: l de 0.2 MG 00:00: Catapres) Her dale Oral Tablet 00 Acetaminoph No Notes: Do M emoria en 2-12 not exceed l 18:00: 4 gm/day. Bennett 00 (Same as: Tylenol) Keflex No Notes: Memoria 2-12 Take on l 17:00: empty Evgeny stomach. (Same As: Keflex) Sulfamethox No 1 tab, Davi sonny azole 800 2-12 Route: PO, l MG / 16:00: Drug Form: Evgeny Trimethopri 00 TAB, m 160 MG Dosing Oral Tablet Weight [Bactrim] 90.909, kg, [id number], Start date: 12/24/19 10:00:00 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, Duration: 7 day, Stop date: 12/30/19 22:00:00 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 Methocarbam No Notes: Davi sonny ol 2-11 (Same l 21:33: as:Robaxin Bennett ) Oxycodone No Notes: Memori a Hydrochlori 2-11 (Same as: l de 5 MG 16:37: Roxicodone Herm weston Oral Tablet 00 ) sennosides, No 2 tab, Davi sonny CHCF 8.6 MG 2-11 Route: PO, l Oral Tablet 03:00: Drug Form: Evgeny 00 TAB, Dosing Weight 90.909, kg, Bedtime, Start date: 12/22/19 21:00:00 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, Duration: 30 day, Stop date: 01/20/20 21:00:00 CDT Warfarin No Notes: Memoria 2-10 Nurse to l 23:00: ensure Bennett documentat ion of patient education per anticoagul ation policy. Avoid large intake of vitamin-K containing foods diet. (Same As: Coumadin) WASTE: F/P - P Waste Black; E - P Waste Black Hazardous Drug Group 3:Reproduc tive risk Hazardous Drug -- Refer to safe handling procedure PPE Matrix Methocarbam No Notes: Davi sonny ol 2-10 (Same l 19:00: as:Robaxin Bennett ) Docusate No Notes: Memoria Sodium 100 2-10 (Same as: l MG Oral 19:00: Colace) Bennett Capsule 00 (Do Not [Colace] Crush) Bacitracin No 1 appl, Davi sonny 2-09 Route: l 03:00: TOP, Q12H, Evgeny Drug form: OINT, Start date: 12/20/19 21:00:00 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, Duration: 30 day, Stop date: 01/19/20 9:00:00 CDT, 0 Warfarin No Notes: Memoria 2-08 Nurse to l 23:00: ensure Evgeny 00 documentat ion of patient education per anticoagul ation policy. Avoid large intake of vitamin-K containing foods diet. WASTE: F/P - P Waste Black; E - P Waste Black (Same As: Coumadin) Hazardous Drug Group 3:Reproduc tive risk Hazardous Drug -- Refer to safe handling procedure PPE Matrix Amlodipine No Notes: Memor ia 2-08 (Same as: l 14:30: Norvasc) Evgeny POLYETHYLEN No Notes: Davi sonny E GLYCOL 2-08 Dissolve l 3350 14:30: in 8 oz of water or juice. (Same as: Miralax) remove No Notes: Memoria patch 2-08 Remove l 14:30: patch 12 Evgeny 00 hours after applicatio n each day. gabapentin No Notes: Memor ia 50 MG/ML 2-08 (Same as: l Oral 06:00: Neurontin) Evgeny Solution atorvastati No Notes: Davi sonny n 2-08 (Same as: l 03:00: Lipitor) Evgeny 00 Bacitracin No Notes: Memor ia 0.5 UNT/MG 2-08 (Same As: l / Polymyxin 03:00: Polysporin Evgeny B 10 UNT/MG 00 ) Topical Ointment Clonidine No Notes: Memori a Hydrochlori 2-08 (Same As: l de 0.2 MG 03:00: Catapres) Her dale Oral Tablet 00 Docusate No Notes: Memoria Sodium 50 2-08 (Same as l MG / 03:00: Senokot-S) Bennett sennosides, 00 Equiv. to CHCF 8.6 MG Viktoria-Colac Oral Tablet e. Famotidine No Notes: Memor ia 20 MG Oral 2-08 (Same as: l Tablet 03:00: Pepcid) Evgeny [Pepcid] 00 Lidocaine No 1 patch, Davi sonny Hydrochlori 2-08 Route: l de 0.05 03:00: TOP, Q24H, Herm weston MG/MG 00 Drug form: Transdermal FILM, Patch Start [Lidoderm] date: 12/19/19 21:00:00 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, Duration: 30 day, Stop date: 01/17/20 21:00:00 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 Methocarbam No Notes: Davi sonny ol 2-08 (Same l 03:00: as:Robaxin Bennett ) lidocaine No Notes: Memori a topical 2-08 Apply only l 03:00: once for up to 12 hours in a 24-hour period (12 hours on and 12 hours off). (Same as: Aspercreme Lidocaine Patch) "Remove old patch before applicatio n of new patch" Oxycodone No Notes: Memori a Hydrochlori 2-08 (Same as: l de 5 MG 02:36: Roxicodone Herm weston Oral Tablet 00 ) Albuterol No Notes: Memori a 0.833 MG/ML 2-08 (Same as: l / 02:32: Duoneb) Ipratropium 00 [place] 0.167 MG/ML Inhalant Solution [DuoNeb] Simethicone No Notes: Davi sonny 2-08 (Same as: l 02:32: Mylicon) tramadol No Notes: Not Mem oria hydrochlori 2-08 to exceed l de 50 MG 02:32: 400mg/day. Her dale Oral Tablet 00 (Same As: Ultram) Acetaminoph No Notes: Do M emoria en 2-08 not exceed l 02:24: 4 gm/day. Evgeny (Same as: Tylenol) Milk of No Notes: Memoria Magnesia 2-08 (Same as: l 02:24: Milk of Evgeny 00 Magnesia, MOM) Bisacodyl No Notes: Memori a 2-08 (Same As: l 02:24: Dulcolax, Evgeny 00 Bisco-Lax) warfarin 5 2020-0 Yes 5 mg = 1 Mem oria mg oral 2-07 tab, PO, l tablet 23:41: Daily, INR Janel nn 00 goal 2-3, # 30 tab, 0 Refill(s) Acetaminoph 2020-0 Yes 1,000 mg = Memoria en 500 MG 2-07 2 tab, PO, l Oral Tablet 23:26: Q6H, 0 Herm weston 00 Refill(s) Albuterol 2020-0 Yes 3 mL, NEB, Me moria 0.833 MG/ML 2- RTID, PRN l / 23:26: Respirator Bennett Ipratropium 00 y Pathway, [place] 0 0.167 MG/ML Refill(s) Inhalant Solution [DuoNeb] Albuterol 2020-0 Yes NEB, RQ4H, Me moria 0.83 MG/ML 2 PRN l Inhalant 23:26: Wheezing, Herm weston Solution 00 0 Refill(s) amLODIPine 2020-0 Yes 10 mg = 1 Me moria 10 mg oral 2-07 tab, PO, l tablet 23:26: Daily, 0 Evgeny 00 Refill(s) atorvastati 2020-0 Yes 80 mg = 1 M emoria n 80 mg 2-07 tab, NG, l oral tablet 23:26: Bedtime, 0 Evgeny 00 Refill(s) Bacitracin 2020-0 Yes 1 appl, Davi sonny 0.5 UNT/MG 2- TOP, TID, l / Polymyxin 23:26: 0 Tyson n B 10 UNT/MG 00 Refill(s) Topical Ointment Clonidine 2020-0 Yes 0.2 mg = 1 Me moria Hydrochlori 2-07 tab, GT, l de 0.2 MG 23:26: Q4H, 0 Tyson n Oral Tablet 00 Refill(s) dextrometho 2020-0 Yes 10 mL, PO, Memoria rphan-guaiF 2-07 Q4H, 0 l ENesin 20 23:26: Refill(s) Her dale mg-200 00 mg/10 mL oral liquid Docusate 2020-0 Yes 2 tab, PO, Mem oria Sodium 50 2-07 BID, 0 l MG / 23:26: Refill(s) Evgeny sennosides, 00 CHCF 8.6 MG Oral Tablet Famotidine 2020-0 Yes 20 mg = 1 Me moria 20 MG Oral 2-07 tab, PO, l Tablet 23:26: Q12H, 0 Bennett [Pepcid] 00 Refill(s) gabapentin 2020-0 Yes 900 mg = Mem oria 50 MG/ML 2-07 18 mL, GT, l Oral 23:26: Q8H, 0 Evgeny Solution 00 Refill(s) haloperidol 2020-0 Yes 5 mg = 1 Me moria 5 mg oral 2-07 tab, PEG, l tablet 23:26: Q6H, PRN Bennett 00 Agitation, 0 Refill(s) lactobacill 2020-0 Yes PO, Daily, Memoria us 2-07 0 l rhamnosus 23:26: Refill(s) Her dale GG 00 Lidocaine 2020-0 Yes 1 patch, Davi sonny Hydrochlori 2-07 TOP, Q24H, l de 0.05 23:26: 0 Bennett MG/MG 00 Refill(s) Transdermal Patch [Lidoderm] methocarbam 2020-0 Yes 500 mg = 1 Memoria ol 500 mg 2-07 tab, PO, l oral tablet 23:26: QID, 0 Herm weston 00 Refill(s) Nystatin 2020-0 Yes 200,000 Memori a [id number] 2-07 unit = 2 l UNT/ML Oral 23:26: mL, Swab He rmann Suspension 00 Mouth, Q8H, 0 Refill(s) polyethylen 2020-0 Yes PO, Daily, Memoria e glycol 2-07 0 l 3350 oral 23:26: Refill(s) Her dale powder for 00 reconstitut ion Psyllium 2020-0 Yes PO, TID, 0 Mem oria 2-07 Refill(s) l 23:26: Bennett 00 simethicone 2020-0 Yes 80 mg = 1 M emoria 80 mg oral 2-07 tab, PEG, l tablet, 23:26: Q8H, PRN Tyson n chewable 00 as needed for gas, 0 Refill(s) tramadol 2020-0 Yes 50 mg = 1 Davi sonny hydrochlori 2-07 tab, PO, l de 50 MG 23:26: Q6H, PRN Janel nn Oral Tablet 00 Pain Score 7-10, 0 Refill(s) Warfarin No Notes: Saira 2- Nurse to l 23:00: ensure Bennett 00 documentat ion of patient education per anticoagul ation policy. Avoid large intake of vitamin-K containing foods diet. WASTE: F/P - P Waste Black; E - P Waste Black (Same As: Coumadin) Hazardous Drug Group 3:Reproduc tive risk Hazardous Drug -- Refer to safe handling procedure PPE Matrix Miralax No Notes: Essenceoria 2-07 Dissolve l 15:00: in 8 oz of water or juice. (Same as: Miralax) Warfarin No Notes: Saira 2- Nurse to l 23:00: ensure Bennett 00 documentat ion of patient education per anticoagul ation policy. Avoid large intake of vitamin-K containing foods diet. WASTE: F/P - P Waste Black; E - P Waste Black (Same As: Coumadin) Hazardous Drug Group 3: Reproducti ve risk Hazardous Drug -- Refer to safe handling procedure PPE Matrix Docusate No Notes: Memoria Sodium 50 2-06 (Same as l MG / 23:00: Senokot-S) Evgeny sennosides, 00 Equiv. to [facility] 8.6 MG Viktoria-Colac Oral Tablet e. Warfarin No Notes: [place] 2- Nurse to l 23:00: ensure Bennett 00 documentat ion of patient education per anticoagul ation policy. Avoid large intake of vitamin-K containing foods diet. WASTE: F/P - P Waste Black; E - P Waste Black (Same As: Coumadin) Hazardous Drug Group 3: Reproducti ve risk Hazardous Drug -- Refer to safe handling procedure PPE Matrix Ketorolac No 4 days. Davi sonny Tromethamin 2-05 Give with l e 10 MG 16:00: food. 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 Avoid large intake of vitamin-K containing foods diet. WASTE: F/P - P Waste Black; E - P Waste Black (Same As: Coumadin) Hazardous Drug Group 3: Reproducti ve risk Hazardous Drug -- Refer to safe handling procedure PPE [employer] Robitussin- No Notes: Davi sonny DM 2-04 (dextromet l 22:00: horphan-gu Bennett aifenesin 10-100mg/5 ml 10 ml oral SOLN ud) (Same as: Robitussin DM) ketOROLAC No 4 days Memor ia 30 mg/mL 2- l injectable 18:00: MEDICATION H ermann solution 00 WASTE Product Size: 30 mg Product Wasted: ___ mg Albuterol No Notes: Memori a 0.833 MG/ML 2 (Same as: l / 16:01: Duoneb) Bennett Ipratropium 00 [place] 0.167 MG/ML Inhalant Solution [DuoNeb] Warfarin No Notes: Memoria 2-03 Nurse to l 23:00: ensure Bennett documentat ion of patient education per anticoagul ation policy. Avoid large intake of vitamin-K containing foods diet. WASTE: F/P - P Waste Black; E - P Waste Black (Same As: Coumadin) Robaxin No Notes: Memoria 2-03 (Same l 19:00: as:Robaxin Bennett ) Warfarin No Notes: Memoria 2-02 Nurse to l 23:00: ensure Evgeny 00 documentat ion of patient education per anticoagul ation policy. Avoid large intake of vitamin-K containing foods diet. WASTE: F/P - P Waste Black; E - P Waste Black (Same As: Coumadin) Famotidine No Notes: Memor ia 20 MG Oral 2- (Same as: l Tablet 03:00: Pepcid) Evgeny [Pepcid] 00 Warfarin No Notes: Memoria 2- Nurse to l 23:00: ensure documentat ion of patient education per anticoagul ation policy. Avoid large intake of vitamin-K containing foods diet. WASTE: F/P - P Waste Black; E - P Waste Black (Same As: Coumadin) Tums No Notes: Memoria 2 (Same As: l 00:12: Tums) Calcium Carbonate 500 mg = 200 mg elemental calcium Dose = mg calcium carbonate ( mg elemental calcium) Warfarin No Notes: Memoria 12-12 Nurse to l 23:00: ensure Bennett 00 documentat ion of patient education per anticoagul ation policy. Avoid large intake of vitamin-K containing foods diet. WASTE: F/P - P Waste Black; E - P Waste Black (Same As: Coumadin) Warfarin No Notes: Memoria 12-11 Nurse to l 23:00: ensure documentat ion of patient education per anticoagul ation policy. Avoid large intake of vitamin-K containing foods diet. WASTE: F/P - P Waste Black; E - P Waste Black (Same As: Coumadin) Haldol No Notes: Memoria 12-11 (Same as: l 16:55: Haldol) Haldol No 5 mg, Memoria 12-11 Route: IM, l 16:46: Q6H, Dosing Weight 112.005, kg, PRN Agitation, Start date: 12/11/19 10:46:00 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, Duration: 30 day, Stop date: 01/10/20 10:45:00 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 Oxycodone No Notes: Memori a Hydrochlori 12-11 (Same as: l de 5 MG 03:10: Roxicodone Herm weston Oral Tablet ) tramadol No Notes: Not Mem oria hydrochlori 12-10 to exceed l de 50 MG 16:34: 400mg/day. Her dale Oral Tablet (Same As: Ultram) Cefazolin No Notes: Memori a 12-10 (Same as l 06:00: Ancef) sugammadex No Notes: Memor ia 12-10 (Same as: l 05:00: [place]) SEROquel 2019-0 No Notes: Memoria 1- (Same as: l 03:00: SEROquel) hydromorpho 2019-0 No Route: IV, Memoria ne (ANES) - Drug form: l 00:47: INJ, ONCE, Evgeny 00 Stop date: 12/09/19 18:47:00 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 calcium 2020-0 No Route: IV, Davi sonny chloride 12-10 Drug form: l (ANES) 00:47: INJ, ONCE, Janel nn 00 Stop date: 12/09/19 18:47:00 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 ondansetron 2019-0 No Route: IV, Memoria (ANES) 12-10 Drug form: l 00:32: INJ, ONCE, Evgeny 00 Stop date: 12/09/19 18:32:00 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 sugammadex 2019- No Route: IV, M emoria (ANES) 12-10 Drug form: l 00:32: SOLN, Bennett 00 ONCE, Stop date: 12/09/19 18:32:00 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 Hydralazine 2019-0 No Notes: Davi sonny - (Same as: l 00:06: Apresoline ) Push over 5 minutes Metoprolol 2019-0 No Notes: Memor ia - (Same as: l 00:06: Lopressor) Push over 2 minutes Oxycodone 2019-0 No Notes: Memori a - (Same as: l 00:06: 'Roxicodon e) Fentanyl 2019-0 No Notes: Memoria - (Same as: l 00:06: Sublimaze) Preservat cristina free. Hydromorpho 2019-0 No Notes: Davi sonny ne - Same as l 00:06: Dilaudid Flumazenil 2019-0 No Notes: Memor ia - (Same as: l 00:06: Romazicon) Naloxone 2019-0 No Notes: Memoria - Same as l 00:06: Narcan Ondansetron 2019-0 No Notes: Davi sonny 1- (Same as: l 00:06: Zofran) MEDICATION WASTE Product Size: 4 mg Product Wasted: ___ mg Promethazin 2020-0 No Notes: Do M emoria e 12-10 not give l 00:06: IV push. (Same as: Phenergan) phenylephri 2020-0 No Route: IV, Memoria ne (ANES) 12-09 Drug form: l 23:41: INJ, ONCE, Stop date: 12/09/19 17:41:00 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 rocuronium 2020-0 No Route: IV, M emoria (ANES) 12-09 Drug form: l 23:36: INJ, ONCE, Stop date: 12/09/19 17:36:00 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 Fiberall 2019-0 No Notes: Memoria 12-09 (Same as: l 23:00: Metamucil) Mix in 8 oz liquid with meal. Valproic 2019-0 No Notes: Memoria Acid 50 12-09 (Same as: l MG/ML Oral 22:00: Depekene) He rm Solution hydromorpho 2019-0 No Route: IV, Memoria ne (ANES) 12-09 Drug form: l 20:58: INJ, ONCE, Stop date: 12/09/19 14:58:00 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 phenylephri 2019-0 No Route: IV, Memoria ne (ANES) 12-09 Drug form: l 19:36: INJ, ONCE, Stop date: 12/09/19 13:36:00 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 midazolam 2020-0 No Route: IV, Me moria (ANES) 12-09 Drug form: l 19:26: SOLN, 00 ONCE, Stop date: 12/09/19 13:26:00 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 rocuronium 2020-0 No Route: IV, M emoria (ANES) 12-09 Drug form: l 19:26: INJ, ONCE, Stop date: 12/09/19 13:26:00 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 fentaNYL 2020-0 No Route: IV, Mem oria (ANES) 12-09 Drug form: l 19:26: INJ, ONCE, Stop date: 12/09/19 13:26:00 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 ceFAZolin 2020-0 No Route: IV, Me moria (ANES) 12-09 Drug form: l 19:21: INJ, ONCE, Stop date: 12/09/19 13:21:00 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 Lactated No Route: IV, Mem oria Ringers 12-09 Total l Injection 18:25: Volume: Janel nn IV (ANES) 00 1,000, 1000 mL Start date: 12/09/19 12:25:00 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, Stop date: 12/09/19 13:25:00 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 SEROquel No Notes: Memoria 12-09 (Same as: l 03:00: SEROquel) Seroquel No 50 mg, Memoria 12-08 Route: PO, l 15:00: Q12H, Dosing Weight 112.005, kg, Start date: 12/08/19 9:00:00 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, Duration: 30 day, Stop date: 01/06/20 21:00:00 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 Amlodipine No Notes: Memor ia 12-08 (Same as: l 15:00: Norvasc) Seroquel No Notes: Memoria 12-08 (Same as: l 14:30: SEROquel) Seroquel No Notes: Memoria 12-08 (Same as: l 03:00: SEROquel) Furosemide No Notes: Memor ia 20 MG Oral 12-07 (Same as: l Tablet 22:00: Lasix) [Lasix] 00 Versed No Notes: Memoria 12-07 (Same as: l 19:00: Versed) MEDICATION WASTE Product Size: 2 mg Product Wasted: ___ mg Haldol No Notes: Memoria 12-07 (Same as: l 18:03: Haldol) Furosemide 0 No 20 mg, 1 Mem oria 20 MG Oral - tab, l Tablet 16:00: Route: IV, Janel nn [Lasix] 00 Q8H, Dosing Weight 112.005, kg, Start date: 12/07/19 10:00:00 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, Duration: 1 day, Stop date: 12/08/19 8:00:00 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 Amlodipine 2020-0 No 5 mg, Memori a 12-07 Route: PO, l 15:00: Drug form: Bennett 00 TAB, Daily, Dosing Weight 112.005, kg, Start date: 12/07/19 9:00:00 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, Duration: 30 day, Stop date: 01/05/20 9:00:00 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 Labetalol 2020-0 No 10 mg, 2 Davi sonny 1-26 mL, Route: l 09:24: IVP, Drug form: INJ, Q15Min, Dosing Weight 112.005, kg, PRN Hypertensi on, Start date: 12/07/19 3:24:00 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, Duration: 3 doses or times, Stop date: Limited # of times, 0 Seroquel 2019-0 No Notes: Memoria 12-05 (Same as: l 15:00: SEROquel) Enoxaparin 2020-0 No 1 mg/kg, Mem oria 12-05 Route: l 15:00: SUB-Q, 00 Q12H, Dosing Weight 100, kg, Start date: 12/05/19 9:00:00 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, Duration: 30 day, Stop date: 01/03/20 21:00:00 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 Enoxaparin 2019-0 No Route: Memor ia 12-05 SUB-Q, l 14:37: Q12H, Dosing Weight 112.005, kg, Priority: STAT, Start date: 12/05/19 8:37:00 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, Duration: 30 day, Stop date: 01/03/20 21:00:00 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 Iohexol 2019-0 No 100 mL, Memoria 12-04 Route: l 16:32: IVP, Drug Form: SOLN, Dosing Weight 112.005, kg, ONCALL, STAT, Start date: 12/04/19 10:32:00 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, Duration: 1 doses or times, Dose = 2.2ml/kg, Max dose = 100ml -- "To be infused by Radiology Staff ONLY" Iohexol 2019-0 No Notes: Memoria 12-04 (Same l 15:51: as:Omnipaq ue 350). WASTE: F/P - Black; E - Municipal Trash Bin Seroquel 2019-0 No Notes: Memoria 12-04 (Same as: l 15:00: SEROquel) Bennett Versed 0 No Notes: Memoria 12-04 (Same as: l 14:52: Versed) Bennett MEDICATION WASTE Product Size: 2 mg Product Wasted: ___ mg Sodium 2020-0 No 250 mL, Memoria Chloride 12-04 Rate: To l 0.9% 10:20: prime line Evgeny (titrate) 00 and flush 250 mL remaining blood products., Dosing Weight 112.005, kg, Route: IV, Total Volume: 250, Priority: Routine, Start Date: 12/04/19 4:20:00 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, Duration: 1 day, Stop date: 12/05/19 4:19:00 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, Replace Every: 24 hr, 0 Sodium 2019-0 No 250 mL, Memoria Chloride 12-04 Rate: To l 0.9% 09:46: prime line Evgeny (titrate) 00 and flush 250 mL remaining blood products., Dosing Weight 112.005, kg, Route: IV, Total Volume: 250, Priority: Routine, Start Date: 12/04/19 3:46:00 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, Duration: 1 day, Stop date: 12/05/19 3:45:00 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, Replace Every: 24 hr, 0 Isolyte S 2019-0 No Route: IV, Me moria PH-7.4 12-03 ONCE, l (Bolus) IV 13:47: Dosing Janel nn 00 Weight 112.005 kg, Start date: 12/03/19 7:47:00 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, Stop date: 12/03/19 7:47:00 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 Vancomycin No 2000 mg: Me moria -21 infuse l 06:00: over 2.5 Bennett 00 hours For adult patients only: Round to nearest 250 mg per Medical Staff approval MEDICATION WASTE Product Size: 1000 mg Product Wasted: ___ mg Isolyte S 2019-0 No Notes: Memori a PH 7.4 12-02 (Same as: l 1,000 mL 03:23: Isolyte S Herm weston 00 PH7.4, Normosol-R PH 7.4, Plasma-Lyt e A ) cefepime No Notes: Memoria 12-01 (Same As: l 23:00: Maxipime) MEDICATION WASTE Product Size: 1000 mg Product Wasted: ___ mg Vancomycin 2019-0 No 2001 mg: Me moria 1-20 infuse l 22:22: over 2.5 hours Versed 2019-0 No 2 mg, Memoria 1-20 Route: l 19:17: IVP, ONCE, Dosing Weight 112.005, kg, Start date: 12/01/19 13:17:00 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, Stop date: 12/01/19 13:17:00 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 Labetalol 2019-0 No 10 mg, 2 Davi sonny 1-20 mL, Route: l 18:14: IVP, Drug form: INJ, Q15Min, Dosing Weight 112.005, kg, PRN Hypertensi on, Start date: 12/01/19 12:14:00 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, Duration: 3 doses or times, Stop date: Limited # of times, 0 Labetalol 2019-0 No 10 mg, Memori a -20 Route: l 18:12: IVP, Drug form: INJ, [id number] , Dosing Weight 112.005, kg, PRN Hypertensi on, Start date: 12/01/19 12:12:00 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, Duration: 30 day, Stop date: 12/31/19 12:11:00 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 Lovenox 2019-0 No Notes: Memoria 12-01 Nurse to l 16:00: ensure documentat ion of patient education per [facility] ation policy. (Same as: Lovenox) Labetalol 2019-0 No 10 mg, 2 Davi sonny 1-20 mL, Route: l 15:32: IVP, Drug form: INJ, Q15Min, Dosing Weight 112.005, kg, PRN Hypertensi on, Start date: 12/01/19 9:32:00 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, Duration: 3 doses or times, Stop date: Limited # of times, 0 Phenergan 2019-0 No Notes: Do Mem oria 1-20 not give l 15:32: IV push. (Same as: Phenergan) Tramadol No Notes: Not Mem oria 1-20 to exceed l 15:30: 400mg/day. (Same As: Ultram) Reglan 2019-0 No Notes: Memoria 1-20 (Same as: l 12:00: Reglan) Hydralazine No Notes: Davi sonny -20 (Same as: l 10:42: Apresoline ) Push over 5 minutes Zofran 2019- No Notes: Memoria 11-30 (Same as: l 22:00: Zofran) MEDICATION WASTE Product Size: 4 mg Product Wasted: ___ mg Zofran 2019- No Notes: Memoria - (Same as: l 18:00: Zofran) MEDICATION WASTE Product Size: 4 mg Product Wasted: ___ mg Simethicone No Notes: Davi sonny - (Same as: l 16:38: Mylicon) Simethicone No Notes: Davi sonny - (Same as: l 16:36: Mylicon) lactobacill 0 No 1 tab, Davi sonny us 11-30 Route: PO, l acidophilus 15:00: Drug Form: TAB, Dosing Weight 112.005, kg, Daily, Start date: 11/30/19 9:00:00 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, Duration: 30 day, Stop date: 12/29/19 9:00:00 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 Ondansetron No Notes: Davi sonny 2 MG/ML 11-30 (Same as: l Injectable 04:16: Zofran) [Zofran] MEDICATION WASTE Product Size: 4 mg Product Wasted: ___ mg Nystatin 2019- No Notes: Memoria -18 (Same l 22:00: as:Mycosta tin) Shake well. metoprolol No Route: IV, M emoria (ANES) 11-29 Drug form: l 21:22: INJ, ONCE, Stop date: 11/29/19 15:22:00 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 neostigmine No Route: IV, Memoria (ANES) 11-29 Drug form: l 21:22: INJ, ONCE, Stop date: 11/29/19 15:22:00 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 glycopyrrol 2019-0 No Route: IV, Memoria ate (ANES) 11-29 Drug form: l 21:22: INJ, ONCE, Stop date: 11/29/19 15:22:00 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 ceFAZolin 2019-0 No Route: IV, Me moria (ANES) 11-29 Drug form: l 20:02: INJ, ONCE, Stop date: 11/29/19 14:02:00 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 ketAMINE 2020-0 No Route: IV, Mem oria (ANES) 11-29 Drug form: l 18:56: INJ, ONCE, Stop date: 11/29/19 12:56:00 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 rocuronium 2019-0 No Route: IV, M emoria (ANES) 11-29 Drug form: l 18:30: INJ, ONCE, Stop date: 11/29/19 12:30:00 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 nafcillin 2019-0 No Route: IV, Me moria (ANES) 11-29 Drug form: l 18:25: INJ, ONCE, Stop date: 11/29/19 12:25:00 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 propofol 2020-0 No Route: IV, Mem oria (ANES) 11-29 Drug form: l 18:15: INJ, ONCE, Stop date: 11/29/19 12:15:00 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 fentaNYL 2019-0 No Route: IV, Mem oria (ANES) 11-29 Drug form: l 17:59: INJ, ONCE, Stop date: 11/29/19 11:59:00 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 Isolyte S 2019-0 No Route: IV, Me moria PH 7.4 11-29 Total l (ANES) 1000 16:58: Volume: Her dale mL 00 1,000, Start date: 11/29/19 10:58:00 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, Stop date: 11/29/19 11:58:00 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 propofol 2020-0 No Route: IV, Mem oria (ANES) 10 11-29 Drug form: l mg 16:58: INJ, Start date: 11/29/19 10:58:00 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, Stop date: 11/29/19 11:58:00 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 lactobacill No Notes: Davi sonny us -18 Same as l rhamnosus 15:20: Culturelle He rmann GG Lipitor No Notes: Memoria 1-18 Same as l 03:00: Lipitor Clonidine No Notes: Memori a -17 (Same As: l 18:00: Catapres) Famotidine No Notes: Memor ia 20 MG Oral 17 (Same as: l Tablet 03:00: Pepcid) Naproxen No Notes: Memoria 1-17 (Same as: l 03:00: Naprosyn) Take with food. Docusate No Notes: Memoria Sodium 50 17 (Same as l MG / 03:00: Senokot-S) sennosides, 00 Equiv. to [facility] 8.6 MG Viktoria-Colac Oral Tablet e. propofol 10 No Notes: If M emoria mg/mL 11-28 Diprivan - l (Titrate.) 01:57: change Janel nn IV 1,000 mg 00 bottle & tubing every 12 hr Per state nursing law propofol can only be given by a nurse if patient is intubated or being intubated (unless the nurse is a INDIAN TRADER). Same as: Diprivan Tylenol No Notes: Max Davi sonny -17 acetaminop l 00:00: hen 4000 Evgeny 00 mg/day (4 gm/day). (Same as: Tylenol Extra Strength) Tramadol No Notes: Not Mem oria 17 to exceed l 00:00: 400mg/day. (Same As: Ultram) Nafcillin No 2 gm, Memoria 11-27 Route: l 23:00: IVPB, Drug form: PDR/INJ, ABXQ4H, Dosing Weight 112.005, kg, Start date: 11/27/19 17:00:00 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, Duration: 6 day, Stop date: 12/03/19 13:00:00 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, 0 Versed No Notes: Memoria -16 Same as: l 21:57: Versed ( Preservati ve Free) MEDICATION WASTE Product Size: 5 mg Product Wasted: ___ mg Lasix No Notes: Memoria 1-16 (Same as: l 15:26: Lasix) Seroquel 2019- No Notes: Memoria 1-16 (Same as: l 15:24: SEROquel) gabapentin No Notes: Memor ia -16 (Same as: l 15:24: Neurontin) Water 1000 No 457.25 mL, M emoria MG/ML - Rate: 999 l Injectable 13:31: ml/hr, Janel nn Solution 00 Infuse over: 0.5 hr, Route: IV, Dosing Weight 112.005 kg, Total Volume: 500, Start date: 11/27/19 7:31:00 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, Duration: 2 hr, Stop date: 11/27/19 9:30:00 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, For IMU and ICU use only. See Order Comments!! , 2.35, m2, 0 Sodium No 4 gm, 4 Memoria Chloride -16 tab, l 1000 MG 13:30: Route: GT, Herm weston Oral Tablet 00 Drug form: TAB, Q6H-02, Dosing Weight 112.005, kg, Priority: NOW, Start date: 11/27/19 7:30:00 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, Duration: 30 day, Stop date: 12/27/19 2:00:00 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, 0 Vancomycin No 2000 mg: Me moria - infuse l 02:00: over 2.5 Evgeny 00 hours Lasix 0 No Notes: Memoria 1-15 (Same as: l 23:18: Lasix) Bennett MEDICATION WASTE Product Size: 40 mg Product Wasted: ___ mg Zosyn 2019- No Notes: Memoria 1-15 (Same as: l 15:56: Zosyn) Dosing based on Piperacill in component MEDICATION WASTE Product Size: 3375 mg Product Wasted: ___ mg Vancomycin 2019-0 No 2000 mg: Me moria -15 infuse l 15:56: over 2.5 Evgeny 00 hours Lasix 2019-0 No Notes: Memoria 1-15 (Same as: l 15:51: Lasix) Valproic 2019-0 No Notes: Memoria Acid 50 1-15 (Same As: l MG/ML Oral 15:47: Depakene) He rm Solution Gentamicin 2019-0 No Notes: Memor ia Sulfate -14 (Same as: l ([facility]) 0.001 22:21: Garamycin) MG/MG 00 Topical Ointment Unasyn No Notes: Memoria 1-14 Dosing l 18:00: based on Ampicillin component (Same as: Unasyn) gabapentin No Notes: Memor ia 300 MG Oral - (Same as: l Capsule 15:39: Neurontin) Lasix No Notes: Memoria 1-14 (Same as: l 13:42: Lasix) MEDICATION WASTE Product Size: 40 mg Product Wasted: ___ mg Prevacid No Notes: Memoria 1-14 Take 1 l 13:30: hour before or 2 hours after meal; Expires in 14 days. Shake well before use. (Same as:Prevaci d) Compound ed Product - formulatio n not commercial ly available* * heparin No Notes: Memoria additive 1-13 Total l 25,000 unit 22:29: Concentrat [ 00 ion = 50 unit/kg/hr] unit/ ml + Premix Total Diluent volume = Sodium 500 ml Chloride Send Med 0.45% 500 Request 2 mL hours prior to next bag Lidocaine No Notes: Memori a 1-13 administer l 19:09: ed via nebulizati on during bronchosco pies Acetylcyste 0 No 400 mg, 2 M emoria ine 200 1-13 mL, Route: l MG/ML 17:00: NEB, Drug Bennett Inhalant 00 Form: Solution SOLN, Dosing Weight 112.005, kg, RQ4H, Start date: 11/24/19 11:00:00 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, Duration: 30 day, Stop date: 12/24/19 7:00:00 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, 0 Furosemide 2019-0 No 20 mg, Memor ia 20 MG Oral - Route: NJ, l Tablet 15:00: Drug form: Janel nn [Lasix] 00 TAB, Daily, Dosing Weight 112.005, kg, Start date: 11/24/19 9:00:00 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, Duration: 30 day, Stop date: 12/23/19 9:00:00 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 Lasix 2020-0 No 40 mg, Memoria 12 Route: l 22:41: IVP, Drug form: INJ, ONCE, Dosing Weight 112.005, kg, Start date: 11/23/19 16:41:00 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, Stop date: 11/23/19 16:41:00 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 Unasyn 2019-0 No Notes: Memoria -12 Dosing l 22:00: based on Ampicillin component (Same as: Unasyn) Furosemide No Notes: Memor ia 20 MG Oral -12 (Same as: l Tablet 16:43: Lasix) Bennett [Lasix] 00 May cause GI upset. Give with food or milk. Protonix No Notes: For Mem oria 11-23 IV push l 15:00: reconstitu te with 10 ml 0.9% sodium chloride and push over 2 minutes. (Same as: Protonix) Protonix 0 No 40 mg, Memoria 12 Route: l 12:53: IVP, BID, Dosing Weight 112.005, kg, Priority: NOW, Start date: 11/23/19 6:53:00 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, Duration: 30 day, Stop date: 12/22/19 17:00:00 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 Labetalol No 10 mg, 2 Davi sonny 1-12 mL, Route: l 10:42: IV, Drug form: INJ, Q1H, Dosing Weight 112.005, kg, PRN Other -See Comment, Start date: 11/23/19 4:42:00 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, Duration: 30 day, Stop date: 12/23/19 4:41:00 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, 0 Seroquel 2019- No Notes: Memoria 1-12 (Same as: l 00:00: SEROquel) gabapentin No Notes: Memor ia 1-11 (Same as: l 22:00: Neurontin) Buspirone No Notes: Memori a 1-11 (Same As: l 20:44: BuSpar) Buspirone 2019-0 No Notes: Memori a 1-10 (Same As: l 23:00: BuSpar) Bromocripti 0 No Notes: Davi sonny ne 1-10 (Same As: l 23:00: Parlodel) Captopril 0 No Notes: Memori a 1-10 Give on l 17:35: empty stomach. 1 hour before meal. (Same As: Capoten) docusate 0 No Notes: Memoria 1-10 (Same as: l 05:59: Colace) senna 0 No Notes: Memoria 1-10 (Same as: l 05:59: Senokot) docusate 0 No Notes: Memoria 1-10 (Same as: l 03:00: Colace) senna 0 No Notes: Memoria 1-10 (Same as: l 03:00: Senokot) Labetalol 0 No 200 mg, Memor ia 11-20 Route: PO, l 03:00: Drug form: TAB, Q12H, Dosing Weight 112.005, kg, Start date: 11/19/19 21:00:00 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, Duration: 30 day, Stop date: 12/19/19 9:00:00 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 heparin 0 No Notes: Memoria additive 11-20 Total l 25,000 unit 01:51: Concentrat Evgeny [14 00 ion = 50 unit/kg/hr] unit/ ml + Premix Total Diluent volume = Sodium 500 ml Chloride Send Med 0.45% 500 Request 2 mL hours prior to next bag Iohexol 2019-0 No 65 mL, Memoria 11-20 Route: l 00:59: IVP, Drug Form: SOLN, Dosing Weight 112.005, kg, ONCALL, STAT, Start date: 11/19/19 18:59:00 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, Duration: 1 doses or times, Dose = 2.2ml/kg, Max dose = 100ml -- "To be infused by Radiology Staff ONLY" Labetalol 0 No Notes: Memori a 1-08 With food. l 22:00: (Same Evgeny 00 as:Trandat e, Normodyne) Clonidine 2019-0 No Notes: Memori a 1-08 (Same As: l 22:00: Catapres) Seroquel 2019-0 No Notes: Memoria 1-08 (Same as: l 22:00: SEROquel) Nicardipine No 40 mg, 200 Memoria 1-08 mL, Rate: l 21:00: Titrate, Start Dose: 5 mg/hr, Titration: Titrate to goal, Goal(s): SBP <180, Max Dose: 15 mg/hr, Route: IV, Dosing Weight 112.005 kg, Total Volume: 200, Start date: 11/19/19 15:00:00 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, Duration: 30 day, Stop date: 12/19/19 14:5... Albuterol No Notes: SEE Me moria 0.83 MG/ML 1-08 RT l Inhalant 18:00: DOCUMENTAT Her dale Solution 00 ION (Same as: Proventil) magnesium 2019-0 No Notes: Memori a citrate 08 (Same as: l 58.2 MG/ML 17:43: Citrate of H ermann Oral 00 Magnesia) Solution Concentrat ion: 1.745 gm / 30 mL Sodium 2019-0 No Notes: SEE Memor ia Chloride 3% 1-08 RT l inhalation 17:00: DOCUMENTAT H ermann solution 00 ION (Same as: Hypertonic Saline 3%, Inhalation ) Aspirin 2019-0 No Notes: Do Memor ia 1-08 not crush l 15:00: or chew. Evgeny 00 (Same As: Ecotrin) heparin 2019-0 No Notes: Memoria 1-08 porcine l 06:00: heparin Aspirin 81 2019-0 No Notes: Do Me moria MG Enteric 1-07 not crush l Coated 20:31: or chew. Evgeny Tablet 00 (Same As: Ecotrin) Nicardipine 2019-0 No Notes: Davi sonny 11-18 Same as: l 17:11: Cardene Concentrat ion: (0.1 mg/ 1 ml) Iohexol 2019-0 No Notes: Memoria - (Same l 05:40: as:[address]). 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 .. Hydralazine 2019-0 No Notes: Davi sonny 1-06 (Same as: l 17:29: Apresoline ) Push over 5 minutes Potassium 2019-0 No Notes: Memori a Chloride 1-06 (Same as: l 07:19: KCL) Infuse no faster than 10 mEq/hr if given peripheral ly. sodium 2020-0 No Notes: Memoria phosphate 1-06 Infuse l 07:19: over 4 hour. Do not infuse phosphorou s concurrent ly in the same line as TPN or IVF that contains calcium. For double lumen central lines, phosphorou s may be infused in a separate lumen from TPN. potassium 2020-0 No Notes: Memori a phosphate 1-06 (Same as: l 07:19: K Phosphate. ) Do not infuse phosphorou s concurrent ly in the same line as TPN or IVF that contains calcium. For double lumen central lines, phosphorou s may be infused in a separate lumen from TPN. 1 mMol phoshate has 1.47 mEq potassium Infuse over 4 hours potassium 2020-0 No Notes: Memori a phosphate-s 1-06 (Same as: l odium 07:19: Phos-NaK) phosphate 00 Each 1.5 250 mg-280 gm pkt has mg-160 mg 250mg oral powder phosphorou for s. Mix reconstitut w/2.5oz ion water and stir. Magnesium 2020-0 No Notes: Memori a Sulfate - WASTE: F/P l 07:19: - Sink; E - Municipal Trash Bin Magnesium 2019-0 No Notes: Memori a Oxide - (Same as: l 07:19: Mag-Ox Bennett 00 400) Magnesium oxide 463um=204q g elemental magnesium Dose=____m g magnesium oxide (___mg elemental magnesium) Calcium 2019-0 No Notes: Memoria Gluconate 11-17 WASTE: F/P l 07:19: - Sink; E Evgeny - Municipal Trash Bin Calcium 2019- No Notes: Memoria Carbonate 11-17 (Same As: l 500 MG 07:19: Tums) Evgney Chewable 00 Calcium Tablet Carbonate 500 mg = 200 mg elemental calcium Dose = mg calcium carbonate ( mg elemental calcium) Ancef 2019-0 No Notes: Memoria - (Same as l 06:00: Ancef) Bennett 00 NS 1,000 mL No 1,000 mL, M emoria 11-17 Rate: 100 l 03:56: ml/hr, Infuse over: 10 hr, Route: IV, Dosing Weight 100 kg, Total Volume: 1,000, Start date: 11/16/19 21:56:00 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, Duration: 30 day, Stop date: 12/16/19 21:55:00 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, 2.22, m2, 0 Levetiracet No Notes: Davi sonny am 500 MG 11-17 (Same l Oral Tablet 03:00: as:Keppra) Evgeny [Keppra] 00 hydromorpho 0 No Route: IV, Memoria ne (ANES) + 11-17 Drug form: l sodium 01:22: INJ, ONCE, Janel nn chloride Stop date: (ANES) 9 mL 11/16/19 19:22:00 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 propofol 2019-0 No Route: IV, Mem oria (ANES) 11-17 Drug form: l 01:12: INJ, ONCE, Evgeny Stop date: 11/16/19 19:12:00 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 rocuronium 2019-0 No Route: IV, M emoria (ANES) 11-17 Drug form: l 01:12: INJ, ONCE, Evgeny Stop date: 11/16/19 19:12:00 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 dexamethaso 2019-0 No Route: IV, Memoria ne (ANES) 11-17 Drug form: l 01:07: INJ, ONCE, Stop date: 11/16/19 19:07:00 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 fentaNYL 2019-0 No Route: IV, Mem oria (ANES) 11-17 Drug form: l 00:57: INJ, ONCE, Stop date: 11/16/19 18:57:00 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 ceFAZolin 0 No Route: IV, Me moria (ANES) 11-17 Drug form: l 00:46: INJ, ONCE, Stop date: 11/16/19 18:46:00 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 protamine 2019-0 No Route: IV, Me moria (ANES) 11-17 Drug form: l 00:46: INJ, ONCE, Stop date: 11/16/19 18:46:00 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 niCARdipine No Route: IV, Memoria (ANES) 2500 11-17 Drug form: l microgram 00:39: INJ, Start He rm date: 11/16/19 18:39:00 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, Stop date: 11/16/19 19:39:00 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 Isolyte S 0 No Route: IV, Me moria PH 7.4 11-17 Total l (ANES) 1000 00:16: Volume: Her dale mL 00 1,000, Start date: 11/16/19 18:16:00 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, Stop date: 11/16/19 19:16:00 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 Sodium 2019-0 No Route: IV, Memor ia Chloride 11-17 Drug form: l 0.9% IV 00:14: INJ, Start Herm weston (ANES) 90 00 date: mL + 11/16/19 levETIRAcet 18:14:00 am (ANES) 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, Stop 1000 mg date: 11/16/19 19:14:00 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 propofol 2019-0 No Route: IV, Mem oria (ANES) 10 11-17 Drug form: l mg 00:06: INJ, Start Bennett date: 11/16/19 18:06:00 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, Stop date: 11/16/19 19:06:00 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 protamine 2019-0 No 50 mg, 5 Davi sonny 1-05 mL, Route: l 23:36: IVP, Drug Evgeny 00 form: INJ, ONCE, Dosing Weight 100, kg, Start date: 11/16/19 17:36:00 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, Stop date: 11/16/19 17:36:00 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, 0 protamine 2019-0 No 100 mg, Memor ia 1-05 Route: l 23:32: IVP, Drug Evgeny 00 form: INJ, ONCE, Dosing Weight 100, kg, Start date: 11/16/19 17:32:00 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, Stop date: 11/16/19 17:32:00 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 sodium 2019-0 No 240 mEq, Memoria chloride 1-05 60 mL, 60 l 23.4% 23:17: ml/hr, Bennett (BOLUS) 00 Infuse Over: 60 minutes, Route: IV, 60, Drug form: INJ, ONCE, Dosing Weight 100 kg, Start date: 11/16/19 17:17:00 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, Stop date: 11/16/19 17:17:00 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, 0 Mannitol 2019- No Notes: Memoria 1-05 (Same as: l 22:42: Osmitrol) Bennett Infuse through 5 micron or smaller filter WASTE: F/P - Sink; E - Municipal Trash Bin Mannitol 0 No Notes: Memoria 1-05 (Same as: l 22:41: Osmitrol) Bennett Infuse through 5 micron or smaller filter WASTE: F/P - Sink; E - Municipal Trash Bin Docusate 2019-0 No Notes: Memoria Sodium 50 1-05 (Same as l MG / 15:00: Senokot-S) Evgeny ramirez, 00 Equiv. to [facility] 8.6 MG Viktoria-Colac Oral Tablet e. Bacitracin No Notes: Memor ia 0.5 UNT/MG -05 (Same As: l / Polymyxin 15:00: Polysporin Evgeny B 10 UNT/MG ) Topical Ointment Aspirin 325 No Notes: Davi sonny MG Oral 1-05 Take with l Tablet 15:00: food. Bennett 00 Insulin 2019-0 No Notes: Memoria regular 1-05 (Same as: l 14:08: Humulin R) Bennett 00 Roll in palms of hands gently; Do not shake vigorously . WASTE: F/P - Black; E - Municipal Trash Bin Stable for 31 days at room temperatur e Expires in days from ____Date Dextrose 2019- No 12.5 gm, Memor ia 50% Syringe 1-05 25 mL, l (D50W) 14:08: Route: Evgeny IVP, Drug Form: INJ, Dosing Weight 100, kg, PRN, PRN Abnormal Lab Result, Start date: 11/16/19 8:08:00 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, Duration: 30 day, Stop date: 01/15/20 8:07:00 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, For FSBG 40 mg/dL - 60 mg/dL, 0 remove No Notes: Memoria patch 1-05 Remove l 13:00: patch 12 Evgeny 00 hours after applicatio n each day. Calcium No Notes: Memoria Gluconate - WASTE: F/P l 12:07: - Sink; E Bennett 00 - Municipal Trash Bin Enoxaparin No Notes: Memor ia -05 (Same as: l 10:00: Lovenox) heparin No Notes: Memoria additive -05 Total l 25,000 unit 07:35: Concentrat Evgeny [14 00 ion = 50 unit/kg/hr] unit/ ml + Premix Total Diluent volume = Sodium 500 ml Chloride Send Med 0.45% 500 Request 2 mL hours prior to next bag Iohexol 2019-0 No 100 mL, Memoria 1-05 Route: l 06:50: IVP, Drug Form: SOLN, Dosing Weight 100, kg, ONCALL, STAT, Start date: 11/16/19 0:50:00 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, Duration: 1 doses or times, Dose = 2.2ml/kg, Max dose = 100ml -- "To be infused by Radiology Staff ONLY" Aspirin 300 No Notes: Davi sonny MG Rectal 05 Refrigerat l Suppository 06:37: e. Tyson n 00 esmolol No Notes: Memoria 1-05 (Same as: l 06:23: Traven IV) Bennett ocular 0 No Notes: Memoria lubricant -05 (Same as: l 06:00: Lacri-Lube Evgeny 00 , Puralube, Duratears Naturale, Artificial Tears, and Tears Again ) Isolyte S 2019-0 No Notes: Memori a PH-7.4 1-05 (Same as: l (Bolus) IV 04:33: Isolyte S He rmann 00 PH7.4, Normosol-R PH 7.4, Plasma-Lyt e A ) Enoxaparin No Notes: Memor ia 1-05 (Same as: l 04:11: Lovenox) Evgeny 00 Isolyte S 2019-0 No Notes: Memori a PH-7.4 1-05 (Same as: l (Bolus) IV 03:52: Isolyte S He rmann 00 PH7.4, Normosol-R PH 7.4, Plasma-Lyt e A ) Ketamine No Notes: Memoria -05 Total l 03:51: Concentrat Evgeny 00 ion = 1mg/ml Total Volume = 100ml Infusion Rate= Begin Infusion at an initial rate of 0.1mg/kg/h r to a Maximum Rate of 0.25mg/kg/ hr Please place a Med Request 2 hours before the next dose is needed. Isolyte S No Notes: Memori a PH-7.4 1-05 (Same as: l (Bolus) IV 03:22: Isolyte S He rmann 00 PH7.4, Normosol-R PH 7.4, Plasma-Lyt e A ) Famotidine No Notes: Memor ia 1-05 (Same as: l 03:00: Pepcid) Evgeny 00 Can be dilute in 5-10cc NS IVP: Slow IV push over at least 2 minutes. chlorhexidi No Notes: Davi sonny ne 1-05 (Same As: l gluconate 03:00: Peridex) Herm weston 1.2 MG/ML 00 Mouthwash Naproxen No Notes: Memoria 1-05 (Same as: l 03:00: Naprosyn) Evgeny 00 Take with food. Lidocaine No Notes: Memori a Hydrochlori 1-05 Apply only l de 0.05 01:00: once for Tyson n MG/MG 00 up to 12 Transdermal hours in a Patch 24-hour [Lidoderm] period (12 hours on and 12 hours off). (Same as: Lidoderm) "Remove old patch before applicatio n of new patch" Tramadol No Notes: Not Mem oria 11-16 to exceed l 00:48: 400mg/day. Evgeny (Same As: Ultram) Oxycodone No Notes: Memori a Hydrochlori 11-16 (Same as: l de 5 MG 00:48: Roxicodone Herm weston Oral Tablet 00 ) Isolyte S No Notes: Memori a PH 7.4 05 (Same as: l 1,000 mL 00:46: Isolyte S Herm weston 00 PH7.4, Normosol-R PH 7.4, Plasma-Lyt e A ) Albuterol No Notes: SEE Me moria 0.83 MG/ML 05 RT l Inhalant 00:46: DOCUMENTAT Her dale Solution 00 ION (Same as: Proventil) chlorhexidi No Notes: Davi sonny ne 11-16 (Same As: l gluconate 00:46: Peridex) Herm weston 1.2 MG/ML 00 Mouthwash Acetaminoph No 100.4 F, M emoria en 05 Priority: l 00:45: NOW, Start date: 11/15/19 18:45:00 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, Duration: 30 day, Stop date: 12/15/19 18:00:00 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, 0 gabapentin No Notes: Memor ia 05 (Same as: l 00:45: Neurontin) propofol 10 No Notes: If M emoria mg/mL 05 Diprivan - l (Titrate.) 00:16: change Janel nn IV 1,000 mg 00 bottle & tubing every 12 hr Per state nursing law propofol can only be given by a nurse if patient is intubated or being intubated (unless the nurse is a INDIAN TRADER). Same as: Diprivan Fentanyl No 1,000 Memoria 1-04 microgram, l 22:16: 20 mL, Rate: Titrate, Start Dose: 50 microgram/ hr, Titration: 25 microgram/ hour every 15 minutes, Goal(s): RASS -1, Max Dose: 300 microgram/ hr, Route: IV, Dosing Weight 100 kg, Total Volume: 20, Start date: 11/15/19 16:16:00 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, Dura... Versed No Notes: Memoria 1- (Same as: l 22:15: Versed) Bennett MEDICATION WASTE Product Size: 2 mg Product Wasted: ___ mg Fentanyl No Notes: Memoria - (Same as: l 22:15: Sublimaze) Bennett Preservat cristina free. Saline No Notes: Memoria Flush 0.9% - Same as: l 22:04: BD Evgeny Posiflush Sterile Vital Signs Vital Name Observation Time Observation Value Comments Source Systolic (mm Hg) 2020-11-24 [facility] rmann 19:17:00 Diastolic (mm Hg) 2020-11-24 [facility] ermann 19:17:00 Heart Rate 2020-11-24 [facility] 19:17:00 Respitory Rate 2020-11-24 [facility] 19:17:00 Height 2020-11-24 185.42 cm [facility] 19:17:00 Weight 2020-11-24 [facility] Tyson n 19:17:00 BMI Calculated 2020-11-24 [facility] 19:17:00 Systolic (mm Hg) 2020-10-13 [facility] rmann 19:44:00 Diastolic (mm Hg) 2020-10-13 [facility] ermann 19:44:00 Heart Rate 2020-10-13 [facility] Tyson n 19:44:00 Respitory Rate 2020-10-13 [facility] 19:44:00 Height 2020-10-13 185.42 cm [facility] 19:44:00 Weight 2020-10-13 [facility] Tyson n 19:44:00 BMI Calculated 2020-10-13 [facility] 19:44:00 Respitory Rate 2020-06-18 [facility] 16:55:00 Respitory Rate 2020-06-18 [facility] 15:00:00 Systolic (mm Hg) 2020-06-18 [facility] rmann 15:00:00 Diastolic (mm Hg) 2020-06-18 [facility] ermann 15:00:00 Respitory Rate 2020-06-18 [facility] 14:00:00 Systolic (mm Hg) 2020-06-18 [facility] 14:00:00 Diastolic (mm Hg) 2020-06-18 [facility] 14:00:00 Systolic (mm Hg) 2020-06-18 [facility] 13:00:00 Diastolic (mm Hg) 2020-06-18 [facility] 13:00:00 Temperature Oral 2020-06-18 98.8 F [facility] (F) 08:00:00 Temperature Oral 2020-06-18 97.6 F [facility] (F) 05:00:00 Temperature Oral 2020-06-18 98 F [facility] (F) 02:00:00 Height 2020-06-16 185.42 cm [facility] Tyson n 14:47:00 Weight 2020-06-16 [facility] Tyson n 14:47:00 BMI Calculated 2020-06-16 [facility] 14:47:00 Heart Rate 2020-06-16 [facility] Tyson n 14:47:00 Height 2020-06-09 185.42 cm [facility] Tyson n 15:36:00 Weight 2020-06-09 [facility] Tyson n 15:36:00 BMI Calculated 2020-06-09 [facility] 15:36:00 Temperature Oral 2020-02-12 97.9 F [facility] (F) 16:34:00 Heart Rate 2020-02-12 [facility] Tyson n 16:34:00 Respitory Rate 2020-02-12 [facility] 16:34:00 Systolic (mm Hg) 2020-02-12 [facility] 16:34:00 Diastolic (mm Hg) 2020-02-12 [facility] 16:34:00 Temperature Oral 2020-02-12 97.6 F [facility] (F) 14:09:00 Heart Rate 2020-02-12 [facility] Tyson n 14:09:00 Respitory Rate 2020-02-12 [facility] 14:09:00 Systolic (mm Hg) 2020-02-12 [facility] 14:09:00 Diastolic (mm Hg) 2020-02-12 [facility] 14:09:00 Temperature Oral 2020-02-12 97.9 F [facility] (F) 09:05:00 Heart Rate 2020-02-12 [facility] Tyson n 09:05:00 Respitory Rate 2020-02-12 [facility] 09:05:00 Systolic (mm Hg) 2020-02-12 [facility] 09:05:00 Diastolic (mm Hg) 2020-02-12 [facility] 09:05:00 Height 2020-02-06 185.42 cm [facility] Tyson n 17:32:00 Weight 2020-02-06 [facility] Tyson n 17:32:00 Height 2020-02-05 185.42 cm [facility] Tyson n 23:00:00 Weight 2020-02-05 [facility] Tyson n 23:00:00 BMI Calculated 2020-02-05 [facility] 23:00:00 Weight 2020-02-05 [facility] Tyson n 18:13:00 Systolic blood 2020-01-29 135 mm[Hg] [place] [facility] [place] [facility] 13:23:00 Position: [place] [facility] Diastolic blood 2020-01-29 94 mm[Hg] Location: [place]; [facility] 13:23:00 Position: [place] [facility] Body height 2020-01-29 73 [in_us] [facility] 13:23:00 [place] [facility] Heart Rate 2020-01-29 103 /min Location: [facility] 13:23:00 Brachial [place] [facility] Artery; Weight 2020-01-19 197 [lb_av] [facility] 14:13:00 [place] [facility] Body mass index 2020-01-19 25.99 kg/m2 University o f (BMI) [Ratio] 14:13:00 [place] [facility] Body temperature 2020-01-19 97.1 [degF] Method: [facility] 14:13:00 Tympanic [place] [facility] Heart Rate 2020-01-19 87 /min [facility] 14:13:00 [place] [facility] Systolic blood 2020-01-19 129 mm[Hg] Location: [place]; [facility] 14:13:00 Position: [place] [facility] Sitting Diastolic blood 2020-01-19 88 mm[Hg] Location: [place]; [facility] 14:13:00 Position: [place] [facility] Body height 2020-01-19 73 [in_us] [facility] 14:13:00 [place] [facility] Temperature Oral 2020-01-11 98.1 F [facility] (F) 13:30:00 Heart Rate 2020-01-11 [facility] Tyson n 13:30:00 Respitory Rate 2020-01-11 [facility] 13:30:00 Systolic (mm Hg) 2020-01-11 [facility] 13:30:00 Diastolic (mm Hg) 2020-01-11 [facility] 13:30:00 Heart Rate 2020-01-11 [facility] Tyson n 01:40:00 Respitory Rate 2020-01-11 [facility] 01:40:00 Systolic (mm Hg) 2020-01-11 [facility] 01:40:00 Diastolic (mm Hg) 2020-01-11 [facility] 01:40:00 Heart Rate 2020-01-10 [facility] Tyson n 18:00:00 Respitory Rate 2020-01-10 [facility] 18:00:00 Systolic (mm Hg) 2020-01-10 [facility] 18:00:00 Diastolic (mm Hg) 2020-01-10 [facility] 18:00:00 Temperature Oral 2020-01-06 97.8 F [facility] (F) 13:30:00 Weight 2019-12-21 [facility] Tyson n 14:47:00 Height 2019-12-20 185.42 cm [facility] Tyson n 02:30:00 Weight 2019-12-20 [facility] Tyson n 02:30:00 BMI Calculated 2019-12-20 [facility] 02:30:00 Temperature Oral 2019-12-20 98.7 F [facility] (F) 02:30:00 Temperature Oral 2019-12-19 98.2 F [facility] (F) 18:04:00 Heart Rate 2019-12-19 [facility] Tyson n 18:04:00 Respitory Rate 2019-12-19 [facility] 18:04:00 Systolic (mm Hg) 2019-12-19 [facility] 18:04:00 Diastolic (mm Hg) 2019-12-19 [facility] 18:04:00 Temperature Oral 2019-12-19 97.8 F [facility] (F) 15:03:00 Heart Rate 2019-12-19 [facility] Tyson n 15:03:00 Respitory Rate 2019-12-19 [facility] 15:03:00 Systolic (mm Hg) 2019-12-19 [facility] 15:03:00 Diastolic (mm Hg) 2019-12-19 [facility] 15:03:00 Heart Rate 2019-12-19 [facility] Tyson n 10:31:00 Respitory Rate 2019-12-19 [facility] 10:31:00 Systolic (mm Hg) 2019-12-19 [facility] 10:31:00 Diastolic (mm Hg) 2019-12-19 [facility] H ermann 10:31:00 Temperature Oral 2019-12-18 98.8 F [facility] Michael rmann (F) 01:20:00 Height 2019-12-07 172.72 cm Yamil Colmenaresan n 21:25:00 Height 2019-12-07 172.72 cm Yamli Colmenaresan n 18:30:00 Height 2019-12-07 172.72 cm Yamil Colmenaresan n 09:10:00 Weight 2019-11-18 [facility] Tyson n 15:57:00 Weight 2019-11-16 [facility] Tyson n 00:16:00 BMI Calculated 2019-11-16 [facility] 00:16:00 Weight 2019-11-15 [facility] Tyson n 21:36:00 Procedures Procedure Date / Time Performing Clinician Source Performed Post Op Promis 29 Survey 2020-06-23 00:00:00 [facility] [place] [facility] Op Promis 29 Survey 2020-03-19 00:00:00 [facility] CBC (INCLUDES 2020-02-26 00:00:00 [facility] DIFF/PLT) Physicians [QL] CMP W/EGFR 2020-02-26 00:00:00 [facility] [place] [facility] [QL] C-REACTIVE PROTEIN 2020-02-26 00:00:00 Univ [facility] Physicians [QL] SED RATE BY MODIFIED 2020-02-26 00:00:00 [facility] [place] [U] XRAY SHOULDER MIN 2 2020-02-18 00:00[facility]00 [facility] [id number] [facility] [U] XRAY SHOULDER MIN 2 2020-02-05 00:00:00 [facility] [id number] Head/Neck CTA [id number] 2020-02-02 00:00:00 [facility]] XRAY SHOULDER MIN 2 2020-01-22 00:00:00 [facility] RIGHT [id number] Physicians Arthrocentesis, 2020-01-05 22:38:00 [facility] Her dale aspiration and/or injection, major joint or bursa (eg, shoulder, hip, knee, subacromial bursa); with ultrasound guidance, with permanent recording and reporting Shoulder reconstruction 2019-12-09 06:00:00 Davi rial Bennett Craniectomy 2019-11-16 06:00:00 [facility] dale History of Shoulder [facility] [place] [facility] Right Physicians History of Craniectomy [facility] [place] [facility] Operation<sup>1</sup> [facility] H ermann Tracheostomy [facility] Plan of Care Planned Activity Planned Date [...] Univers ity of Pending 00:00:00 MIN 2 VWS RIGHT Gisele Physic ians [id number] [code = 73296] Future Scheduled CT Head/Neck CTA Before next Univers ity of Test 01979 [code = appointment [place] [facility] [place] [id number]] Encounters Start End Encounter Admission Attending Care Care Encounter Source Date/Time Date/Time Type Type Clinicians Facility Department ID 2020-05-20 [id number] 10:50:25 2019-11-15 Inpatient E [facility] [id number] [facility] 16:19:00 2021-03-23 2021-03-23 Outpatient [facility] [id number] [facility] 2021-02-23 2021-02-23 [id number] 2021-01-27 2021-01-27 Office FRANCISCO Simon [id number] 16:10:12 16:35:39 Visit Karla [facility] [id number] [facility] [id number] 2021-01-21 2021-01-21 [facility] [id number] 2020-11-24 2020-11-24 Outpatient Krell, MHMISCHER MHMISCHER [id number] 13:15:00 23:59:59 Cesar Michael 2020-10-21 2020-10-21 Outpatient Thonyll, MHOIP MHOIP [id number] 12:19:00 23:59:00 Cesar Michael 2020-10-13 2020-10-13 Outpatient Thonyll, MHMISCHER MHMISCHER [id number] 13:30:00 23:59:59 Cesar 00 Michael 2020-06-16 2020-06-18 [facility] [id number] 08:21:00 11:55:00 Javy Mabry 2020-06-16 2020-06-18 Outpatient Ceceliam, [facility] [id number] 08:21:00 11:55:00 Javy Mabry 2020-06-02 2020-06-02 Appointmen LÓPEZ ROY [id number] Univers 11:15:00 11:15:00 t; REMI ROY ity o f ANDREW, M.D. [place] [facility] 2020-04-21 2020-04-21 AppointLÓPEZ Salvador UTP [id number] Univers 10:00:00 10:00:00 t; REMI ROY ity o f ANDREW, M.D. [facility] ans 2020-04-07 2020-04-07 Outpatient R[facility] [id number] 12:17:00 23:59:00 [place] N 00 2020-03-19 2020-03-19 AppointLÓPEZ Rodriguez Infectious [id number] Univers 10:15:00 10:15:00 t; MICHAEL ENGLE Diseases - Gary M.D. [facility] ans 2020-03-10 2020-03-10 AppointLÓPEZ Salvador UTP [id number] Univers 12:30:00 12:30:00 t; REMI ROY ity o f ANDREW, M.D. [facility] ans 2020-02-27 2020-02-27 AppointLÓPEZ Rodriguez Infectious [id number] Univers 10:00:00 10:00:00 t; MICHAEL ENGLE, Diseases - Gary M.D. [facility] ans 2020-02-25 2020-02-25 LÓPEZ Sanchez Orthopedics [id number] Univers 11:15:00 11:15:00 t; DOMITILA, Trauma mason [facility] 2020-02-05 2020-02-12 Outpatient Jaiden [facility] [id number] 12:51:27 14:00:00 [place] 02 Kishorkumar 2020-02-09 2020-02-09 AppointLÓPEZ Salvador UTP [id number] Univers 08:00:00 08:00:00 t; REMI ROY ity o f ANDREW, M.D. [facility] ans 2020-02-06 2020-02-06 AppointLÓPEZ Salvador UTP [id number] Univers 08:00:00 08:00:00 t; REMI ROY ity o f ANDREW, M.D. [place] [facility] 2020-02-05 2020-02-05 Inpatient E [facility] MED [id number] [facility] 12:51:00 12:51:00 2020-02-05 2020-02-05 LÓPEZ Sanchez Orthopedics 6 [id number] Univers 11:00:00 11:00:00 t; DOMITILA Trauma José Manuel CardozoALetitia [place], [place] [facility] 2020-01-29 2020-01-29 Appointliliam RUBIO [facility] [id number] Univers 13:30:00 13:30:00 t; [facility] 2020-01-28 2020-01-28 Appointliliam ROY [facility] [id number] Univers 11:30:00 11:30:00 t; REMI ROY ity o f ANDREW, M.D. [place] [facility] 2020-01-28 2020-01-28 LÓPEZ Sanchez [facility] 6 [id number] Univers 11:00:00 11:00:00 t; DOMITILA Trauma mason PARRA PLetitiaALetitia [place], [place] [facility] ans Center 2020-01-19 2020-01-19 [id number] Univers 13:30:00 13:30:00 t; MD Sandi Surgery - itkeysha [facility] MD ZARI [facility] 2019-12-19 2020-01-11 Outpatient Flavia, MHTIRR MHTIRR [id number] 20:11:00 13:05:00 [place] 2020-01-05 2020-01-05 Appointliliam [facility] [id number] Univers 15:30:00 15:30:00 t; Dawn VASQUEZ [facility] PEDRO Physici M.D. [facility] 2019-12-31 2019-12-31 LÓPEZ Sanchez [facility] [id number] Univers 11:30:00 11:30:00 t; DOMITILA Trauma Trevor Cardozo [place], [place] [facility] 2019-11-15 2019-12-19 Outpatient Tariq [facility] [id number] 15:35:00 18:41:00 Ge Hunter 2019-12-09 2019-12-09 LÓPEZ Hoff [id number] Univers 09:00:00 09:00:00 REMI Segura ity o f ANDREW[facility] 2019-11-15 2019-11-15 Outpatient [facility] M[facility] [id number] [facility] 15:38:00 15:38:00 Results Test Description Test Time Test Comments Results Result [facility] e Comments BODY FLUIDS 2020-06-16 xxxxxxx (06/16/20 [facility] 19:08:00 2:08 PM) Bennett BODY FLUIDS 2020-06-16 Colorless [facility] 19:08:00 (06/16/20 2:08 Bennett PM) BODY FLUIDS 2020-06-16 Clear (06/16/20 [facility] 19:08:00 2:08 PM) Evgeny BODY FLUIDS 2020-06-16 Colorless [facility] 19:08:00 (06/16/20 2:08 Evgeny PM) BODY FLUIDS 2020-06-16 0 [facility] 19:08:00 Bennett BODY FLUIDS 2020-06-16 2 [facility] 19:08:00 Bennett BODY FLUIDS 2020-06-16 61 [facility] 19:08:00 Bennett BODY FLUIDS 2020-06-16 25 [facility] 19:08:00 Bennett BLOOD BANK RESULTS 2020-06-16 Negative Memori al 14:44:00 (06/16/20 9:44 Evgeny AM) CHEM PANEL 2020-06-16 88 [facility] 14:44:00 [facility] CHEM PANEL 2020-06-16 13 [facility] 14:44:00 [facility] CHEM PANEL 2020-06-16 0.99 [facility] 14:44:00 [facility] CHEM PANEL 2020-06-16 141 [facility] 14:44:00 [facility] CHEM PANEL 2020-06-16 4.0 [facility] 14:44:00 [facility] CHEM PANEL 2020-06-16 108 [facility] 14:44:00 [facility] CHEM PANEL 2020-06-16 27 [facility] 14:44:00 [facility] CHEM PANEL 2020-06-16 9.7 [facility] 14:44:00 [facility] CHEM PANEL 2020-06-16 10.0 [facility] 14:44:00 [facility] CHEM PANEL 2020-06-16 95 [facility] 14:44:00 [facility] HEMATOLOGY 2020-06-16 4.3 [facility] 14:44:00 [facility] HEMATOLOGY 2020-06-16 5.58 [facility] 14:44:00 [facility] HEMATOLOGY 2020-06-16 16.4 [facility] 14:44:00 [facility] HEMATOLOGY 2020-06-16 48.3 [facility] 14:44:00 [facility] HEMATOLOGY 2020-06-16 86.5 [facility] 14:44:00 [facility] HEMATOLOGY 2020-06-16 14:44:00 Test Item Value Reference Range Interpretation Comme nts MCH (test code = MCH) 29.5 pg 27.0-31.0 [facility] DgxniouEGVXQXCLYY2391-39-95 14:44:0034.1[facility]annHEMATOLOGY 2020-06-16 14:44:0014.5[facility] FihtdcmLUATDBCAMQ1746-32-91 14:44:69976Iuzjeyos AchmrqeXVZGQUBNZL5128-00-04 14:44:008.1[facility] BdoblptPVICGUAZGT7164-29-16 14:44:00 Test Item Value Reference Range Interpretation Comments PT (test code = PT) 13.1 s 12.0-14.7 [facility] TwzsrvjUQQWFBSNIT8551-02-65 14:44:00 Test Item Value Reference Range Interpretation Comments INR (test code = INR) 0.99 1 0.85-1.17 [facility] GsvsojjUJVDEZYQSP4800-42-09 14:44:00 Test Item Value Reference Range Interpretation Comments PTT (test code = PTT) 36.7 s 22.9-35.8 [facility] CwtkqavTYSACOCZBF0230-43-41 14:44:0054.5[facility] HermannHEMATOLOGY 2020-06-16 14:44:0036.0[facility] WpxjplbURBWHTTITD3083-01-32 14:44:007.4[facility] NejnfjqMBDWSTKUZI4412-83-71 14:44:001.4[facility] YplnildFLJMPIWPST2363-27-06 14:44:000.7[facility] HjyvppoOUKLWOUDPN6602-09-29 14:44:002.3[facility] IODMRLHQKE0417-39-84 14:44:001.5[facility] ZzhhvxgIKQQNVOTBL9202-10-02 14:44:000.3 [facility] IdzwlvzWYACLMMTVO5050-53-68 14:44:000.1[facility] HermannIMMUNOLOGY 2020-06-14 18:00:00Not Detected *NA*(06/14/20 1:00 PM)Yamil Pepper[U] XRAY SHOULDER MIN 2 VWS RIGHT [id number] 10:57:00Images acquired, not reported on this accession number.[facility] Head/Neck CTA [id number] 2020-04-07 13:00:00Radiation Dose CTDIVOL = 0 (mGy): DLP = 591.98 (mGy- cm)PROCEDURE INFORMATION:Exam: CT Angiography Head With ContrastExam date and time: 04/07/2020 1:21 PMAge: 39 years oldClinical indication: 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; Additional info: /i63.511 cerebralinfarction due to unspecified occlusion or stenosis of right middle cerebralarteryTECHNIQUE:Imaging protocol: Computed tomography angiography of the head with intravenouscontrast.3D rendering: MIP and/or 3D reconstructed images were created by thetechnologist.Radiation optimization: AllCT scans at this facility use at least one of thesedose optimization techniques: automated exposure control; mA and/or kVadjustment per patient size (includes targeted exams where dose is matched toclinical indication); or iterative reconstruction.Contrast material: OMNIPAQUE 300; Contrast volume: 100ml; Contrast route: IV; COMPARISON:BRAIN/NECK CTA 11/19/2019 6:45 PMRADIATION DOSE METRICS:Total DLP: 591.98 mGy-cmFINDINGS:Anterior cerebral arteries: No occlusion or significant stenosis. No aneurysm. Right internal carotid artery: Intracranial segment is patent with nosignificant stenosis or occlusion. No aneurysm.Right middle cerebral artery: See "Left middle cerebral artery" finding.Right posterior cerebral artery: The anterior and right posterior communicatingarteries are patent.Right vertebral artery: No occlusion or significant stenosis. No aneurysm. Left internal carotid artery: Intracranial segment is patent with nosignificant stenosis or occlusion. No aneurysm.Left middle cerebral artery:There is flow in the attenuated M2 superiorsegments of the middle cerebral artery draped over the poor encephalic cyst.There is a upper lid did position of the distal M1 segment.Left posterior cerebralartery: No occlusion or significant stenosis. Noaneurysm. Left vertebral artery: No occlusion or significant stenosis. No aneurysm. Basilar artery: The vertebral basilar circulation demonstrates no stenosis.Other vasculature: The anterior and posterior communicating arteries arepatent. The ophthalmic arteries are patent. There is no retrobulbarabnormality.HEAD:Brain: There is encephalomalacia of the right temporal/frontal lobe. There isattenuation of the cortical sulci high to the posterior frontal and parietalconvexity at the level the pre and postcentral gyri. There is normalenhancement of the pedal vessels/cortical veins. There is normal enhancement ofthe dural sinuses and deep venous system.Bones/joints: Patient is status post a right squamosaltemporal/frontal/parietal craniectomy. 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 PROCEDURE INFORMATION:Exam: CT Angiography Neck With ContrastExam date and time: 04/07/2020 1:21 PMAge: 39 years oldClinical indication: Cerebralinfarction due to unspecified occlusion orstenosis of right middle cerebral artery; Additional info:/i63.511 cerebralinfarction due to unspecified occlusion or stenosis of right middle cerebralarteryTECHNIQUE:Imaging protocol: Computed tomography angiography of the neck with intravenouscontrast.3D rendering: MIP and/or 3D reconstructed images were created by thetechnologist.Radiation optimization: All CT scans at this facility use at least one of thesedose optimization techniques: automated exposure control; mA and/or kVadjustment per patient size (includes targeted exams where dose is matched toclinical indication); or iterative reconstruction.Contrast material: OMNIPAQUE 300; Contrast volume: 100 ml; Contrast route: IV; COMPARISON:BRAIN/NECK CTA 11/19/2019 6:45 PMRADIATION DOSE METRICS:Total DLP: 591.98 mGy-cmFINDINGS:Right common carotid artery: No stenosis. No dissection or occlusion.Right internal carotid artery: No stenosis of the extracranial segment. Nodissection or occlusion.Right external carotid artery: No occlusion or stenosis of the origin. Right vertebral artery: No stenosis. No dissection or occlusion.Left common carotid artery: No stenosis. No dissection or occlusion.Left internal carotid artery: No stenosis of the extracranial segment. Nodissection or occlusion.Left external carotid artery: No occlusion or stenosis of the origin. Left vertebral artery: No stenosis. No dissection or occlusion.Bones/joints: There are healed fractures of the right 1st through 3rd ribs.There isdegenerative change of the C5-C6 and C6-C7 disc spaces with posteriorspondylosis and hypertrophic change of uncovertebral joints with moderate rightC6 foraminal stenosis.Soft tissues: Normal. No significant soft tissue swelling.REFERENCES:NASCET CRITERIA. The degree of internal carotid artery stenosisis based onNASCET criteria. Normal is no stenosis. Mild is less than 50% stenosis.Moderate is 50-69%stenosis. Severe is 70% to 99% stenosis. Total occlusion isno detectable patent lumen. IMPRESSION:CT Angiography Head With ContrastPatient is status post a right squamosal temporal/frontal/parietal craniectomy.There is a large poor encephalic cyst arising from the posterior body rightlateral ventricle extending to the middle cranial fossa/temporal horn. There issecondary displacement of the distal M1 and proximal M2 segments of the middlecerebral artery.CT Angiography Neck With ContrastThere is no hemodynamically significant stenosis.Armando Kidd MD On 04/07/2020 16:39:21; [id number] by: Armando Kidd MDDictated Date/time: 04/07/20 16:39Electronically Signed by: Armando Kidd MD 04/07/2016:39FINAL REPORT [facility][QL] CMP W/[id number] 12:30:00 Test Item Value Reference Range Interpretation Comments GLUCOSE; Normal 116 mg/dl 65-139 N Non-fasting (test code = reference inter lynette 1547-9) UREA NITROGEN 11 mg/dl 7-25 N (BUN) (test code = UREA NITROGEN (BUN)) CREATININE (test 0.92 mg/dl 0.60-1.35 N code = CREATININE) eGFR NON- 103 {ML/MIN/1.7} > OR = 60 N NAURUAN (test code = eGFR NON-) eGFR 119 {ML/MIN/1.7} > OR = 60 N NAURUAN (test code = eGFR ) BUN/CREATININE NOT APPLICABLE 6-22 RATIO (test code = BUN/CREATININE RATIO) SODIUM (test code 139 mmol/L 135-146 N = SODIUM) POTASSIUM (test 4.1 mmol/L 3.5-5.3 N code = POTASSIUM) CHLORIDE (test 104 mmol/L 98-110 N code = CHLORIDE) CARBON DIOXIDE 25 mmol/L 20-32 N (test code = CARBON DIOXIDE) CALCIUM (test code 9.7 mg/dl 8.6-10.3 N = CALCIUM) PROTEIN, TOTAL 7.3 g/dl 6.1-8.1 N (test code = PROTEIN, TOTAL) ALBUMIN (test code 4.4 g/dl 3.6-5.1 N = ALBUMIN) GLOBULIN (test 2.9 {G/DL CALC} 1.9-3.7 N code = GLOBULIN) ALBUMIN/GLOBULIN 1.5 {CALC} 1.0-2.5 N RATIO (test code = ALBUMIN/GLOBULIN RATIO) BILIRUBIN, TOTAL; 0.3 mg/dl 0.2-1.2 N Normal (test code = 20991-6) ALKALINE 76 u/l 36-130 N PHSPHATASE (test code = ALKALINE PHSPHATASE) AST; Normal (test 15 u/l 10-40 N code = 1916-6) ALT; Normal (test 23 u/l 9-46 N SPECIMEN R ECEIVED code = 1742-6) DATE AND TIME : [facility][QL] SED RATE BY MODIFIED [id number] 12:30:00 Test Item Value Reference Range Interpretation Comments SED RATE BY MODIFIED 14 mm/h < OR = 15 N SPECIME N RECEIVED DATE TAM (test code AND TI ME: = SED RATE BY MODIFIED TAM) [facility][QL] CBC (INCLUDES DIFF/PLT)2020-03-15 12:30:00 Test Item Value Reference Range Interpretation Comments WHITE BLOOD CELL 4.5 3.8-10.8 N COUNT (test code = {Thousand/u} WHITE BLOOD CELL COUNT) RED BLOOD CELL COUNT 5.54 4.20-5.80 N (test code = RED {Million/uL} BLOOD CELL COUNT) HEMAGLOBIN; Normal 15.3 g/dl 13.2-17.1 N (test code = 23801-4) HEMATOCRIT; Normal 46.3 % 38.5-50.0 N (test code = 4544-3) MCV; Normal (test 83.6 fL 80.0-100.0 N code = 787-2) MCHC; Normal (test 33.0 g/dl 32.0-36.0 N code = 97385-1) RDW; Above High 15.7 % 11.0-15.0 Threshold (test code = 788-0) PLATELET COUNT; 277 140-400 N Normal (test code = {Thousand/u} 777-3) MPV; Normal (test 10.0 fL 7.5-12.5 N code = 06469-7) ABSOLUTE NEUTROPHILS 2538 6543-6604 N (test code = {cells/uL} ABSOLUTE NEUTROPHILS) ABSOLUTE LYMPHOCYTES 8732 698-2957 N (test code = {cells/uL} ABSOLUTE LYMPHOCYTES) [...] Normal 7.4 % N (test code = 21018-6) EOSINOPHILS; Normal 2.2 % N (test code = 67526-4) BASOPHILS; Normal 0.7 % N SPECIMEN R ECEIVED (test code = DATE AND TIME: 35245-9) [id number] [facility][QL] C-REACTIVE [id number] 12:30:00 Test Item Value Reference Range Interpretation Comments C-REACTIVE PROTEIN 3.6 mg/L <8.0 N SPECIMEN RECEIVED DATE (test code = AND TIME: 5849306 C-REACTIVE PROTEIN) [facility][U] XRAY SHOULDER MIN 2 VWS RIGHT [id number] 11:09:00Images acquired, not reported on this accession number.[facility] EvcoeddapjCUIEXEFZDB3024-06-85 15:19:0089[facility]annHEMATOLOGY 2020-02-12 15:19:00 Test Item Value Reference Range Interpretation Comments PT (test code = PT) 23.3 s 12.0-14.7 [facility] AidzacgMHPPYGWQVT4936-67-06 15:19:00 Test Item Value Reference Range Interpretation Comments INR (test code = INR) 2.03 1 0.85-1.17 [facility] BooqkwxWLBRHTEBUF7168-57-54 15:19:0026.8[facility] HermannCHEM PANEL 2020-02-12 09:57:0096[facility] HermannCHEM VLUQJ6106-15-81 09:57:0010[facility] HermannCHEM OHAXS0560-80-27 09:57:000.70[facility]annCHEM SQEVG3443-70-92 09:57:50612Tearvrqk HermannCHEM VDOMH3912-87-43 09:57:004.4[facility] HermannCHEM DERWX7158-16-99 09:57:70539Zpzbsjgq HermannCHEM XWMGD0563-39-22 09:57:0023 [facility]annCHEM RAYYO4885-04-62 09:57:009.0[facility] HermannCHEM PANEL 2020-02-12 09:57:0012.4[facility] HermannCHEM YZUVB9324-10-35 09:57:67358Wzlxjlam DqrkrmkRRUHNAIZIC4248-79-65 09:57:0058.6[facility] JdluwggPSZEQDOJEG7388-28-18 09:57:0031.9[facility] BndrpknTZELUTYQBW5470-61-10 09:57:006.8[facility] LMCLKXSWQQ3741-29-76 09:57:002.2[facility] LfscyquEMUPZSPNTC7396-69-40 09:57:000.5 [facility] RhjtcnwDCHLXOTNSR0854-05-75 09:57:002.5[facility] HermannHEMATOLOGY 2020-02-12 09:57:001.4[facility] LjlsuczKHBOLOHOQL6980-87-42 09:57:000.3[facility] BwgeuijUUEHETIQQV9150-25-31 09:57:000.1[facility] XrburmzNHMEOBHLOH6916-16-90 09:57:004.3[facility] KugoycbYUUTLPXUZL4374-65-11 09:57:003.96[facility] JXQQMNBUPJ2477-95-06 09:57:0011.0[facility] XpsypjwAHUCDHLYFM5917-56-33 09:57:00 33.1[facility] TgbxgikRYJTZIEXIR2912-39-30 09:57:0083.6[facility] HermannHEMATOLOGY 2020-02-12 09:57:00 Test Item Value Reference Range Interpretation Comments MCH (test code = MCH) 27.9 pg 27.0-31.0 [facility] NlyzdhhXGXZIHLGSH2996-34-52 09:57:0033.4[facility] HermannHEMATOLOGY 2020-02-12 09:57:0015.1[facility] JqaldauYYZTGPWVFP8889-00-38 09:57:52617Winrbqsh DwsgzgcRIRVCTNLIN8105-73-11 09:57:006.9[facility] KdguqrtCMRVEKQLIP8386-42-92 07:31:00 Test Item Value Reference Range Interpretation Comments PT (test code = PT) 27.3 s 12.0-14.7 [facility] ZdrhdqwBOLZWRMIVI8375-30-79 07:31:00 Test Item Value Reference Range Interpretation Comments INR (test code = INR) 2.48 1 0.85-1.17 [facility] LjsoybqCFDBIENGCH7388-81-69 10:36:00 Test Item Value Reference Range Interpretation Comments PT (test code = PT) 28.5 s 12.0-14.7 [facility] BkfopkvHEPNNMIALQ6784-76-79 10:36:00 Test Item Value Reference Range Interpretation Comments INR (test code = INR) 2.62 1 0.85-1.17 [facility] ErniaayRXBHJQURZA6891-73-65 10:36:0017.0[facility]annBLOOD BANK RFFNFZY1466-42-38 08:25:00Negative (02/09/20 3:25 AM)[facility] HermannCHEM PANEL 2020-02-08 10:03:0096[facility] HermannCHEM JBLBM3622-42-26 10:03:0011[facility] HermannCHEM ZCXVG0311-99-39 10:03:000.76[facility] HermannCHEM PQGJD2328-83-26 10:03:57122Klinyatr HermannCHEM ZKWYA9299-70-83 10:03:003.7[facility] HermannCHEM AFTAR5941-86-54 10:03:0099[facility]annCHEM FMNZT4882-14-92 10:03:0028 [facility]annCHEM ZLXKL4977-64-01 10:03:009.4[facility] HermannCHEM PANEL 2020-02-08 10:03:0010.7[facility] HermannCHEM CJEPX0739-08-95 10:03:84183Wcsdfxud YqwyobgNUQSRHMFWO3292-92-59 10:03:0058.1[facility] YealocwLQPZHQBYUR3593-23-30 10:03:0031.2[facility] YmkvabtBGSTRYSEPY5020-36-74 10:03:006.8[facility] ECAVQEGVAL7935-42-50 10:03:003.1[facility] IdcrjznYUGTNZLHWY6427-62-00 10:03:000.8 [facility] ChojadmDGTUWLXOEI6768-69-64 10:03:002.3[facility] HermannHEMATOLOGY 2020-02-08 10:03:001.2[facility] ObtmslmCQOAUTPHVN7291-14-58 10:03:000.3[facility] JpxbqdfKJWYMBJOEP7824-05-25 10:03:000.1[facility] ChnixqlSOGKJKWVVK6409-93-51 10:03:004.0[facility] OymhuicECPGHQKMPC3720-23-67 10:03:004.27[facility] LJFJZOHGZX2364-65-69 10:03:0011.9[facility] OblhovbWIFEUSPTEE8273-61-00 10:03:00 34.8[facility] IoceiqlQFNDWVCOKJ5070-69-29 10:03:0081.5[facility] HermannHEMATOLOGY 2020-02-08 10:03:00 Test Item Value Reference Range Interpretation Comments MCH (test code = MCH) 28.0 pg 27.0-31.0 [facility] EdceugpKDDPCQXUHF1105-37-50 10:03:0034.3[facility] HermannHEMATOLOGY 2020-02-08 10:03:0014.9[facility] JflrqoxXNUWTWVVMJ5310-96-40 10:03:87958Cdbfzxnz GbjgnoyXAMHVWZDMZ0335-22-90 10:03:006.8[facility] IiiuzsjRRIIDIAHMX2041-76-11 16:48:0016.1[facility] ZmhkxewDWXDRFLIWD7822-26-66 16:48:00 Test Item Value Reference Range Interpretation Comments Alma Acosta TND (test code = Alma Tr 1130 1 TND) [facility]annCHEM JDJLO5815-65-30 09:39:0097[facility] HermannCHEM PANEL 2020-02-07 09:39:0012[facility] HermannCHEM SLMCM7469-03-64 09:39:000.76[facility] HermannCHEM RKBBD0840-81-65 09:39:90847Idwvzsno HermannCHEM UHDQG7265-40-86 09:39:004.0[facility] HermannCHEM CEXTP9513-01-08 09:39:0097[facility]annCHEM EYWNG7440-26-73 09:39:0025[facility] HermannCHEM IFDZQ5734-70-28 09:39:009.3 [facility]annCHEM GDWKK7647-91-23 09:39:0014.0[facility] HermannCHEM PANEL 2020-02-07 09:39:39235Jhwyfswd TynopcmJBGSYIWRNI6234-20-25 09:39:0070.6[facility] BeitefyEMBHRMEWSC2129-73-31 09:39:0021.3[facility] JpzfurgOZZNGDFSSK7951-02-33 09:39:004.9[facility] EqaxcyfYLTLLLVHJV4112-65-96 09:39:002.7[facility] JXPHEGRTVJ2645-22-41 09:39:000.5[facility] HdlfizhLLCKUZYQOP6157-19-43 09:39:003.3 [facility] WcalaenTSUSDRCZED6300-30-90 09:39:001.0[facility] HermannHEMATOLOGY 2020-02-07 09:39:000.2[facility] IjyoqbuSFTGFSBGTG2394-17-64 09:39:000.1[facility] TpfhffxDCNNCZXXKL7880-91-95 09:39:004.6[facility] PjvvwpgGTCINBMSMS0974-78-13 09:39:004.83[facility] GgumlvxISNFAGWOAL9107-46-25 09:39:0013.3[facility] SCRKWJKRNP0423-27-32 09:39:0039.8[facility] PfpovweYKLXBSIHRJ4314-19-46 09:39:00 82.4[facility] MjognaqVGRJNEHZZI1171-69-01 09:39:00 Test Item Value Reference Range Interpretation Comments MCH (test code = MCH) 27.6 pg 27.0-31.0 [facility] QtfaaebOQMOBFCMJK7755-04-77 09:39:0033.5[facility] HermannHEMATOLOGY 2020-02-07 09:39:0014.9[facility] IxgosqdKBIKEQALFO9538-15-57 09:39:60286Grgcorhe HbbaxffOZKOXNJXMY1556-38-74 09:39:006.8[facility] GENTAMICIN:SUSC:PT:ISOLATE:ORDQN:IQL1561-59-96 16:16:00Pseudomonas aeruginosa [facility] HermannCHEM LECRN0099-63-66 10:57:007.9[facility] HermannCHEM PANEL 2020-02-06 10:57:002.8[facility] HermannCHEM ZCGFY8325-64-75 10:57:005.1[facility] HermannCHEM BEZPV1688-54-04 10:57:00 Test Item Value Reference Range Interpretation Comments A/G Ratio (test code = A/G Ratio) 0.5 1 0.7-1.6 [facility]annCHEM XFJKX9621-04-47 10:57:0019[facility] HermannCHEM PANEL 2020-02-06 10:57:0016[facility] HermannCHEM VPUIF0603-56-96 10:57:87606Jispixxb HermannCHEM YVMPA3729-90-89 10:57:000.1[facility] HermannCHEM RNOQI2803-10-79 10:57:00<0.1[facility] LadoimeXEUPREHTEW1984-93-42 10:57:00 Test Item Value Reference Range Interpretation Comments PTT (test code = PTT) 66.5 s 22.9-35.8 [facility] TinkdnjDZXIYFSPMS9983-72-52 10:57:00Negative *NA*(02/06/20 5:57 AM) [facility] HefpscuIJDNWBDCUH9038-19-40 10:57:0054.8[facility]annBLOOD BANK CAEQTSQ3718-43-24 19:35:00Negative (02/05/20 2:35 PM)[facility]annCHEM PANEL 2020-02-05 19:35:009.2[facility] HermannCHEM SCTOB0050-21-70 19:35:003.1[facility]annCHEM DQIXE0141-24-01 19:35:0025[facility]annCHEM OYZSM8287-87-54 19:35:0010[facility] HermannCHEM EPYSG2089-16-16 19:35:85789Envwivxf HermannCHEM TUQNM9298-44-74 19:35:000.1[facility] HermannCHEM SPWSD1825-31-03 19:35:00 Test Item Value Reference Range Interpretation Comments B/C Ratio (test code = B/C Ratio) 19 1 6-25 [facility]annCHEM VAXRI1234-31-45 19:35:006.1[facility]annCHEM PANEL 2020-02-05 19:35:00 Test Item Value Reference Range Interpretation Comments A/G Ratio (test code = A/G Ratio) 0.5 1 0.7-1.6 [facility]annCHEM RXYSZ2642-47-55 19:35:001.1[facility]annHEMATOLOGY 2020-02-05 19:35:00 Test Item Value Reference Range Interpretation Comments PTT (test code = PTT) 53.9 s 22.9-35.8 [facility] QswyzunQDDIWHDSIJ9982-57-73 19:35:0068[facility]annHEMATOLOGY 2020-02-05 19:35:000.1[facility] GdmuugpTCNMLQNESA5119-97-45 19:35:0065.0[facility] HermannMOLECULAR GUWNZUBRCM1619-76-48 19:35:00Not Detected (02/05/20 2:35 PM) [facility]annMOLECULAR BQPQPTFVYA2665-01-23 19:35:00Detected *ABN*(02/05/20 2:35 PM)[facility] HermannMOLECULAR IGGSFEYNFA6931-58-98 19:35:00Not Detected (02/05/20 2:35 PM)[facility] HermannMOLECULAR KTTNWQQMAJ6662-48-48 19:35:00Not Detected (02/05/20 2:35 PM)[facility] HermannMOLECULAR QYKOIHZHKV0198-61-90 19:35:00Not Detected (02/05/20 2:35 PM)[facility] HermannMOLECULAR DIAGNOSTIC 2020-02-05 19:35:00Not Detected (02/05/20 2:35 PM)[facility] HermannMOLECULAR ILVINERMSE5350-57-74 19:35:00Not Detected (02/05/20 2:35 PM)[facility] MOLECULAR YXOTDVIZAY3614-51-78 19:35:00Not Detected (02/05/20 2:35 PM)[facility] HermannMOLECULAR IKIINQAJDD2637-34-79 19:35:00Not Detected (02/05/20 2:35 PM) [facility]annMOLECULAR KWYAWLCGTZ6633-01-08 19:35:00Detected *ABN*(02/05/20 2:35 PM)[facility] HermannMOLECULAR QFRPSUYZTP3484-43-36 19:35:00Not Detected (02/05/20 2:35 PM)[facility] HermannMOLECULAR DOMYCCNIJW5700-82-62 19:35:00Not Detected (02/05/20 2:35 PM)[facility]annMOLECULAR MHIPYLOFUQ1453-40-45 19:35:00Detected *ABN*(02/05/20 2:35 PM)[facility]annMOLECULAR DIAGNOSTIC 2020-02-05 19:35:00Not Detected (02/05/20 2:35 PM)[facility] HermannMOLECULAR MQOKHYUUNB8090-39-42 19:35:00Not Detected (02/05/20 2:35 PM)[facility] SH[facility] MIN 2 VWS RIGHT [id number] 11:08:00Images acquired, not reported on this accession number.[facility]iciansHEMATOLOG[facility] 2020-01-09 10:58:00 Test Item Value Reference Range Interpretation Comments PT (test code = PT) 24.5 s 12.0-14.7 [facility]ballDyigvxpAPRVPXWDOA6595-23-60 10:58:00 Test Item Value Reference Range Interpretation Comments INR (test code = INR) 2.17 1 0.85-1.17 [facility] JjadyhmVWHRTSJIBM0048-08-04 11:35:00 Test Item Value Reference Range Interpretation Comments PT (test code = PT) 22.7 s 12.0-14.7 [facility] AaybefmUGKTOPBTIP8085-57-02 11:35:00 Test Item Value Reference Range Interpretation Comments INR (test code = INR) 1.97 1 0.85-1.17 [facility] HermannCARDIAC ACTBMAX9844-92-24 19:19:00<0.02[facility] HermannCHEM UNKDR0991-58-83 10:56:0033[facility] HermannCHEM GWIEC7600-65-19 10:56:002.9 [facility]annCHEM XFISA7291-66-54 10:56:88795Stdystrl HermannCHEM PANEL 2020-01-05 10:56:0077[facility] HermannCHEM BYHPK0715-27-23 10:56:0010[facility] HermannCHEM ASLLO4140-00-85 10:56:000.79[facility] HermannCHEM WSHPH9399-12-25 10:56:81567Kvpvwzbv HermannCHEM NHUWS4904-06-14 10:56:004.2[facility] HermannCHEM IUOMJ0216-07-62 10:56:93233Pdtzfhnu HermannCHEM JHJAQ7534-34-22 10:56:0023 [facility]annCHEM ZQTVB7465-69-24 10:56:009.6[facility] HermannCHEM PANEL 2020-01-05 10:56:000.3[facility] HermannCHEM MIBWL4076-48-00 10:56:007.6[facility] HermannCHEM MFYLM8623-40-03 10:56:0023[facility]annCHEM VRBCM0404-65-99 10:56:0016.2[facility] HermannCHEM ESSAT8634-31-60 10:56:00 Test Item Value Reference Range Interpretation Comments B/C Ratio (test code = B/C Ratio) 13 1 6-25 [facility]annCHEM OATHQ5492-72-38 10:56:004.7[facility] HermannCHEM PANEL 2020-01-05 10:56:00 Test Item Value Reference Range Interpretation Comments A/G Ratio (test code = A/G Ratio) 0.6 1 0.7-1.6 [facility]annCHEM YUDRI1065-64-53 10:56:53025Oglmfqnw HermannHEMATOLOGY 2020-01-05 10:56:0045.7[facility] RfbhjusXTEILFMKEG3116-05-41 10:56:0036.2[facility] UyytmuxWSIWKZZLHN3324-63-48 10:56:008.7[facility] VkgjeetYZJTIYQYIJ6416-17-93 10:56:008.4[facility] GmnsdipVTDBOELWIS0032-07-52 10:56:001.0[facility] SQVVZHUNXJ7572-89-48 10:56:002.0[facility] VqlwdajLMVVAQNHTO5900-85-07 10:56:001.6 [facility] EqmslfnMLNANKKCDR5405-52-18 10:56:000.4[facility] HermannHEMATOLOGY 2020-01-05 10:56:000.4[facility] YzbtderVAPVRPGKUF0273-75-39 10:56:004.3[facility] KpcprofNKUHVPLHWL1811-18-08 10:56:004.08[facility] DdlrlgqRDXLYNEOZL0002-17-55 10:56:0012.1[facility] JhnprceDIUQHWMDRV7696-24-01 10:56:0035.4[facility] NDGFWHLMVP9314-51-64 10:56:0086.7[facility] CseapsfZMTIXZSPGR5816-64-73 10:56:00 Test Item Value Reference Range Interpretation Comments MCH (test code = MCH) 29.6 pg 27.0-31.0 [facility] ZevtpggDRRKFTKLVF5222-14-31 10:56:0034.2[facility] HermannHEMATOLOGY 2020-01-05 10:56:0015.6[facility] JlfnaonWIWLDOOEVF4624-62-00 10:56:59430Wnbbvbxw LaxeiztXAWBAQBDVU5829-76-09 10:56:007.7[facility] LgpvjvnIOJJHSEUQY5644-16-50 10:56:00 Test Item Value Reference Range Interpretation Comments PT (test code = PT) 25.2 s 12.0-14.7 [facility] WjufenqCETBBPLIEH9392-33-07 10:56:00 Test Item Value Reference Range Interpretation Comments INR (test code = INR) 2.24 1 0.85-1.17 [facility]annCHEM ERFYP1669-20-08 22:00:0090[facility] HermannCHEM PANEL 2020-01-04 22:00:0010[facility]annCHEM ICLWB8798-52-81 22:00:000.82[facility]annCHEM OAAAQ2411-12-06 22:00:97748Moodxyqm HermannCHEM ISWTQ6726-20-74 22:00:003.8[facility]annCHEM KWHLC3195-91-45 22:00:93276Qzdetvdg HermannCHEM LQRUK2008-12-24 22:00:0026[facility]annCHEM FIGAE0645-28-65 22:00:009.4 [facility]annCHEM VPUZD6289-40-80 22:00:0013.8[facility] HermannCHEM PANEL 2020-01-04 22:00:98585Bfqttnkn RnhzklbOGBJALMIIC1815-27-42 22:00:0062.0[facility] MdkokapPUVBTGFDGP5631-23-48 22:00:0024.9[facility] LcafodkDPXIHXUNWS3645-09-11 22:00:007.1[facility] IctzxlpMIZIIEQQDI7656-72-31 22:00:005.1[facility] Evgeny YNYDILGHYR4694-09-28 22:00:000.9[facility] QbwvjedCADODHKIVM2171-41-49 22:00:003.5 [facility] UelenygYGFZTLWGVH4927-87-98 22:00:001.4[facility]annHEMATOLOGY 2020-01-04 22:00:000.4[facility] JvjhruqBWXXOGGCSU1724-68-71 22:00:000.3[facility] MwohfxjOFYWWFUNFN6352-36-14 22:00:000.1[facility] SjzxketBPVGRWREIU5820-34-91 22:00:005.6[facility] HgmtexoHXPPCPBTVV9472-51-83 22:00:004.60[facility] MLFHHUODWP5539-03-34 22:00:0013.4[facility] RfallxwVGXZMFPUQH9170-37-11 22:00:00 40.8[facility] GiudkrdFGFWDGHTGG7189-59-75 22:00:0088.8[facility]annHEMATOLOGY 2020-01-04 22:00:00 Test Item Value Reference Range Interpretation Comments MCH (test code = MCH) 29.2 pg 27.0-31.0 [facility] KkfjbssUMIFUCRFET5513-61-79 22:00:0032.9[facility]annHEMATOLOGY 2020-01-04 22:00:0016.3[facility] DzcbwudUWEUOIWDPL0177-67-13 22:00:96281Ujifykyd CbbftmjEVXGZFPGVF3756-51-19 22:00:008.3[facility][U] XRAY SHOULDER MIN 2 VWS RIGHT [id number] 11:25:00Images acquired, not reported on this accession number.[facility] PhysiciansCHEM QWPUG7305-17-98 11:34:0028 [facility]annCHEM CCDBM7407-22-55 11:34:002.9[facility]annCHEM PANEL 2019-12-29 11:34:55299Sjgfhxuo HermannCHEM HLLRM5335-78-64 11:34:0081[facility]annCHEM VKBZC0553-85-97 11:34:0012[facility]annCHEM ABITO6237-62-73 11:34:000.77[facility]annCHEM IUYIA4870-74-96 11:34:10759Fhlvkdfn HermannCHEM XOIBM6330-50-17 11:34:004.1[facility]annCHEM HVWPG3672-64-79 11:34:92500 [facility]annCHEM JQCFS9935-22-01 11:34:0024[facility]annCHEM PANEL 2019-12-29 11:34:009.9[facility]annCHEM CIPDP1515-76-65 11:34:000.4[facility] HermannCHEM EXAAU4013-27-37 11:34:007.6[facility]annCHEM WKTDA1222-02-89 11:34:0019[facility]annCHEM ZCFWP0393-77-90 11:34:0014.1[facility]annCHEM GZXWV1894-49-33 11:34:00 Test Item Value Reference Range Interpretation Comments B/C Ratio (test code = B/C Ratio) 16 1 6-25 [facility]annCHEM VBPWU2440-79-89 11:34:004.7[facility] HermannCHEM PANEL 2019-12-29 11:34:00 Test Item Value Reference Range Interpretation Comments A/G Ratio (test code = A/G Ratio) 0.6 1 0.7-1.6 [facility]annCHEM NXPUB5169-15-93 11:34:05188Crzwixon HermannHEMATOLOGY 2019-12-29 11:34:0050.7[facility] WotuazdIJWXLGLSLX7701-88-60 11:34:0034.1[facility] BybibbaYBNRYOTCKW5771-71-35 11:34:007.3[facility] HxifxuyAFIDYNKPMJ0876-75-14 11:34:007.0[facility] TtmlfbdRPTDGTEPYV1139-84-12 11:34:000.9[facility] FAQZMETFSQ1391-32-71 11:34:001.9[facility] TjcxrdgMUZONLGUFA9564-11-33 11:34:001.3 [facility] TvipgcoDBKSGMHKCN7100-14-57 11:34:000.3[facility] HermannHEMATOLOGY 2019-12-29 11:34:000.3[facility] RpctsinRFOPGGMQUP2157-54-19 11:34:003.8[facility] SynvibtIEVIFZZBYQ6352-06-30 11:34:004.15[facility] YdmnllcNCZZQJPRQL7029-19-12 11:34:0012.2[facility] RmqxfzeTGXTLDGBKE1621-06-17 11:34:0036.9[facility] MDHRHPTLWC6382-27-52 11:34:0088.9[facility] UmdegymQVTKAKCIZY1567-36-34 11:34:00 Test Item Value Reference Range Interpretation Comments MCH (test code = MCH) 29.4 pg 27.0-31.0 [facility] LsahsdaDTPIHBSTGC1763-17-77 11:34:0033.0[facility] HermannHEMATOLOGY 2019-12-29 11:34:0016.7[facility] ExtazlmDOKAMABAVD8205-40-26 11:34:86822Gvlknunt WxcevasGKCVGPZQQB0030-24-96 11:34:007.6[facility]annURINE AND TNZBR9473-93-41 11:33:00Yellow *NA*(12/26/19 5:33 AM)[facility] NSBHH4248-82-61 11:33:00Clear (12/26/19 5:33 AM)[facility] NMPEL8798-56-23 11:33:00 Test Item Value Reference Range Interpretation Comments UA Spec Grav (test code = UA Spec 1.015 1 Grav) [facility] QSCJU1873-03-27 11:33:00 Test Item Value Reference Range Interpretation Comments UA pH (test code = UA pH) 5.5 1 5.0-8.0 [facility] BNULA8368-30-52 11:33:00Negative *NA*(12/26/19 5:33 AM) [facility] UCRCE3902-31-28 11:33:00Negative (12/26/19 5:33 AM) [facility] NVIAG4801-14-28 11:33:000.2[facility] NQCWB5207-42-63 11:33:00Negative (12/26/19 5:33 AM)[facility] ISRDP2883-77-58 11:33:00Negative (12/26/19 5:33 AM)[facility] YRVZA5706-08-19 11:33:00None Seen (12/26/19 5:33 AM)[facility]annCHEM PANEL 2019-12-22 11:01:0027[facility]annCHEM BKEKG9878-50-02 11:01:002.2[facility]annCHEM JPDST3547-24-14 11:01:23476Oedsubub HermannCHEM CPPSU9283-73-16 11:01:000.3[facility]annCHEM ICRRG5680-04-66 11:01:007.3[facility]annCHEM UFPRA9850-22-59 11:01:0024[facility]annCHEM UBFIK8830-94-86 11:01:00 Test Item Value Reference Range Interpretation Comments B/C Ratio (test code = B/C Ratio) 18 1 6-25 [facility]annCHEM MXYUU6839-75-87 11:01:005.1[facility]annCHEM PANEL 2019-12-22 11:01:00 Test Item Value Reference Range Interpretation Comments A/G Ratio (test code = A/G Ratio) 0.4 1 0.7-1.6 [facility] YnhceasDWRDWDIQHP3942-43-65 11:01:000.1[facility] HermannCHEM PANEL 2019-12-20 11:39:002.2[facility] HermannCHEM AJJYG7753-04-07 11:39:004.4[facility] NjudyxsNTCBWURDAQ6686-68-30 11:39:000.1[facility] HermannCHEM KIKZH0977-31-91 12:05:0015[facility]annCHEM JQNUQ4446-34-99 12:05:000.88[facility] HermannCHEM YBUNV7096-14-58 12:05:74251Tjnswhjg HermannCHEM BTLXI1495-96-43 12:05:004.6 [facility]annCHEM ZJBYY2056-91-20 12:05:84764Rveibpys HermannCHEM PANEL 2019-12-19 12:05:0026[facility]annCHEM YJZOH0068-49-51 12:05:008.6[facility] HermannCHEM BOEON6981-73-01 12:05:0010.6[facility]annCHEM EAYKF8482-11-34 12:05:29252Stjhvjee OdvchayRITVLLVFLE8339-00-33 12:05:00 Test Item Value Reference Range Interpretation Comments PT (test code = PT) 28.5 s 12.0-14.7 [facility] RhnmicoMVRTYATGPV3351-99-92 12:05:00 Test Item Value Reference Range Interpretation Comments INR (test code = INR) 2.62 1 0.85-1.17 [facility]annCHEM FSIKY5297-74-98 12:05:32980Ooxdoukj HermannCHEM PANEL 2019-12-18 12:28:93815Tnylzfet HermannCHEM KOZDD7544-41-75 12:28:0015[facility]annCHEM FSISH1644-67-65 12:28:000.90[facility]annCHEM XLHBH2180-14-68 12:28:23240Gqpdzwgw HermannCHEM KXSPN2585-22-78 12:28:004.8[facility] HermannCHEM YKFNS9587-15-46 12:28:94461Gloeuzut HermannCHEM FVRFC3717-48-58 12:28:0026 [facility]annCHEM OYWAE8545-66-04 12:28:008.5[facility] HermannCHEM PANEL 2019-12-18 12:28:0010.8[facility] HermannCHEM QQCSX8735-58-63 12:28:70995Cpqiejud LtbdcthUVDHJXNGZC1806-17-64 12:28:0060.1[facility] HnsplceGFFJAVIJVS8108-22-66 12:28:0025.5[facility] WlvvjncVAHMNNJFFJ4233-30-69 12:28:0010.3[facility] OEEEMFXPBU8972-29-19 12:28:003.3[facility] HjyicefRXULIUXKGQ6271-74-29 12:28:000.8 [facility] VajhmucFYMZEFBYVT8084-34-12 12:28:004.0[facility] HermannHEMATOLOGY 2019-12-18 12:28:001.7[facility] XfxrtfaWWRLMPXWRO8509-57-90 12:28:000.7[facility] CqotoetSQSEMWTZWY1078-24-29 12:28:000.2[facility] GogmqrpCKVRFQIECK7313-69-35 12:28:000.1[facility] YolbyigNVGXATAAQT0641-79-09 12:28:00 Test Item Value Reference Range Interpretation Comments PT (test code = PT) 25.8 s 12.0-14.7 [facility] FhgswxiCXXONKQMLM1733-18-39 12:28:00 Test Item Value Reference Range Interpretation Comments INR (test code = INR) 2.31 1 0.85-1.17 [facility] ItvntceMYXFDEAQJK5783-87-01 12:28:006.6[facility] HermannHEMATOLOGY 2019-12-18 12:28:003.36[facility] KilwgdxEYHLOZJAMD3976-36-10 12:28:0010.2[facility] OtlqketXRDSVPPKAN3172-01-17 12:28:0030.8[facility] ZwtmzziTDCCWTVPNY0645-22-15 12:28:0091.5[facility] UzanfczANLIKHLKBI0189-74-68 12:28:00 Test Item Value Reference Range Interpretation Comments MCH (test code = MCH) 30.3 pg 27.0-31.0 [facility] GqsqpwhCQFUROMRJA0185-53-90 12:28:0033.1[facility] HermannHEMATOLOGY 2019-12-18 12:28:0018.1[facility] PovwhmtPADULCUVFF7767-25-06 12:28:43105Xllyhfeq PzmkcppOWQGUAHLVU8011-44-41 12:28:007.2[facility] HermannCHEM OSENR2562-11-72 11:18:66035Zlqsrrgw HermannCHEM YINBJ0095-06-43 11:18:0021[facility]annCHEM LYJLE7575-10-36 11:18:000.83[facility] HermannCHEM SUXBV6837-95-92 11:18:14897 [facility]annCHEM ATOGT3461-80-29 11:18:004.2[facility] HermannCHEM PANEL 2019-12-17 11:18:87881Icyqaivz HermannCHEM NDYPF8363-63-49 11:18:0025[facility] HermannCHEM KHCNA2810-02-18 11:18:008.5[facility] HermannCHEM NMPOG8811-77-98 11:18:0011.2[facility] HermannCHEM EHYIO2789-56-11 11:18:56833Egxdshzf Evgeny CLJNLCCWDQ6064-48-14 11:18:007.0[facility] KyjygccBMOBIFSGPY0315-91-54 11:18:00 2.95[facility] FprtvqbCIIQWMRWUF3874-07-02 11:18:008.9[facility] HermannHEMATOLOGY 2019-12-17 11:18:0026.9[facility] SdnebsuFYAZCJEMHQ4468-04-21 11:18:0091.3[facility] QvuoarxVWWCBNSVUT4433-35-22 11:18:00 Test Item Value Reference Range Interpretation Comments MCH (test code = MCH) 30.3 pg 27.0-31.0 [facility] NgxuglqEHJWAZSXXW6302-75-20 11:18:0033.2[facility] HermannHEMATOLOGY 2019-12-17 11:18:0017.5[facility] RytqzgcGSTJJPRLYB4293-14-97 11:18:94251Bwpmqkrl BrlkwnrQWKRWKMTTV4264-63-37 11:18:007.2[facility] KyebivjZIIIMGOIHJ5480-06-44 11:18:00 Test Item Value Reference Range Interpretation Comments PT (test code = PT) 26.9 s 12.0-14.7 [facility] SjzjovsHCFIOHKROZ5458-38-10 11:18:00 Test Item Value Reference Range Interpretation Comments INR (test code = INR) 2.43 1 0.85-1.17 [facility] JtwckoePEMAWFJGTK7203-88-05 11:18:0064.4[facility] HermannHEMATOLOGY 2019-12-17 11:18:0022.1[facility] IwmohugSNJPASFTGU8703-36-80 11:18:009.2[facility] DggifweKDGJFRUPGA7434-59-47 11:18:003.5[facility] KvwjqobIJVFHPUMBD5860-40-32 11:18:000.8[facility] KfxsuxmDLYLTHRZZI5146-40-70 11:18:004.5[facility] BMKROHLZOX2403-38-20 11:18:001.5[facility] HwoofhaYCVACKBVDR9951-65-18 11:18:000.6 [facility] ShpkfpqOSGLSHFTOB5605-10-80 11:18:000.2[facility] HermannHEMATOLOGY 2019-12-17 11:18:000.1[facility] AmjyahaQJCHYMPTTC0311-78-27 12:17:005.4[facility] AwboqelMIGEPNDRPF0546-80-71 12:17:002.79[facility] NcigaoeWEDORBVOJJ1939-59-03 12:17:008.6[facility] BedktogLMTNYLEFTT2189-71-49 12:17:0025.3[facility] TDZFLNXDMK9885-91-22 12:17:0090.5[facility] RxldvwqOCREKGJDPK8708-37-97 12:17:00 Test Item Value Reference Range Interpretation Comments MCH (test code = MCH) 30.7 pg 27.0-31.0 [facility] BhgkswwZXOPYRZJXX1219-86-66 12:17:0034.0[facility] HermannHEMATOLOGY 2019-12-16 12:17:0016.6[facility] SxwlhpsGOUDZNGTOO3836-91-39 12:17:81633Jdgcikkn EoallciKGKZJXMDLW4088-24-62 12:17:007.4[facility] BkrewtfSGXIBAWDCD3541-78-89 12:17:0064.7[facility] AlftnspNVNOOCVPKU3564-43-19 12:17:0022.6[facility] VIYNIAPZBP5405-21-06 12:17:008.6[facility] PspnoctHYZATWMUNS4413-17-37 12:17:003.5 [facility] MmuoipjZGKONMXOFW4148-25-56 12:17:000.6[facility] HermannHEMATOLOGY 2019-12-16 12:17:003.5[facility] IoodmbtZQZVZCHXKJ3013-01-85 12:17:001.2[facility] XlepfcvNBCTJVHIBR9291-88-23 12:17:000.5[facility] IpelillNCQALNSPBQ9022-07-98 12:17:000.2[facility] HqmfvgkXBRVRWAEZO4888-46-39 11:23:000.1[facility] HermannCHEM JCSJF2852-89-68 14:31:002.1[facility] KqnvknhJSDUOEMQBL5432-89-42 02:21:00 Test Item Value Reference Range Interpretation Comments ACT (TEG) Rapid (test code = ACT (TEG) 97 s 86-118 Rapid) [facility]TgjipgvPFZZEKVRNJ5921-77-37 02:21:00 Test Item Value Reference Range Interpretation Comments Split Point Rapid (test code = Split 0.4 min Point Rapid) [facility] TomballYbcikicZLTILOQISO1021-21-03 02:21:00 Test Item Value Reference Range Interpretation Comments R-time Rapid (test code = R-time 0.5 min 0.4-0.7 Rapid) [facility] TomballTtuvkhcMIKHLWMNTJ7672-97-25 02:21:00 Test Item Value Reference Range Interpretation Comments K-time Rapid (test code = K-time 0.8 min 0.6-2.3 Rapid) [facility] JhrednwNADCJIANBP9407-98-29 02:21:00 Test Item Value Reference Range Interpretation Comments Angle Rapid (test code = Angle 83 degrees 64-80 Rapid) [facility]ballMwveuxbNQIZJDCTPO5163-77-88 02:21:00 Test Item Value Reference Range Interpretation Comments Max Amplitude Rapid (test code = Max 83 mm 52-71 Amplitude Rapid) [facility]ballTeijyfaHBEMHDYLKP0460-11-49 02:21:0024.9[facility]annHEMATOLOGY 2019-12-10 02:21:000.4[facility] HermannCHEM ZIZMV2852-10-60 00:57:000.6[facility] EULJEOP7695-60-26 06:57:00Negative (12/09/19 12:57 AM)[facility] NFUHTLP4191-79-22 14:49:00Product available (12/04/19 8:49 AM) [facility] YALJIHZ8137-51-78 14:49:00Product available (12/04/19 8:49 AM)[facility] WUIHUOW8820-60-63 10:20:00Product available (12/04/19 4:20 AM)[facility] WDQCIPF3297-23-59 09:46:00Product available (12/04/19 3:46 AM)[facility]kjercaIWERSUDYVK0112-61-76 09:12:00 Test Item Value Reference Range Interpretation Comments PTT (test code = PTT) 49.9 s 22.9-35.8 [facility]annCHEM ARVIW1245-24-92 06:20:003.3[facility] HermannCHEM PANEL 2019-12-03 06:20:003.3[facility] HermannPARATHYROID CQXPFGS4552-15-73 06:20:001.02 [facility] HermannPARATHYROID VABXZTH6247-12-89 06:20:001.07[facility] FLYUVJPIIG0359-25-01 23:06:0018.9[facility] VenafiannBLOOD BANK OYDJQOC2761-58-60 21:36:00Negative (12/02/19 3:36 PM)[facility]ballIwdueokKSOLXKAOGM5228-66-13 07:05:00 Test Item Value Reference Range Interpretation Comments ACT (TEG) Rapid (test code = ACT (TEG) 105 s 86-118 Rapid) [facility]ballGcafqcwDOPCSBQDGH5629-62-02 07:05:00 Test Item Value Reference Range Interpretation Comments Split Point Rapid (test code = Split 0.4 min Point Rapid) [facility]EfpgwqfDCOZGBLDXB0279-94-44 07:05:00 Test Item Value Reference Range Interpretation Comments R-time Rapid (test code = R-time 0.6 min 0.4-0.7 Rapid) [facility]ballRkrkatmYPKFVUPIDL9794-37-64 07:05:00 Test Item Value Reference Range Interpretation Comments K-time Rapid (test code = K-time 0.8 min 0.6-2.3 Rapid) [facility]ballUlwtbuvZJJABQLOMH3370-75-65 07:05:00 Test Item Value Reference Range Interpretation Comments Angle Rapid (test code = Angle 82 degrees 64-80 Rapid) [facility]ballJfuyhkuLKXHUEBQXL7239-63-09 07:05:00 Test Item Value Reference Range Interpretation Comments Max Amplitude Rapid (test code = Max 83 mm 52-71 Amplitude Rapid) [facility] TomballZcompicSKPSJUFNSE8724-54-04 07:05:0023.6[facility]annHEMATOLOGY 2019-12-02 07:05:000.1[facility] HermannCEFTAZIDIME:SUSC:PT:ISOLATE:ORDQN:JERRICA 2019-12-01 23:46:00Pseudomonas aeruginosaMemorial HermannURINE AND STOOL 2019-12-01 22:56:00Amber *ABN*(12/01/19 4:56 PM)[facility] STOOL 2019-12-01 22:56:00Slight *ABN*(12/01/19 4:56 PM)[facility] STOOL 2019-12-01 22:56:00 Test Item Value Reference Range Interpretation Comments UA Spec Grav (test code = UA Spec 1.029 1 Grav) [facility] AEPCJ4777-35-79 22:56:00 Test Item Value Reference Range Interpretation Comments UA pH (test code = UA pH) 6.0 1 5.0-8.0 [facility] PGZKM6266-47-04 22:56:00Negative *NA*(12/01/19 4:56 PM) [facility] EGTTY8782-03-28 22:56:00Negative (12/01/19 4:56 PM) [facility] AWIAH0590-32-30 22:56:00<1.0[facility]UR[facility] AND SHXUT9666-07-13 22:56:00Negative (12/01/19 4:56 PM)[facility] EGLMH7397-34-87 22:56:00Negative (12/01/19 4:56 PM)[facility] DPJFS1574-48-09 22:56:002[facility]annURINE AND KZCWX8718-05-35 22:56:001 [facility] WjkhhnrZZISQTHTVI8226-49-76 14:58:00 Test Item Value Reference Range Interpretation Comments PTT (test code = PTT) 57.4 s 22.9-35.8 [facility] TvmwboiCVDZWMLGLP5024-85-17 06:39:00 Test Item Value Reference Range Interpretation Comments PTT (test code = PTT) 81.3 s 22.9-35.8 [facility] HermannMOLECULAR OVYBZIDNXG5650-51-56 06:39:00Negative (12/01/19 12:39 AM)[facility] HermannCHEM ZIKOD7903-20-49 22:28:001.2[facility] HermannHEMATOLOGY 2019-11-29 22:28:00 Test Item Value Reference Range Interpretation Comments ACT (TEG) Rapid (test code = ACT (TEG) 82 s 86-118 Rapid) [facility] GjqigcdOLDOBKJMWY8780-43-81 22:28:00 Test Item Value Reference Range Interpretation Comments Split Point Rapid (test code = Split 0.2 min Point Rapid) [facility] XrqohtwKFKESAKERM3233-72-31 22:28:00 Test Item Value Reference Range Interpretation Comments R-time Rapid (test code = R-time 0.3 min 0.4-0.7 Rapid) [facility] EunimpiDIPZYHMAYO0469-89-24 22:28:00 Test Item Value Reference Range Interpretation Comments K-time Rapid (test code = K-time 0.8 min 0.6-2.3 Rapid) [facility] LtrgoeoJAARQLUAZK3881-12-52 22:28:00 Test Item Value Reference Range Interpretation Comments Angle Rapid (test code = Angle 82 degrees 64-80 Rapid) [facility] SdipyigEVZTBEZWKJ3908-93-86 22:28:00 Test Item Value Reference Range Interpretation Comments Max Amplitude Rapid (test code = Max 76 mm 52-71 Amplitude Rapid) [facility]ballYsblfpvUQTXZGZQHJ9945-45-69 22:28:0015.8[facility] HermannHEMATOLOGY 2019-11-29 22:28:000.0[facility]annBLOOD BANK ODGVYLW4803-24-57 09:49:00 Negative (11/29/19 3:49 AM)[facility] HermannCHEM PCRXP8056-51-21 05:53:003.3 [facility]annCHEM GRBVJ1725-03-23 05:53:002.5[facility] HermannPARATHYROID XTTSUFI8720-18-23 05:53:001.01[facility] HermannPARATHYROID DPKGUKV8217-12-68 05:53:001.04[facility]UR[facility] AND GTIHT7135-50-02 16:45:00Yellow *NA*(11/26/19 10:45 AM)[facility]UR[facility] AND ZRJLP2329-03-71 16:45:00Marked *ABN*(11/26/19 10:45 AM)[facility] AND EIRQB9668-26-98 16:45:00 Test Item Value Reference Range Interpretation Comments UA Spec Grav (test code = UA Spec 1.027 1 Grav) [facility] KGBAU1262-39-00 16:45:00 Test Item Value Reference Range Interpretation Comments UA pH (test code = UA pH) 5.0 1 5.0-8.0 [facility]UR[facility] AND YGXJQ4549-45-04 16:45:00Negative *NA*(11/26/19 10:45 AM)[facility] IABCC6806-85-34 16:45:00Negative (11/26/19 10:45 AM) [facility] LGZHB4405-23-96 16:45:00<1.0[facility]annUR[facility] AND ZMEQN8483-11-76 16:45:00Negative (11/26/19 10:45 AM)[facility] LENFU8387-04-52 16:45:00Negative (11/26/19 10:45 AM)[facility]UR[facility] AND SSSXB9845-47-86 16:45:005[facility] HermannCHEM HTNBP4935-89-91 06:32:000.50 [facility] HermannCHEM VTIPF7802-22-33 06:32:003.7[facility] HermannPARATHYROID SOMXHKF4711-36-90 06:32:001.07[facility] HermannPARATHYROID PWNLCFC0575-11-25 06:32:001.11[facility] AuyhyekDTEPWNBCBT8469-33-98 06:15:00Normal (11/24/19 12:15 AM)[facility] GuugtmoYOTGSWGSJX7350-67-21 06:15:00Normal (11/24/19 12:15 AM) [facility] HermannAMPICILLIN+SULBACTAM:SUSC:PT:ISOLATE:ORDQN:GNN7567-59-78 18:33:00Staphylococcus aureusMemorial WuqwsqkSNAWKGXOHM8969-07-71 06:00:00Normal (11/22/19 12:00 AM)[facility] ZuupdtjAWHRBQACDC4097-24-75 06:00:00Normal (11/22/19 12:00 AM)[facility] HermannCHEM CJUVS2118-30-20 05:01:001.38[facility] MVTSZHGXFI3751-84-59 08:49:007.7[facility] PkyligfJLLSPWAIZS7386-96-95 08:49:12990 [facility] HermannCHEM CWZNQ8111-31-61 05:13:002.37[facility] HermannCHEM PANEL 2019-11-20 05:13:001.1[facility] VtmutpmDTPMFHIXQK2916-61-55 18:41:0043[facility] DrvfmsaWAZLCYKXPG3893-57-15 18:41:0088[facility] DhbbjfhEPMAHBFZYB5406-56-55 18:41:33915.0[facility] BzwrayeEEGONNLOJT3104-15-36 18:41:00Negative (11/17/19 12:41 PM)[facility] RjvdxlzIUKZXTOXZH8970-20-91 18:41:0092Mem[facility] HermannIMMUNOLOGY 2019-11-17 18:41:00<0.2[facility] SwanacbWLIDSWENFX0035-31-99 18:41:00<0.2 [facility] ZgaslynFVUVBUAIBD5521-49-42 18:41:00Negative (11/17/19 12:41 PM)[facility] QorqdjoLOMOOLLCWK9982-32-47 18:41:00Negative (11/17/19 12:41 PM)[facility] JUPODUAXOM7995-93-08 18:41:00Negative (11/17/19 12:41 PM)[facility] XBHZWMKZJV6479-63-53 18:41:00Negative (11/17/19 12:41 PM)[facility] HermannCHEM JNYEM8257-06-55 10:50:00 Test Item Value Reference Range Interpretation Comments B/C Ratio (test code = B/C Ratio) 20 1 6-25 [facility] HermannCHEM QPLJR7416-89-18 10:50:003.0[facility] HermannCHEM PANEL 2019-11-17 10:50:00 Test Item Value Reference Range Interpretation Comments A/G Ratio (test code = A/G Ratio) 0.9 1 0.7-1.6 [facility] [id number] 10:50:005.6[facility] PANEL 2019-11-17 10:50:002.6[facility] [id number] 10:50:0083[facility] [id number] 10:50:0082[facility] [id number] 10:50:0040[facility] [id number] 10:50:000.5[facility] [id number] 10:50:005.7[facility] [id number] 10:50:002.5 [facility] [id number] 10:50:0088[facility] PANEL 2019-11-17 10:50:0084[facility] [id number] 10:50:0037[facility] [id number] 10:50:000.5[facility] [id number] 10:50:000.1[facility] [id number] 10:50:000.4[facility] [id number] 10:50:003.2[facility] [id number] 10:50:00 Test Item Value Reference Range Interpretation Comments A/G Ratio (test code = A/G Ratio) 0.8 1 0.7-1.6 [facility] [id number] 03:15:000.00[facility]annIMMUNOLOGY 2019-11-16 00:39:00Negative *NA*(11/15/19 6:39 PM)[facility]EN 2019-11-15 22:34:00Negative *NA*(11/15/19 4:34 PM)[facility] 2019-11-15 22:34:00Negative *NA*(11/15/19 4:34 PM)[facility] 2019-11-15 22:34:00Positive *ABN*(11/15/19 4:34 PM)[facility] 2019-11-15 22:34:00Negative *NA*(11/15/19 4:34 PM)[facility] 2019-11-15 22:34:00Negative *NA*(11/15/19 4:34 PM)[facility] 2019-11-15 22:34:00Negative *NA*(11/15/19 4:34 PM)[facility] 2019-11-15 22:34:00Negative *NA*(11/15/19 4:34 PM)[facility] 2019-11-15 22:34:00See Note (11/15/19 4:34 PM)[facility] ST[facility]OL 2019-11-15 22:34:00Yellow *NA*(11/15/19 4:34 PM)[facility] 2019-11-15 22:34:00Slight *ABN*(11/15/19 4:34 PM)[facility] 2019-11-15 22:34:00 Test Item Value Reference Range Interpretation Comments UA Spec Grav (test code = UA Spec 1.047 1 Grav) [facility] [id number] 22:34:00 Test Item Value Reference Range Interpretation Comments UA pH (test code = UA pH) 5.0 1 5.0-8.0 [facility] [id number] 22:34:00Negative (11/15/19 4:34 PM) [facility] [id number] 22:34:00Negative *NA*(11/15/19 4:34 PM) [facility] [id number] 22:34:00Negative *NA*(11/15/19 4:34 PM) [facility] [id number] 22:34:00Negative *NA*(11/15/19 4:34 PM) [facility] [id number] 22:34:00Moderate *ABN*(11/15/19 4:34 PM) [facility] [id number] 22:34:00<1.0[facility] [id number] 22:34:00Negative (11/15/19 4:34 PM)[facility] [id number] 22:34:00Negative (11/15/19 4:34 PM)[facility] ST[facility]OL 2019-11-15 22:34:00None Seen (11/15/19 4:34 PM)[facility] 2019-11-15 22:34:006[facility] [id number] 22:34:008[facility]
[2021-04-10 16:32] LABS: Absolute Lymphocytes (CBC) 1.1 K/uL (0.7-4.9); Basophils % 0.3 % (0-1.3); Hematocrit 46.3 % (39.6-49.0); Lymphocytes % 13.8 % (15.3-44.8); MPV 8.7 fL (7.6-11.3); RBC Red Blood Cell Count 5.27 M/uL (4.33-5.43)
[2021-04-10 16:39] LABS: Barbiturates NEGATIVE (NEGATIVE); Benzodiazepines NEGATIVE (NEGATIVE); Cocaine NEGATIVE (NEGATIVE); METHAMPHETAM NEGATIVE (NEGATIVE); Methadone NEGATIVE (NEGATIVE); Opiates NEGATIVE (NEGATIVE); Phencyclidine NEGATIVE (NEGATIVE); THC Cannibis NEGATIVE (NEGATIVE)
[2021-04-10 16:42] LABS: Urine Blood Trace-intact (Negative); Urine Glucose Negative (Negative); Urine Protein 2+ (Negative); Urine Specific Gravity 1.025 (1.005-1.030)
[2021-04-10 16:46] LABS: Protime INR 0.97
[2021-04-10 16:58] LABS: ALT/SGPT 32 U/L (12-78); AST/SGOT 17 U/L (15-37); Albumin 4.5 g/dL (3.4-5.0); Alkaline Phosphatase 65 U/L (45-117); BUN Blood Urea Nitrogen 12 mg/dL (7-18); Bicarbonate 25 mmol/L (21-32); Bilirubin Direct 0.1 mg/dL (0-0.2); Bilirubin Total 0.5 mg/dL (0.2-1.0); Glucose Level 120 mg/dL (74-106); Potassium 3.6 mmol/L (3.5-5.1); Protein, Total 8.2 g/dL (6.4-8.2); Sodium Level 140 mmol/L (136-145)
--- NOTE | 2021-04-10 17:54 | RAD REPORT ---
EXAM DESCRIPTION: CT - Head Brain Wo Cont - 04/10/2021 5:14 pm CLINICAL HISTORY: SEIZURE COMPARISON: Head C Spine Cap W Con dated 11/15/2019 TECHNIQUE: Axial 5 mm thick images of the head were obtained without IV contrast. All CT scans are performed using dose optimization technique as appropriate and may include automated exposure control or mA/KV adjustment according to patient size. FINDINGS: No intracranial hemorrhage is present. No midline shift is seen. Extensive gliosis is pres ent involving most of the right temporal lobe and significant portions of the lateral right frontal l obe and into the parietal lobe as well. There is a 6 centimeter cystic cavity that probably communica freddy with the right lateral ventricle. Ventricle on the right has enlarged in proportion to the volume loss. No measurable atrophy. An acute cortical based infarction is not identified. No singular findi ngs seen as a source for seizure. Postsurgical changes are noted to the right cranial vault. Mastoid air cells and visualized portions of the paranasal sinuses are clear. No acute bony findings. IMPRESSION: Extensive gliosis changes are present in the right temporal lobe and in the lateral aspe cts of the frontal and parietal lobes. A 6 centimeter cystic cavity is present within this large area of encephalomalacia. Findings are new from November 2019 but are not acute. Hemorrhage, mass or other acute intracranial process
--- NOTE | 2021-04-10 19:22 | ER ---
Nurse's Notes [facility] Name: Rafael Neumann Age: 40 yrs Sex: Male : 1980 Arrival Date: 04/10/2021 Time: 15:10 Bed 3 Private MD: Diagnosis: Epilepsy and recurrent seizures Presentation: 04/10 15:10 Chief complaint: EMS states: WITNESSED SZ AT HOME. PT INITIALLY COMBATIVE AND REFUSING bp TRANSPORT. Coronavirus screen: At this time, the client does not indicate any symptoms associated with coronavirus-19. Ebola Screen: No symptoms or risks identified at this time. Initial Sepsis Screen: Does the patient meet any 2 criteria? No. Patient's initial sepsis screen is negative. Does the patient have a suspected source of infection? No. Patient's initial sepsis screen is negative. Risk Assessment: Do you want to hurt yourself or someone else? Patient reports no desire to harm self or others. Onset of symptoms was April 10, 2021 at 14:30. Care prior to arrival: Medication(s) given: 2 MG ATIVAN IV initiated. 18 GA, in the right antecubital area. 15:10 Method Of Arrival: EMS: [facility] bp 15:10 Acuity: LORIE 3 bp Triage Assessment: 15:13 General: Appears in no apparent distress. comfortable, Behavior is appropriate for age, bp uncooperative. Pain: Denies pain. EENT: No deficits noted. Neuro: Level of Consciousness is awake, alert, obeys commands, Oriented to Appropriate for age. Cardiovascular: No deficits noted. Respiratory: No deficits noted. GI: No signs and/or symptoms were reported involving the gastrointestinal system. : No signs and/or symptoms were reported regarding the genitourinary system. Derm: No deficits noted. Musculoskeletal: No deficits noted. Historical: - Allergies: 15:13 Ritalin; bp 15:13 Tape; bp - Home Meds: 15:13 baclofen 10 mg Oral tab 1 tab 3 times per day [Active]; amlodipine 5 mg tab 1 tab once bp daily [Active]; losartan potassium 25 MG 1 tab daily [Active]; - PMHx: 15:13 CVA; Hypertension; TBI; bp - Immunization history:: Adult Immunizations unknown. - Social history:: Smoking status: unknown. Screenin:15 Abuse screen: Denies threats or abuse. Denies injuries from another. Nutritional bp screening: No deficits noted. Tuberculosis screening: No symptoms or risk factors identified. Fall Risk Fall in past 12 months (25 points). Secondary diagnosis (15 points) seizures, IV access (20 points). Ambulatory Aid- None/Bed Rest/Nurse Assist (0 pts). Gait- Normal/Bed Rest/Wheelchair (0 pts) Mental Status- Oriented to own ability (0 pts). Total Hernandez Fall Scale indicates High Risk Score (45 or more points). Fall prevention measures have been instituted. Side Rails Up X 2 Placed Close to Nursing Station Frequent Obs/Assessments Occuring Family Present and informed to notify staff if the need to leave the bedside As available patient and family educated on Fall Prevention Program and Strategies. Assessment: 15:15 General: SEE TRIAGE NOTE. bp 16:31 Reassessment: PT AOx4, AT BASELINE, PER FAMILY Patient states symptoms have improved. bp Neuro: Level of Consciousness is awake, alert, obeys commands, Oriented to Appropriate for age. 18:30 Reassessment: Patient appears in no apparent distress at this time. Patient and/or bp family updated on plan of care and expected duration. Pain level reassessed. Patient is alert, oriented x 3, equal unlabored respirations, skin warm/dry/pink. PT EATING, PO CHALLENGE SUCCESSFUL. DISPO PENDING. 19:15 Reassessment: PT D/C HOME AMBULATORY WITH FAMILY, DX WITH SEIZURE. bp Vital Signs: 16:31 BP 134 / 98; Pulse 74; Resp 17; Pulse Ox 99% ; bp 17:30 BP 116 / 83; Pulse 86; Resp 17; Pulse Ox 97% ; bp 18:30 BP 121 / 85; Pulse 82; Resp 17; Temp 98; Pulse Ox 97% ; bp Jamal Coma Score: 15:13 Eye Response: spontaneous(4). Verbal Response: oriented(5). Motor Response: obeys bp commands(6). Total: 15. ED Course: 15:10 Patient arrived in ED. bp 15:12 Triage completed. bp 15:13 Arm band placed on. bp 15:15 Sam Jones, RN is Primary Nurse. bp 15:15 Patient has correct armband on for positive identification. Bed in low position. Call bp light in reach. Side rails up X2. Adult w/ patient. 15:15 Inserted saline lock: 18 gauge in right forearm, using aseptic technique. bp 15:22 Ventura Sparrow PA is PHCP. [facility] 15:22 Chapincito Richey MD is Attending Physician. jhon 15:30 Seizure precautions initiated. bp 16:47 EKG done, by ED staff, reviewed by Ventura MORENO. [facility] 17:14 CT Head Brain wo Cont In Process Unspecified. EDMS 19:15 Patient has correct armband on for positive identification. Bed in low position. Call bp light in reach. Side rails up X2. 19:19 No provider procedures requiring assistance completed. IV discontinued, intact, bp bleeding controlled, No redness/swelling at site. Pressure dressing applied. Administered Medications: No medications were administered Outcome: 19:15 Discharged to home bp 19:15 Condition: stable 19:15 Discharge instructions given to patient, family, Instructed on discharge instructions, follow up and referral plans. Demonstrated understanding of instructions, follow-up care. 19:21 Discharge ordered by . [facility] 19:32 Patient left the ED. ea Signatures: Dispatcher [employer] EDND Ventura Sparrow PA PA [facility] Sheri Whitley [facility] Anne Rowland, RN RN Sam Wagner, RN RN bp
--- NOTE | 2021-04-10 19:22 | EDPHYS ---
Physician Documentation [facility] Name: Rafael Neumann Age: 40 yrs Sex: Male : 1980 Arrival Date: 04/10/2021 Time: 15:10 Bed 3 Private MD: Chapincito Jaquez HPI: 04/10 15:22 This 40 yrs old Male presents to ER via EMS with complaints of Seizure. jmm 15:22 The patient presents after having a single isolated seizure, that lasted 4 minute(s). jmm Character of seizure(s): Loss of consciousness: the patient experienced loss of consciousness, Motor activity: generalized, Incontinence: none, Apnea: the patient did not experience apnea, Circulation: the patient did not experience evidence of pulse disturbance. Seizure onset: just prior to arrival. Seizure Hx: the patient has no previous seizure history. Associated injury: The patient did not suffer any apparent associated injury. EMS care: Ativan, IV. Current symptoms: confusion. The patient has not experienced similar symptoms in the past. Historical: - Allergies: 15:13 Ritalin; bp 15:13 Tape; bp - Home Meds: 15:13 baclofen 10 mg Oral tab 1 tab 3 times per day [Active]; amlodipine 5 mg tab 1 tab once bp daily [Active]; losartan potassium 25 MG 1 tab daily [Active]; - PMHx: 15:13 CVA; Hypertension; TBI; bp - Immunization history:: Adult Immunizations unknown. - Social history:: Smoking status: unknown. ROS: 15:22 Constitutional: Negative for fever, chills, and weight loss, Cardiovascular: Negative jmm for chest pain, palpitations, and edema, Respiratory: Negative for shortness of breath, cough, wheezing, and pleuritic chest pain. 15:22 Neuro: Positive for seizure activity. 15:22 All other systems are negative. Exam: 15:22 Constitutional: This is a well developed, well nourished patient who is awake, alert, jmm and in no acute distress. Head/Face: atraumatic. Eyes: EOMI, no conjunctival erythema appreciated ENT: Moist Mucus Membranes Neck: Trachea midline, Supple Chest/axilla: Normal chest wall appearance and motion. Cardiovascular: Regular rate and rhythm. No edema appreciated Respiratory: Normal respirations, no respiratory distress appreciated Abdomen/GI: Non distended, soft Back: Normal ROM Skin: General appearance color normal MS/ Extremity: Moves all extremities, no obvious deformities appreciated, no edema noted to the lower extremities Neuro: Awake and alert, normal gait Psych: Behavior is normal, Mood is normal, Patient is cooperative and pleasant Vital Signs: 16:31 BP 134 / 98; Pulse 74; Resp 17; Pulse Ox 99% ; bp 17:30 BP 116 / 83; Pulse 86; Resp 17; Pulse Ox 97% ; bp 18:30 BP 121 / 85; Pulse 82; Resp 17; Temp 98; Pulse Ox 97% ; bp Jamal Coma Score: 15:13 Eye Response: spontaneous(4). Verbal Response: oriented(5). Motor Response: obeys bp commands(6). Total: 15. MDM: 15:22 Patient medically screened. maverick 19:17 Data reviewed: vital signs, nurses notes. Counseling: I had a detailed discussion with alexis the patient and/or guardian regarding: the historical points, exam findings, and any diagnostic results supporting the discharge/admit diagnosis, lab results, radiology results, the need for outpatient follow up, to return to the emergency department if symptoms worsen or persist or if there are any questions or concerns that arise at home. ED course: Patient is currently alert and non toxic in appearance in the ED. Imaging studies are negative for an acute process. patient is advised to follow up with neuro for further evaluation. family/patient understood and agrees with the plan of care. . 04/10 15:22 Order name: Acetaminophen [facility] 04/10 15:22 Order name: Basic Metabolic Panel [facility] 04/10 15:22 Order name: CBC with Diff; Complete Time: 16:52 [facility] 04/10 15:22 Order name: ETOH Level; Complete Time: 16:58 [facility] 04/10 15:22 Order name: Hepatic Function; Complete Time: 17:10 [facility] 04/10 15:22 Order name: PT-INR; Complete Time: 16:57 [facility] 04/10 15:22 Order name: Ptt, Activated; Complete Time: 16:57 [facility] 04/10 15:22 Order name: Salicylate; Complete Time: 17:46 [facility] 04/10 15:22 Order name: Urine Drug Screen; Complete Time: 16:52 [facility] 04/10 15:22 Order name: EKG; Complete Time: 15:23 [facility] 04/10 15:23 Order name: Acetaminophen Level; Complete Time: 17:10 [facility] 04/10 15:23 Order name: Basic Metabolic Panel; Complete Time: 17:10 [facility] 04/10 15:33 Order name: CT Head Brain wo Cont; Complete Time: 17:59 [facility] 04/10 16:42 Order name: Urine Dipstick-Ancillary; Complete Time: 16:52 [facility] 04/10 15:22 Order name: EKG - Nurse/Tech; Complete Time: 16:51 [facility] 04/10 15:22 Order name: IV Saline Lock; Complete Time: 16:30 [facility] 04/10 15:22 Order name: Labs collected and sent; Complete Time: 16:30 [facility] 04/10 15:22 Order name: Suicide Screening ([place]); Complete Time: 16:30 [facility] 04/10 15:22 Order name: Urine Dipstick-Ancillary (obtain specimen); Complete Time: 16:51 [facility] Administered Medications: No medications were administered Disposition: 04/11 07:32 Co-signature as Attending Physician, Chapincito Richey MD I agree with the assessment and [facility] plan of care. Disposition: 04/10/21 19:21 Discharged to Home. Impression: Epilepsy and recurrent seizures. - Condition is Stable. - Discharge Instructions: Seizure, Adult. - Medication Reconciliation Form, Thank You Letter, Antibiotic Education, Prescription Opioid Use form. - Follow up: Private Physician; When: 2 - 3 days; Reason: Recheck today's complaints, Continuance of care, Re-evaluation by your physician. Signatures: Dispatcher [employer] Chapincito Ortiz MD MD cha Mickail, Joel, PA PA jmm Antunez, Elena, RN RN Sam Wagner, RN RN bp Corrections: (The following items were deleted from the chart) 04/10 19:32 19:21 04/10/2021 19:21 Discharged to Home. Impression: Epilepsy and recurrent seizures. ea Condition is Stable. Forms are Medication Reconciliation Form, Thank You Letter, Antibiotic Education, Prescription Opioid Use. Follow up: Private Physician; When: 2 - 3 days; Reason: Recheck today's complaints, Continuance of care, Re-evaluation by your physician. jhon
[2021-04-10 19:43] VITALS: O2SAT 97
[2021-04-10 19:44] VITALS: BP 121/85; TEMP 98
--- NOTE | 2021-04-13 12:05 | EKG ---
Test Date: 2021-04-10 Test Time: 16:45:16 Teletype Technician: DAYAMI MEASUREMENT RESULTS: Intervals: Rate: 88 OR: 164 QRSD: 96 QT: 346 QTc: 418 [place]: P: 51 OR: 164 QRS: 32 T: 4 INTERPRETIVE STATEMENTS: Normal sinus rhythm Nonspecific T wave abnormality Abnormal ECG No previous ECG available for comparison Electronically Signed On 04-13-21 11:55:06 CDT by Jose Franco
== END 2021-04-10 19:32 | disposition home or self-care (01) ==
LOC: ER 15:09
DX: G40.802 Other epilepsy, not intractable, without status epilepticus (principal); I10 Essential (primary) hypertension; Z87.820 Personal history of traumatic brain injury; Z88.8 Allergy status to other drugs, medicaments and biological substances; Z91.048 Other nonmedicinal substance allergy status
CPT/HCPCS: 36415; 70450; 80048; 80076; 80307; 80320; 80329; 81003; 85025; 85610; 85730; 93005; 99284